=== PATIENT | female | born 1960 | race Caucasian/White ===

== ENCOUNTER 2019-09-12 13:41 | Outpatient (CLI) | payer MEDICARE, MEDICAID, SELFPAY ==
--- NOTE | ~2019-09-12 | CT_ITS ---
EXAMINATION: CT soft tissue neck wo con DATE: 09/12/2019 14:22 INDICATION: Right neck mass. TECHNIQUE: Computed tomography (CT) of the neck was performed without intravenous contrast. Automated exposure control and iterative reconstruction technique were employed. The dose-length product was 4 82.37 mGy-cm. COMPARISON: None FINDINGS: The lungs demonstrate mosaic attenuation, likely small airways disease. There is a 2.5 x 2. 1 cm mass in the superficial right parotid gland. There is a 1.4 x 1.1 cm mass in the superficial lef t parotid gland. There are no pathologically enlarged lymph nodes. There is a multinodular goiter heather t extends into the superior mediastinum. There is severe cervical spondylosis. IMPRESSION: 1. Bilateral parotid masses, right larger than left. The differential diagnosis includes benign mixed tumor, Warthin tumor, and less likely beatrice metastatic disease or primary malignancy. Ultrasound-jose angel ded fine-needle aspiration is recommended. Reviewed, dictated and finalized at location A. IMPRESSION: 1. Bilateral parotid masses, right larger than left. The differential diagnosis includes benign mixed tumor, Warthin tumor, and less likely beatrice metastatic d isease or primary malignancy. Ultrasound-guided fine-needle aspiration is recom mended.
== END 2019-09-12 13:42 | disposition home or self-care (01) ==
LOC: ANHIMG 13:43
PROVIDERS: PCP Family Medicine; Visit Provider Otolaryngology
DX: K11.8 Other diseases of salivary glands (principal)
CPT/HCPCS: 70490

== ENCOUNTER 2019-09-27 04:24 | Outpatient (CLI) | payer MEDICARE, MEDICAID, SELFPAY ==
[2019-09-27 18:08] LABS: SARS-CoV-2 RNA PCR Negative
== END 2019-09-27 04:25 | disposition home or self-care (01) ==
LOC: ANHCOVIDDT 04:24
PROVIDERS: PCP Family Medicine; Visit Provider Otolaryngology
DX: Z01.812 Encounter for preprocedural laboratory examination (principal); Z11.59 Encounter for screening for other viral diseases
CPT/HCPCS: 87635; C9803; U0003

== ENCOUNTER 2019-09-27 08:53 | Outpatient (CLI) | payer MEDICARE, MEDICAID, SELFPAY ==
--- NOTE | 2019-09-27 09:21 | ECG_ITS ---
Measurements Intervals [place] Rate: 53 P: 35 NE: 198 QRS: 20 QRSD: 89 T: 46 QT: 432 QTc: 406 Interpretive Statements SINUS BRADYCARDIA LOW QRS VOLTAGE IN PRECORDIAL LEADS BORDERLINE ECG Electronically Signed On 09-27-2019 13:14:24 CDT by Ron Berman D.O.
[2019-09-27 09:26] LABS: Blood Urea Nitrogen 14 mg/dL (7-17); Calcium 9.1 mg/dL (8.4-10.2); Carbon Dioxide 27 mmol/L (22-30); Chloride 105 mmol/L (98-107); Estimated Glomerular Filt Rate > 60; Glucose 158 mg/dL (65-105); Potassium 4.1 mmol/L (3.4-5.0); Sodium 139 mmol/L (137-145)
== END 2019-09-27 08:54 | disposition home or self-care (01) ==
PROVIDERS: PCP Family Medicine; Visit Provider Anesthesiology
DX: E11.9 Type 2 diabetes mellitus without complications (principal); I10 Essential (primary) hypertension; R94.31 Abnormal electrocardiogram [ECG] [EKG]
CPT/HCPCS: 36415; 80048; 87635; 93005; C9803; U0003

== ENCOUNTER 2019-09-30 01:03 | Day surgery (SDC) | payer MEDICARE, MEDICAID, SELFPAY ==
[2019-09-22 13:38] VITALS: BMI 47.5
--- NOTE | 2019-09-23 06:31 | PM.HPGS ---
History of Present Illness History of Present Illness Consent: Risks, benefits, and alternatives have been discussed and questions answered. Patient agrees to proceed with procedure. Chief complaint: right parotid mass Narrative: Sena Yo is a 59 year old female with a right parotid mass she comes in for excision of the parotid mass with facial nerve dissection Review of Systems Review of Systems: All systems reviewed & are unremarkable except as noted in HPI and below PMFSH Social History Social History Smoking packs per day: 0.5 Smoking cigarettes per day: 10.0 Smoking status: Current every day smoker Tobacco type: cigarettes Alcohol intake: never Substance use: never Meds Home Medications and Allergies Home Medications Medication Instructions Recorded Confirmed Type glipizide 5 mg tablet 10 mg PO DAILY tablet 06/12/19 09/22/19 History lisinopril 10 1 tablet PO DAILY 06/12/19 09/22/19 History mg-hydrochlorothiazide 12.5 mg tablet metformin 500 mg tablet 500 mg PO DAILY 06/12/19 09/22/19 History metoprolol tartrate 25 mg tablet 25 mg PO BID tablet 06/12/19 09/22/19 History rosuvastatin 5 mg tablet 5 mg PO DAILY 06/12/19 09/22/19 History venlafaxine 37.5 mg tablet 37.5 mg PO DAILY 06/12/19 09/22/19 History Allergies Allergy/AdvReac Type Severity Reaction Status Date / Time bacitracin AdvReac Unknown Hives / Verified 09/22/19 13:39 Red Face neomycin AdvReac Unknown Hives / Verified 09/22/19 13:39 Red Face polymyxin B AdvReac Unknown Hives / Verified 09/22/19 13:39 Red Face Assessment and Plan Additional Plan Plan is a right parotidectomy removal of the mass and facial nerve dissection she has when all the risks and pros and cons of the procedure
--- NOTE | 2019-09-29 12:58 | WPDANESEPPF ---
Anes - Initial Pre Proc Eval Procedure: Operation Date: 09/30/19 10:15 Proposed Procedures p Right Parotidectomy with Facial Nerve Dissection - Jacobo Leyva MD Date/Time: 09/29/19 12:58 Surgeon: Jacobo Leyva MD Pre Op Diagnosis: right parotid mass Patient Data Age: 59 Gender: F Height: 1.75 m Weight: 146.06 kg Allergies Allergy/AdvReac Type Severity Reaction Status Date / Time bacitracin Allergy Unknown Hives / Verified 09/30/19 07:58 Red Face neomycin Allergy Unknown Hives / Verified 09/30/19 07:58 Red Face polymyxin B Allergy Unknown Hives / Verified 09/30/19 07:58 Red Face Home Medications Medication Instructions Recorded Confirmed Type glipizide 5 mg tablet 10 mg PO DAILY tablet 06/12/19 09/22/19 History lisinopril 10 1 tablet PO DAILY 06/12/19 09/22/19 History mg-hydrochlorothiazide 12.5 mg tablet metformin 500 mg tablet 500 mg PO DAILY 06/12/19 09/22/19 History metoprolol tartrate 25 mg tablet 25 mg PO BID tablet 06/12/19 09/22/19 History rosuvastatin 5 mg tablet 5 mg PO DAILY 06/12/19 09/22/19 History venlafaxine 37.5 mg tablet 37.5 mg PO DAILY 06/12/19 09/22/19 History Patient hx anesthesia problems: none Family hx anesthesia problems: none PMFSH Past Medical History Medical History (Updated 09/29/19 @ 12:59 by Cal Kulkarni MD) Asthma Cancer UTERINE CA, s/p Hysterectomy Hyperlipidemia Hypertension Mass of right parotid gland Migraine Morbid obesity with BMI of 45.0-49.9, adult Type 2 diabetes mellitus Surgical History Surgical History H/O knee surgery H/O shoulder surgery H/O total hysterectomy History of cancer surgery Uterine Social History Social History Smoking packs per day: 0.5 Smoking cigarettes per day: 10.0 Smoking status: Current every day smoker Tobacco type: cigarettes Alcohol intake: never Substance use: never Anes - Eval Final PreProcedure Day of Procedure 09/29/19 12:58 Patient weight: morbidly obese Heart: regular rate and rhythm Lungs: clear to auscultation and normal air movement Airway: Mallampati scale class II Neurological: alert and oriented Last oral intake: >/= 8 hours ASA classification: III Emergent: no Anesthetic plan: proceed Anesthesia type and monitoring: general ETT Informed Consent: The patient's anesthetic plan and its attendant risks and benefits were discussed with the patient/family/POA. Questions were solicited and answers provided to the satisfaction of the patient/family/POA.
[2019-09-30] VITALS (15 sets, daily range): BP systolic 90–149; BP diastolic 51–82; PULSE 59–79; RESP 12–20; TEMP 36.2–36.4; O2SAT 91–96
--- NOTE | 2019-09-30 06:09 | WPDHPUPDATE1 ---
History and Physical Update Update Date/Time: 09/30/19 06:09 History and Physical has been reviewed, including an updated exam of the patient. There are NO changes in the patient's condition. Risks, benefits, and alternatives have been discussed and questions answered. Patient agrees to proceed with procedure.
[2019-09-30] MEDS: LACTATED RINGERS 1,000 ML 30 ML IV CONT (08:35)
[2019-09-30 09:41] LABS: Glucose Point of Care 124 (65-105)
[2019-09-30] MEDS: ceFAZolin 3 GM/D5W 100 ML 100 ML IVPB (10:31)
[2019-09-30] MEDS: LIDO 1%/EPINEPHRINE 1:100,000 20 ML VIAL INFILTRATE (11:01)
--- NOTE | 2019-09-30 11:21 | PM.PROC ---
Procedure Note - Detailed Date of procedure: 09/30/19 Pre-op diagnosis: right parotid mass Surgeon: Jacobo Leyva MD patient was prepped and drilling general anesthesia an incision was made underneath the angle of the mandible after injecting with xylocaine with adrenaline dissection carried down through the fascia large mass was in the tail of the parotid removed by sharp dissection with the LigaSure hemostasis was obtained with bipolar electrocautery and closed in layers with chromic a Jenny drain placed inhibitor and placed in and Monocryl suture
--- NOTE | 2019-09-30 11:59 | SUR.PHASEI ---
PT ABLE TO SMILE SYMMETRICAL. TONGUE MIDLINE, SPEECH CLEAR. DENIES PAIN AT THIS TIME.
[2019-09-30 12:06] LABS: Glucose Point of Care 133 (65-105)
--- NOTE | 2019-09-30 12:26 | SUR.PHASEI ---
SAO2 DROPS TO 87%. HOB ELEVATED TO UPRIGHT POSITION. PT ABLE TO TAKE SLOW DEEP BREATHS. O2 2L NC APPLIED
[2019-09-30] MEDS: IBUPROFEN 400 MG TABLET 800 MG PO (15:06)
--- NOTE | 2019-09-30 15:13 | SUR.PHASEII ---
Dr. Leyva notified about no ointment going home with patient d/t allergies. He was ok with her going home sating at 90-92% RA.
== END 2019-09-30 16:01 | disposition home or self-care (01) ==
PROVIDERS: PCP Family Medicine; Visit Provider Otolaryngology
PROC: (CPT 42410; principal; 2019-09-30 10:15)
DX: D11.0 Benign neoplasm of parotid gland (principal); I10 Essential (primary) hypertension; E78.5 Hyperlipidemia, unspecified; E11.9 Type 2 diabetes mellitus without complications; J45.909 Unspecified asthma, uncomplicated; Z85.42 Personal history of malignant neoplasm of other parts of uterus; Z79.84 Long term (current) use of oral hypoglycemic drugs; F17.210 Nicotine dependence, cigarettes, uncomplicated; E66.01 Morbid (severe) obesity due to excess calories; Z68.42 Body mass index [BMI] 45.0-49.9, adult
CPT/HCPCS: 42410; 88305; 88307; A9270; J0131; J0330; J0690; J2250; J2405; J2704; J3010; J7120

== ENCOUNTER 2020-06-16 16:47 | Emergency (ER) | payer MEDICARE, MEDICAID, SELFPAY ==
[2020-06-16 17:14] LABS: Basophils Absolute Auto 0.05 K/mm3 (0.00-0.10); Basophils Percent Auto 0.5 % (0.0-1.0); Eosinophils Absolute Auto 0.22 K/mm3 (0.02-0.50); Eosinophils Percent Auto 2.3 % (1.0-6.0); Immature Granulocyte Absolute 0.03 K/mm3 (0.00-0.00); Immature Granulocyte Percent A 0.3 % (0.0-0.0); Lymphocytes Absolute Auto 3.54 K/mm3 (1.10-4.50); Lymphocytes Percent Auto 37.3 % (18.0-42.0); Mean Corpuscular HGB Conc 33.3 g/dL (32.0-36.0); Mean Corpuscular Volume 86.9 fL (78.0-102.0); Mean Platelet Volume 9.6 fl (9.2-11.8); Monocytes Absolute Auto 0.52 K/mm3 (0.10-0.90); Monocytes Percent Auto 5.5 % (2.0-11.0); Neutrophils Absolute Auto 5.1 K/mm3 (1.7-7.2); Neutrophils Percent Auto 54.1 % (50.0-70.0); Platelet Count Result 210 K/mm3 (150-420); Red Blood Count 5.18 M/mm3 (4.20-5.40); Red Cell Distribution Width 13.4 % (11.6-14.4); White Blood Count 9.5 K/mm3 (4.8-10.8)
[2020-06-16 17:15] LABS: Add Urine Microscopic? YES; Appearance Urine Clear (Clear); Bilirubin Urine Negative (Negative); Blood Urine Negative (Negative); Color Urine Yellow (Yellow); Glucose Urine UA Trace (Negative); Ketones Urine Negative (Negative); Leukocyte Esterase Ur Negative (Negative); Nitrate Urine Negative (Negative); Protein Urine Negative (Negative); Specific Grav Ur >= 1.030 (1.010-1.020); pH Urine 5.5 (5.0-8.0)
[2020-06-16 17:19] LABS: Bacteria Urine Trace /hpf; RBC Urine None seen /hpf (0-2); Squamous Epithelial Cell Urine Moderate /hpf (Few); WBC Urine None seen /hpf (0-3)
[2020-06-16] MEDS: ONDANSETRON HCL ODT 4 MG TABLET PO (17:20)
[2020-06-16] MEDS: KETOROLAC (*BKC) 60 MG/2 ML VIAL IM (17:21)
[2020-06-16 17:25] VITALS: BP 142/59; PULSE 64; RESP 20; TEMP 36.3; O2SAT 96
[2020-06-16 17:34] LABS: Lactic Acid Reflex 2.1 mmol/L (0.4-2.0)
[2020-06-16 17:41] LABS: Alanine Aminotransferase 15 U/L (14-59); Albumin Level 3.3 g/dL (3.4-5.0); Alkaline Phosphatase 82 U/L (46-116); Anion Gap 8 mmol/L (8-16); Aspartate Amino Transferase 10 U/L (15-37); Bilirubin,Total 0.3 mg/dL (0.00-1.00); Blood Urea Nitrogen 14 mg/dL (7-18); Calcium 8.3 mg/dL (8.5-10.1); Carbon Dioxide 29 mmol/L (21-32); Chloride 103 mmol/L (98-108); Estimated Glomerular Filt Rate 54; Glucose 197 mg/dL (70-99); Lipase 139 U/L (73-393); Osmolality Calculated 295 mOsm/kg (285-295); Potassium 3.6 mmol/L (3.5-5.1); Sodium 140 mmol/L (136-145); Total Protein 6.7 g/dL (6.4-8.2)
--- NOTE | 2020-06-16 18:18 | ED.BACK ---
HPI - Back Pain/Injury General Chief Complaint: Back Pain/Injury Stated Complaint: left side pain Time Seen by Provider: 06/16/20 17:35 Source: patient Mode of arrival: ambulatory Limitations: no limitations History of Present Illness HPI Narrative: Patient comes in after having low back pain and left sacroiliac pain for the last 3-4 days. She has continued to have soreness, most severe in the sacroiliac joint. She comes in because this has not improved. Pain is moderately severe to severe, sharp, and it has been ongoing, not relieved by measures taken at home, ongoing for the last 4 days. Pain was more severe when she lifted her granddaughter. MD elicited complaint: back pain and back injury Onset (ago): day(s) Timing: constant Severity: moderate Quality: sharp Location: lumbar spine (sacroiliac ) Radiation: none Exacerbating factors: movement and lifting Relieving factors: other (rest) Context: while lifting Related Data Home Medications Medication Instructions Recorded Confirmed glipizide 5 mg tablet 10 mg PO DAILY tablet 06/12/19 06/16/20 lisinopril 10 1 tablet PO DAILY 06/12/19 06/16/20 mg-hydrochlorothiazide 12.5 mg tablet metformin 500 mg tablet 500 mg PO DAILY 06/12/19 06/16/20 metoprolol tartrate 25 mg tablet 25 mg PO BID tablet 06/12/19 06/16/20 rosuvastatin 5 mg tablet 5 mg PO DAILY 06/12/19 06/16/20 venlafaxine 37.5 mg tablet 37.5 mg PO DAILY 06/12/19 06/16/20 Allergies Allergy/AdvReac Type Severity Reaction Status Date / Time bacitracin Allergy Unknown Hives / Verified 09/30/19 09:21 Red Face neomycin Allergy Unknown Hives / Verified 09/30/19 09:21 Red Face polymyxin B Allergy Unknown Hives / Verified 09/30/19 09:21 Red Face Review of Systems Constitutional: Constitutional: Reports no additional constitutional complaints Eyes: Eyes: Reports no additional eye complaints ENT: Reports system reviewed and no additional complaints, except as documented Cardiovascular: Cardiovascular: Reports no additional cardiovascular complaints Respiratory: Respiratory: Reports no additional respiratory complaints Gastrointestinal: Gastrointestinal: Reports no additional gastrointestinal complaints Genitourinary: Genitourinary: Reports no additional female genitourinary complaints Musculoskeletal: Musculoskeletal: Reports no additional musculoskeletal complaints Integumentary/Breasts: Skin/Breast: Reports system reviewed and no additional complaints, except as docu Neurologic: Reports system reviewed and no additional complaints, except as documented Endocrine: Endocrine: Reports no additional endocrine complaints Hematologic/Lymphatic: Hematologic/Lymphatic: Reports no additional hematologic/lymphatic complaints Allergic/Immunologic: Allergic/Immunologic: Reports no additional allergic/immunologic complaints PMFSH Past Medical History Medical History Asthma Cancer UTERINE CA, s/p Hysterectomy Hyperlipidemia Hypertension Mass of right parotid gland Migraine Morbid obesity with BMI of 45.0-49.9, adult Type 2 diabetes mellitus Surgical History Surgical History H/O knee surgery H/O shoulder surgery H/O total hysterectomy History of cancer surgery Uterine Family History Family History Grandparent Acute myocardial infarction Cancer Social History Social History Smoking packs per day: 0.5 Smoking cigarettes per day: 10.0 Smoking status: Current every day smoker Tobacco type: cigarettes Alcohol intake: never Substance use: never Gender identity (if verbalized by the patient): Female Exam Const: General: no acute distress Orientation/consciousness: patient oriented x3 HENMT: Head: normal to inspection Face and sinus: normal facial exam Mouth: Y
[2020-06-16 18:30] VITALS: BP 132/59; PULSE 64; RESP 20; TEMP 36.7; O2SAT 96
[2020-06-16 20:11] LABS: Reflex Lactic Acid Yes or No Add Lactic
== END 2020-06-16 18:40 | disposition home or self-care (01) ==
PROVIDERS: Emergency Provider Emergency Medicine; PCP Family Medicine
DX: M54.40 Lumbago with sciatica, unspecified side (principal)
CPT/HCPCS: 36415; 80053; 81001; 83605; 83690; 85025; 96372; 99283; A9270; J1885

== ENCOUNTER 2023-02-19 19:19 | Emergency (ER) | payer OTHER, SELFPAY ==
--- NOTE | ~2023-02-19 | XR_ITS ---
EXAMINATION: XR chest 2V DATE: 02/19/2023 21:17 INDICATION: Shortness of breath TECHNIQUE: PA and lateral views of the chest are obtained. COMPARISON: 11/24/2017 FINDINGS: The lungs are free of acute opacities. No pleural effusion or pneumothorax. The cardiomedia stinal silhouette is normal. There is moderate thoracic spondylosis. There are orthopedic screws in t he left scapula. IMPRESSION: 1. No acute cardiopulmonary abnormality. Reviewed, dictated and finalized at location F. ON REDEMPTION CLERK
--- NOTE | ~2023-02-19 | CT_ITS ---
EXAMINATION: CT soft tissue neck w con DATE: 02/19/2023 21:18 INDICATION: Left-sided neck pain and swelling TECHNIQUE: Computed tomography (CT) of the neck was performed with 75 cc of Omnipaque 350 intravenous contrast. The dose-length product (DLP) was 515.22 mGy-cm. Automated exposure control and iterative reconstruction technique were employed. COMPARISON: 09/12/2019 FINDINGS: There is multinodular goiter of the thyroid extending into the superior mediastinum. There is a 1.6 x 1.0 cm left parotid mass without significant change since the comparison examination. The previously described right parotid mass has been resected. The submandibular glands are symmetric. Th ere is no lymphadenopathy. The vasculature is patent. The airway is unremarkable. There are no osseou s abnormalities. The orbits are unremarkable. Visualized sinuses and mastoid air cells are well aerat ed. There is severe cervical spondylosis. IMPRESSION: 1. Chronic left parotid mass without significant change with differential as previously described inc luding benign mixed tumor, worsening tumor, or less likely metastatic disease or primary malignancy. No new left neck mass identified. 2. Chronic multinodular goiter of the thyroid extending into the superior mediastinum. Reviewed, dictated and finalized at location F. E STRETCHER AND TESTER IMPRESSION: 1. Chronic left parotid mass without significant change with differential as pr eviously described including benign mixed tumor, worsening tumor, or less likel y metastatic disease or primary malignancy. No new left neck mass identified. 2. Chronic multinodular goiter of the thyroid extending into the superior media stinum.
--- NOTE | ~2023-02-19 | CT_ITS ---
EXAMINATION: CT abdomen pelvis w con INDICATION: Generalized abdominal pain TECHNIQUE: Computed tomographic images of the abdomen and pelvis were obtained after the administrati on of 100 cc of Omnipaque 350 intravenous contrast. The dose-length product (DLP) was 1535.40 mGy-cm. Automated exposure control and iterative reconstruction technique were employed. COMPARISON: 11/16/2017 FINDINGS: The lung bases are clear. The heart size is normal. The liver, spleen, pancreas, gallbladde r, and adrenal glands are normal. The kidneys are unremarkable. No pathologically enlarged abdominal or pelvic lymph nodes are identified. No free intraperitoneal gas or evidence of bowel obstruction. C olonic diverticulosis is present without evidence of diverticulitis. The appendix is normal. IMPRESSION: 1. No CT correlate for the patient's symptoms. Reviewed, dictated and finalized at location F. MACHINE OPERATOR
[2023-02-19 19:25] VITALS: BP 147/85; PULSE 76; RESP 14; TEMP 36.7; O2SAT 98
--- NOTE | 2023-02-19 19:26 | ED.ABDPAIN ---
HPI - Abdominal Pain General Chief Complaint: Abdominal Pain Stated Complaint: Unspecified Time Seen by Provider: 02/19/23 19:22 Source: patient Mode of arrival: EMS History of Present Illness HPI narrative: 62 years old white female came from home by ambulance with abdominal pain and pain and swelling left side of neck started 1 week ago. Patient denies any fever, chills, nausea, vomiting. Patient reports unable to eat lately without specific reason. Patient denies any poor appetite, reports possible left neck pain while eating. History of diabetes, hypertension, hyperlipidemia, hypothyroidism, stroke, seizure, hysterectomy, tobacco dependence, marijuana for pain management Related Data Home Medications Medication Instructions Recorded Confirmed glipizide 5 mg tablet 10 mg PO DAILY 06/12/19 02/19/23 metformin 500 mg tablet 1,000 mg PO DAILY 06/12/19 02/19/23 metoprolol tartrate 25 mg tablet 25 mg PO BID 06/12/19 02/19/23 rosuvastatin 5 mg tablet (Crestor) 20 mg PO DAILY 06/12/19 02/19/23 venlafaxine 37.5 mg tablet 75 mg PO DAILY 06/12/19 02/19/23 Lubricant Eye Drops 1 drp EACH EYE PRN PRN as needed 02/19/23 02/19/23 albuterol sulfate 90 mcg/actuation 1 puff inhalation QID PRN SOB 02/19/23 02/19/23 aerosol inhaler lisinopril 20 1 tablet PO DAILY 02/19/23 02/19/23 mg-hydrochlorothiazide 12.5 mg tablet zonisamide 100 mg capsule 200 mg PO HS 02/19/23 02/19/23 Allergies Allergy/AdvReac Type Severity Reaction Status Date / Time bacitracin Allergy Unknown Hives / Verified 02/19/23 20:29 Red Face neomycin Allergy Unknown Hives / Verified 02/19/23 20:29 Red Face polymyxin B Allergy Unknown Hives / Verified 02/19/23 20:29 Red Face morphine AdvReac Itching Verified 02/19/23 20:29 Review of Systems Review of Systems: All systems reviewed & are unremarkable except as noted in HPI and below PMFSH Past Medical History Medical History (Updated 02/19/23 @ 22:38 by Ese Maza MD) Asthma Cancer UTERINE CA, s/p Hysterectomy Hyperlipidemia Hypertension Mass of right parotid gland Migraine Morbid obesity with BMI of 45.0-49.9, adult Type 2 diabetes mellitus Surgical History Surgical History H/O knee surgery H/O shoulder surgery H/O total hysterectomy History of cancer surgery Uterine Family History Family History Grandparent Acute myocardial infarction Cancer Social History Social History Smoking packs per day: 0.5 Smoking cigarettes per day: 10.0 Smoking status: Current every day smoker Tobacco type: cigarettes Alcohol intake: never Substance use: never Gender identity (if verbalized by the patient): Female Exam Narrative: General appearance: Well-developed, well-nourished Skin: Normal color Head: Normocephalic, nontraumatic Eyes: Clear conjunctiva ENT: Oropharynx normal, ears normal, nose normal Neck: Supple, mild tenderness left neck, no swelling, no rash, no bruises Chest and respiratory: Airway patent, no respiratory distress, no accessory muscle use Heart: Regular rate/rhythm Abdomen: Soft, diffuse abdominal tenderness many right side, no organomegaly, quiet bowel sounds Vascular: Normal peripheral pulses, normal capillary refill. Musculoskeletal: Normal range of motion, nontender back Neurologic: Alert and oriented ?3, [employer] is normal as tested, no gross motor deficit Course Vital Signs Vital signs: Vital Signs Temperature 36.7 C 02/19/23 19:25 Pulse Rate 76 02/19/23 19:25 Respiratory Rate 14 02/01
[2023-02-19 19:56] LABS: Basophils Absolute Auto 0.03 K/mm3 (0.00-0.10); Basophils Percent Auto 0.4 % (0.0-1.0); Eosinophils Absolute Auto 0.34 K/mm3 (0.02-0.50); Hematocrit 42.5 % (35.0-49.0); Hemoglobin 13.9 g/dL (12.0-15.0); Immature Granulocyte Absolute 0.02 K/mm3 (0.00-0.00); Immature Granulocyte Percent A 0.2 % (0.0-0.0); Lymphocytes Absolute Auto 3.35 K/mm3 (1.10-4.50); Lymphocytes Percent Auto 39.8 % (18.0-42.0); Mean Corpuscular HGB Conc 32.7 g/dL (32.0-36.0); Mean Corpuscular Volume 88.5 fL (78.0-102.0); Mean Platelet Volume 9.6 fl (9.2-11.8); Monocytes Absolute Auto 0.51 K/mm3 (0.10-0.90); Monocytes Percent Auto 6.1 % (2.0-11.0); Neutrophils Absolute Auto 4.2 K/mm3 (1.7-7.2); Neutrophils Percent Auto 49.5 % (50.0-70.0); Platelet Count Result 227 K/mm3 (150-420); Red Cell Distribution Width 13.6 % (11.6-14.4); White Blood Count 8.4 K/mm3 (4.8-10.8)
[2023-02-19] MEDS: SODIUM CHLORIDE 0.9% IV 1,000 ML 999 ML IV CONT (20:10)
[2023-02-19] MEDS: ONDANSETRON INJ 4 MG/2 ML VIAL IV PUSH (20:10)
[2023-02-19 20:11] LABS: Alanine Aminotransferase 20 U/L (14-59); Albumin Level 3.2 g/dL (3.4-5.0); Alkaline Phosphatase 80 U/L (46-116); Anion Gap 10 mmol/L (8-16); Aspartate Amino Transferase 13 U/L (15-37); Bilirubin,Total 0.3 mg/dL (0.00-1.00); Blood Urea Nitrogen 19 mg/dL (7-18); Calcium 8.4 mg/dL (8.5-10.1); Carbon Dioxide 29 mmol/L (21-32); Chloride 102 mmol/L (98-108); Estimated CRCL calculation 57 ml/min; Estimated Glomerular Filt Rate 39; Glucose 161 mg/dL (70-99); Lipase 45 U/L (16-77); Osmolality Calculated 297 mOsm/kg (285-295); Sodium 141 mmol/L (136-145); Total Protein 6.8 g/dL (6.4-8.2)
[2023-02-19] MEDS: HYDROmorphone HCL INJ (*CRX) 2 MG/ML VIAL 0.5 MG IV PUSH (20:12)
[2023-02-19 20:36] VITALS: BP 120/102; PULSE 70; RESP 16; O2SAT 96
--- NOTE | 2023-02-19 21:20 | PC.NURSE ---
technical assistant at bedside with BSC for patient specimen.
[2023-02-19 22:10] VITALS: PULSE 62; RESP 18; TEMP 36.7; O2SAT 96
[2023-02-19 22:19] VITALS: BP 139/66
[2023-02-19 22:38] LABS: Appearance Urine Clear (Clear); Bilirubin Urine Negative (Negative); Blood Urine Negative (Negative); Color Urine Yellow (Yellow); Glucose Urine UA Negative (Negative); Ketones Urine Negative (Negative); Leukocyte Esterase Ur Negative LEU/UL (Negative); Nitrate Urine Negative (Negative); Protein Urine Trace (Negative); Urobilinogen Urine 0.2 mg/dL (0.2-1.0); pH Urine 5.5 (5.0-8.0)
[2023-02-19 22:43] LABS: Add Urine Microscopic? YES; Bacteria Urine 2+ /hpf; Squamous Epithelial Cell Urine Moderate /hpf (Few)
--- NOTE | 2023-02-19 22:51 | PCCCNOTE ---
URINE IN SPECIMEN CUP STILL WARM @ 2234 WHEN CALL WAS MADE BY RN TO LAB SAYING THAT'S ALL DOC IS WAITING ON
[2023-02-19] MEDS: POTASSIUM CHLORIDE 20 MEQ ER TABLET 40 MEQ PO (23:18)
== END 2023-02-19 23:26 | disposition home or self-care (01) ==
PROVIDERS: Emergency Provider Emergency Medicine; PCP Nurse Practitioner Family
DX: R22.1 Localized swelling, mass and lump, neck (principal); E04.2 Nontoxic multinodular goiter; E87.6 Hypokalemia; R10.84 Generalized abdominal pain; E11.9 Type 2 diabetes mellitus without complications; I10 Essential (primary) hypertension; E78.5 Hyperlipidemia, unspecified; E03.9 Hypothyroidism, unspecified; F17.210 Nicotine dependence, cigarettes, uncomplicated; Z86.73 Personal history of transient ischemic attack (TIA), and cerebral infarction without residual deficits; Z79.899 Other long term (current) drug therapy; Z79.84 Long term (current) use of oral hypoglycemic drugs; Z85.42 Personal history of malignant neoplasm of other parts of uterus
CPT/HCPCS: 36415; 70491; 71046; 74177; 80053; 81001; 83605; 83690; 85025; 96361; 96374; 96375; 99284; A9270; J1170; J2405; J7030; Q9967

== ENCOUNTER 2023-02-26 10:47 | Emergency (ER) | payer OTHER, SELFPAY ==
--- NOTE | ~2023-02-26 | XR_ITS ---
XR knee RT 3V, XR knee LT 3V 02/26/2023 11:19 Indication: Bilateral knee pain Procedure: 3 views each knee Comparison: No prior studies for comparison. Findings: There is severe bilateral osteoarthritis of the knees. There is a fracture of the superior osteophyte of the left patella. There is chondrocalcinosis. There are loose bodies bilaterally adjace nt to the joint space. No significant joint effusion. Impression: 1: Minimally displaced fracture superior osteophyte of the left patella. 2: Severe tricompartment osteoarthritis of both knees. Reviewed, dictated and finalized at location B. NG CAR HOP Impression: 1: Minimally displaced fracture superior osteophyte of the left patella. 2: Severe tricompartment osteoarthritis of both knees. Impression: 1: Minimally displaced fracture superior osteophyte of the left patella. 2: Severe tricompartment osteoarthritis of both knees.
--- NOTE | ~2023-02-26 | CT_ITS ---
EXAMINATION: CT cervical spine wo con DATE: 02/26/2023 11:19 INDICATION: Neck pain. TECHNIQUE: Computed tomography (CT) of the cervical spine was performed without intravenous contrast. Automated exposure control and iterative reconstruction technique were employed. The dose-length pro duct was 457.95 mGy-cm. COMPARISON: Neck CT 02/19/2023, 09/12/2019 FINDINGS: There is a 1.7 x 1.2 cm mass in left parotid gland that measured 1.3 x 1.1 cm on 09/12/2019. There is a multinodular goiter that extends into the superior mediastinum. There is 11 degrees dextr oscoliosis of cervicothoracic spine. There is mild kyphosis of upper cervical spine. Vertebral body h eights are normal. There is mildly decreased disc height at C3-C4, moderately decreased disc height a t C4-C5, severely decreased disc height at C5-C6, and mildly decreased disc height at C6-C7. The foll owing disc levels are specifically discussed: C2-C3: There is no uncovertebral joint osteoarthritis. There is mild bilateral facet joint osteoarthr itis. There is no neural foraminal stenosis. There is no central canal stenosis. C3-C4: There is mild bilateral uncovertebral joint osteoarthritis. There is moderate and severe left facet joint osteoarthritis. There is mild left neural foraminal stenosis. There is mild central canal stenosis. C4-C5: There is mild bilateral uncovertebral joint osteoarthritis. There is severe bilateral facet melanie int osteoarthritis. There is mild bilateral neural foraminal stenosis. There is mild central canal st enosis. C5-C6: There is severe bilateral uncovertebral joint osteoarthritis. There is severe bilateral facet joint osteoarthritis. There is mild bilateral neural foraminal stenosis. There is mild central canal stenosis. C6-C7: There is mild bilateral uncovertebral joint osteoarthritis. There is mild right and severe lef t facet joint osteoarthritis. There is mild left neural foraminal stenosis. There is mild central can al stenosis. C7-T1: There is no uncovertebral joint osteoarthritis. There is severe bilateral facet joint osteoart hritis. There is mild bilateral neural foraminal stenosis. There is no central canal stenosis. IMPRESSION: 1. Severe cervical spondylosis. 2. Cervicothoracic dextroscoliosis. 3. 1.7 x 1.2 cm left parotid mass that measured 1.3 x 1.1 cm on 09/12/2019. The differential diagnosis includes benign mixed tumor and Warthin tumor. 4. Multinodular goiter. Reviewed, dictated and finalized at location A. URSEMENT CLERK
[2023-02-26 10:48] VITALS: BP 144/102; PULSE 66; RESP 18; TEMP 35.9; O2SAT 99
--- NOTE | 2023-02-26 10:59 | ED.FALL ---
HPI - Fall General Chief Complaint: Fall Stated Complaint: weakness Time Seen by Provider: 02/26/23 10:52 History of Present Illness HPI Narrative: This is a 62-year-old female, with history of hypertension, diabetes, brought in by EMS from her primary care doctor's office after a ground level fall. The patient states a postop boot on the right foot slipped on the floor. She fell to both knees. She denies head injury or loss of consciousness. she complains of 9/10 bilateral dull knee pain. She also complains of mild neck pain. EMS reports the patient's vital signs are within normal limits. A blood glucose drawn at the patient's doctor's office was 213. Related Data Home Medications Medication Instructions Recorded Confirmed glipizide 5 mg tablet 10 mg PO DAILY 06/12/19 02/19/23 metformin 500 mg tablet 1,000 mg PO DAILY 06/12/19 02/19/23 metoprolol tartrate 25 mg tablet 25 mg PO BID 06/12/19 02/19/23 rosuvastatin 5 mg tablet (Crestor) 20 mg PO DAILY 06/12/19 02/19/23 venlafaxine 37.5 mg tablet 75 mg PO DAILY 06/12/19 02/19/23 Lubricant Eye Drops 1 drp EACH EYE PRN PRN as needed 02/19/23 02/19/23 albuterol sulfate 90 mcg/actuation 1 puff inhalation QID PRN SOB 02/19/23 02/19/23 aerosol inhaler lisinopril 20 1 tablet PO DAILY 02/19/23 02/19/23 mg-hydrochlorothiazide 12.5 mg tablet zonisamide 100 mg capsule 200 mg PO HS 02/19/23 02/19/23 Allergies Allergy/AdvReac Type Severity Reaction Status Date / Time bacitracin Allergy Unknown Hives / Verified 02/19/23 20:29 Red Face neomycin Allergy Unknown Hives / Verified 02/19/23 20:29 Red Face polymyxin B Allergy Unknown Hives / Verified 02/19/23 20:29 Red Face morphine AdvReac Itching Verified 02/19/23 20:29 Review of Systems Review of Systems: CONSTITUTIONAL: Denies fever, chills, or sweats. CARDIOVASCULAR: Denies chest pain, palpitations, or edema. RESPIRATORY: Denies cough or dyspnea. GASTROINTESTINAL: Denies abdominal pain, nausea, vomiting, or diarrhea. GENITOURINARY: Denies dysuria or hematuria. SKIN: Denies rash or itching. MUSCULOSKELETAL: Bilateral knee pain, neck pain Denies back pain, or myalgia. NEUROLOGIC: Denies headache, numbness, dizziness, or weakness. PSYCHIATRIC: Denies anxiety or depression. [facility] Past Medical History Medical History (Updated 02/26/23 @ 11:51 by Saul Cárdenas MD) Asthma Cancer UTERINE CA, s/p Hysterectomy Hyperlipidemia Hypertension Mass of right parotid gland Migraine Morbid obesity with BMI of 45.0-49.9, adult Type 2 diabetes mellitus Surgical History Surgical History H/O knee surgery H/O shoulder surgery H/O total hysterectomy History of cancer surgery Uterine Family History Family History Grandparent Acute myocardial infarction Cancer Social History Social History Smoking packs per day: 0.5 Smoking cigarettes per day: 10.0 Smoking status: Current every day smoker Tobacco type: cigarettes Alcohol intake: never Substance use: never Gender identity (if verbalized by the patient): Female Exam Narrative: GENERAL: Well-appearing, well-nourished, and in no acute distress. HEAD: Normocephalic, atraumatic. EYES: PERRLA and EOMI. NECK: Mild midline cervical spine tenderness at C5-C6, without step-off or crepitus. CHEST: Clear to auscultation. No respiratory distress. No wheezes rales or rhonchi HEART: Regular rate and rhythm. No murmur heard. Normal peripheral pulses. ABDOMEN: Soft, nontender, nondistended, normal active bowel sounds. BACK: No midline spine tenderness to palpation, no step-off or crepitus EXTREMITIES: Superficial abrasion noted over the anterior aspect of the left knee. Tender to palpation over the anterior aspects of bilateral knees. Normal range of motion of all extremities.
[2023-02-26] MEDS: ACETAMINOPHEN 500 MG TABLET 1000 MG PO (11:07)
[2023-02-26 11:57] VITALS: BP 145/67; PULSE 61; RESP 18; TEMP 36.3; O2SAT 97
--- NOTE | 2023-02-27 11:02 | PC.NURSE ---
RX FOR A WALKER WAS PROVIDED REQUESTED PER PT.
== END 2023-02-26 12:09 | disposition home or self-care (01) ==
PROVIDERS: Emergency Provider Preventive Medicine Aerospace Medicine
DX: S80.212A Abrasion, left knee, initial encounter (principal); S82.002A Unspecified fracture of left patella, initial encounter for closed fracture; I10 Essential (primary) hypertension; E11.9 Type 2 diabetes mellitus without complications; J45.909 Unspecified asthma, uncomplicated; E78.5 Hyperlipidemia, unspecified; F17.210 Nicotine dependence, cigarettes, uncomplicated; Z79.899 Other long term (current) drug therapy; Z85.42 Personal history of malignant neoplasm of other parts of uterus; W01.0XXA Fall on same level from slipping, tripping and stumbling without subsequent striking against object, initial encounter
CPT/HCPCS: 72125; 73562; 99284; L1830

== ENCOUNTER 2023-02-28 11:23 | Observation (INO) | payer OTHER, SELFPAY ==
[2023-02-28 11:29] VITALS: BP 154/71; PULSE 88; RESP 18; TEMP 36.6; O2SAT 97
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
--- NOTE | 2023-02-28 12:29 | ECG_ITS ---
Measurements Intervals [place] Rate: 71 P: 44 NM: 165 QRS: 22 QRSD: 90 T: 7 QT: 370 QTc: 402 Interpretive Statements SINUS RHYTHM EARLY PRECORDIAL R/S TRANSITION LOW QRS VOLTAGE IN PRECORDIAL LEADS VOLTAGE CRITERIA FOR LVH CONSIDER INFERIOR INFARCT, AGE INDETERMINATE BASELINE WANDER- II, III ABNORMAL ECG COMPARED TO ECG 09/27/2019 09:25:27 SINUS RHYTHM NOW PRESENT Electronically Signed On 02-28-2023 15:17:05 UPHOLSTERY PARTS SORTER by Ron Berman D.O.
[2023-02-28 12:47] LABS: Basophils Absolute Auto 0.03 K/mm3 (0.00-0.10); Basophils Percent Auto 0.3 % (0.0-1.0); Eosinophils Absolute Auto 0.12 K/mm3 (0.02-0.50); Eosinophils Percent Auto 1.3 % (1.0-6.0); Hemoglobin 13.5 g/dL (12.0-15.0); Immature Granulocyte Absolute 0.03 K/mm3 (0.00-0.00); Immature Granulocyte Percent A 0.3 % (0.0-0.0); Lymphocytes Absolute Auto 2.99 K/mm3 (1.10-4.50); Lymphocytes Percent Auto 31.8 % (18.0-42.0); Mean Corpuscular HGB Conc 32.1 g/dL (32.0-36.0); Mean Corpuscular Hemoglobin 28.7 pg (27.0-31.0); Mean Corpuscular Volume 89.4 fL (78.0-102.0); Mean Platelet Volume 9.9 fl (9.2-11.8); Monocytes Absolute Auto 0.76 K/mm3 (0.10-0.90); Monocytes Percent Auto 8.1 % (2.0-11.0); Neutrophils Absolute Auto 5.5 K/mm3 (1.7-7.2); Neutrophils Percent Auto 58.2 % (50.0-70.0); Platelet Count Result 223 K/mm3 (150-420); Red Cell Distribution Width 13.5 % (11.6-14.4); White Blood Count 9.4 K/mm3 (4.8-10.8)
[2023-02-28 13:02] LABS: INR 0.9; Prothrombin Time 10.3 Seconds (9.50-12.10)
[2023-02-28 13:14] LABS: Appearance Urine Clear (Clear); Bilirubin Urine Negative (Negative); Blood Urine Negative (Negative); Color Urine Light Yellow (Yellow); Glucose Urine UA 3+ (Negative); Ketones Urine Negative (Negative); Leukocyte Esterase Ur Negative LEU/UL (Negative); Nitrate Urine Negative (Negative); Protein Urine Negative (Negative); pH Urine 6.5 (5.0-8.0)
[2023-02-28 13:15] LABS: Alanine Aminotransferase 17 U/L (14-59); Albumin Level 3.6 g/dL (3.4-5.0); Alkaline Phosphatase 88 U/L (46-116); Anion Gap 6 mmol/L (8-16); Aspartate Amino Transferase < 10 U/L (15-37); Bilirubin,Total 0.4 mg/dL (0.00-1.00); Blood Urea Nitrogen 16 mg/dL (7-18); Calcium 8.8 mg/dL (8.5-10.1); Carbon Dioxide 31 mmol/L (21-32); Chloride 101 mmol/L (98-108); Estimated CRCL calculation 66 ml/min; Estimated Glomerular Filt Rate 48; Glucose 323 mg/dL (70-99); NT Pro B Type Natriuretic Pept 159 pg/mL (0-125); Osmolality Calculated 299 mOsm/kg (285-295); Potassium 4.3 mmol/L (3.5-5.1); Sodium 138 mmol/L (136-145); Total Protein 7.1 g/dL (6.4-8.2); Troponin I 6.2 ng/L (0.00-60.4)
[2023-02-28 13:18] LABS: Add Urine Microscopic? YES; Bacteria Urine Trace /hpf; RBC Urine None seen /hpf (0-2); Squamous Epithelial Cell Urine Few /hpf (Few); WBC Urine None seen /hpf (0-3)
[2023-02-28 14:00] VITALS: BP 151/74; PULSE 84; RESP 20; O2SAT 98
--- NOTE | 2023-02-28 14:35 | ADMGEN ---
This patient, Sena Yo, was admitted to 2nd Floor Room 204-2. Patient/family oriented to hospital policies and general routines including ID bracelet, bed and alarms, visiting hours, pain management, procedures, bathroom and other care routines, personal items, smoking policy, room service/diet, and visiting hours. Information on how to activate the Rapid Response Team has been discussed. Patient/Family are encouraged to report perceived risks to care and to ask questions if they do not understand what they are told or what they should do.
[2023-02-28] MEDS: ALBUTEROL SULFATE (*SP) INHALER 1 PUFF INHALATION (14:41)
[2023-02-28] MEDS: HYDROcodone/acetaminophen (*CRX) 5-325 MG TABLET 1 TAB PO ×2 (15:23→21:18)
[2023-02-28 16:00] VITALS: BP 179/79; PULSE 94; RESP 20; TEMP 36.3; O2SAT 98; BMI 45.6
[2023-02-28] MEDS: POTASSIUM CHLORIDE 20 MEQ ER TABLET PO (17:59)
[2023-02-28 21:17] LABS: Glucose Point of Care 196 mg/dl (65-105)
[2023-02-28] MEDS: ZONISAMIDE 100 MG CAPSULE 200 MG PO (21:17)
[2023-02-28 21:18] VITALS: PULSE 78
[2023-02-28] MEDS: METOPROLOL TARTRATE 25 MG TABLET PO (21:18)
[2023-02-28] MEDS: traZODone HCL 25 MG TABLET PO (21:20)
[2023-03-01] VITALS: BP 148/72; PULSE 90; RESP 20; TEMP 36.8; O2SAT 98
[2023-03-01 05:29] LABS: Hemoglobin A1C 6.8 % (<5.7)
--- NOTE | 2023-03-01 06:55 | PM.DS ---
DS: Admitting Diagnosis Discharge Date 03/01/2023 Admitting Diagnosis fall, Pain medication , Knee pain patella fracture DS: Discharge Diagnosis Discharge Diagnosis (1) Acute knee pain: Qualifiers: Laterality: left Qualified Code(s): M25.562 - Pain in left knee Code(s): M25.569 - Pain in unspecified knee Status: Acute Assessment and Plan: Pain medication given and ordered Knee brace Physical therapy and occupational therapy (2) Hyperglycemia: Code(s): R73.9 - Hyperglycemia, unspecified Status: Acute Assessment and Plan: continue home medication monitor your blood sugars (3) Renal insufficiency: Code(s): N28.9 - Disorder of kidney and ureter, unspecified Status: Acute Assessment and Plan: Continue to to increase your fluids avoid nephrotoxic medication (4) Morbid obesity with BMI of 45.0-49.9, adult: Code(s): E66.01 - Morbid (severe) obesity due to excess calories; Z68.42 - Body mass index [BMI] 45.0-49.9, adult Status: Acute Assessment and Plan: Weight loss you would benefit from (5) Acute bilateral knee pain: Code(s): M25.561 - Pain in right knee; M25.562 - Pain in left knee Status: Acute Assessment and Plan: prn pain medication DS: Summary Hospital Course Reason for hospitalization: fall, Patella fracture Hospital Course: halfway smoker out of town until Sunday she will need PT/OT Obese half a pack of day smoker , Home health , Wheeled walker and bedside commode This is a 62 year old Russian, who is obese presented to the emergency room after a falling on her way to her primary care providers office. This patient has been experiencing chronic bilateral knee pain, but a small patella fracture was discovered. Initially patient wanted to go to detention as her is out of town until Sunday. However she was given a knee brace and has advised me that she would go home to stay and her sister was willing to assist with her care. Due to patient kenton and obesity, she will require physical therapy and occupational therapy. Mrs. Lieberman is a half a pack a day smoker and she utilized a wheeled walker and bedside commode at home. Additionally she has hypertension, Hyperlipidemia, acute kidney injury and she experience some anxiety. Patient will be discharged and will receive home care. Physical therapy will be scheduled in the next 24 hours, and patient will also follow up with her primary care doctor and nurse orthopedic. The patient has been prescribed PRN pain medication, in addition to her chronic pain medication that she currently take at home. It is important to note that the patient has low pain tolerance and she is already on narcotics for pain management. Time Spent with Patient Time attestation: Total time spent providing and/or coordinating discharge services: Exam Const: General: cooperative, well developed, alert, awake, Physically active, anxious and obese Orientation/consciousness: oriented to person, oriented to place, oriented to time and patient oriented x3 HENMT: Head: normal to inspection Mouth: Yes Normal oral and palatal mucosa present, Yes lip normal, Yes oropharynx normal and Yes moist mucous membranes Eyes: General: appearance normal, both eyes and all related structures Visual Manning: normal visual manning by confrontation Alignment and Position: alignment normal Neck: Neck: normal visual inspection, full ROM and no lymphadenopathy Chest: Chest palpation & inspection: normal inspection of the chest and normal palpation of entire chest wall Resp: Effort & Inspection: normal respiratory effort, able to speak in complete sentences and abnormal respiratory pattern GI: Inspection: normal to inspection Back/Spine/Pelvis: Back: no CVA tenderness and CVA tenderness Skin: General skin exam: normal color, no rashes or lesions noted and elasticity normal Ne
[2023-03-01] MEDS: HYDROcodone/acetaminophen (*CRX) 5-325 MG TABLET 1 TAB PO (07:29)
[2023-03-01 07:35] LABS: Glucose Point of Care 214 mg/dl (65-105)
[2023-03-01 07:56] VITALS: BP 128/63; PULSE 71; RESP 16; TEMP 36.4; O2SAT 97
[2023-03-01] MEDS: INSULIN HUMAN LISPRO (*BKC) 1,000 UNITS/10 ML VIAL SUB-Q ×2 (08:24→11:36)
[2023-03-01] MEDS: NICOTINE (*PBKC) 21 MG PATCH 1 PATCH TRANSDERM (08:27)
[2023-03-01] MEDS: ENOXAPARIN 40 MG/0.4 ML SYRINGE SUB-Q (08:27)
[2023-03-01] MEDS: LIDOCAINE 5% PATCH 1 PATCH TOPICAL (08:29)
[2023-03-01] MEDS: hydroCHLOROthiazide 12.5 MG CAPSULE PO (08:30)
[2023-03-01] MEDS: glipiZIDE 5 MG TABLET 10 MG PO (08:30)
[2023-03-01] MEDS: lisinopriL 20 MG TABLET PO (08:31)
[2023-03-01] MEDS: metFORMIN HCL 500 MG TABLET 1000 MG PO (08:31)
[2023-03-01 08:32] VITALS: PULSE 71
[2023-03-01] MEDS: METOPROLOL TARTRATE 25 MG TABLET PO (08:32)
[2023-03-01] MEDS: ROSUVASTATIN 10 MG TABLET 20 MG PO (08:32)
[2023-03-01] MEDS: VENLAFAXINE HCL 75 MG TABLET PO (08:32)
[2023-03-01] MEDS: POTASSIUM CHLORIDE 20 MEQ ER TABLET PO ×2 (08:33→16:59)
[2023-03-01 11:39] LABS: Glucose Point of Care 237 mg/dl (65-105)
--- NOTE | 2023-03-01 13:30 | PC.NURSE ---
Discharge instructions given to patient and patient voiced understanding. IV site discontinued in anticipation of discharge.
[2023-03-01 16:00] VITALS: BP 109/54; PULSE 71; RESP 16; TEMP 36.3; O2SAT 97
[2023-03-01 16:35] LABS: Glucose Point of Care 125 mg/dl (65-105)
--- NOTE | 2023-03-01 17:30 | PC.NURSE ---
Patient left unit in w/c with all personal belongings and home medications. Patient again voiced understanding of discharge instructions. Patient left hospital grounds in privately owned vehicle, accompanied by patient's sister.
--- NOTE | 2023-03-05 09:03 | PC.NURSE ---
Discharge call back completed, states that her amputated foot has a wound, home nurse was in to see her and sent her to [facility], they had wound come see it, is on antibiotics now, has nurse to come 3 times a week this week to check wound, no questions about dc from here for knee pain
== END 2023-03-01 17:30 | disposition home health service (06) ==
LOC: CHSED 13:50 → CHS2ND 14:21
PROVIDERS: Nurse Practitioner Acute Care; Admitting Provider Internal Medicine; Emergency Provider Internal Medicine Critical Care Medicine; PCP Nurse Practitioner; Visit Provider Internal Medicine
DX: S82.002A Unspecified fracture of left patella, initial encounter for closed fracture (principal); S80.212A Abrasion, left knee, initial encounter; W18.30XA Fall on same level, unspecified, initial encounter; Y92.531 Health care provider office as the place of occurrence of the external cause; E11.21 Type 2 diabetes mellitus with diabetic nephropathy; E11.65 Type 2 diabetes mellitus with hyperglycemia; J45.909 Unspecified asthma, uncomplicated; R94.31 Abnormal electrocardiogram [ECG] [EKG]; I10 Essential (primary) hypertension; E78.5 Hyperlipidemia, unspecified; E66.01 Morbid (severe) obesity due to excess calories; Z68.41 Body mass index [BMI] 40.0-44.9, adult; F17.210 Nicotine dependence, cigarettes, uncomplicated; Z79.84 Long term (current) use of oral hypoglycemic drugs; Z79.51 Long term (current) use of inhaled steroids; Z79.899 Other long term (current) drug therapy
CPT/HCPCS: 36415; 80053; 81001; 82948; 83036; 83880; 84443; 84484; 85025; 85610; 85730; 93005; 96372; 97161; 97530; 99285; A9270; G0378; J1650; J1815

== ENCOUNTER 2023-04-09 09:21 | Outpatient (NON) | payer MEDICARE, SELFPAY ==
[2023-04-09 09:32] LABS: Basophils Absolute Auto 0.06 K/mm3 (0.00-0.10); Basophils Percent Auto 0.6 % (0.0-1.0); Eosinophils Percent Auto 2.1 % (1.0-6.0); Hematocrit 38.3 % (35.0-49.0); Immature Granulocyte Absolute 0.04 K/mm3 (0.00-0.00); Immature Granulocyte Percent A 0.4 % (0.0-0.0); Lymphocytes Absolute Auto 2.94 K/mm3 (1.10-4.50); Mean Corpuscular HGB Conc 31.3 g/dL (32.0-36.0); Mean Corpuscular Volume 89.3 fL (78.0-102.0); Mean Platelet Volume 9.6 fl (9.2-11.8); Monocytes Absolute Auto 0.62 K/mm3 (0.10-0.90); Monocytes Percent Auto 6.5 % (2.0-11.0); Neutrophils Absolute Auto 5.6 K/mm3 (1.7-7.2); Neutrophils Percent Auto 59.4 % (50.0-70.0); Platelet Count Result 334 K/mm3 (150-420); Red Blood Count 4.29 M/mm3 (4.20-5.40); Red Cell Distribution Width 14.8 % (11.6-14.4); White Blood Count 9.5 K/mm3 (4.8-10.8)
[2023-04-09 10:01] LABS: Alanine Aminotransferase 15 U/L (14-59); Albumin Level 2.9 g/dL (3.4-5.0); Alkaline Phosphatase 68 U/L (46-116); Anion Gap 9 mmol/L (8-16); Aspartate Amino Transferase 11 U/L (15-37); Bilirubin,Total 0.4 mg/dL (0.00-1.00); Blood Urea Nitrogen 14 mg/dL (7-18); Calcium 9.2 mg/dL (8.5-10.1); Carbon Dioxide 28 mmol/L (21-32); Chloride 101 mmol/L (98-108); Estimated Glomerular Filt Rate 58; Glucose 153 mg/dL (70-99); Osmolality Calculated 289 mOsm/kg (285-295); Potassium 3.6 mmol/L (3.5-5.1); Sodium 138 mmol/L (136-145); Total Protein 7.8 g/dL (6.4-8.2)
== END 2023-04-09 09:22 | disposition home or self-care (01) ==
PROVIDERS: Visit Provider Internal Medicine
DX: L03.115 Cellulitis of right lower limb (principal); E11.9 Type 2 diabetes mellitus without complications
CPT/HCPCS: 36415; 80053; 85025

== ENCOUNTER 2024-05-08 12:12 | Inpatient (IN) | payer MEDICARE, MEDICAID, SELFPAY ==
[2024-05-08] VITALS (18 sets, daily range): BP systolic 120–182; BP diastolic 43–98; PULSE 77–94; RESP 13–21; TEMP 36.5–36.6; O2SAT 90–98; BMI 46.3
--- NOTE | ~2024-05-08 | CT_ITS ---
EXAMINATION: CT abdomen pelvis w con DATE: 05/08/2024 16:05 INDICATION: Left-sided abdominal pain, nausea and vomiting TECHNIQUE: Computed tomography (CT) of the abdomen and pelvis was performed with 100 mL Omnipaque-350 intravenous contrast. Automated exposure control and iterative reconstruction technique were employe d. The dose-length product was 1644.35 mGy-cm. COMPARISON: 02/19/2023 FINDINGS: Lung bases are clear. Heart size is normal. No pericardial or pleural effusion. Liver, gallbladder, s pleen, pancreas, bilateral adrenal glands and left kidney are normal. 1 cm cyst at the anterior pole of the horizontal oriented right kidney. Mild sigmoid diverticulosis without adjacent from trace stra nding to suggest diverticular colitis. Small bowel and appendix are normal. Small fat-containing umbi lical and left inguinal hernias. Bladder is normal. The uterus is not identified and has likely been surgically resected. Mild lumbar levocurvature with moderate lower thoracic and mild lumbar spondylos is. IMPRESSION: 1. No acute intra-abdominal/pelvic process. 2. Small fat-containing umbilical and left inguinal hernias. Reviewed, dictated and finalized at location A. [facility]
--- NOTE | ~2024-05-08 | XR_ITS ---
EXAMINATION: XR foot LT min 3V DATE: 05/08/2024 14:36 INDICATION: Diabetic wound at the left foot TECHNIQUE: Dorsoplantar, oblique and lateral views of the left foot were obtained. COMPARISON: None. FINDINGS: Bone alignment is normal. No fracture. Mild polyarticular osteoarthritis involving the majority of th e joints in the foot as well as at the left ankle. Moderate-sized plantar calcaneal spur. No cortical erosions to suggest inflammatory arthritis. There is soft tissue swelling at the forefoot greatest a bout the heads of the first and fifth metatarsals. There appears be some bandaging material overlying an ulceration medial to the first metatarsophalangeal joint. IMPRESSION: 1. Mild polyarticular osteoarthritis at the left foot and ankle with no evident erosions to suggest o steomyelitis or other acute osseous abnormality. Reviewed, dictated and finalized at location [facility] IMPRESSION: 1. 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
--- OUTSIDE RECORDS SUMMARY | 2024-05-08 12:15 | XMS_ITS | CONTINUITY OF CARE DOCUMENT ---
Author Name nick romero Address Unknown Organization [facility] Address [address] [place] [address] Phone [phone] Care Team Providers Care Supervisor Reactor Fueling Name Role Phone Gaetano Hung MD Unavailable INSURANCE PROVIDERS Payer name Policy type / Coverage type [place] red constitution party ID [place] MED[place] Medicare [id number]
--- OUTSIDE RECORDS SUMMARY | 2024-05-08 12:15 | XMS_ITS | Referral Summary ---
Author Organization [facility] [employer] Address [address] [place] [address] Care Team Providers Care Space And Missile Defense Operations Name Role Phone Denis Flores MD Primary Care Provider [phone] Source Comments [facility] [employer],non-owned Affiliates and Associated Physician Practices is amultiple site organization consisting of ambulatory clinics and hospital sitesin [place], [place], [place] and [place]. This disclosure is being madepursuant to the Care Everywhere program and may not contain all information available regarding this patient. Last updated 17.[facility] [employer] Allergies Active Allergy Reactions Criticality Noted Date Comments Morphine Urticaria High 07/11/2008 Vqtksvoy-Hbefvpwclj-Rcpftndeq Rash 2008 hives Medications * Be aware that medications may not be up to date on this document. Alwaysverify current medications with the patient. Medication Sig Dispensed Refills Start Date End Date Status metformin CR (MOD) 24hr (GLUMETZA) 1000 MG (MOD) tablet Take 1000 mg by mouth daily with dinner. Active lisinopril (PRINIVIL; ZESTRIL) 10 MG tablet Take 10 mg by mouth daily. Active PRILOSEC 10 MG CPDR Take 10 mg by mouth daily before breakfast. Active Fish Oil OIL Take by mouth daily. Unknown dosage Active Active Problems Problem Noted Date Diagnosed Date Chest pain 07/11/2008 Overview (12/31/2014): Social History Tobacco Use Types Packs/Day Years Used Date Smoking Tobacco: Every Day Cigarettes 1 15 Alcohol Use Standard Drinks/Week Comments No 0 (1 standard drink = 0.6 oz pur e alcohol) Sex and Gender Information Value Date Recorded Sex Assigned at Not on file Gender Identity Not on file Sexual Orientation Not on file Last Filed Vital Signs Vital Sign Reading Time Taken Comments Blood Pressure 59/36 07/11/2008 9:30 PM CDT Pulse 90 07/11/2008 9:30 PM CDT Temperature 36.5 C (97.7 F) 07/11/2008 7:13 PM CDT Respiratory Rate 21 07/11/2008 9:30 PM CDT Oxygen Saturation 95% 07/11/2008 9:30 PM CDT Inhaled Oxygen Concentration - - Weight 179.2 kg (395 lb) 07/11/2008 7:13 PM CDT Height 175.3 cm (5' 9 ) 07/11/2008 7:13 PM CDT Body Mass Index 58.33 07/11/2008 7:13 PM CDT Plan of Treatment Not on file Care Teams Space And Missile Defense Operations Relationship Specialty Start Date End Date Denis Flores MD [address] [place] [address] PCP - General 07/11/08
--- OUTSIDE RECORDS SUMMARY | 2024-05-08 12:15 | XMS_ITS | Encounter Summary ---
Author Organization [facility] Address [address] [place] [address] Care Team Providers Care Concrete Smoother Name Role Phone Kathryn Kim BASEBALL GLOVE SHAPER Unavailable [phone] Kathryn Kim BASEBALL GLOVE SHAPER Unavailable [phone] Kathryn Kim NP Primary Care Provider [phone] Alexa Quiles BASEBALL GLOVE SHAPER Unavailable [phone] Ashley Coello Primary Care Provider [phone] Edi Olvera DPM Unavailable [phone] Nelson Ogden MD Unavailable Hazel Bryant Primary Care Provider [phone] Reason for Visit * Reason Onset Date Comments Follow Up Call 10/04/2021 Encounter Details Date Type Department Care Team (Late st Contact Info) Description 10/04/2021 Hospital Follow-up Call [facility] Surgical [address] [place] [address] Gwen Portillo, RN Follow Up Call Social History Tobacco Use Types Packs/Day Years Used Date Smoking Tobacco: Every Day Cigarettes 0.5 28 Smokeless Tobacco: Never Alcohol Use Standard Drinks/Week Comments No 0 (1 standard drink = 0.6 oz pur e alcohol) AUDIT-C Answer Date Recorded Frequency of Alcohol Consumption Never 11/30/2018 Average Number of Drinks Not on file 019 Frequency of Binge Drinking Not on file 11/02 Comments No Sex and Gender Information Value Date Recorded Sex Assigned at Female 01/17/2024 1:34 PM CDT Legal Sex Female 5:51 PM SERVICING MANAGER Gender Identity Female 01/17/2024 1:34 PM CDT Sexual Orientation Straight 01/17/2024 1: 34 PM CDT COVID-19 Exposure Response Date Recorded In the last 10 days, have hao vang been in contact with someone who was confirmed or suspected to have Coronavirus/COVID-19? No / Unsure 10/04/2021 11:27 AM CDT documented as of this encounter Functional Status * RETIRED Are you deaf or do you have serious difficulty hearing Answer Date of Assessment Author Status No 09/29/2021 11:00 PM CDT Acti ve * RETIRED Are you blind or do you have serious difficulty seeing, even when wearing glasses? Answer Date of Assessment Author Status No 09/29/2021 11:00 PM CDT Acti ve * Do you have serious difficulty walking or climbing stairs? Answer Date of Assessment Author Status Yes 09/29/2021 11:00 PM CDT Uday Michel RN Active * Do you have difficulty dressing or bathing? Answer Date of Assessment Author Status No 09/29/2021 11:00 PM CDT Uday Michel RN Active * Because of a physical, mental, or emotional condition, do you have difficulty doing errands alone such as visiting a doctor's office or shopping? Answer Date of Assessment Author Status No 09/29/2021 11:00 PM CDT Uday Michel RN Active documented as of this encounter Mental Status * Because of a physical, mental, or emotional condition, do you have serious difficulty concentrating, remembering, or making decisions? Answer Entry Date Author Status No 09/29/2021 11:00 PM CDT Uday Michel RN Active documented in this encounter Plan of Treatment Not on file documented as of this encounter Goals Goal Patient Goal Type Associated Problems Recent Progress Patient-Stated? Author Family - family caregiver with be involved in care transitions and discharge planning General No Dana Huggins RN documented as of this encounter Visit Diagnoses Not on filedocumented in this encounter Additional Health Concerns Infection Onset Date Last Indicated Resolved Time COVID-19 Rule Out 03/23/2023 03/23/2023 03/23/2023 11:21 AM SERVICING MANAGER COVID-19 Rule Out 06/22/2023 06/22/2023 06/22/2023 12:31 PM CDT documented as of this encounter Care Teams Concrete Smoother Relationship Specialty Start Date End Date Kathryn Kim NP [address] [address] PCP - General NURSE PRACTITIONER 09/29/21 08/21/23 Ashley Coello PA [address] [address] PCP - General PHYSICIAN HAM MARKER 08/22/23 01/21/24 Hazel Bryant APNP [address] [facility] [id number] [address] PCP - General FAMILY PRACTICE 01/22/24 Kathryn Kim NP [address] [address] NURSE PRACTITIONER 08/03/21 Kathryn Kim NP [address] [address] NURSE PRACTITIONER 08/03/21 12/16/23 Alexa Quiles NP [address] [place] [address] WOUND CARE 07/11/23 07/10/24 Edi Olvera DPM [address] [address] Consulting Physician PODIATRY/SURGERY 11/20/23 Nelson Ogden MD [address] [place] [address] Consulting Physician INTERNAL MEDICINE 12/17/23 documented as of this encounter
--- OUTSIDE RECORDS SUMMARY | 2024-05-08 12:15 | XMS_ITS | Clinical Summary ---
Author Organization [facility] [employer] Address [address] [place] [address] Care Team Providers Care Water Fabricator Operator Name Role Phone Denis Flores MD Primary Care Provider [phone] Source Comments [facility] [employer],non-owned Affiliates and Associated Physician Practices is amultiple site organization consisting of ambulatory clinics and hospital sitesin [place], [place], [place] and [place]. This disclosure is being madepursuant to the Care Everywhere program and may not contain all information available regarding this patient. Last updated 17.[facility] [employer] Allergies Active Allergy Reactions Criticality Noted Date Comments Morphine Urticaria High 07/11/2008 Uaqfqxhs-Oaubujnqbv-Igcxhdpcs Rash 2008 hives Medications * Be aware [...] 07/11/2008 7:13 PM CDT Plan of Treatment Health Maintenance Due Date Last Done Comments COLOGUARD (AGES 45-75) - COL ON CA SCREENING 1960 COLON MONITORING 1960 COLONOSCOPY - COLON CA SCREENING 1960 CT COLONOGRAPHY - COLON CA SCREENING 1960 Colorectal Cancer Screening 1960 FIT - COLON CA SCREENING 1960 FLEX SIG - COLON CA SCREENING 1960 LIPID TESTING 1960 MAMMOGRAM 1960 MEDICARE AWV 12 MONTHS 1960 PAP SMEAR 1960 HIV SCREENING 1975 HEPATITIS C SCREENING 04/11/1978 DTAP/TDAP/TD VACCINES (1 - Tdap) 1979 PNEUMOCOCCAL VACCINE 50+ (1 of 2 - PCV) 1979 PNEUMOCOCCAL VACCINE (1 of 2 - PCV) 1979 ZOSTER VACCINE (1 of 2) 2010 Respiratory Syncytial Virus (RSV) Vaccine Pt: or over 60 yrs (1 - Risk 60-74 years 1-dose series) 2020 COVID-19 VACCINE ( - 2023-2 5 season) 2023 INFLUENZA VACCINE (#1) 2023 DEPRESSION SCREENING 04/02/2024 HEPATITIS B VACCINE Aged Out No longe r eligible based on patient's age to complete this topic HIB VACCINE Aged Out No longer eligi ble based on patient's age to complete this topic HPV VACCINE Aged Out No longer eligi ble based on patient's age to complete this topic MENINGOCOCCAL (Group B) VACCINE Aged Out No longer eligible based on patient's age to complete this topic MENINGOCOCCAL VACCINE Aged Out No hitesh niki eligible based on patient's age to complete this topic Care Teams Water Fabricator Operator Relationship Specialty Start Date End Date Denis Flores MD [address] [address] PCP - General 07/11/08
--- OUTSIDE RECORDS SUMMARY | 2024-05-08 12:15 | XMS_ITS | Continuity of Care Document ---
Author Organization [facility] Address [address] [place] [address] Phone Care Team Providers Care Olive Brine Tester Name Role Phone Mt Bowens MD Unavailable Unavailable Allergies, Adverse Reactions, Alerts Substance Reaction Status Criticality polymyxin B Active No Information NEOMYCIN SULFATE Active No Informat ion BACITRACIN ZINC Active No Informati on bacitracin Active No Information Medications Medication Instructions Dosage Effective Dates (start - stop) Status Comments Mobic 15 mg tablet take 1 tablet (15MG) by oral route every day - Active SIMVASTATIN (unknown strength) Not Available - Active LISINOPRIL (unknown strength) Not Available - Active Procedures Procedure Date MU Reporting OFFICE/OUTPATIENT VISIT EST MU Reporting OFFICE/OUTPATIENT VISIT NEW Advance Directives Directive Yes / No Effective Date File Name Resuscitation Not Answered N/A N/A Life Support Not Answered N/A N/A Intubation Not Answered N/A N/A Antibiotics Not Answered N/A N/A IV Fluid Support Not Answered N/A N/A Tube Feed Not Answered N/A N/A Other Directive N/A N/A WARNING:The information contained in this section is historical and is provided for information only and does not constitute a legal document or any assurance that the information is still accurate. Please verify the information with the north of the legal document before using it for clinical purposes. Encounters Encounter Description Practice Location Reason(s) For Visit Diagnoses Date Provider Providers Copied on Encounter OFFICE/OUTPAT IENT VISIT EST [facility] , [address], [place], [address], [place] tel:[phone] [facility] [place] left knee pain (chief complaint) Osteoarthrosi s, localized, primary, involving lower leg [address] [place] , [place], [place], [id number] . tel:[phone] Referring Provider: Denis Antony, [address] [address], [place], [address]. tel:[phone] OFFICE/OUTPAT IENT VISIT NEW [facility] , [address] [facility] [address], [place], [address], tel:[phone] [facility] [place] left knee pain (chief complaint) Osteoarthrosi s, localized, primary, involving lower legObesity, MorbidHyperte nsion, Unspecified [address] [place] [address] [facility] [address] , [place], [place], [id number] . tel:[phone] Referring Provider: Denis Antony, [address] [facility] [address], [place], [address]. tel:[phone] Family History Family Member Type Diagnosis Age At Onset Problem (finding) Family history of Cance r Problem (finding) Family history of Heart disease Problem (finding) Family history of Diabe gordy mellitus Problem (finding) Family history of hyper tension Payers Payer name Insurance type Covered libertarian ID Authoriza tion(s) No Information Social History Type Description Quantity Date Captured Comments Alcohol Use Details Unknown Caffeine Use Details Unknown Tobacco Use Status No Information Smoking Status No Information Sex Female Chief Complaint And Reason For Visit From encounter dated '08/06/2012 14:10'. left knee pain (chief complaint) Reason For Referral Reason For Referral No Information Plan Of Treatment Date Type Action Status Goal Tobacco cessation counseling completed History Of Present Illness Encounter Date Complaint History Of Prese nt Illness No Information Functional Status Date Functional Assessmen t No Information Instructions Date Instruction Additional Infor mation Physical activity counseling Rel ated to Morbid obesity, BMI 40 or more Assessments Type Assessment Date No Information Patient Care Teams Name Effective Dates (start - stop) Status Members No Information
--- OUTSIDE RECORDS SUMMARY | 2024-05-08 12:15 | XMS_ITS | Patient Health Summary ---
Author Organization [facility] Address [address] [facility] [place] [address] Care Team Providers Care Roundhouse Worker Name Role Phone Denis Flores MD Primary Care Provider [phone] Note from [facility],non-owned Affiliates and Associated Physician Practices is amultiple site organization consisting of ambulatory clinics and hospital sitesin [place], [place], [place] and [place]. This disclosure is being madepursuant to the Care Everywhere program and may not contain all information available regarding this patient. Last updated 17.[facility] Allergies * Morphine(Urticaria) -High Criticality * Uwaklelk-Azjglyygac-Hkklpgsxc(Rash) Medications * Be aware that medications may not be up to date on this document. Alwaysverify current medications with the patient. * metformin CR (MOD) 24hr (GLUMETZA) 1000 MG (MOD) tablet Take 1000 mg by mouth daily with dinner. * lisinopril (PRINIVIL; ZESTRIL) 10 MG tablet Take 10 mg by mouth daily. * PRILOSEC 10 MG CPDR Take 10 mg by mouth daily before breakfast. * Fish Oil OIL Take by mouth daily. Unknown dosage Active Problems Problem Noted Date Diagnosed Date Chest pain 07/11/2008 Social History Tobacco Use Types Packs/Day Years [...] Mass Index 58.33 07/11/2008 7:13 PM CDT Procedures * EKG 12-LEAD(Performed 07/14/2008) Performed for Unspecified Chest Pain * CARDIAC RHYTHM STRIP ORDER(Performed 07/13/2008) * XR CHEST 1VW PORTABLE(Performed 07/11/2008) Performed for Unspecified Chest Pain * CHEST PAIN PANEL(Performed 07/11/2008) Performed for Unspecified Chest Pain * AMYLASE BLOOD(Performed 07/11/2008) Performed for Unspecified Chest Pain * B-TYPE NATRIURETIC PEPTIDE(Performed 07/11/2008) Performed for Unspecified Chest Pain * PTT(Performed 07/11/2008) Performed for Unspecified Chest Pain * PT-INR(Performed 07/11/2008) Performed for Unspecified Chest Pain * COMPREHENSIVE METABOLIC PANEL(Performed 07/11/2008) Performed for Unspecified Chest Pain * CBC W AUTO DIFFERENTIAL(Performed 07/11/2008) Performed for Unspecified Chest Pain * LIPASE BLOOD(Performed 07/11/2008) Performed for Unspecified Chest Pain Results * EKG 12-LEAD (07/14/2008 8:00 AM CDT) Narrative Procedure Note Document, Scanned - 07/11/2008 12:00 AM CDT Transcriptions Document, Scanned - 07/11/2008 12:00 AM CDT Document, Scanned - 07/11/2008 12:00 AM CDT Heike Mcintosh MD ECG ORDERABLES * CARDIAC, RHYTHM STRIP ORDER (07/13/2008 3:44 PM CDT) Narrative 07/13/2008 3:44 PM CDT Ordered by an unspecified provider. Transcriptions Document, Scanned - 07/11/2008 12:00 AM CDT Scanned Document CARDIAC SERVICES ORD ERABLES * XR CHEST 1VW PORTABLE (07/11/2008 8:23 PM CDT) Anatomical Region Laterality Modality Chest Radiographic Navya ging 07/11/2008 8:35 PM CDT Impressions 07/11/2008 8:37 PM CDT Mild prominence of the interstitial markings, without overt pulmonary edema. Narrative 07/11/2008 8:37 PM CDT Chest single view Indication: 48-year-old with difficulty breathing. Findings: A portable AP upright examination of the chest, 2022, shows the heart size to be at the uppermost limits of normal. There is mild prominence of the interstitial markings, but no overt pulmonary edema. I do not see any alveolar consolidation. Post traumatic/post operative changes are seen in the left humeral head and scapula. Procedure Note Albaro Hargrove MD - 07/11/2008 Chest single view Indication: 48-year-old with difficulty breathing. Findings: A portable AP upright examination of the chest, 2022, shows the heart size to be at the uppermost limits of normal. There is mild prominence of the interstitial markings, but no overt pulmonary edema. I do not see any alveolar consolidation. Post traumatic/post operative changes are seen in the left humeral head and scapula. IMPRESSION Mild prominence of the interstitial markings, without overt pulmonary edema. Heike Mcintosh MD DIAGNOSTIC IMAGING ORDERABLES * CHEST PAIN PANEL (07/11/2008 8:20 PM CDT) CK 109 30 - 135 U/L [facility] CK-MB 2.00 SEE BELOW ng/dl [facility] Comment: <5.10 Negative 5.10-10.0 Intermediate >10.0 Positive Troponin I <0.200 0.00 - 1.00 ng/ml [facility] Interpretation Troponin [facility] Comment: Diagnostic cutoff for the AMI is 2.0 ng/ml. Any condition resulting in myocardial cell damage can potentially increase Troponin I levels above the expected range. Clinical studies have documented these conditions to include unstable angina, congestive heart failure, myocarditis, and cardiac surgery or invasive testing. SERUM OR PLASMA SPECIMEN / Unknown 07/11/2008 8:20 PM CDT 07/11/2008 8:20 PM CDT Heike Mcintosh MD LAB - CHEMISTRY ORD ERABLES Performing Organization Address [facility] de Phone Number [facility] [address] [place] [address] * (ABNORMAL) PTT (07/11/2008 8:19 PM CDT) PTT 24.2(L) 26.0 - 32.8 seconds [facility] BLOOD SPECIMEN / Unknown 07/11/2008 8:19 PM CDT 07/11/2008 8:19 PM CDT Heike Mcintosh MD LAB - COAGULATION O RDERABLES Performing Organization Address [facility] de Phone Number [facility] [address] [place] [address] * PT-INR (07/11/2008 8:19 PM CDT) Pathologist [facility] PT 9.9 9.4 - 11.4 seconds [facility] INR 0.93 SEE BELOW [facility] Comment: 0.92-1.12 Normal 2.0-3.0 Therapeutic Low Risk 2.5-3.5 Therapeutic High Risk BLOOD SPECIMEN / Unknown 07/11/2008 8:19 PM CDT 07/11/2008 8:19 PM CDT Heike Mcintosh MD LAB - COAGULATION O RDERABLES Performing Organization Address [facility] de Phone Number [facility] [address] [place] [address] * (ABNORMAL) CBC W AUTO DIFFERENTIAL (07/11/2008 8:19 PM CDT) WBC 5.90 4.0 - 11.0 X(10)3/L [facility] RBC 5.04 3.8 - 5.3 X(10)6 [facility] Hemoglobin 14.9 12.0 - 16.0 gm/dl [facility] Hematocrit 43.1 36 - 47 % [facility] MCV 85.5 80.0 - 99.0 fl [facility] MCH 29.6 26 - 34 pg [facility] MCHC 34.6 32.0 - 37.0 gm/dl [facility] RDW 13.3 11.5 - 14.5 % [facility] Platelet Count 202 150 - 400 K/CUMM [facility] MPV 10.9 9.2 - 12.2 fl [facility] Granulocytes % 46.1 43 - 70 % [facility] Granulocytes Absolute 2.72 1.7 - 6.7 X(10)3 [facility] Lymphocytes % 46.1(H) 22 - 41 % [facility] Lymphocytes Absolute 2.72 0.9 - 3.2 X(10)3 [facility] Monocytes % 5.4 2.0 - 11.0 % [facility] Monocytes Absolute 0.32 0.2 - 0.9 X(10)3 [facility] Eosinophils % 2.2 0.0 - 5.0 % [facility] Eosinophils Absolute 0.13 0.0 - 0.4 X(10)3 [facility] Basophils % 0.2 0 - 2 % [facility] Basophils Absolute 0.01 0.0 - 0.2 X(10)3 [facility] Comment Manual Diff Manual Diff Not Indicated [facility] BLOOD SPECIMEN / Unknown 07/11/2008 8:19 PM CDT 07/11/2008 8:19 PM CDT Heike Mcintosh MD LAB - HEMATOLOGY OR DERABLES Performing Organization Address City/State/[facility] Co de Phone Number [facility] [address] [facility] [place] [address] * B-TYPE NATRIURETIC PEPTIDE (07/11/2008 8:19 PM CDT) BNP 5.9 0.0 - 99.9 pg/ml [facility] Interpretation BNP [facility] Comment: A cutoff of 100 pg/ml has been demostrated to provide the maximal combination of sensitivity, specificity, and negative predictive value for contributing to the diagnosis of congestive heart failure(CHF) only. A BNP value greater than or equal to 100 pg/ml is consistent with a diagnosis of CHF in the appropriate clinical setting. False positive results are more common in females greater than 75 years of age. Blood concentrations of natriuretic peptides may also be elevated in patients with myocardial infarction and in patients who are candidates for or are undergoing renal dialysis. BLOOD SPECIMEN WITH EDTA / Unknown 07/11/2008 8:19 PM CDT 07/11/2008 8:20 PM CDT Narrative [facility] - 07/11/2008 9:12 PM CDT Difficult patient Heike Mcintosh MD LAB - CHEMISTRY ORD ERABLES Performing Organization Address City/[facility] Co de Phone Number [facility] [address] [place] [address] * (ABNORMAL) COMPREHENSIVE METABOLIC PANEL (07/11/2008 8:19 PM CDT) Glucose 133(H) 65 - 105 mg/dl [facility] BUN 7 7 - 17 mg/dl [facility] Creatinine 0.8 0.7 - 1.2 mg/dl [facility] Sodium 144 137 - 145 mmol/L [facility] Potassium 3.5(L) 3.6 - 5.0 mmol/L [facility] Chloride 101 98 - 107 mmol/L [facility] CO2 26 22 - 30 mmol/L [facility] Calcium 8.9 8.4 - 10.2 mg/dl [facility] Bilirubin Total 0.3 0.2 - 1.3 mg/dl [facility] Alkaline Phosphatase 95 38 - 126 U/L [facility] AST 32 14 - 36 U/L [facility] ALT 25 9 - 52 U/L [facility] Protein Total 7.5 6.3 - 8.2 gm/dl [facility] Albumin 4.3 3.5 - 5.0 gm/dl [facility] BLOOD SPECIMEN / Unknown 07/11/2008 8:19 PM CDT 07/11/2008 8:19 PM CDT Heike Mcintosh MD LAB - CHEMISTRY ORD ERABLES Performing Organization Address City/[facility] Co de Phone Number [facility] [address] [place] [address] * AMYLASE BLOOD (07/11/2008 8:19 PM CDT) Amylase 33 30.0 - 110.0 U/L [facility] BLOOD SPECIMEN / Unknown 07/11/2008 8:19 PM CDT 07/11/2008 8:19 PM CDT Heike Mcintosh MD LAB - CHEMISTRY ORD ERABLES Performing Organization Address City/[facility] Co de Phone Number [facility] [address] [place] [address] * LIPASE BLOOD (07/11/2008 8:18 PM CDT) Lipase 115 23 - 208 U/L [facility] BLOOD SPECIMEN / Unknown 07/11/2008 8:18 PM CDT 07/11/2008 8:18 PM CDT Heike Mcintosh MD LAB - CHEMISTRY ORD ERABLES Performing Organization Address [facility] Co de Phone Number [facility] [place] [address] Care Teams Roundhouse Worker Relationship Specialty Start Date End Date Denis Flores MD [address] [place] [address] PCP - General 07/11/08
--- OUTSIDE RECORDS SUMMARY | 2024-05-08 12:15 | XMS_ITS | Continuity of Care Document ---
Author Organization [facility] Address [address] [place] [address] Phone Care Team Providers Care Emts Name Role Phone Chidi RAJAN, Satish Unavailable Unavailabl e Allergies, Adverse Reactions, Alerts Substance Reaction Status Criticality polymyxin B Active No Information NEOMYCIN SULFATE Active No Informat ion BACITRACIN ZINC Active No Informati on bacitracin Active No Information Medications Medication Instructions Dosage Effective Dates (start - stop) Status Comments LISINOPRIL/HCTZ 20-12.5MG TAB TAKE ONE TABLET BY MOUTH ONCE DAILY 1.00 tablet - Active SIMVASTATIN 20MG TAB TAKE ONE TABLET BY MOUTH ONCE DAILY IN THE EVENING 20 MG - Active VENLAFAXINE 25MG TAB TAKE ONE TABLET BY MOUTH ONCE DAILY WITH FOOD 25 MG - Active Victoza 2-Surinder 0.6 mg/0.1 mL (18 mg/3 mL) subcutaneous pen injector inject 0.8 milliliter by subcutaneous route every day 4.8 MG - Active ProAir HFA 90 mcg/actuation aerosol inhaler inhale 2 puff by inhalation route every 4 - 6 hours as needed - Active glipizide 5 mg tablet take 0.5 tablet by oral route 2 times every day before a meal 2.5 MG - Active Xanax 0.5 mg tablet take 1 tablet by oral route 2 times every day 0.5 MG - Active lisinopril 20 mg-hydrochlorothiaz mike 12.5 mg tablet take 1 tablet by oral route every day 1.00 tablet - No Longer Active venlafaxine 25 mg tablet take 1 tablet by oral route every day with food 25 MG - No Longer Active simvastatin 20 mg tablet take 1 tablet by oral route every day in the evening 20 MG - No Longer Active Problems Condition Type Effective Dates (start - stop) Clini dirk Status Comments No Known Problems Procedures Procedure Date OFFICE/OUTPATIENT VISIT, [facility] OFFICE/OUTPATIENT VISIT, [facility] Advance Directives Directive Yes / No Effective Date File Name No Information Encounters Encounter Description Practice Location Reason(s) For Visit Diagnoses Date Provider Providers Copied on Encounter [facility], [address] [place] [address], [facility], tel:[phone] *[facility] No Information 6 Chidi Covarrubias. [address], [address], . tel:[phone] OFFICE/OUTPA TIENT VISIT, [facility], [address] [place] [address], [facility], tel:[phone] *[facility] Hypertension (chief complaint)Neetu betes (chief complaint) Dietary counseling and surveillanceEsse ntial hypertension with goal blood pressure less than 140/90Type 2 diabetes mellitus with hyperglycemiaAty pical chest pain 6 Chidi Covarrubias. [address], [address], [place]. [phone] OFFICE/OUTPA TIENT VISIT, [facility], [address] [place] [address], [facility], tel:[phone] *[facility] swelling (chief complaint) Swelling 4 Chidi Covarrubias. [address], [address], . tel:[phone] Family History Family Member Type Diagnosis Age At Onset No Information Payers Payer name Insurance type Covered constitution party ID Authoriza tion(s) No Information Social History Type Description Quantity Date Captured Comments Sex Female Smoking Status No Information Chief Complaint And Reason For Visit No Information Reason For Referral Reason For Referral No Information Plan Of Treatment Date Type Action Status Goal Dietary management education , guidance, and counseling completed History Of Present Illness Encounter Date Complaint History Of Prese nt Illness Hypertension It is currently stable. Risk factors include obesity. Associated symptoms include chest pain and dyspnea. Pertinent negatives include headache, irregular heartbeat/palpitations, nausea and vomiting. Additional information: PT was just seen in [facility] for her bp being elevated and for having chest pain she does have an appt with Yoan next week. Diabetes Risk factors inc lude age > 50 years. DM managed with diet, insulin and fingerstick blood sugars. Associated symptoms include chest pain and shortness of breath. Pertinent negatives include headache, nausea, palpitations and vomiting. swelling Onset: 1 day ago . Severity level is mild. It occurs occasionally and has not changed. Location: left face. Context: there is no injury. There are no aggravating factors. There are no relieving factors. Pertinent negatives include bruising, crepitus, decreased mobility, difficulty initiating sleep, fever, joint locking, joint pain, joint stiffness, joint tenderness, limping, muscle stiffness, nocturnal awakening, numbness, popping, rash, spasms, tingling and weakness. Additional information: worried as she just got out of the hospital (5 day stay) for panniculitis. on clinda. reports she will be readmitted if clinda fails. no other rash, no urticaria, no wheezing, no throat or neck swelling or difficulty talking or swallowing. slight swelling only over her right maxilla. Functional Status Date Functional Assessmen t No Information Instructions Date Instruction Additional Infor josh Dietary management e ducation, guidance, and counseling Related to Dietary counseling and surveillance Assessments Type Assessment Date No Information Patient Care Teams Name Effective Dates (start - stop) Status Members No Information
--- OUTSIDE RECORDS SUMMARY | 2024-05-08 12:16 | XMS_ITS | Encounter Summary ---
Author Organization [facility] Address [address] [place] [address] Care Team Providers Care Drywall Boardhanger Name Role Phone Kathryn Kim DIRECTOR PROPERTY Unavailable [phone] Kathryn Kim DIRECTOR PROPERTY Unavailable [phone] Kathryn Kim NP Primary Care Provider [phone] Alexa Quiles DIRECTOR PROPERTY Unavailable [phone] Ashley Coello Primary Care Provider [phone] Edi Olvera DPM Unavailable [phone] Nelson Ogden MD Unavailable Hazel Bryant Primary Care Provider [phone] Encounter Details Date Type Department Care Team (Late st Contact Info) Description 08/04/2021 [facility] [address] [place] [address] [phone] Matt Slade MD Social History Tobacco Use Types Packs/Day Years [...] PM CDT Legal Sex 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 No / Unsure 07/06/2021 2:39 PM CDT documented as of this encounter Plan of Treatment Not on file documented as of this encounter Visit Diagnoses Not on filedocumented in this encounter Additional Health Concerns Infection Onset Date Last Indicated Resolved Time COVID-19 Rule Out 03/23/2023 03/23/2023 03/23/2023 11:21 AM CANNERY TENDER ENGINEER COVID-19 Rule Out 06/22/2023 06/22/2023 06/22/2023 12:31 PM CDT documented as of this encounter Care Teams Drywall Boardhanger Relationship Specialty Start Date End Date Kathryn Kim NP [address] [place] [address] PCP - General NURSE PRACTITIONER 09/29/21 08/21/23 Ashley Coello PA [address] [place] [phone] PCP - General PHYSICIAN STEAMFITTER APPRENTICE 08/22/23 01/21/24 Hazel Bryant APNP [address] [facility] [id number] [place] [address] PCP - General FAMILY PRACTICE 01/22/24 Kathryn Kim NP [address] [facility] [address] [place] [id number] NURSE PRACTITIONER 08/03/21 Kathryn Kim NP [address] [address] [place] [address] NURSE PRACTITIONER 08/03/21 12/16/23 Alexa Quiles NP [address] [place] [address] WOUND CARE 07/11/23 07/10/24 Edi Olvera DPM [address] [place], [place] [address] [address] Consulting Physician PODIATRY/SURGERY 11/20/23 Nelson Ogden MD [address] [place] [address] Consulting Physician INTERNAL MEDICINE 12/17/23 documented as of this encounter
--- OUTSIDE RECORDS SUMMARY | 2024-05-08 12:16 | XMS_ITS | Clinical Summary ---
Author Organization [facility] Address [facility] [place] [address] Care Team Providers Care Scrap Crusher Name Role Phone ChunKathryn connors LADLE HANDLER Unavailable [phone] Alexa Quiles LADLE HANDLER Unavailable [phone] Edi Olvera DPM Unavailable [phone] Nelson Ogden MD Unavailable Hazel Bryant Primary Care Provider Allergies Active Allergy Reactions Criticality Noted Date Comments Neomycin-Bacitracin Zn-Polymyx Hives Medium 11/30 Medications glipiZIDE XL 5 MG 24 hr tabletIndicatio ns:diabetes Take 2 tablets (10 mg total) by mouth daily with breakfast. Indications: diabetes 3 11/24/2018 Active albuterol sulfate HFA 108 (90 Base) MCG/ACT inhalerIndicati ons:asthma Inhale 2 puffs into the lungs every 6 (six) hours. 18 g 09/27/2022 Active venlafaxine XR (EFFEXOR-XR) 150 MG 24 hr capsuleIndicati ons:mood Take 1 capsule (150 mg total) by mouth daily. Indications: mood 11/28/2023 Active insulin lispro (HUMALOG/ADMELO G) 100 UNIT/ML injection (VIAL)Indicatio ns:dm Inject 20 Units into the skin 3 (three) times daily with meals. 10 mL 02/18/2024 Active Active Problems Problem Noted Date Diagnosed Date Osteomyelitis ([facility]) 01/17/2024 Noncompliance 01/17/2024 Orthopedic aftercare 08/06/2023 Diabetic ulcer of left great toe ([facility]) 06/26/2023 Cellulitis 03/29/2023 Bacteremia 03/25/2023 Diabetic ulcer of right great toe ([facility]) 09/19/2022 Overview (09/20/2022): Added automatically from request for surgery [id number] Cellulitis of right leg 09/19/2022 Overview (09/20/2022): Added automatically from request for surgery [id number] Weakness 09/29/2021 Type 2 diabetes mellitus ([facility]) Hypertension goal BP (blood pressure) < 140/90 Coronary artery calcification seen on CT scan Tobacco use disorder Overview (01/17/2024): 0.5 pack of cigarettes daily Peripheral vascular disease Resolved Problems Problem Noted Date Diagnosed Date Resolved Date 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 ([facility]) 06/26/2023 024 Cellulitis and abscess of foot 09/19/2022 08/22/2023 Preop cardiovascular exam 10/24/2021 CVA (cerebral vascular accid ent) ([facility]) 09/26/2021 09/27/2021 Subacute neurologic deficit 09/25/2021 09/27/2021 Encounters Date Type Department Care Team Description 02/26/2024 3:30 PM PULVERIZER MILL OPERATOR Home Care Visit [facility] [address] [place] [address] Nieves Olson, RN TELEPHONE CALL 02/21/2024 Home Care Visit [facility] [address] [place] [address] Jacky Yeager RN SN POST TRANSFER AGENCY DISCHARGE 02/20/2024 Home Care Visit [facility] [address] [place] [address] Nieves Olson, RN NON ADMIT KYLER 02/18/2024 Chart Prep [facility] [address] [place] [address] Giovanna Cardona MD 02/13/2024 Home Care Visit [facility] Home Care [facility] [address] [place] [address] Veronica Hernandez RN SN OASIS TRANSFER W/OUT DC 02/13/2024 Travel 02/11/2024 10:49 PM PULVERIZER MILL OPERATOR - 02/19/2024 11:49 AM PULVERIZER MILL OPERATOR Hospital Encounter [facility] [address] [place] [address] Alcides Grimm MD Naveed, MD Coco Rivera Srikanth, MD Boddu, MD Madina Discharge Disposition: Home or Self Care (Routine Discharge) 02/11/2024 2:28 PM PULVERIZER MILL OPERATOR - 02/11/2024 9:30 PM PULVERIZER MILL OPERATOR Emergency [facility] [place] [address] Babita Vasquez MD Fall Discharge Disposition: Transfer to Acute [facility] 02/11/2024 12:00 PM PULVERIZER MILL OPERATOR Home Care Visit [facility] Home Care [facility] [address] [place] [address] Marilu Donovan LPN SN HOME VISIT 02/11/2024 Travel from Last 3 Months Family History Medical History Relation Comments No Known Problems Brother 1 COPD Father Cancer Father Diabetes Father Hypertension Father Aneurysm Mother Heart Disease Mother Pulmonary embolism Mother Cancer Sister 1 Relation Status Comments Brother 1 Alive Brother 2 Alive Father Maternal Grandfather Maternal Grandmother Mother Paternal Grandfather Paternal Grandmother Sister 1 Alive Sister 2 Alive Sister 3 Alive Sister 4 Alive Sister 5 Alive Sister 6 Alive Social History Tobacco Use Types Packs/Day Years Used Date Smoking Tobacco: Every Day Cigarettes 0.4 75.1 Started: 1977 Smokeless Tobacco: Never Tobacco Cessation:Ready to Q uit: Not Asked; Counseling Given: Not Answered Alcohol Use Standard Drinks/Week Comments No 0 (1 standard drink = 0.6 oz pur e alcohol) OASIS D0700: Social Isolation Answer Da te Recorded Frequency of experiencing loneliness or isolatio n Rarely 01/23/2024 OASIS A1250: Transportation Answer Date Recorded Lack of Transportation (Medical) No 01/23/2024 Lack of Transportation (Non-Medical) No 01/23/2024 Patient Unable or Declines to Respond No 01/23/2024 OASIS B1300: Health Literacy Answer David e Recorded Frequency of needing help to read materials from doctor or pharmacy Rarely 01/23/2024 B1300 Health Literacy Answer Date Recor ded How often do you need to hav e someone help you when you read instructions, pamphlets, or other written material from your doctor or pharmacy? Rarely 01/17/[address] [facility] Utilities Answer Date Recorded In the past 12 months has e [employer], [employer], oil, or water [employer] threatened to shut off services in your home? No 02/12/2024 Humiliation, Afraid, Rape, and Kick questionnair e Answer Date Recorded Within the last year, have y ou been afraid of your partner or ex-partner? No 02/12/2024 Within the last year, have y ou been humiliated or emotionally abused in other ways by your partner or ex-partner? No Within the last year, have y ou been kicked, hit, slapped, or otherwise physically hurt by your partner or ex-partner? No 02/12/2024 Within the last year, have y ou been raped or forced to have any kind of sexual activity by your partner or ex-partner? No 02/12/2024 Social Connection and Isolat ion Panel [NHANES] Answer Date Recorded In a typical week, how many times do you talk on the phone with family, friends, or neighbors? More than three times a week 01/17/2024 How often do you get togethe r with friends or relatives? Once a week 01/17/2024 How often do you attend chur ch or sikhism services? Never 01/17/2024 Do you belong to any clubs o r organizations such as anabaptist groups, unions, fraternal or athletic groups, or school groups? No 01/17/2024 How often do you attend meet ings of the clubs or organizations you belong to? Never 01/17/2024 Are you , , di vorced, , never , or living with a partner? Living with partner 01/17/2024 AUDIT-C Answer Date Recorded Q1: How often do you have a drink containing alcohol? Never 01/17/2024 Q2: How many drinks containi ng alcohol do you have on a typical day when you are drinking? Patient does not drink Q3: How often do you have si x or more drinks on one occasion? Never 01/17/2024 Overall Financial Resource Strain (CARDIA) Answe r Date Recorded How hard is it for you to pa y for the very basics like food, housing, medical care, and heating? Somewhat hard 02/12/2024 PHQ-2 Answer Date Recorded Patient Health Questionnaire-2 Score 0 03/09/2022 [facility] - Occupational Stress Questionnaire Answer Date Recorded Do you feel stress - tense, restless, nervous, or anxious, or unable to sleep at night because your mind is troubled all the time - these days? To some extent 01/17/2024 Exercise Vital Sign Answer Date Recorde d On average, how many days pe r week do you engage in moderate to strenuous exercise (like a brisk walk)? 0 days 01/17/2024 On average, how many minutes do you engage in exercise at this level? 0 min 01/17/2024 Hunger Vital Sign Answer Date Recorded Within the past 12 months, y ou worried that your food would run out before you got the money to buy more. Sometimes true Within the past 12 months, t he food you bought just didn't last and you didn't have money to get more. Sometimes true 03/2024 PRAPARE - Transportation Answer Date Re corded In the past 12 months, has l ack of transportation kept you from medical appointments or from getting medications? Yes 01/31 In the past 12 months, has l ack of transportation kept you from meetings, work, or from getting things needed for daily living? Yes 02/12/2024 Housing Stability Vital Sign Answer David e Recorded In the last 12 months, was t here a time when you were not able to pay the mortgage or rent on time? No 06/26/2023 In the last 12 months, how many places have you lived? 1 06/26/2023 In the last 12 months, was t here a time when you did not have a steady place to sleep or slept in a residential (including now)? No 06/26/2023 Housing Stability Vital Sign Answer David e Recorded In the last 12 months, was t here a time when you were not able to pay the mortgage or rent on time? No 02/12/2024 In the past 12 months, how m any times have you moved where you were living? 0 02/12/2024 At any time in the past 12 m [facility], were you homeless or living in a residential (including now)? No 02/12/2024 Comments No Sex and Gender Information Value Date Recorded Sex Assigned at Female 01/17/2024 1:34 PM CDT Legal Sex Female 5:51 PM PULVERIZER MILL OPERATOR Gender Identity Female 01/17/2024 1:34 PM CDT Sexual Orientation Straight 01/17/2024 1: 34 PM CDT Last Filed Vital Signs Vital Sign Reading Time Taken Comments Blood Pressure 101/38 02/19/2024 7:00 AM PULVERIZER MILL OPERATOR Pulse 64 02/19/2024 7:00 AM PULVERIZER MILL OPERATOR Temperature 36.3 C (97.4 F) 02/19/2024 7:00 AM PULVERIZER MILL OPERATOR Respiratory Rate 20 02/18/2024 8:07 AM PULVERIZER MILL OPERATOR Oxygen Saturation 96% 02/18/2024 7:48 PM PULVERIZER MILL OPERATOR Inhaled Oxygen Concentration - - Weight 144.2 kg (318 lb) 02/12/2024 4:16 AM PULVERIZER MILL OPERATOR Height 175.3 cm (5' 9.02 ) 02/12/2024 4:16 AM CS T Body Mass Index 46.94 02/12/2024 4:16 AM PULVERIZER MILL OPERATOR Plan of Treatment Health Maintenance Due Date Last Done Comments Colorectal Cancer Screening Colonoscopy (10 Years) 1960 Kidney Health Evaluation 1960 Annual Physical 1963 PHQ-2 (Physician Leeton) 1972 Diabetes: Retinopathy Eye Exam 1978 Hepatitis C 1978 DTaP, Tdap and Td Vaccines (1 - Tdap) 1979 Mammogram Screening 2000 Lung Cancer Screening 2010 RSV Immunization or 60+ Years (1 - Risk 60-74 years 1-dose series) 2020 Zoster Vaccines (2 of 2) 10/03/2022 08/08/2022 COVID-19 Vaccine (1 - season) 2023 Influenza Adult (#1) 2024 PHQ-2 (Physician Leeton) 04/02/2024 Hemoglobin A1C 05/14/2024 02/12/2024, 01/01, 06/27/2023, Additional history exists Lipid Panel 06/26/2024 06/27/2023, 09/30/2021 Pneumococcal Vaccine: Pediatrics (0 to 5 Years) and At-Risk Patients (6 to 64 Years) Completed 08/08/2022 Meningococcal B Vaccine Aged Out No l onger eligible based on patient's age to complete this topic Meningococcal Vaccine Aged Out No hitesh niki eligible based on patient's age to complete this topic RSV Immunizations Under 20 Months Aged Out No longer eligible based on patient's age to complete this topic Goals Goal Patient Goal Type Associated Problems Recent Progress Patient-Stated? Author Family - family caregiver with be involved in care transitions and discharge planning General No Dana Huggins RN Procedures Procedure Name Priority Date/Time Associated Diagnosis Comments COMPREHENSIVE METABOLIC PANEL Routine 02/19/2024 8:59 AM PULVERIZER MILL OPERATOR CBC W/DIFF AUTOMATED Routine 02/19/2024 8:59 AM PULVERIZER MILL OPERATOR POCT GLUCOSE - HAWTHORNE DOCKED DEVICE Routine 02/19/2024 6:27 AM PULVERIZER MILL OPERATOR POCT GLUCOSE - HAWTHORNE DOCKED DEVICE Routine 02/18/2024 8:57 PM PULVERIZER MILL OPERATOR POCT GLUCOSE - HAWTHORNE DOCKED DEVICE Routine 02/18/2024 4:12 PM PULVERIZER MILL OPERATOR POCT GLUCOSE - HAWTHORNE DOCKED DEVICE Routine 02/18/2024 12:44 PM PULVERIZER MILL OPERATOR POCT GLUCOSE - HAWTHORNE DOCKED DEVICE Routine 02/18/2024 11:15 AM PULVERIZER MILL OPERATOR POCT GLUCOSE - HAWTHORNE DOCKED DEVICE Routine 02/18/2024 6:13 AM PULVERIZER MILL OPERATOR POCT GLUCOSE - HAWTHORNE DOCKED DEVICE Routine 02/17/2024 9:15 PM PULVERIZER MILL OPERATOR POCT GLUCOSE - HAWTHORNE DOCKED DEVICE Routine 02/17/2024 4:22 PM PULVERIZER MILL OPERATOR POCT GLUCOSE - HAWTHORNE DOCKED DEVICE Routine 02/17/2024 1:46 PM PULVERIZER MILL OPERATOR POCT GLUCOSE - HAWTHORNE DOCKED DEVICE Routine 02/17/2024 11:10 AM PULVERIZER MILL OPERATOR POCT GLUCOSE - HAWTHORNE DOCKED DEVICE Routine 02/17/2024 6:10 AM PULVERIZER MILL OPERATOR COMPREHENSIVE METABOLIC PANEL Routine 02/17/2024 4:21 AM PULVERIZER MILL OPERATOR CBC W/DIFF AUTOMATED Routine 02/17/2024 4:21 AM PULVERIZER MILL OPERATOR POCT GLUCOSE - HAWTHORNE DOCKED DEVICE Routine 02/16/2024 8:17 PM PULVERIZER MILL OPERATOR POCT GLUCOSE - HAWTHORNE DOCKED DEVICE Routine 02/16/2024 4:30 PM PULVERIZER MILL OPERATOR USV VAST TEAM PICC INSERT >5YR Routine 02/16/2024 12:35 PM PULVERIZER MILL OPERATOR POCT GLUCOSE - HAWTHORNE DOCKED DEVICE Routine 02/16/2024 11:53 AM PULVERIZER MILL OPERATOR POCT GLUCOSE - HAWTHORNE DOCKED DEVICE Routine 02/16/2024 6:12 AM PULVERIZER MILL OPERATOR CK (CPK) Routine 02/16/2024 2:42 AM PULVERIZER MILL OPERATOR COMPREHENSIVE METABOLIC PANEL Routine 02/16/2024 2:42 AM PULVERIZER MILL OPERATOR CBC W/DIFF AUTOMATED Routine 02/16/2024 2:42 AM PULVERIZER MILL OPERATOR POCT GLUCOSE - HAWTHORNE DOCKED DEVICE Routine 02/15/2024 7:47 PM PULVERIZER MILL OPERATOR POCT GLUCOSE - HAWTHORNE DOCKED DEVICE Routine 02/15/2024 4:20 PM PULVERIZER MILL OPERATOR USE ECHOCARDIOGRAM W CON Today 02/15/2024 1:39 PM PULVERIZER MILL OPERATOR XR CHEST PORTABLE ANU 02/15/2024 11: 38 AM PULVERIZER MILL OPERATOR POCT GLUCOSE - HAWTHORNE DOCKED DEVICE Routine 02/15/2024 11:32 AM PULVERIZER MILL OPERATOR POCT GLUCOSE - HAWTHORNE DOCKED DEVICE Routine 02/15/2024 6:49 AM PULVERIZER MILL OPERATOR COMPREHENSIVE METABOLIC PANEL Routine 02/15/2024 5:14 AM PULVERIZER MILL OPERATOR CBC W/DIFF AUTOMATED Routine 02/15/2024 5:14 AM PULVERIZER MILL OPERATOR VANCOMYCIN TIMED 02/15/2024 5:14 AM PULVERIZER MILL OPERATOR POCT GLUCOSE - HAWTHORNE DOCKED DEVICE Routine 02/14/2024 8:11 PM PULVERIZER MILL OPERATOR POCT GLUCOSE - HAWTHORNE DOCKED DEVICE Routine 02/14/2024 3:48 PM PULVERIZER MILL OPERATOR POCT GLUCOSE - HAWTHORNE DOCKED DEVICE Routine 02/14/2024 11:20 AM PULVERIZER MILL OPERATOR POCT GLUCOSE - HAWTHORNE DOCKED DEVICE Routine 02/14/2024 6:27 AM PULVERIZER MILL OPERATOR BASIC METABOLIC PANEL Routine 02/14/2024 4:18 AM PULVERIZER MILL OPERATOR CBC W/DIFF AUTOMATED Routine 02/14/2024 4:18 AM PULVERIZER MILL OPERATOR MRI FOOT LT WO CON Today 02/13/2024 10 :54 PM PULVERIZER MILL OPERATOR POCT GLUCOSE - HAWTHORNE DOCKED DEVICE Routine 02/13/2024 8:33 PM PULVERIZER MILL OPERATOR USV VAST TEAM PICC INSERT >5YR Today 02/13/2024 6:50 PM PULVERIZER MILL OPERATOR POCT GLUCOSE - HAWTHORNE DOCKED DEVICE Routine 02/13/2024 5:37 PM PULVERIZER MILL OPERATOR POCT GLUCOSE - HAWTHORNE DOCKED DEVICE Routine 02/13/2024 4:53 PM PULVERIZER MILL OPERATOR USV KATHERYN DUPLEX LOW EXT BRITT Today 02/13/2024 2:06 PM PULVERIZER MILL OPERATOR POCT GLUCOSE - HAWTHORNE DOCKED DEVICE Routine 02/13/2024 11:00 AM PULVERIZER MILL OPERATOR POCT GLUCOSE - HAWTHORNE DOCKED DEVICE Routine 02/13/2024 6:28 AM PULVERIZER MILL OPERATOR VANCOMYCIN TIMED 02/13/2024 6:04 AM PULVERIZER MILL OPERATOR MRI FOOT RT WO CON Today 02/12/2024 11 :01 PM PULVERIZER MILL OPERATOR POCT GLUCOSE - HAWTHORNE DOCKED DEVICE Routine 02/12/2024 8:46 PM PULVERIZER MILL OPERATOR CULTURE, BACTERIA, BLOOD TIMED 02/12/2024 5:54 PM PULVERIZER MILL OPERATOR CULTURE, BACTERIA, BLOOD TIMED 02/12/2024 5:14 PM PULVERIZER MILL OPERATOR POCT GLUCOSE - HAWTHORNE DOCKED DEVICE Routine 02/12/2024 3:58 PM PULVERIZER MILL OPERATOR HC BODY FLUID CULTURE Nurse Collected Priority 02/12/2024 3:50 PM PULVERIZER MILL OPERATOR POCT GLUCOSE - HAWTHORNE DOCKED DEVICE Routine 02/12/2024 1:16 PM PULVERIZER MILL OPERATOR POCT GLUCOSE - HAWTHORNE DOCKED DEVICE Routine 02/12/2024 11:29 AM PULVERIZER MILL OPERATOR HEMOGLOBIN, GLYCOSYLATED Routine 02/12/2024 9:05 AM PULVERIZER MILL OPERATOR POCT GLUCOSE - HAWTHORNE DOCKED DEVICE Routine 02/12/2024 6:51 AM PULVERIZER MILL OPERATOR MAGNESIUM Routine 02/12/2024 3:02 AM PULVERIZER MILL OPERATOR COMPREHENSIVE METABOLIC PANEL Routine 02/12/2024 3:02 AM PULVERIZER MILL OPERATOR CBC W/DIFF AUTOMATED Routine 02/12/2024 3:02 AM PULVERIZER MILL OPERATOR POCT GLUCOSE - HAWTHORNE DOCKED DEVICE Routine 02/11/2024 11:49 PM PULVERIZER MILL OPERATOR LACTIC ACID W REFLEX (SEPSIS) TIMED 02/11/2024 9:09 PM PULVERIZER MILL OPERATOR LACTIC ACID W REFLEX (SEPSIS) TIMED 02/11/2024 6:59 PM PULVERIZER MILL OPERATOR HC URINALYSIS AUTO W/MICRO STAT 02/11/2024 5:38 [address]ULVERIZER MILL OPERATOR CT HEAD WO CON STAT 02/11/2024 5:27 PM PULVERIZER MILL OPERATOR XR TIBIA+FIBULA RT 2V STAT 02/11/2024 5:26 PM PULVERIZER MILL OPERATOR XR SHOULDER RT MIN 2V STAT 02/11/2024 5:26 PM PULVERIZER MILL OPERATOR XR FOOT RT 3V STAT 02/11/2024 5:26 PM PULVERIZER MILL OPERATOR XR FEMUR RT 2V STAT 02/11/2024 5:26 PM PULVERIZER MILL OPERATOR XR HIP RT 2V STAT 02/11/2024 5:26 PM PULVERIZER MILL OPERATOR XR CHEST PORTABLE STAT 02/11/2024 5:2 6 PM PULVERIZER MILL OPERATOR CULTURE, BACTERIA, BLOOD Routine 02/11/2024 4:21 PM PULVERIZER MILL OPERATOR MAGNESIUM STAT 02/11/2024 4:21 PM PULVERIZER MILL OPERATOR BLOOD GAS, VENOUS STAT 02/11/2024 4:2 1 PM PULVERIZER MILL OPERATOR C-REACTIVE PROTEIN STAT 02/11/2024 4: 21 PM PULVERIZER MILL OPERATOR LACTIC ACID W REFLEX (SEPSIS) STAT 02/11/2024 4:21 PM PULVERIZER MILL OPERATOR CK (CPK) STAT 02/11/2024 4:21 PM PULVERIZER MILL OPERATOR COMPREHENSIVE METABOLIC PANEL STAT 02/11/2024 4:21 PM PULVERIZER MILL OPERATOR SED RATE, ERYTHROCYTE (ESR) STAT 02/11/2024 4:21 PM PULVERIZER MILL OPERATOR PARTIAL THROMBOPLASTIN TIME,PTT STAT 02/11/2024 4:21 PM PULVERIZER MILL OPERATOR PROTHROMBIN TIME, VENOUS STAT 02/11/2024 4:21 PM PULVERIZER MILL OPERATOR CBC W/DIFF AUTOMATED STAT 02/11/2024 4:21 PM PULVERIZER MILL OPERATOR ECG 12-LEAD Routine 02/11/2024 4:16 PM PULVERIZER MILL OPERATOR POCT GLUCOSE - HAWTHORNE Possibility Space DEVICE Routine 02/11/2024 4:14 PM PULVERIZER MILL OPERATOR LIPID PANEL Routine 06/27/2023 5:16 AM CDT from Last 3 Months or Most Recently Relevant to Health Maintenance Results * (ABNORMAL) COMPREHENSIVE METABOLIC PANEL (02/19/2024 8:59 AM PULVERIZER MILL OPERATOR) Only the most recent of6 resultswithin the time period is included. SODIUM S/P/B 140 136 - 145 MMOL/L 02/19/2024 9:50 AM PULVERIZER MILL OPERATOR [facility] POTASSIUM S/P/B 3.7 3.5 - 5.1 MMOL/L 02/19/2024 9:50 AM PULVERIZER MILL OPERATOR [facility] CHLORIDE S/P/B 107 97 - 115 MMOL/L 02/19/2024 9:50 AM PULVERIZER MILL OPERATOR [facility] CO2 28.2 21.0 - 32.0 MMOL/L 02/19/2024 9:50 AM PULVERIZER MILL OPERATOR [facility] GLUCOSE 240(H) 74 - 106 MG/DL 02/19/2024 9:50 AM PULVERIZER MILL OPERATOR [facility] BUN 13 7 - 18 MG/DL 02/19/2024 9:[address] [facility] CREATININE S/P/B 0.86 0.55 - 1.02 MG/DL 02/19/2024 9:[address] [facility] CALCIUM S/P/B 8.5 8.5 - 10.1 MG/DL 02/19/2024 9:[address] [facility] BILIRUBIN TOTAL S/P/B 0.7 0.2 - 1.0 MG/DL 02/19/2024 9:[address] [facility] ALKALINE PHOSPHATASE S/P/B 83 50 - 130 U/L 02/19/2024 9:[address] [facility] AST 36 15 - 37 U/L 02/19/2024 9:[address] [facility] ALT 31 13 - 56 U/L 02/19/2024 9:[address] [facility] TOTAL PROTEIN S/P/B 6.0(L) 6.4 - 8.2 G/DL 02/19/2024 9:[address] [facility] ALBUMIN S/P/B 2.8(L) 3.4 - 5.0 G/DL 02/19/2024 9:[address] [facility] ANION GAP 4.8 2.0 - 10.0 MMOL/L 02/19/2024 9:[address] [facility] OSMOLALITY (CALC) 298 MOSM/KG 024 9:[address] [facility] Comment:REFERENCE RANGE NOT ESTABLISHED GFR ESTIMATE 76(L) >90 ML/MIN/1. 73 M2 02/19/2024 9:[address] [facility] GFR NOTES GFR REFERENCE S: 02/19/2024 9:[address] [facility] Comment: THE ESTIMATED GFR IS CALCULATED USING THE 2020 CKD-EPI EQUATION. THE FOLLOWING CATEGORIES FOR GRADING RENAL FUNCTION ARE RECOMMENDED BY THE INTERNATIONAL SOCIETY OF NEPHROLOGY (KDIGO 2012 CLINICAL PRACTICE GUIDELINE). G1,NORMAL OR HIGH: >89 ml/min/1.73 m2 G2,MILDLY DECREASED: 60-89 ml/min/1.73 m2 G3A,MILDLY TO MODERATELY DECREASED: 45-59 ml/min/1.73 m2 G3B,MODERATELY TO SEVERELY DECREASED: 30-44 ml/min/1.73 m2 G4,SEVERELY DECREASED: 15-29 ml/min/1.73 m2 G5,KIDNEY FAILURE: <15 ml/min/1.73 m2 02/19/2024 8:59 AM PULVERIZER MILL OPERATOR Madina Dawn MD LABORATORY Final Result [facility] [address] [place] [address], [id number] * (ABNORMAL) CBC W/DIFF AUTOMATED (02/19/2024 8:59 AM PULVERIZER MILL OPERATOR) Only the most recent of7 resultswithin the time period is included. WBC 5.81 4.00 - 10.80 x10'3/uL 02/19/2024 9:15 AM PULVERIZER MILL OPERATOR [facility] RBC 4.12 4.10 - 5.40 x10'6/uL 02/19/2024 9:[address] [facility] HGB 11.4(L) 12.0 - 16.0 G/DL 02/19/2024 9:[address] [facility] HCT 35.8(L) 36.0 - 47.0 % 02/19/2024 9:15 AM PULVERIZER MILL OPERATOR [facility] MCV 86.9 78.0 - 100.0 FL 02/19/2024 9:15 AM PULVERIZER MILL OPERATOR [facility] MCH 27.7 27.0 - 31.0 PG 02/19/2024 9:15 AM PULVERIZER MILL OPERATOR [facility] MCHC 31.8(L) 33.0 - 36.0 G/DL 02/19/2024 9:[address] [facility] RDW 14.9(H) 11.5 - 14.5 % 02/19/2024 9:[address] [facility] PLT 191 150 - 350 x10'3/uL 02/19/2024 9:[address] [facility] MPV 9.6 7.4 - 10.4 FL 02/19/2024 9:[address] [facility] DIFFERENTIAL TYPE AUTOMATED DIFFERENTIAL 02/19/2024 9:[address] [facility] SEG NEUTROPHILS 42.9 % 9:[address] [facility] LYMPHOCYTES 44.1 % 02/19/2024 9:[address] [facility] MONOCYTES 8.4 % 02/19/2024 9:[address] [facility] EOSINOPHILS 3.8 % 02/19/2024 9:[address] [facility] BASOPHILS 0.5 % 02/19/2024 9:[address] [facility] IMMATURE GRANS % 0.3 % 02/19/20 9:[address] [facility] ABS. NEUTROPHILS 2.49 1.60 - 8.30 x10'3/uL 02/19/2024 9:[address] [facility] ABS. LYMPHOCYTES 2.56 0.80 - 4.70 x10'3/uL 02/19/2024 9:[address] [facility] ABS. MONOCYTES 0.49 0.00 - 1.50 x10'3/uL 02/19/2024 9:[address] [facility] ABS. EOSINOPHILS 0.22 0.00 - 0.40 x10'3/uL 02/19/2024 9:[address] [facility] ABS. BASOPHILS 0.03 0.00 - 0.20 x10'3/uL 02/19/2024 9:[address] [facility] ABS. IMMATURE GRANULOCYTES 0.02 0.00 - 0.03 x10'3/uL 02/19/2024 9:[address] [facility] ABS. NUCLEATED RBC'S 0.00 0.00 - 0.01 x10'3/uL 02/19/2024 9:15 AM [employer] [facility] NRBC % 0.0 % 02/19/2024 9:15 AM [employer] [facility] 02/19/2024 8:59 AM [employer] us Madina Dawn MD LABORATORY Final Result Performing Organization Address [facility] Co de Phone Number [facility] [address] [place] [address], [phone] * (ABNORMAL) POCT glucose (02/19/2024 6:27 AM [employer]) Only the most recent of35 resultswithin the time period is included. GLUCOSE POC 168(H) 70 - 109 02/19/2024 6:51 AM PULVERIZER MILL OPERATOR [facility] 02/19/2024 6:27 AM PULVERIZER MILL OPERATOR us Madina Dawn MD POCT ORDERABLES - DEVICE Final Result Performing Organization Address [facility] de Phone Number [facility] [address] [place] [address], [phone] * USV VAST TEAM PICC INSERT >5YR (02/16/2024 12:35 PM PULVERIZER MILL OPERATOR) Only the most recent of2 resultswithin the time period is included. Anatomical Region Laterality Modality NA Vascular Ultraso und 02/16/2024 11:4 7 AM PULVERIZER MILL OPERATOR Narrative 02/16/2024 11:47 AM PULVERIZER MILL OPERATOR This report does not contain a radiologist's interpretation. Please review associated procedure and/or operative report. Procedure Note Eugenio Haynes MD - 02/16/2024 This report does not contain a radiologist's interpretation. Please review associated procedure and/or operative report. us Madina Dawn MD US VASC Final Result * CK (CPK) - Weekly starting tomorrow (02/16/2024 2:42 AM PULVERIZER MILL OPERATOR) Only the most recent of2 resultswithin the time period is included. CPK 54 26 - 192 U/L 02/16/2024 1:45 PM PULVERIZER MILL OPERATOR [facility] 02/16/2024 2:42 AM PULVERIZER MILL OPERATOR Jose Zuleta MD LABORATORY Final Re sult [facility] [address] [place] [address], [phone] * USE ECHOCARDIOGRAM W CON (02/15/2024 1:39 PM PULVERIZER MILL OPERATOR) Anatomical Region Laterality Modality NA Echocardiogram 02/15/2024 12:5 2 PM PULVERIZER MILL OPERATOR Narrative 02/16/2024 9:05 PM PULVERIZER MILL OPERATOR Echocardiography Report Pat.Name: SENA YO Pat.ID: [id number] .Date: 02/15/2024 Refer.: [id number] KYM Baltazar EWDPROV EWDPROV Exam Time: 12:52:00 PM Study Type:ECHO W/CONTRAST COMPLETE Height: 69 in Weight: 318 lb BSA: 2.52 m2 Age: 1 1960,63Y Sex: F BP: 162/87 HR: 55 bpm Sonogrphr: [place] TANGELA Pat. Stat.:Inpatient Room: 1114 CPT - 4: C8929 Reason for Study:Staph in blood Procedures: 2D, M-mode, Doppler, Color Flow, Definity was used to enhance endocardial definition. Portable, The study quality is technically difficult. Race: W ++++++++++++++++++++++++++++++++++++ SUMMARY: ++++++++++++++++++++++++++++++++++++ The rhythm is sinus bradycardia (mid 50's bpm). The left ventricular size is normal. The left ventricular systolic function is normal. Estimated left ventricular ejection fraction is 55%. Mild concentric left ventricular hypertrophy. The right ventricle is normal. Unable to reliably quantitate pulmonary systolic pressure. Trace mitral regurgitation. A trace of tricuspid regurgitation. An echodensity suggestive of a vegetation is not noted. ++++++++++++++++++++++++++++++++++++ FINDINGS: ++++++++++++++++++++++++++++++++++++ LV: The left ventricular size is normal. The left ventricular systolic function is normal. Estimated left ventricular ejection fraction is 55%. Mild concentric left ventricular hypertrophy. Left ventricular diastolic function is not reliably assessed. WM: Wall motion appears normal in all segments. LVOT: The left ventricular outflow tract size is normal. RV: The right ventricular size is normal. Right ventricular systolic function is normal. The right ventricle not adequately visualized in all views. LA: The left atrial size is normal. The left atrial volume is normal ( less than 34 ml/M2). RA: The right atrium was not well visualized in all views. IAS: Atrial septum not well visualized in all views. KARIE: No evidence of pericardial effusion. AO: The aortic root measures 3.4 cm. The proximal ascending aorta measures 3.3cm. PA: Unable to reliably quantitate pulmonary systolic pressure. PVn: The pulmonary vein doppler wave form is normal suggestive of normal left atrial pressures. SVn: Systemic veins not well visualized. Other: Technically difficult exam due to body habitus. AV: Structurally normal aortic valve. The aortic valve is trileaflet. No evidence of aortic valve regurgitation. Mild calcification of aortic valve leaflets. MV: Structurally normal mitral valve. Trace mitral regurgitation. No evidence of mitral stenosis. Mildly calcified posterior mitral annulus. Mild thickening of mitral valve leaflets (age related). PV: Structurally normal pulmonic valve. Trace pulmonic regurgitation. No evidence of pulmonic valve stenosis. TV: Structurally normal tricuspid valve. A trace of tricuspid regurgitation. No evidence of tricuspid valve stenosis. ++++++++++++++++++++++++++++++++++++ MEASUREMENTS: ++++++++++++++++++++++++++++++++++++ 2D Left Ventricle LVIDd 4.52 cm (3.6-5.2) LVIDs 2.11 cm (2.3-3.9)+* LVPW LVPWd 1.28 cm LVPWth 152 % LVPWs 3.23 cm Ventricular Septum IVSd 1.2 cm IVSs 2 cm Aorta Ao Rtd 3.4 cm Ao Asc 3.3 cm (2.1-3.4) LVOT LVOT 2.18 cm Ratios IVS LA Biplane LAVol I BP 34 ml/m2 DOPPLER LVOT LVOTpkPG 3.8 mmHg LVOTmnPG 2.1 mmHg LVOTpkVel 97.7 cm/s (70-110) LVOT SV 95 ml LVOT TVI 25.6 cm AV Forward Flow AV TVI 42 cm AV pkPG 11 mmHg AV pkVel 169 cm/s (100-170)+ Area (TVI) 2.27 cm2 (3-5)* AV mnVel 119 cm/s Area (Santana) 2.16 cm2 (3-5)* AV mnPG 6.6 mmHg MV Forward Flow MV mnPG 2 mmHg MV pkPG 8 mmHg Lat E' Lat e 7.29 cm/s Med E' Med e 6.53 cm/s Aortic Valve Aortic Valve Ar 0.9 Aortic Valve Ve 0.58 AV DI Value 0.6 NADER (VTI) Index Value 0.9 LV Mass 2D Value 209 g LV Mass [id number] Value 82.9 g/m2 <Electronic Signature> 02/16/2024 09:05 PM Juliann Erickson M.D. Procedure Note Juliann Erickson MD - 02/16/2024 Echocardiography Report Pat.Name: SENA YO Pat.ID: [id number] .Date: 02/15/2024 : [id number] KYM Baltazar EWDPROV EWDPROV Exam Time: 12:52:00 PM Study Type:ECHO W/CONTRAST COMPLETE Height: 69 in Weight: 318 lb BSA: 2.52 m2 Age: 1 1960,63Y Sex: F BP: 162/87 HR: 55 bpm Sonogrphr: Tin Harris [facility] Pat. Stat.:Inpatient Room: 1114 CPT - 4: C8929 Reason for Study:Staph in blood Procedures: 2D, M-mode, Doppler, Color Flow, Definity was used to enhance endocardial definition. Portable, The study quality is technically difficult. Race: W ++++++++++++++++++++++++++++++++++++ SUMMARY: ++++++++++++++++++++++++++++++++++++ The rhythm is sinus bradycardia (mid 50's bpm). The left ventricular size is normal. The left ventricular systolic function is normal. Estimated left ventricular ejection fraction is 55%. Mild concentric left ventricular hypertrophy. The right ventricle is normal. Unable to reliably quantitate pulmonary systolic pressure. Trace mitral regurgitation. A trace of tricuspid regurgitation. An echodensity suggestive of a vegetation is not noted. ++++++++++++++++++++++++++++++++++++ FINDINGS: ++++++++++++++++++++++++++++++++++++ LV: The left ventricular size is normal. The left ventricular systolic function is normal. Estimated left ventricular ejection fraction is 55%. Mild concentric left ventricular hypertrophy. Left ventricular diastolic function is not reliably assessed. WM: Wall motion appears normal in all segments. LVOT: The left ventricular outflow tract size is normal. RV: The right ventricular size is normal. Right ventricular systolic function is normal. The right ventricle not adequately visualized in all views. LA: The left atrial size is normal. The left atrial volume is normal ( less than 34 ml/M2). RA: The right atrium was not well visualized in all views. IAS: Atrial septum not well visualized in all views. KARIE: No evidence of pericardial effusion. AO: The aortic root measures 3.4 cm. The proximal ascending aorta measures 3.3cm. PA: Unable to reliably quantitate pulmonary systolic pressure. PVn: The pulmonary vein doppler wave form is normal suggestive of normal left atrial pressures. SVn: Systemic veins not well visualized. Other: Technically difficult exam due to body habitus. AV: Structurally normal aortic valve. The aortic valve is trileaflet. No evidence of aortic valve regurgitation. Mild calcification of aortic valve leaflets. MV: Structurally normal mitral valve. Trace mitral regurgitation. No evidence of mitral stenosis. Mildly calcified posterior mitral annulus. Mild thickening of mitral valve leaflets (age related). PV: Structurally normal pulmonic valve. Trace pulmonic regurgitation. No evidence of pulmonic valve stenosis. TV: Structurally normal tricuspid valve. A trace of tricuspid regurgitation. No evidence of tricuspid valve stenosis. ++++++++++++++++++++++++++++++++++++ MEASUREMENTS: ++++++++++++++++++++++++++++++++++++ 2D Left Ventricle LVIDd 4.52 cm (3.6-5.2) LVIDs 2.11 cm (2.3-3.9)+* LVPW LVPWd 1.28 cm LVPWth 152 % LVPWs 3.23 cm Ventricular Septum IVSd 1.2 cm IVSs 2 cm Aorta Ao Rtd 3.4 cm Ao Asc 3.3 cm (2.1-3.4) LVOT LVOT 2.18 cm Ratios IVS LA Biplane LAVol I BP 34 ml/m2 DOPPLER LVOT LVOTpkPG 3.8 mmHg LVOTmnPG 2.1 mmHg LVOTpkVel 97.7 cm/s (70-110) LVOT SV 95 ml LVOT TVI 25.6 cm AV Forward Flow AV TVI 42 cm AV pkPG 11 mmHg AV pkVel 169 cm/s (100-170)+ Area (TVI) 2.27 cm2 (3-5)* AV mnVel 119 cm/s Area (Santana) 2.16 cm2 (3-5)* AV mnPG 6.6 mmHg MV Forward Flow MV mnPG 2 mmHg MV pkPG 8 mmHg Lat E' Lat e 7.29 cm/s Med E' Med e 6.53 cm/s Aortic Valve Aortic Valve Ar 0.9 Aortic Valve Ve 0.58 AV DI Value 0.6 NADER (VTI) Index Value 0.9 LV Mass 2D Value 209 g LV Mass [id number] Value 82.9 g/m2 <Electronic Signature> 02/16/2024 09:05 PM Juliann Erickson M.D. Madina Dawn MD ECHO Final Result * XR CHEST PORTABLE (02/15/2024 11:38 AM PULVERIZER MILL OPERATOR) Only the most recent of2 resultswithin the time period is included. Anatomical Region Laterality Modality Chest Radiographic Navya ging 02/16/2024 12:2 8 AM PULVERIZER MILL OPERATOR Impressions 02/16/2024 12:30 AM PULVERIZER MILL OPERATOR IMPRESSION: 1. Left PICC line tip projecting over the left subclavian/brachiocephalic vein. No definite pneumothorax. Referred By: BABITA VASQUEZ Interpreted By: Jose Keating MD, 02/16/2024 12:28 AM Narrative 02/16/2024 12:30 AM PULVERIZER MILL OPERATOR [address] [address] Examination: Chest radiograph Exam time: 02/15/2024 11:36 AM Clinical history: PICC placement Comparison: 02/11/2024 Technique: One view of the chest obtained. Findings: Interval placement of left PICC line, tip projecting over the left subclavian/brachiocephalic vein. Normal heart size. Aortic tortuosity. No consolidation, pleural effusions, or definite pneumothorax. Stable postsurgical changes in the left scapula and severe left glenohumeral arthritis. Procedure Note Jose Keating MD - 02/16/[address] [address] Examination: Chest radiograph Exam time: 02/15/2024 11:36 AM Clinical history: PICC placement Comparison: 02/11/2024 Technique: One view of the chest obtained. Findings: Interval placement of left PICC line, tip projecting over theleft subclavian/brachiocephalic vein. Normal heart size. Aortictortuosity. No consolidation, pleural effusions, or definite pneumothorax.Stable postsurgical changes in the left scapula and severe leftglenohumeral arthritis. IMPRESSION: 1. Left PICC line tip projecting over the left subclavian/brachiocephalicvein. No definite pneumothorax. Referred By: BABITA VASQUEZ Interpreted By: Jose Keating MD, 02/16/2024 12:28 AM Madina Dawn MD GENERAL IMAGING Final Result * Vancomycin Random Level (02/15/2024 5:14 AM PULVERIZER MILL OPERATOR) Only the most recent of2 resultswithin the time period is included. VANCOMYCIN RANDOM 17.2 MCG/ML 02/15/2024 6:05 AM PULVERIZER MILL OPERATOR [facility] Comment:REFERENCE RANGE NOT ESTABLISHED 02/15/2024 5:14 AM PULVERIZER MILL OPERATOR Zita Da Silva MD LABORATORY Final Res ult [facility] [address] [place] [address], [id number] * (ABNORMAL) BASIC METABOLIC PANEL (02/14/2024 4:18 AM PULVERIZER MILL OPERATOR) SODIUM S/P/B 140 136 - 145 MMOL/L 02/14/2024 4:56 AM PULVERIZER MILL OPERATOR [facility] POTASSIUM S/P/B 3.7 3.5 - 5.1 MMOL/L 02/14/2024 4:56 AM PULVERIZER MILL OPERATOR [facility] CHLORIDE S/P/B 108 97 - 115 MMOL/L 02/14/2024 4:56 AM PULVERIZER MILL OPERATOR [facility] CO2 29.9 21.0 - 32.0 MMOL/L 02/14/2024 4:56 AM PULVERIZER MILL OPERATOR [facility] GLUCOSE 154(H) 74 - 106 MG/DL 02/14/2024 4:[address] [facility] BUN 12 7 - 18 MG/DL 02/14/2024 4:[address] [facility] CREATININE S/P/B 0.79 0.55 - 1.02 MG/DL 02/14/2024 4:[address] [facility] CALCIUM S/P/B 8.4(L) 8.5 - 10.1 MG/DL 02/14/2024 4:[address] [facility] ANION GAP 2.1 2.0 - 10.0 MMOL/L 02/14/2024 4:[address] [facility] OSMOLALITY (CALC) 293 MOSM/KG 024 4:[address] [facility] Comment:REFERENCE RANGE NOT ESTABLISHED GFR ESTIMATE 84(L) >90 ML/MIN/1. 73 M2 02/14/2024 4:[address] [facility] GFR NOTES GFR REFERENCE S: 02/14/2024 4:[address] [facility] Comment: THE ESTIMATED GFR IS CALCULATED USING THE 2020 CKD-EPI EQUATION. THE FOLLOWING CATEGORIES FOR GRADING RENAL FUNCTION ARE RECOMMENDED BY THE INTERNATIONAL SOCIETY OF NEPHROLOGY (KDIGO 2012 CLINICAL PRACTICE GUIDELINE). G1,NORMAL OR HIGH: >89 ml/min/1.73 m2 G2,MILDLY DECREASED: 60-89 ml/min/1.73 m2 G3A,MILDLY TO MODERATELY DECREASED: 45-59 ml/min/1.73 m2 G3B,MODERATELY TO SEVERELY DECREASED: 30-44 ml/min/1.73 m2 G4,SEVERELY DECREASED: 15-29 ml/min/1.73 m2 G5,KIDNEY FAILURE: <15 ml/min/1.73 m2 02/14/2024 4:18 AM PULVERIZER MILL OPERATOR us Zita Da Silva MD LABORATORY Final Res ult [facility] [address] [place] [address], [id number] * MRI FOOT LT WO CON (02/13/2024 10:54 PM PULVERIZER MILL OPERATOR) Anatomical Region Laterality Modality Foot Magnetic Resonan ce 02/14/2024 12:0 2 AM PULVERIZER MILL OPERATOR Impressions 02/14/2024 12:06 AM PULVERIZER MILL OPERATOR IMPRESSION: 1. No MR signal changes of osteomyelitis. 2. Diffuse edema like signal throughout the soft tissues of the left foot, which may represent cellulitis in the appropriate clinical setting. No distinct drainable fluid collection or abscess. Referred By: BABITA VASQUEZ Interpreted By: Silvio Alvarez MD, 02/14/2024 12:02 AM Narrative 02/14/2024 12:06 AM PULVERIZER MILL OPERATOR [address] [address] EXAMINATION: MRI FOOT LT WO CON HISTORY: Evaluate for osteomyelitis. COMPARISON: MRI 01/19/2024. TECHNIQUE: Multiplanar, multisequence MR images of the left foot were obtained without contrast. FINDINGS: Patient motion artifact degrades image quality and limit sensitivity. There is diffuse edema like signal throughout the soft tissues of the left foot, which may represent cellulitis in the appropriate clinical setting. No distinct drainable fluid collection or abscess is identified. No marrow signal changes of osteomyelitis identified. Extensor and flexor tendons appear intact. There is mild fatty atrophy of the intrinsic foot musculature. Procedure Note Silvio Alvarez MD - 02/14/[address] [address] EXAMINATION: MRI FOOT LT WO CON HISTORY: Evaluate for osteomyelitis. COMPARISON: MRI 01/19/2024. TECHNIQUE: Multiplanar, multisequence MR images of the left foot wereobtained without contrast. FINDINGS: Patient motion artifact degrades image quality and limit sensitivity.There is diffuse edema like signal throughout the soft tissues of the leftfoot, which may represent cellulitis in the appropriate clinical setting.No distinct drainable fluid collection or abscess is identified. No marrowsignal changes of osteomyelitis identified. Extensor and flexor tendonsappear intact. There is mild fatty atrophy of the intrinsic footmusculature. IMPRESSION: 1. No MR signal changes of osteomyelitis. 2. Diffuse edema like signal throughout the soft tissues of the leftfoot, which may represent cellulitis in the appropriate clinical setting.No distinct drainable fluid collection or abscess. Referred By: BABITA VASQUEZ Interpreted By: Silvio Alvarez MD, 02/14/2024 12:02 AM us Zita Da Silva MD MRI Final Res ult * USV KATHERYN DUPLEX LOW EXT BRITT (02/13/2024 2:06 PM PULVERIZER MILL OPERATOR) Anatomical Region Laterality Modality Extremity Ultrasound 02/13/2024 1:25 PM PULVERIZER MILL OPERATOR Narrative 02/13/2024 3:13 PM PULVERIZER MILL OPERATOR Vascular Report Pat.Name: SENA YOID: [id number] St.Date: 02/13/2024 Refer.MD: ZITA DA SILVA Exam Time: 1:25:00 PM Study Type:PVI VENOUS DUPLEX SCAN-LEGS BILAT Height: 69 in Age: 1 1960,63Y Sex: F Sonogrphr: Ilia Dooley RVT Pat. Stat.:Inpatient Room: 1114 ICD - 9: R60.9 Limb Edema CPT - 4: 83191 Venous Duplex LE/UE Reason for Study:Edema Race: W ++++++++++++++++++++++++++++++++++++ FINDINGS: ++++++++++++++++++++++++++++++++++++ Bilat: No evidence of acute or chronic thrombosis noted in the deep or superficial veins in either lower extremity. Comments: Technically difficult study due to body habitus. <Electronic Signature> 02/13/2024 03:13 PM Bridger Mccray M.D. Procedure Note Bridger Mccray MD - 02/13/2024 Vascular Report Pat.Name: SENA YOID: [id number] St.Date: 02/13/2024 Refer.MD: ZITA DA SILVA Exam Time: 1:25:00 PM Study Type:PVI VENOUS DUPLEX SCAN-LEGS BILAT Height: 69 in Age: 1 1960,63Y Sex: F Sonogrphr: MARIO Valdes. Stat.:Inpatient Room: [facility]4 ICD - 9: R60.9 Limb Edema CPT - 4: 30918 Venous Duplex LE/UE Reason for Study:Edema Race: W ++++++++++++++++++++++++++++++++++++ FINDINGS: ++++++++++++++++++++++++++++++++++++ Bilat: No evidence of acute or chronic thrombosis noted in the deep or superficial veins in either lower extremity. Comments: Technically difficult study due to body habitus. <Electronic Signature> 02/13/2024 03:13 PM Bridger Mccray M.D. us Zita Da Silva MD [facility] Final Res ult * MRI FOOT RT WO CON (02/12/2024 11:01 PM PULVERIZER MILL OPERATOR) Anatomical Region Laterality Modality Foot Magnetic Resonan ce 02/13/2024 12:0 3 AM PULVERIZER MILL OPERATOR Impressions 02/13/2024 12:10 AM PULVERIZER MILL OPERATOR IMPRESSION: 1. Motion degraded exam limiting sensitivity. 2. Interval surgical resection of the first toe since prior MRI from last month. Notable abnormal signal at the first metatarsal head consistent with osteomyelitis. 3. There is likely regional soft tissue cellulitis. Assessment for fluid collection or abscess is limited secondary to motion and noncontrast technique. There is likely cellulitis involving the dorsal soft tissues of the midfoot and forefoot. Referred By: BABITA VASQUEZ Interpreted By: Silvio Alvarez MD, 02/13/2024 12:03 AM Narrative 02/13/2024 12:10 AM PULVERIZER MILL OPERATOR [facility] [address] [place], [place] [address] EXAMINATION: MRI FOOT RT WO CON HISTORY: OSTEO SUSPECTED - DM FOOT INFECTION COMPARISON: Radiographs February 2024. MRI January 19, 2024. TECHNIQUE: Multiplanar, multisequence MR images of the right foot were obtained without contrast. FINDINGS: Motion degraded exam limiting sensitivity. Interval surgical resection of the first toe since prior MRI from last month. Notable abnormal signal at the first metatarsal head consistent with osteomyelitis. There is likely regional soft tissue cellulitis. Assessment for fluid collection or abscess is limited secondary to motion and noncontrast technique. There is likely cellulitis involving the dorsal soft tissues of the midfoot and forefoot. No distinct extensor or flexor tendon abnormality is identified. There is fatty atrophy of the intrinsic foot musculature. Procedure Note Silvio Alvarez MD - 02/13/2024 [facility] [address] [place], [place] [address] EXAMINATION: MRI FOOT RT WO CON HISTORY: OSTEO SUSPECTED - DM FOOT INFECTION COMPARISON: Radiographs February 2024. MRI January 19, 2024. TECHNIQUE: Multiplanar, multisequence MR images of the right foot wereobtained without contrast. FINDINGS: Motion degraded exam limiting sensitivity. Interval surgical resection ofthe first toe since prior MRI from last month. Notable abnormal signal atthe first metatarsal head consistent with osteomyelitis. There is likelyregional soft tissue cellulitis. Assessment for fluid collection orabscess is limited secondary to motion and noncontrast technique. There islikely cellulitis involving the dorsal soft tissues of the midfoot andforefoot. No distinct extensor or flexor tendon abnormality is identified.There is fatty atrophy of the intrinsic foot musculature. IMPRESSION: 1. Motion degraded exam limiting sensitivity. 2. Interval surgical resection of the first toe since prior MRI from lastmonth. Notable abnormal signal at the first metatarsal head consistentwith osteomyelitis. 3. There is likely regional soft tissue cellulitis. Assessment for fluidcollection or abscess is limited secondary to motion and noncontrasttechnique. There is likely cellulitis involving the dorsal soft tissues ofthe midfoot and forefoot. Referred By: BABITA VASQUEZ Interpreted By: Silvio Alvarez MD, 02/13/2024 12:03 AM us Celia Jaramillo MD MRI Final Res ult * CULTURE, BACTERIA BLOOD X2 (02/12/2024 5:54 PM PULVERIZER MILL OPERATOR) Only the most recent of3 resultswithin the time period is included. SPEC DESCRIPTION BLOOD 02/12/2024 4:44 PM PULVERIZER MILL OPERATOR [facility] SPECIAL REQUESTS NO SPECIAL REQUEST 02/12/2024 4:44 PM PULVERIZER MILL OPERATOR [facility] CULTURE RESULT NO GROWTH 5 DAYS 02/18/2024 12:05 AM PULVERIZER MILL OPERATOR [facility] BLOOD SPECIMEN OBTAINED FOR BLOOD CULTURE / Unknown 02/12/2024 5:54 PM PULVERIZER MILL OPERATOR 02/12/2024 5:55 PM PULVERIZER MILL OPERATOR us Nancie Hernandez NP MICROBIOLOGY - GENERAL ORDER LENIN Final Result Performing Organization Address City/State/RUST Co de Phone Number [facility] [address] [place] [address], [place] [phone] * CULTURE, WOUND, W/GRAM STAIN (02/12/2024 3:50 PM PULVERIZER MILL OPERATOR) SPEC DESCRIPTION FOOT,LEFT 02/12/2024 3:50 PM PULVERIZER MILL OPERATOR [facility] SPECIAL REQUESTS NO SPECIAL REQUEST 02/12/2024 3:50 PM PULVERIZER MILL OPERATOR [facility] GRAM STAIN RESULT NO NEUTROPHILS SEEN 02/12/2024 4:57 PM PULVERIZER MILL OPERATOR [facility] GRAM STAIN RESULT RARE GRAM POSITIVE COCCI IN PAIRS 02/12/2024 4:57 PM PULVERIZER MILL OPERATOR [facility] CULTURE RESULT FEW PROTEUS MIRABILIS 02/16/2024 4:40 PM PULVERIZER MILL OPERATOR [facility] CULTURE RESULT MODERATE DIPHTHEROID BACILLI 02/16/2024 4:40 PM PULVERIZER MILL OPERATOR [facility] CULTURE RESULT MODERATE MICROCOCCUS SPECIES 02/16/2024 4:40 PM PULVERIZER MILL OPERATOR [facility] CULTURE RESULT MODERATE STAPHYLOCOCCUS, COAGULASE NEGATIVE 02/16/2024 4:40 PM PULVERIZER MILL OPERATOR [facility] CULTURE RESULT MODERATE ENTEROCOCCUS FAECALIS 02/16/2024 4:40 PM PULVERIZER MILL OPERATOR [facility] STRUCTURE OF LEFT FOOT / Unknown 02/12/2024 3:50 PM PULVERIZER MILL OPERATOR 02/12/2024 4:19 PM PULVERIZER MILL OPERATOR Narrative Organism Antibiotic Method Susceptibility Proteus mirabilis CEFAZOLIN TYRONE (KB) INTERMEDIATE: Intermediate Proteus mirabilis AMPICILLIN TYRONE (VITEK) Resistant Proteus mirabilis AMOXICILLIN/CLAVULANIC A TYRONE (VITEK) Sensitive Proteus mirabilis AZTREONAM TYRONE (VITEK) Sensitive Proteus mirabilis CEFEPIME TYRONE (VITEK) Sensitive Proteus mirabilis CEFTRIAXONE TYRONE (VITEK) Sensitive Proteus mirabilis CIPROFLOXACIN TYRONE (VITEK) Resistant Proteus mirabilis ERTAPENEM TYRONE (VITEK) Sensitive Proteus mirabilis GENTAMICIN TYRONE (VITEK) Sensitive Proteus mirabilis IMIPENEM TYRONE (VITEK) Resistant Proteus mirabilis MEROPENEM TYRONE (VITEK) Sensitive Proteus mirabilis PIPRACIL/TAZO TYRONE (VITEK) Sensitive Proteus mirabilis TRIMETH-SULFAMETH. TYRONE (VITEK) Resistant Proteus mirabilis TETRACYCLINE TYRONE (VITEK) Resistant Enterococcus faecalis AMPICILLIN TYRONE (VITEK) Sensitive Enterococcus faecalis ERYTHROMYCIN TYRONE (VITEK) INTERMEDIATE: Intermediate Enterococcus faecalis GENT. SYNERGY SCREEN TYRONE (VITEK) Sensitive Enterococcus faecalis LINEZOLID TYRONE (VITEK) Sensitive Enterococcus faecalis PENICILLIN G TYRONE (VITEK) Sensitive Enterococcus faecalis STR. SYNERGY SCR TYRONE (VITEK) Sensitive Enterococcus faecalis TIGECYCLINE TYRONE (VITEK) Sensitive Enterococcus faecalis VANCOMYCIN TYRONE (VITEK) Sensitive us Jacobo Johnson DPM MICROBIOLOGY - GENERAL O RDERABLES Final Result [facility] [address] [place] [address], [phone] * (ABNORMAL) HEMOGLOBIN, GLYCOSYLATED (02/12/2024 9:05 AM PULVERIZER MILL OPERATOR) HGB A1C 10.2(H) <5.7 % 02/12/2024 9:54 AM PULVERIZER MILL OPERATOR [facility] ESTIMATED AVG GLUCOSE 246(H) 74 - 114 MG/DL 02/12/2024 9:54 AM PULVERIZER MILL OPERATOR [facility] 02/12/2024 9:05 AM PULVERIZER MILL OPERATOR Ziat Da Silva MD LABORATORY Final Res ult Performing Organization Address City/[facility]/ZIP Co de Phone Number [facility] [address] [place] [address], [place] [phone] * MAGNESIUM (02/12/2024 3:02 AM PULVERIZER MILL OPERATOR) Only the most recent of2 resultswithin the time period is included. MAGNESIUM 1.8 1.6 - 2.6 MG/DL 02/12/2024 3:34 AM PULVERIZER MILL OPERATOR [facility] 02/12/2024 3:02 AM PULVERIZER MILL OPERATOR Celia Jaramillo MD LABORATORY Final Res ult Performing Organization Address [facility]/RUST Co de Phone Number [facility] [address] [place] [address], [phone] * LACTIC ACID W REFLEX (SEPSIS) (02/11/2024 9:09 PM PULVERIZER MILL OPERATOR) Only the most recent of3 resultswithin the time period is included. LACTIC ACID VENOUS 1.8 0.4 - 2.0 MMOL/L 02/11/2024 9:36 PM PULVERIZER MILL OPERATOR [facility] 02/11/2024 9:09 PM PULVERIZER MILL OPERATOR Babita Vasquez MD LABORATORY Final Result Performing Organization Address City/[facility]/ZIP Co de Phone Number [facility] [address] [place] [address], [place] [phone] * (ABNORMAL) URINALYSIS (02/11/2024 5:38 PM PULVERIZER MILL OPERATOR) COLOR (U) YELLOW 02/11/2024 6:10 PM PULVERIZER MILL OPERATOR [facility] TRANSPARENCY CLEAR 02/11/2024 6:10 PM PULVERIZER MILL OPERATOR [facility] SPECIFIC GRAVITY (U) 1.010 1.000 - 1.025 02/11/2024 6:10 PM PULVERIZER MILL OPERATOR [facility] U PH 5.0 5.0 - 8.0 02/11/2024 6:10 PM PULVERIZER MILL OPERATOR [facility] LEUKOCYTES (U) NEGATIVE NEGATIVE 02/11/2024 6:10 PM PULVERIZER MILL OPERATOR [facility] NITRITES NEGATIVE NEGATIVE 02/11/2024 6:10 PM PULVERIZER MILL OPERATOR [facility] PROTEIN RANDOM (U) NEGATIVE NEGATIVE 02/11/2024 6:10 PM PULVERIZER MILL OPERATOR [facility] GLUCOSE (U) 2+(A) NEGATIVE 02/11/2024 6:10 PM PULVERIZER MILL OPERATOR [facility] KETONES MG/DL (U) NEGATIVE NEGATIVE 02/11/2024 6:10 PM PULVERIZER MILL OPERATOR [facility] UROBILINOGEN 0.2 <1.0 EU/DL 02/11/2024 6:10 PM PULVERIZER MILL OPERATOR [facility] BILIRUBIN (U) NEGATIVE NEGATIVE 02/11/2024 6:10 PM PULVERIZER MILL OPERATOR [facility] BLOOD (U) NEGATIVE NEGATIVE 02/11/2024 6:10 PM PULVERIZER MILL OPERATOR [facility] WBC/HPF 0-5 0 - 5 /HPF 02/11/2024 6:10 PM PULVERIZER MILL OPERATOR [facility] EPI/LPF FEW /LPF 02/11/2024 6:10 PM PULVERIZER MILL OPERATOR [facility] BACTERIA (U) TRACE /HPF 02/11/2024 6:10 PM PULVERIZER MILL OPERATOR [facility] OTHER CASTS (U) HYALINE /LPF 6:10 PM PULVERIZER MILL OPERATOR [facility] Comment:5-10 BUDDING YEAST PRESENT /HPF 02/11/2024 6:10 PM PULVERIZER MILL OPERATOR [facility] URINE SPECIMEN OBTAINED BY CLEAN CATCH PROCEDURE / Unknown 02/11/2024 5:38 PM PULVERIZER MILL OPERATOR us Babita Vasquez MD URINE ORDERABLES Final Result [facility] [address] [place] [phone], * CT HEAD WO CON (02/11/2024 5:27 PM PULVERIZER MILL OPERATOR) Anatomical Region Laterality Modality Head Computed Tomogra phy 02/11/2024 5:36 PM PULVERIZER MILL OPERATOR Impressions 02/11/2024 5:41 PM PULVERIZER MILL OPERATOR IMPRESSION: 1. No definite CT evidence for acute intracranial abnormality. 2. Other chronic or nonurgent findings as described above. Please note that CT has limited sensitivity for the detection of acute ischemia Referred By: Interpreted By: Vazquez Cervantes MD, 02/11/2024 5:36 PM Narrative 02/11/2024 5:41 PM PULVERIZER MILL OPERATOR [address] [place] [address] EXAMINATION: CT of the head CLINICAL HISTORY: Pain after fall COMPARISON: 10/21/2021 TECHNIQUE: CT examination of the head without contrast was performed with axial images obtained. A radiation dose lowering technique was used for this procedure, which may include, but is not limited to, dose reduction technique, automated exposure control, the use of iterative reconstruction, ALARA (As Low As Reasonably Achievable) techniques, and Image Gently techniques. FINDINGS: There is no evidence of acute intracranial hemorrhage, abnormal extra-axial collections, intracranial mass effect, or midline shift. Stable chronic encephalomalacia in the left frontal lobe. There is mild volume loss with enlargement of the ventricles and extra-axial/subarachnoid spaces. There are a few scattered bilateral foci of periventricular and deep white matter hypoattenuation, probably related to chronic small vessel ischemic disease. Atherosclerotic calcifications of the intracranial arterial vasculature are evident. There is no definite CT evidence to suggest acute territorial infarction. The calvarium is unremarkable, without evidence of acute fracture. The visualized mastoid air cells, paranasal sinuses, and orbits are grossly unremarkable. Procedure Note Vazquez Cervantes MD - 02/11/2024 [facility] [address] [place] [address] EXAMINATION: CT of the head CLINICAL HISTORY: Pain after fall COMPARISON: 10/21/2021 TECHNIQUE: CT examination of the head without contrast was performed withaxial images obtained. A radiation dose lowering technique was used forthis procedure, which may include, but is not limited to, dose reductiontechnique, automated exposure control, the use of iterativereconstruction, ALARA (As Low As Reasonably Achievable) techniques, andImage Gently techniques. FINDINGS: There is no evidence of acute intracranial hemorrhage, abnormalextra-axial collections, intracranial mass effect, or midline shift.Stable chronic encephalomalacia in the left frontal lobe. There is mildvolume loss with enlargement of the ventricles andextra-axial/subarachnoid spaces. There are a few scattered bilateral fociof periventricular and deep white matter hypoattenuation, probably relatedto chronic small vessel ischemic disease. Atherosclerotic calcificationsof the intracranial arterial vasculature are evident. There is no definiteCT evidence to suggest acute territorial infarction. The calvarium isunremarkable, without evidence of acute fracture. The visualized mastoidair cells, paranasal sinuses, and orbits are grossly unremarkable. IMPRESSION: 1. No definite CT evidence for acute intracranial abnormality. 2. Other chronic or nonurgent findings as described above. Please note that CT has limited sensitivity for the detection of acuteischemia Referred By: Interpreted By: Vazquez Cervantes MD, 02/11/2024 5:36 PM Babita Vasquez MD CT Final Result * XR TIBIA+FIBULA RT 2V (02/11/2024 5:26 PM PULVERIZER MILL OPERATOR) Anatomical Region Laterality Modality TibFib Radiographic Navya ging 02/11/2024 5:46 PM PULVERIZER MILL OPERATOR Impressions 02/11/2024 5:51 PM PULVERIZER MILL OPERATOR IMPRESSION: No acute findings. Referred By: Interpreted By: Vazquez Cervantes MD, 02/11/2024 5:46 PM Narrative 02/11/2024 5:51 PM PULVERIZER MILL OPERATOR [address] [place] [address] EXAMINATION: XR TIBIA+FIBULA RT 2V HISTORY: Pain DATE: 02/11/2024 5:26 PM COMPARISON: August 20, 2023 TECHNIQUE: AP and crosstable lateral views of the right lower leg. 4 images. FINDINGS: No acute fracture identified. No dislocation. Severe medial compartment osteoarthritis and moderate lateral compartment osteoarthritis. The patellofemoral compartment is not well visualized as is only partially included on the lateral view. No acute fracture or dislocation. Multiple soft tissue calcifications in the anterior lower leg. Procedure Note Vazquez Cervantes MD - 02/11/[address] [place] [address] EXAMINATION: XR TIBIA+FIBULA RT 2V HISTORY: Pain DATE: 02/11/2024 5:26 PM COMPARISON: August 20, 2023 TECHNIQUE: AP and crosstable lateral views of the right lower leg. 4images. FINDINGS: No acute fracture identified. No dislocation. Severe medialcompartment osteoarthritis and moderate lateral compartmentosteoarthritis. The patellofemoral compartment is not well visualized asis only partially included on the lateral view. No acute fracture ordislocation. Multiple soft tissue calcifications in the anterior lowerleg. IMPRESSION: No acute findings. Referred By: Interpreted By: Vazquez Cervantes MD, 02/11/2024 5:46 PM Babita Vasquez MD GENERAL IMAGING Final Result * XR SHOULDER RT MIN 2V (02/11/2024 5:26 PM PULVERIZER MILL OPERATOR) Anatomical Region Laterality Modality Shoulder Radiographic Navya ging 02/11/2024 5:43 PM PULVERIZER MILL OPERATOR Impressions 02/11/2024 5:46 PM PULVERIZER MILL OPERATOR IMPRESSION: No acute findings. Question possible calcific tendinitis. Referred By: Interpreted By: Vazquez Cervantes MD, 02/11/2024 5:43 PM Narrative 02/11/2024 5:46 PM PULVERIZER MILL OPERATOR [address] [place] [address] EXAMINATION: XR SHOULDER RT MIN 2V HISTORY: Pain after fall DATE: 02/11/2024 5:26 PM COMPARISON: None TECHNIQUE: AP internal rotation, AP external rotation and axillary views of the right shoulder. 3 images. FINDINGS: No acute fracture identified. No dislocation. Joint spaces appear unremarkable. Tiny, faint calcification adjacent to the right humeral head, possible calcific tendinitis of the rotator cuff. Procedure Note Vazquez Cervantes MD - 02/11/[address] [place] [address] EXAMINATION: XR SHOULDER RT MIN 2V HISTORY: Pain after fall DATE: 02/11/2024 5:26 PM COMPARISON: None TECHNIQUE: AP internal rotation, AP external rotation and axillary viewsof the right shoulder. 3 images. FINDINGS: No acute fracture identified. No dislocation. Joint spacesappear unremarkable. Tiny, faint calcification adjacent to the righthumeral head, possible calcific tendinitis of the rotator cuff. IMPRESSION: No acute findings. Question possible calcific tendinitis. Referred By: Interpreted By: Vazquez Cervantes MD, 02/11/2024 5:43 PM Babita Vasquez MD GENERAL IMAGING Final Result * XR HIP RT 2V (02/11/2024 5:26 PM PULVERIZER MILL OPERATOR) Anatomical Region Laterality Modality Hip Radiographic Navya ging 02/11/2024 5:53 PM PULVERIZER MILL OPERATOR Impressions 02/11/2024 5:53 PM PULVERIZER MILL OPERATOR IMPRESSION: No acute findings. Referred By: Interpreted By: Vazquez Cervantes MD, 02/11/2024 5:53 PM Narrative 02/11/2024 5:53 PM PULVERIZER MILL OPERATOR [address] [place] [address] EXAMINATION: XR HIP RT 2V HISTORY: Pain after fall DATE: 02/11/2024 5:26 PM COMPARISON: None TECHNIQUE: AP and lateral views of the right hip. 2 images. FINDINGS: No acute fracture or dislocation. Mild degenerative change of the hip joint. No destructive bone lesion. Procedure Note Vazquez Cervantes MD - 02/11/[address] [place] [address] EXAMINATION: XR HIP RT 2V HISTORY: Pain after fall DATE: 02/11/2024 5:26 PM COMPARISON: None TECHNIQUE: AP and lateral views of the right hip. 2 images. FINDINGS: No acute fracture or dislocation. Mild degenerative change ofthe hip joint. No destructive bone lesion. IMPRESSION: No acute findings. Referred By: Interpreted By: Vazquez Cervantes MD, 02/11/2024 5:53 PM Babita Vasquez MD GENERAL IMAGING Final Result * XR FOOT RT 3V (02/11/2024 5:26 PM PULVERIZER MILL OPERATOR) Anatomical Region Laterality Modality Foot Radiographic Navya ging 02/11/2024 5:51 PM PULVERIZER MILL OPERATOR Impressions 02/11/2024 5:53 PM PULVERIZER MILL OPERATOR IMPRESSION: 1. No acute fracture identified. 2. New erosions of the first metatarsal head concerning for acute osteomyelitis. Referred By: Interpreted By: Vazquez Cervantes MD, 02/11/2024 5:51 PM Narrative 02/11/2024 5:53 PM PULVERIZER MILL OPERATOR [place] [address] [place] [address] EXAMINATION: XR FOOT RT 3V HISTORY: Pain after fall DATE: 02/11/2024 5:26 PM COMPARISON: 03/24/2023 TECHNIQUE: AP, oblique and lateral views of the right foot. 3 images. FINDINGS: No acute fracture identified. No dislocation. Old healed fracture of the proximal second phalanx. Bladder calculus spur is noted. Old postradiation changes of the first digit. There is new erosive change of the first metatarsal head suspicious for acute osteomyelitis. Procedure Note Vazquez Cervantes MD - 02/11/[address] [place] [address] EXAMINATION: XR FOOT RT 3V HISTORY: Pain after fall DATE: 02/11/2024 5:26 PM COMPARISON: 03/24/2023 TECHNIQUE: AP, oblique and lateral views of the right foot. 3 images. FINDINGS: No acute fracture identified. No dislocation. Old healedfracture of the proximal second phalanx. Bladder calculus spur is noted.Old postradiation changes of the first digit. There is new erosive changeof the first metatarsal head suspicious for acute osteomyelitis. IMPRESSION: 1. No acute fracture identified. 2. New erosions of the first metatarsal head concerning for acuteosteomyelitis. Referred By: Interpreted By: Vazquez Cervantes MD, 02/11/2024 5:51 PM Babita Vasquez MD GENERAL IMAGING Final Result * XR FEMUR RT 2V (02/11/2024 5:26 PM PULVERIZER MILL OPERATOR) Anatomical Region Laterality Modality Femur Radiographic Navya ging 02/11/2024 5:54 PM PULVERIZER MILL OPERATOR Impressions 02/11/2024 5:56 PM PULVERIZER MILL OPERATOR IMPRESSION: No acute findings. Referred By: Interpreted By: Vazquez Cervantes MD, 02/11/2024 5:54 PM Narrative 02/11/2024 5:56 PM PULVERIZER MILL OPERATOR [address] [place] [address] EXAMINATION: XR FEMUR RT 2V HISTORY: Pain after fall DATE: 02/11/2024 5:26 PM COMPARISON: None TECHNIQUE: AP and lateral views of the right femur. 4 images. FINDINGS: No acute fracture or dislocation. Mild degenerative change of the hip joint. There is severe patellofemoral and medial compartment degenerative change of the knee and moderate lateral compartment degenerative change. No knee joint effusion. Small bone island in distal femoral shaft. Procedure Note Vazquez Cervantes MD - 02/11/[address] [place] [address] EXAMINATION: XR FEMUR RT 2V HISTORY: Pain after fall DATE: 02/11/2024 5:26 PM COMPARISON: None TECHNIQUE: AP and lateral views of the right femur. 4 images. FINDINGS: No acute fracture or dislocation. Mild degenerative change ofthe hip joint. There is severe patellofemoral and medial compartmentdegenerative change of the knee and moderate lateral compartmentdegenerative change. No knee joint effusion. Small bone island in distalfemoral shaft. IMPRESSION: No acute findings. Referred By: Interpreted By: Vazquez Cervantes MD, 02/11/2024 5:54 PM Babita Vasquez MD GENERAL IMAGING Final Result * (ABNORMAL) Blood gas, venous (02/11/2024 4:21 PM PULVERIZER MILL OPERATOR) PH VENOUS 7.43 7.32 - 7.43 02/11/2024 4:38 PM PULVERIZER MILL OPERATOR [facility] PCO2 VENOUS 46.0 MMHG 02/11/2024 4:38 PM PULVERIZER MILL OPERATOR [facility] Comment:NO REFERENCE RANGE H BEEN ESTABLISHED PO2 VENOUS 49.0 MM HG 02/11/2024 4:38 PM [facility] Comment:NO REFERENCE RANGE H BEEN ESTABLISHED TOTAL CO2 VENOUS 31.9(H) 22.0 - 26.0 MMOL/L 02/11/2024 4:38 PM PULVERIZER MILL OPERATOR [facility] BASE EXCESS VENOUS 5.3 MMOL/L 02/11/2024 4:38 PM [facility] Comment:NO REFERENCE RANGE H BEEN ESTABLISHED O2 SAT VENOUS 85 % 02/11/2024 4:38 PM [facility] Comment:NO REFERENCE RANGE H BEEN ESTABLISHED BICARB VENOUS 30.5(H) 22.0 - 29.0 MMOL/L 02/11/2024 4:38 PM PULVERIZER MILL OPERATOR [facility] O2 ADMIN VENOUS AIR 4:30 PM PULVERIZER MILL OPERATOR [facility] 02/11/2024 4:21 PM PULVERIZER MILL OPERATOR us Babita Vasquez MD LABORATORY Final Result Performing Organization Address City/[facility]/ZIP Co de Phone Number [facility] [address] [place] [address], [place] [phone] * PARTIAL THROMBOPLASTIN TIME,PTT (02/11/2024 4:21 PM PULVERIZER MILL OPERATOR) PTT 27.4 25.1 - 36.5 SEC 02/11/2024 4:43 PM PULVERIZER MILL OPERATOR [facility] Comment:THERAPEUTIC RANGE: 4 6.2-77.0 SEC 02/11/2024 4:21 PM PULVERIZER MILL OPERATOR us Babita Vasquez MD LABORATORY Final Result Performing Organization Address [facility]/ZIP Co de Phone Number [facility] [address] [place] [address], [place] [phone] * (ABNORMAL) SED RATE, ERYTHROCYTE (ESR) (02/11/2024 4:21 PM PULVERIZER MILL OPERATOR) ESR 60(H) 0 - 20 MM/HR 02/11/2024 5:03 PM PULVERIZER MILL OPERATOR [facility] 02/11/2024 4:21 PM PULVERIZER MILL OPERATOR us Babita Vasquez MD LABORATORY Final Result Performing Organization Address City/[facility]/ZIP Co de Phone Number [facility] [address] [place] [address], [place] [phone] * PROTIME/INR, VENOUS (02/11/2024 4:21 PM PULVERIZER MILL OPERATOR) PROTIME 10.9 9.4 - 12.5 SEC 02/11/2024 4:43 PM PULVERIZER MILL OPERATOR [facility] INR 1.0 0.8 - 1.0 02/11/2024 4:43 PM PULVERIZER MILL OPERATOR [facility] 02/11/2024 4:21 PM PULVERIZER MILL OPERATOR us Babita Vasquez MD LABORATORY Final Result Performing Organization Address [facility]/[place] [address], * (ABNORMAL) C-REACTIVE PROTEIN (02/11/2024 4:21 PM PULVERIZER MILL OPERATOR) C-REACTIVE PROTEIN 2.20(H) <0.30 mg/dL 02/11/2024 5:01 PM PULVERIZER MILL OPERATOR [facility] 02/11/2024 4:21 PM PULVERIZER MILL OPERATOR us Babita Vasquez MD LABORATORY Final Result Performing Organization Address [facility] de Phone Number [facility] [address] [place] [address], * ECG 12 lead (02/11/2024 4:16 PM PULVERIZER MILL OPERATOR) 02/11/2024 4:16 PM PULVERIZER MILL OPERATOR Narrative [facility] - 02/11/2024 6:37 PM PULVERIZER MILL OPERATOR [address] [place] [address] Test Date: 2024-02-11 Pat Name: SENA YO Department: 3 Room: [place] [address] Gender: Female Gold Tooler: : 1960 Requested By: BABITA VASQUEZ Order Number: [id number] Reading MD: Sona Cuevas Measurements Intervals [place] Rate: 78 P: 53 FL: 172 QRS: 34 QRSD: 100 T: 75 QT: 380 QTc: 434 Interpretive Statements SINUS RHYTHM LOW QRS VOLTAGE IN PRECORDIAL LEADS NONSPECIFIC T-WAVE ABNORMALITY ERIZER MILL OPERATOR Procedure Note Sona Cuevas MD - 02/11/2024 [facility] [address] [place] [address] Test Date: 2024-02-11 Pat Name: SENA YO Department: 3 Room: EXAM 606 Gender: Female Gold Tooler: : 1960 Requested By: BABITA VASQUEZ Order Number: Reading MD: Sona Cuevas Measurements Intervals [place] Rate: 78 P: 53 FL: 172 QRS: 34 QRSD: 100 T: 75 QT: 380 QTc: 434 Interpretive Statements SINUS RHYTHM LOW QRS VOLTAGE IN PRECORDIAL LEADS NONSPECIFIC T-WAVE ABNORMALITY ERIZER MILL OPERATOR us Babita Vasquez MD ECG ORDERABLES Final Result [facility] * (ABNORMAL) LIPID PANEL (06/27/2023 5:16 AM CDT) CHOLESTEROL 135 MG/DL 06/27/2023 11:59 AM CDT [facility] Comment:DESIRABLE: <200 TRIGLYCERIDES 192 MG/DL 06/27/2023 11:59 AM CDT [facility] Comment:150-199 [facility] HDL 38(L) >49 MG/DL 06/27/2023 11:59 AM CDT [facility] LDL-C 59 MG/DL 06/27/2023 11:59 AM CDT [facility] Comment:<100 OPTIMAL VLDL CALCULATION 38 MG/DL 06/27/19 11:59 AM CDT [facility] Comment:REFERENCE RANGE NOT ESTABLISHED CHOL/HDL RATIO 3.6 06/27/2023 11:59 AM CDT [facility] Comment:REFERENCE RANGE NOT ESTABLISHED LDL/HDL 1.5 06/27/2023 11:59 AM CDT [facility] Comment:REFERENCE RANGE NOT ESTABLISHED NON HDL CHOLESTEROL 97 MG/DL 06/27/2023 11:59 AM CDT [facility] Comment:REFERENCE RANGE NOT ESTABLISHED 06/27/2023 5:16 AM CDT Stephanie Coughlin MD LABORATORY Final Result [facility] [address] [place] [address], [phone] from Last 3 Months or Most Recently Relevant to Health Maintenance Insurance MEDICAID [employer] Advance Directives * Full Code (Latest Code Status on File) Date Activated Date Inactivated Comments 02/11/2024 10:58 PM 02/19/2024 2:00 PM * Full Code Date Activated Date Inactivated Comments 01/23/2024 9:37 PM 02/11/2024 2:25 PM * Full Code Date Activated Date Inactivated Comments 01/17/2024 9:39 PM 01/22/2024 4:21 PM * Full Code Date Activated Date Inactivated Comments 01/17/2024 2:05 PM 01/17/2024 8:42 PM * Full Code Date Activated Date Inactivated Comments 07/13/2023 1:31 PM 07/27/2023 10:59 AM Care Teams Scrap Crusher Relationship Specialty Start Date End Date Hazel Bryant APNP [address] [facility] [id number] [address] PCP - General FAMILY PRACTICE 01/22/24 Kathryn Kim NP [address] [facility] [address] [place] [address] NURSE PRACTITIONER 08/03/21 Alexa Quiles NP [address] [place] [address] WOUND CARE 07/11/23 07/10/24 Edi Olvera DPM [address] [place] [address] [place] [address] Consulting Physician PODIATRY/SURGERY 11/20/23 Nelson Ogden MD [address] [place] [address] Consulting Physician INTERNAL MEDICINE 12/17/23
[2024-05-08 12:40] LABS: Glucose Point of Care 490 mg/dl (65-105)
--- NOTE | 2024-05-08 14:05 | ED_ITS ---
HPI - Abdominal Pain General Chief Complaint: Abdominal Pain <PREM Almeida Last Filed: 05/08/24 14:28> Stated Complaint: abdominal pain, vomiting <Sera Chicas PA-C - Last Filed: 05/08/24 14:28> Time Seen by Provider: 05/08/24 14:05 <Sera Chicas PA-C - Last Filed: 05/08/24 14:28> Focused HPI: Patient is a 64 y/o female who presents to the ED via EMS with multiple complaints. Patient reports she has been sick for the past 3 weeks with N/V, [place], body aches, dry cough, congestion, rhinorrhea, intermittent fevers, left sided abdominal pain- worsening over past couple days. Denies diarrhea, constipation. Denies SOB. Also reports she has been out of her glipizide for the past 2 weeks. States her BG have been elevated. She has had increased thirst and urination. Also reports open wound to L foot since May. States she is supposed to change the bandage daily but has not been able to over the past 2 days d/t not feeling well. GENERAL: Chronically ill appearing, appears older than stated age, morbidly obese with BMI of 46.2, and in no acute distress. HEAD: Normocephalic, atraumatic. CHEST: Clear to auscultation. ?No respiratory distress. HEART: Regular rate and rhythm.? ABD: Mild TTP in L lower lateral abdomen. No rebound. NEURO: ?Alert and oriented x3. Patient screened in triage and initial orders placed.? ?Additional care and disposition to be based upon?diagnostic testing and treatment. <Sera Chicas PA-C - Last Filed: 05/08/24 14:28> Source: patient <PREM Almeida Last Filed: 05/08/24 14:28> Mode of arrival: EMS <PREM Almeida Last Filed: 05/08/24 14:28> Limitations: no limitations <PREM Almeida Last Filed: 05/08/24 14:28> History of Present Illness HPI narrative: Agree with the HPI above. Would like to add that patient was recently missing approximately 10 days of her glipizide medication, previously on metformin and glipizide and previous to this was on insulin for her diabetes but no longer taking insulin. She had a bunionectomy on her left lower extremity that has been poorly healing but having no signs of infection, she changes her dressings at home. <Andrzej Jackson MD - Last Filed: 05/09/24 00:22> Related Data Home Medications: Home Medications ?Medication ?Instructions ?Recorded ?Confirmed ?Last Taken ?Type glipizide 5 mg tablet 10 mg PO DAILY 06/12/19 02/28/23 06/16/20 History metformin 500 mg tablet 1,000 mg PO DAILY 06/12/19 02/28/23 06/16/20 History metoprolol tartrate 25 mg tablet 25 mg PO BID 06/12/19 02/28/23 06/16/20 History rosuvastatin 5 mg tablet (Crestor) 20 mg PO DAILY 06/12/19 02/28/23 06/16/20 History venlafaxine 37.5 mg tablet 75 mg PO DAILY 06/12/19 02/28/23 06/16/20 History Lubricant Eye Drops 1 drp EACH EYE PRN PRN as needed 02/19/23 02/28/23 Unknown History albuterol sulfate 90 mcg/actuation 1 puff inhalation QID PRN SOB 02/19/23 02/28/23 Unknown History aerosol inhaler lisinopril 20 1 tablet PO DAILY 02/19/23 02/28/23 Unknown History mg-hydrochlorothiazide 12.5 mg tablet zonisamide 100 mg capsule 200 mg PO HS 02/19/23 02/28/23 Unknown History <Sera Chicas PA-C - Last Filed: 05/08/24 14:28> Allergies/Adverse Reactions: Allergies Allergy/AdvReac Type Severity Reaction Status Date / Time bacitracin Allergy Unknown Hives / Verified 02/28/23 11:46 Red Face neomycin Allergy Unknown Hives / Verified 02/28/23 11:46 Red [place] polymyxin B Allergy Unknown Hives / Verified 02/28/23 11:46 Red Face morphine AdvReac Itching Verified 02/28/23 11:46 <Sera Chicas PA-C - Last Filed: 05/08/24 14:28> Review of Systems 2 Review of Systems: As reviewed above in HPI <Andrzej Jackson MD - Last Filed: 05/09/24 00:22> PMFSH Past Medical History Medical History: Medical History Morbid obesity with BMI of 45.0-49.9, adult Migraine Mass of right parotid gland Asthma Cancer UTERINE CA, s/p Hysterectomy Type 2 diabetes mellitus Hypertension Hyperlipidemia <PREM Almeida Last Filed: 05/08/24 14:28> Surgical History Surgical History: Surgical History H/O total hysterectomy History of cancer surgery Uterine H/O shoulder surgery H/O knee surgery <Sera Chicas PA-C - Last Filed: 05/08/24 14:28> Family History Family History: Family History Grandparent Acute myocardial infarction Cancer Father Diabetes mellitus Cancer <PREM Alemida Last Filed: 05/08/24 14:28> Social History Social History: Social History Smoking packs per day: 0.5 Smoking cigarettes per day: 10.0 Smoking status: Current every day smoker Tobacco type: cigarettes Alcohol intake: never Substance use: never Lack of Transportation: No Lack of Food: Never True Current Housing: I Have Housing Concerned About Future Housing: YES Difficulty Paying Gas/Electric Bills: No Difficulty Paying for Meds: No Currently Unemployed: No Education: Decline to Answer Difficulty w/ Childcare or Family Care: No Gender identity (if verbalized by the patient): Female Spiritual care concerns: No <PREM Almeida Last Filed: 05/08/24 14:28> Exam 2 Narrative: GENERAL: [Well-appearing, well-nourished, and in no acute distress.] HEAD: [Normocephalic, atraumatic.] EYES: [PERRLA and EOMI.] ENT: Nares clear, no rhinorrhea or epistaxis. Mucous membranes moist. NECK: Supple. CHEST: [Clear to auscultation. No respiratory distress.] HEART: [Regular rate and rhythm]. No murmur heard. [Normal peripheral pulses.] ABDOMEN: [Soft, nondistended], [ Minimally tender in the left lower quadrant without rebound or guarding. No signs of peritonitis.] EXTREMITIES: Normal range of motion. [No edema.] left lower extremity on the bunion has a area of previous excision, granulation tissue without any active signs of infection or gangrenous changes. No bleeding or purulence, no tenderness with palpation. Range of motion is full of the left lower extremity. SKIN: Warm, dry, no rash. NEURO: [No focal deficits]. Alert and oriented [x3.] PSYCH: [Normal mood and affect.] <Andrzej Jackson MD - Last Filed: 05/09/24 00:22> Course Vital Signs Vital signs: Vital Signs Temperature 36.6 C 05/08/24 12:26 Pulse Rate 89 05/08/24 12:26 Respiratory Rate 15 05/08/24 12:26 Blood Pressure 171/75 H 05/08/24 12:26 Pulse Oximetry 97 05/08/24 12:26 Oxygen Delivery Room Air 05/08/24 12:26 Temperature 36.5 C 05/08/24 23:40 Pulse Rate 88 05/08/24 23:40 Respiratory Rate 16 05/08/24 23:40 Blood Pressure 155/53 H 05/08/24 23:40 Pulse Oximetry 93 05/08/24 23:40 Oxygen Delivery Room Air 05/08/24 12:26 <Sera Chicas PA-C - Last Filed: 05/08/24 14:28> Vital Signs Temperature 36.6 C 05/08/24 12:26 Pulse Rate 89 05/08/24 12:26 Respiratory Rate 15 05/08/24 12:26 Blood Pressure 171/75 H 05/08/24 12:26 Pulse Oximetry 97 05/08/24 12:26 Oxygen Delivery Room Air 05/08/24 12:26 Temperature 36.5 C 05/08/24 23:40 Pulse Rate 88 05/08/24 23:40 Respiratory Rate 16 05/08/24 23:40 Blood Pressure 155/53 H 05/08/24 23:40 Pulse Oximetry 93 05/08/24 23:40 Oxygen Delivery Room Air 05/08/24 12:26 <Andrzej Jackson MD - Last Filed: 05/09/24 00:22> MDM - Abdominal Pain MDM Narrative Medical decision making narrative: MSE by MARCIA in triage. <Sera Chicas PA-C - Last Filed: 05/08/24 14:28> MSE by MARCIA in triage. 64-year-old female with history of difficult to control diabetes presenting to the emergency department with multiple complaints including nausea, vomiting, body aches, left lower quadrant abdominal pain and high blood sugar. She has had a lapse in her glipizide for last 2 weeks and was told by her primary care provider that she cannot get this refilled until she gets seen. She Mr. Point with her PCP on the for secondary to feeling unwell. She otherwise is not any acute distress, as stable hypertension but no signs of distress, no tachycardia, fever or hypoxia. patient has a soft nondistended but mildly tender abdominal examination left lower quadrant. workup was ordered in triage including CBC, CMP, beta hydroxybutyrate level, she is given fluid bolus x2 L, CT of the abdomen pelvis was obtained. Workup shows no leukocytosis or anemia, appears she has a hemoconcentrated CBC. electrolytes show some mild sodium and chloride depletion but no evidence of renal injury or dysfunction. Glucose elevated 490. A1c elevated at 12.2. LFTs largely within normal limits, beta hydroxybutyrate is negative indicating no signs of ketosis. Urinalysis is concentrated which shows dehydration and some glucose but no ketosis. X-ray of the foot shows no evidence of osteomyelitis, mild polyarticular osteoarthritis but no acute process. CT scan shows no acute intra-abdominal or pelvic process. Patient has been receiving 2 fluid boluses and I gave her 10 units of short- acting insulin and her repeat blood sugar barely Decreased. At this time I believe she would be admitted to the hospital for further evaluation and treatment of her uncontrolled diabetes and might need to start insulin regimen that would be beneficial for her rather than glipizide therapy. patient was comfortable with this plan of care. I spoke to the mid-level provider currently covering the hospitalist team and she was accepted to the hospital on to a medical-surgical. <Andrzej Jackson MD - Last Filed: 05/09/24 00:22> Medical Records Attestation: I reviewed the patient's medical records. <Andrzej Jackson MD - Last Filed: 05/09/24 00:22> Lab Data Attestation: I reviewed the patient's lab results. <Andrzej Jackson MD - Last Filed: 05/09/24 00:22> Result diagrams: 05/08/24 14:24 05/08/24 14:24 <Sera Chicas PA-C - Last Filed: 05/08/24 14:28> Labs: Lab Results 05/08/24 05/08/24 05/08/24 Range/Units 12:35 14:24 16:55 WBC 10.0 (4.5-10.0) K/mm3 RBC 6.05 H (4.2-5.4) M/mm3 Hgb 15.9 H (12.0-15.0) g/dL Hct 49.0 H (37.0-47.0) % MCV 81.0 (80-100) fl MCH 26.3 (26-34) pg MCHC 32.4 (32-36) g/dl RDW 15.4 H (11.5-14.5) % Plt Count 222 (150-375) k/mm3 MPV 10.1 (7.4-10.4) fl Immature Gran % (Auto) 0.2 (0-0.5) % Neut % (Auto) 45.7 (45.5-73.1) % Lymph % (Auto) 46.5 H (18.3-44.2) % Wilkinson % (Auto) 5.5 (2.6-8.5) % Eos % (Auto) 1.6 (0-4.4) % Baso % (Auto) 0.5 (0.2-1.2) % Lymph # (Auto) 4.65 H (0.9-3.2) K/mm3 Wilkinson # (Auto) 0.6 (0.1-0.6) K/mm3 Eos # (Auto) 0.2 (0-0.3) K/mm3 Baso # (Auto) 0.1 (0.0-0.1) K/mm3 Abs Immat Gran (auto) 0.02 (0.00-0.031) K/mm3 Absolute Neuts (auto) 4.6 (1.3-6.7) K/mm3 Absolute Nucleated RBC 0.000 (0.0-0.012) K/mm3 Nucleated RBC % 0.0 (0.0-0.2) % Sodium 132 L (137-145) mmol/L Potassium 3.9 (3.4-5.0) mmol/L Chloride 95 L (98-107) mmol/L Carbon Dioxide 26 (22-30) mmol/L Anion Gap 11 (4-12) mmol/L BUN 9 D (7-17) mg/dL Creatinine 0.63 L (0.7-1.0) mg/dL Estim Creat Clear Calc 117 ml/min Estimated GFR > 60 (59 - ) Glucose 457 H (65-110) mg/dL POC Capillary Glucose 490 H (65-105) mg/dl Hemoglobin A1c 12.2 H (<5.7) % Lactic Acid 2.7 H (0.7-2.0) mmol/L Calcium 9.3 (8.4-10.2) mg/dL Magnesium 1.6 (1.6-2.3) mg/dL Total Bilirubin 0.6 (0.2-1.3) mg/dL AST 17 (14-36) U/L ALT 22 (6-35) U/L Alkaline Phosphatase 152 H (38-126) U/L Total Protein 8.0 (6.3-8.2) g/dL Albumin 4.1 (3.5-5.1) g/dL Lipase 125 (23-300) U/L Beta-Hydroxybutyrate/Acetoacetate 0.13 (0.02-0.27) mmol/L Urine Color Yellow (Yellow) Urine Appearance Clear (Clear) Urine pH 5.0 (5.0-9.0) Ur Specific Flinton > 1.045 H (1.001-1.035) Urine Protein Trace (Negative) mg/dL Urine Glucose (UA) 3+ H (Negative) mg/dL Urine Ketones Negative (Negative) mg/dL Ur Blood (Man) Negative (Negative) Urine Nitrate Negative (Negative) Urine Bilirubin Negative (Negative) Urine Urobilinogen 0.2 (<2.0) mg/dL Add Ur Microanalysis Reviewed Leukocyte Esterase Rfl Negative (Negative) JORDI/UL Urine RBC 6-10 H (0-2) /hpf Urine WBC 0-5 (0-3) /hpf Ur Squamous Epith Cells Occasional (Few) /hpf Urine Bacteria None seen /hpf Urine Casts 0-2 Urine Yeast (Budding) Present H (None) /hpf Influenza A (RT-PCR) Negative (Negative) Influenza B (RT-PCR) Negative (Negative) RSV (RT-PCR) Negative (Negative) SARS-CoV-2 RNA (RT-PCR) Negative (Negative) 05/08/24 Range/Units 16:56 WBC (4.5-10.0) K/mm3 RBC (4.2-5.4) M/mm3 Hgb (12.0-15.0) g/dL Hct (37.0-47.0) % MCV (80-100) fl MCH (26-34) pg MCHC (32-36) g/dl RDW (11.5-14.5) % Plt Count (150-375) k/mm3 MPV (7.4-10.4) fl Immature Gran % (Auto) (0-0.5) % Neut % (Auto) (45.5-73.1) % Lymph % (Auto) (18.3-44.2) % Wilkinson % (Auto) (2.6-8.5) % Eos % (Auto) (0-4.4) % Baso % (Auto) (0.2-1.2) % Lymph # (Auto) (0.9-3.2) K/mm3 Wilkinson # (Auto) (0.1-0.6) K/mm3 Eos # (Auto) (0-0.3) K/mm3 Baso # (Auto) (0.0-0.1) K/mm3 Abs Immat Gran (auto) (0.00-0.031) K/mm3 Absolute Neuts (auto) (1.3-6.7) K/mm3 Absolute Nucleated RBC (0.0-0.012) K/mm3 Nucleated RBC % (0.0-0.2) % Sodium (137-145) mmol/L Potassium (3.4-5.0) mmol/L Chloride (98-107) mmol/L Carbon Dioxide (22-30) mmol/L Anion Gap (4-12) mmol/L BUN (7-17) mg/dL Creatinine (0.7-1.0) mg/dL Estim Creat Clear Calc ml/min Estimated GFR (59 - ) Glucose (65-110) mg/dL POC Capillary Glucose 494 H (65-105) mg/dl Hemoglobin A1c (<5.7) % Lactic Acid (0.7-2.0) mmol/L Calcium (8.4-10.2) mg/dL Magnesium (1.6-2.3) mg/dL Total Bilirubin (0.2-1.3) mg/dL AST (14-36) U/L ALT (6-35) U/L Alkaline Phosphatase (38-126) U/L Total Protein (6.3-8.2) g/dL Albumin (3.5-5.1) g/dL Lipase (23-300) U/L Beta-Hydroxybutyrate/Acetoacetate (0.02-0.27) mmol/L Urine Color (Yellow) Urine Appearance (Clear) Urine pH (5.0-9.0) Ur Specific Flinton (1.001-1.035) Urine Protein (Negative) mg/dL Urine Glucose (UA) (Negative) mg/dL Urine Ketones (Negative) mg/dL Ur Blood (Man) (Negative) Urine Nitrate (Negative) Urine Bilirubin (Negative) Urine Urobilinogen (<2.0) mg/dL Add Ur Microanalysis Leukocyte Esterase Rfl (Negative) JORDI/UL Urine RBC (0-2) /hpf Urine WBC (0-3) /hpf Ur Squamous Epith Cells (Few) /hpf Urine Bacteria /hpf Urine Casts Urine Yeast (Budding) (None) /hpf Influenza A (RT-PCR) (Negative) Influenza B (RT-PCR) (Negative) RSV (RT-PCR) (Negative) SARS-CoV-2 RNA (RT-PCR) (Negative) <Sera Chicas PA-C - Last Filed: 05/08/24 14:28> Lab Results 05/08/24 05/08/24 05/08/24 Range/Units 12:35 14:24 16:55 WBC 10.0 (4.5-10.0) K/mm3 RBC 6.05 H (4.2-5.4) M/mm3 Hgb 15.9 H (12.0-15.0) g/dL Hct 49.0 H (37.0-47.0) % MCV 81.0 (80-100) fl MCH 26.3 (26-34) pg MCHC 32.4 (32-36) g/dl RDW 15.4 H (11.5-14.5) % Plt Count 222 (150-375) k/mm3 MPV 10.1 (7.4-10.4) fl Immature Gran % (Auto) 0.2 (0-0.5) % Neut % (Auto) 45.7 (45.5-73.1) % Lymph % (Auto) 46.5 H (18.3-44.2) % Wilkinson % (Auto) 5.5 (2.6-8.5) % Eos % (Auto) 1.6 (0-4.4) % Baso % (Auto) 0.5 (0.2-1.2) % Lymph # (Auto) 4.65 H (0.9-3.2) K/mm3 Wilkinson # (Auto) 0.6 (0.1-0.6) K/mm3 Eos # (Auto) 0.2 (0-0.3) K/mm3 Baso # (Auto) 0.1 (0.0-0.1) K/mm3 Abs Immat Gran (auto) 0.02 (0.00-0.031) K/mm3 Absolute Neuts (auto) 4.6 (1.3-6.7) K/mm3 Absolute Nucleated RBC 0.000 (0.0-0.012) K/mm3 Nucleated RBC % 0.0 (0.0-0.2) % Sodium 132 L (137-145) mmol/L Potassium 3.9 (3.4-5.0) mmol/L Chloride 95 L (98-107) mmol/L Carbon Dioxide 26 (22-30) mmol/L Anion Gap 11 (4-12) mmol/L BUN 9 D (7-17) mg/dL Creatinine 0.63 L (0.7-1.0) mg/dL Estim Creat Clear Calc 117 ml/min Estimated GFR > 60 (59 - ) Glucose 457 H (65-110) mg/dL POC Capillary Glucose 490 H (65-105) mg/dl Hemoglobin A1c 12.2 H (<5.7) % Lactic Acid 2.7 H (0.7-2.0) mmol/L Calcium 9.3 (8.4-10.2) mg/dL Magnesium 1.6 (1.6-2.3) mg/dL Total Bilirubin 0.6 (0.2-1.3) mg/dL AST 17 (14-36) U/L ALT 22 (6-35) U/L Alkaline Phosphatase 152 H (38-126) U/L Total Protein 8.0 (6.3-8.2) g/dL Albumin 4.1 (3.5-5.1) g/dL Lipase 125 (23-300) U/L Beta-Hydroxybutyrate/Acetoacetate 0.13 (0.02-0.27) mmol/L Urine Color Yellow (Yellow) Urine Appearance Clear (Clear) Urine pH 5.0 (5.0-9.0) Ur Specific Flinton > 1.045 H (1.001-1.035) Urine Protein Trace (Negative) mg/dL Urine Glucose (UA) 3+ H (Negative) mg/dL Urine Ketones Negative (Negative) mg/dL Ur Blood (Man) Negative (Negative) Urine Nitrate Negative (Negative) Urine Bilirubin Negative (Negative) Urine Urobilinogen 0.2 (<2.0) mg/dL Add Ur Microanalysis Reviewed Leukocyte Esterase Rfl Negative (Negative) JORDI/UL Urine RBC 6-10 H (0-2) /hpf Urine WBC 0-5 (0-3) /hpf Ur Squamous Epith Cells Occasional (Few) /hpf Urine Bacteria None seen /hpf Urine Casts 0-2 Urine Yeast (Budding) Present H (None) /hpf Influenza A (RT-PCR) Negative (Negative) Influenza B (RT-PCR) Negative (Negative) RSV (RT-PCR) Negative (Negative) SARS-CoV-2 RNA (RT-PCR) Negative (Negative) 05/08/24 Range/Units 16:56 WBC (4.5-10.0) K/mm3 RBC (4.2-5.4) M/mm3 Hgb (12.0-15.0) g/dL Hct (37.0-47.0) % MCV (80-100) fl MCH (26-34) pg MCHC (32-36) g/dl RDW (11.5-14.5) % Plt Count (150-375) k/mm3 MPV (7.4-10.4) fl Immature Gran % (Auto) (0-0.5) % Neut % (Auto) (45.5-73.1) % Lymph % (Auto) (18.3-44.2) % Wilkinson % (Auto) (2.6-8.5) % Eos % (Auto) (0-4.4) % Baso % (Auto) (0.2-1.2) % Lymph # (Auto) (0.9-3.2) K/mm3 Wilkinson # (Auto) (0.1-0.6) K/mm3 Eos # (Auto) (0-0.3) K/mm3 Baso # (Auto) (0.0-0.1) K/mm3 Abs Immat Gran (auto) (0.00-0.031) K/mm3 Absolute Neuts (auto) (1.3-6.7) K/mm3 Absolute Nucleated RBC (0.0-0.012) K/mm3 Nucleated RBC % (0.0-0.2) % Sodium (137-145) mmol/L Potassium (3.4-5.0) mmol/L Chloride (98-107) mmol/L Carbon Dioxide (22-30) mmol/L Anion Gap (4-12) mmol/L BUN (7-17) mg/dL Creatinine (0.7-1.0) mg/dL Estim Creat Clear Calc ml/min Estimated GFR (59 - ) Glucose (65-110) mg/dL POC Capillary Glucose 494 H (65-105) mg/dl Hemoglobin A1c (<5.7) % Lactic Acid (0.7-2.0) mmol/L Calcium (8.4-10.2) mg/dL Magnesium (1.6-2.3) mg/dL Total Bilirubin (0.2-1.3) mg/dL AST (14-36) U/L ALT (6-35) U/L Alkaline Phosphatase (38-126) U/L Total Protein (6.3-8.2) g/dL Albumin (3.5-5.1) g/dL Lipase (23-300) U/L Beta-Hydroxybutyrate/Acetoacetate (0.02-0.27) mmol/L Urine Color (Yellow) Urine Appearance (Clear) Urine pH (5.0-9.0) Ur Specific Flinton (1.001-1.035) Urine Protein (Negative) mg/dL Urine Glucose (UA) (Negative) mg/dL Urine Ketones (Negative) mg/dL Ur Blood (Man) (Negative) Urine Nitrate (Negative) Urine Bilirubin (Negative) Urine Urobilinogen (<2.0) mg/dL Add Ur Microanalysis Leukocyte Esterase Rfl (Negative) JORDI/UL Urine RBC (0-2) /hpf Urine WBC (0-3) /hpf Ur Squamous Epith Cells (Few) /hpf Urine Bacteria /hpf Urine Casts Urine Yeast (Budding) (None) /hpf Influenza A (RT-PCR) (Negative) Influenza B (RT-PCR) (Negative) RSV (RT-PCR) (Negative) SARS-CoV-2 RNA (RT-PCR) (Negative) <Andrzej Jackson MD - Last Filed: 05/09/24 00:22> Imaging Data Attestation: I personally reviewed and interpreted this imaging study as follows: < Andrzej Jackson MD - Last Filed: 05/09/24 00:22> Radiologist's impression: ITS Impressions Foot X-Ray 05/08/24 14:37 IMPRESSION: 1. 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 Abdomen/Pelvis CT 05/08/24 16:06 IMPRESSION: 1. No acute intra-abdominal/pelvic process. 2. Small fat-containing umbilical and left inguinal hernias. <Sera Chicas PA-C - Last Filed: 05/08/24 14:28> ITS Impressions Foot X-Ray 05/08/24 14:37 IMPRESSION: 1. 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 Abdomen/Pelvis CT 05/08/24 16:06 IMPRESSION: 1. No acute intra-abdominal/pelvic process. 2. Small fat-containing umbilical and left inguinal hernias. 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
[2024-05-08 14:40] LABS: Basophils Absolute Auto 0.1 K/mm3 (0.0-0.1); Basophils Percent Auto 0.5 % (0.2-1.2); Eosinophils Absolute Auto 0.2 K/mm3 (0-0.3); Eosinophils Percent Auto 1.6 % (0-4.4); Hemoglobin 15.9 g/dL (12.0-15.0); Immature Granulocyte Absolute 0.02 K/mm3 (0.00-0.031); Immature Granulocyte Percent A 0.2 % (0-0.5); Lymphocytes Absolute Auto 4.65 K/mm3 (0.9-3.2); Lymphocytes Percent Auto 46.5 % (18.3-44.2); Mean Corpuscular HGB Conc 32.4 g/dl (32-36); Mean Corpuscular Hemoglobin 26.3 pg (26-34); Mean Platelet Volume 10.1 fl (7.4-10.4); Monocytes Absolute Auto 0.6 K/mm3 (0.1-0.6); Monocytes Percent Auto 5.5 % (2.6-8.5); Neutrophils Absolute Auto 4.6 K/mm3 (1.3-6.7); Neutrophils Percent Auto 45.7 % (45.5-73.1); Platelet Count Result 222 k/mm3 (150-375); Red Blood Count 6.05 M/mm3 (4.2-5.4); Red Cell Distribution Width 15.4 % (11.5-14.5)
[2024-05-08 14:50] LABS: Alanine Aminotransferase 22 U/L (6-35); Albumin Level 4.1 g/dL (3.5-5.1); Alkaline Phosphatase 152 U/L (38-126); Anion Gap 11 mmol/L (4-12); Aspartate Amino Transferase 17 U/L (14-36); Bilirubin,Total 0.6 mg/dL (0.2-1.3); Blood Urea Nitrogen 9 mg/dL (7-17); Calcium 9.3 mg/dL (8.4-10.2); Carbon Dioxide 26 mmol/L (22-30); Chloride 95 mmol/L (98-107); Estimated CRCL calculation 117 ml/min; Estimated Glomerular Filt Rate > 60; Glucose 457 mg/dL (65-110); Lactic Acid Reflex 2.7 mmol/L (0.7-2.0); Lipase 125 U/L (23-300); Magnesium 1.6 mg/dL (1.6-2.3); Potassium 3.9 mmol/L (3.4-5.0); Sodium 132 mmol/L (137-145)
[2024-05-08 14:59] LABS: Beta-Hydroxybutyrate/Acetoacetate 0.13 mmol/L (0.02-0.27)
[2024-05-08 15:19] LABS: Influenza A QL RT-PCR Negative (Negative); Influenza B QL RT-PCR Negative (Negative); RSV RNA, RT-PCR Negative (Negative); SARS-CoV-2 RNA PCR Negative (Negative)
[2024-05-08 15:55] LABS: Hemoglobin A1C 12.2 % (<5.7)
--- OUTSIDE RECORDS SUMMARY | 2024-05-08 16:53 | XMS_ITS | CONTINUITY OF CARE DOCUMENT ---
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
--- OUTSIDE RECORDS SUMMARY | 2024-05-08 16:53 | XMS_ITS | Referral Summary ---
Author Organization [facility] Address [address] [place] [address] Care Team Providers Care Crisis Clinician Name Role Phone Denis Flores MD Primary Care Provider [phone] Source Comments [facility],non-owned Affiliates and Associated Physician Practices is amultiple site organization consisting of ambulatory clinics and hospital sitesin [place], [place], [place] and [place]. This disclosure is being madepursuant to the Care Everywhere program and may not contain all information available regarding this patient. Last updated 17.[facility] Allergies Active Allergy Reactions Criticality Noted Date Comments Morphine Urticaria High 07/11/2008 Jezrpcrn-[id number]-[id number] Rash 2008 hives Medications * Be aware [...] of Treatment Not on file Care Teams Crisis Clinician Relationship Specialty Start Date End Date Denis Flores MD [address] [place] [id number] PCP - General 07/11/08
--- OUTSIDE RECORDS SUMMARY | 2024-05-08 16:53 | XMS_ITS | Clinical Summary ---
Author Organization [facility] Address [facility] [place] [address] Care Team Providers Care Auto Tester Name Role Phone ChunKathryn connors MANAGER SCIENCE Unavailable [phone] Alexa Quiles MANAGER SCIENCE Unavailable [phone] Edi Olvera DPM Unavailable [phone] Nelson Ogden MD Unavailable Hazel Bryant Primary [...] Problems Problem Noted Date Diagnosed Date Osteomyelitis ([facility]) 01/17/2024 Noncompliance 01/17/2024 Orthopedic aftercare 08/06/2023 Diabetic ulcer of left great toe ([facility]) 06/26/2023 Cellulitis 03/29/2023 Bacteremia 03/25/2023 Diabetic ulcer of right great toe ([facility]) 09/19/2022 Overview (09/20/2022): Added automatically from request for surgery [id number] Cellulitis of right leg 09/19/2022 Overview (09/20/2022): Added automatically from request for surgery [id number] Weakness 09/29/2021 Type 2 diabetes mellitus ([facility]) Hypertension goal BP (blood pressure) < 140/90 Coronary artery calcification seen on CT scan Tobacco use disorder Overview (01/17/2024): 0.5 pack of cigarettes daily Peripheral vascular disease Resolved Problems Problem Noted Date Diagnosed Date Resolved Date 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 ([facility]) 06/26/2023 024 Cellulitis and abscess of foot 09/19/2022 08/22/2023 Preop cardiovascular exam 10/24/2021 CVA (cerebral vascular accid ent) ([facility]) 09/26/2021 09/27/2021 Subacute neurologic deficit 09/25/2021 09/27/2021 Encounters Date Type Department Care Team Description 02/26/2024 3:30 PM [facility] Home Care Visit [facility] [address] [place] [address] Nieves Olson, RN TELEPHONE CALL 02/21/2024 Home Care Visit [facility] [address] [place] [address] Jacky Yeager RN SN POST TRANSFER AGENCY DISCHARGE 02/20/2024 Home Care Visit [facility] [address] [place] [address] Nieves Olson, RN NON ADMIT KYLER 02/18/2024 Chart Prep [facility] [address] [place] [address] Giovanna Cardona MD 02/13/2024 Home Care Visit [facility] Home Care [facility] [address] [place] [address] Veronica Hernandez RN SN OASIS TRANSFER W/OUT DC 02/13/2024 Travel 02/11/2024 10:49 PM [facility] - 02/19/2024 11:49 AM [facility] [facility] Hospital Encounter [facility] [address] [place] [address] Alcides Grimm MD Naveed, MD Coco Rivera Srikanth, MD Boddu, MD Madina Discharge Disposition: Home or Self Care (Routine Discharge) 02/11/2024 2:28 PM [facility] [facility] - 02/11/2024 9:30 PM [facility] Emergency [facility] [place] [address] Babita Vasquez MD Fall Discharge Disposition: Transfer to Acute [facility] 02/11/2024 12:00 PM [facility] [facility] Home Care Visit [facility] Home Care [facility] [address] [place] [address] Marilu Donovan LPN SN HOME VISIT 02/11/2024 [...] from your doctor or pharmacy? Rarely 01/17/2024 [facility] Utilities Answer Date Recorded In the past 12 months has e [employer], [employer], oil, or water [employer] threatened to shut off services in your [...] often do you attend chur ch or gnosticist services? Never 01/17/2024 Do you belong to any clubs o r organizations such as latter day groups, unions, fraternal or athletic groups, or [...] Recorded Patient Health Questionnaire-2 Score 0 03/09/2022 [facility] [place] of Occupat ional Health - Occupational Stress [...] place to sleep or slept in a custodial (including now)? No 06/26/2023 Housing Stability Vital Sign Answer David e Recorded In the last 12 months, was t here a time when you were not able to pay the mortgage or rent on time? No 02/12/2024 In the past 12 months, how m any times have you moved where you were living? 0 02/12/2024 At any time in the past 12 m [facility], were you homeless or living in a custodial (including now)? No 02/12/2024 Comments No Sex and Gender Information Value Date Recorded Sex Assigned at Female 01/17/2024 1:34 PM CDT Legal Sex Female 5:51 PM [facility] Gender Identity Female 01/17/2024 1:34 PM CDT Sexual Orientation Straight 01/17/2024 1: 34 PM CDT Last Filed Vital Signs Vital Sign Reading Time Taken Comments Blood Pressure 101/38 02/19/2024 7:00 AM [facility] [facility] Pulse 64 02/19/2024 7:00 AM [facility] Temperature 36.3 C (97.4 F) 02/19/2024 7:00 AM [facility] [facility] Respiratory Rate 20 02/18/2024 8:07 AM [facility] [facility] Oxygen Saturation 96% 02/18/2024 7:48 PM [facility] Inhaled Oxygen Concentration - - Weight 144.2 kg (318 lb) 02/12/2024 4:16 AM [facility] Height 175.3 cm (5' 9.02 ) 02/12/2024 4:16 AM CS T Body Mass Index 46.94 02/12/2024 4:16 AM [facility] [facility] Plan of Treatment Health Maintenance Due Date Last Done Comments Colorectal Cancer Screening Colonoscopy (10 Years) 1960 Kidney Health Evaluation 1960 Annual Physical 1963 PHQ-2 (Physician [place]) 1972 Diabetes: Retinopathy Eye Exam 1978 Hepatitis C 1978 DTaP, Tdap and Td Vaccines (1 - Tdap) 1979 Mammogram Screening 2000 Lung Cancer Screening 2010 RSV Immunization or 60+ Years (1 - Risk 60-74 years 1-dose series) 2020 Zoster Vaccines (2 of 2) 10/03/2022 08/08/2022 COVID-19 Vaccine (1 - season) 2023 Influenza Adult (#1) 2024 PHQ-2 (Physician [place]) 04/02/2024 Hemoglobin A1C 05/14/2024 02/12/2024, 01/01, 06/27/2023, Additional history exists Lipid Panel 06/26/2024 06/27/2023, 09/30/2021 Pneumococcal Vaccine: Pediatrics (0 to 5 Years) and At-Risk Patients (6 to 64 Years) Completed 08/08/2022 Meningococcal B Vaccine Aged Out No l onger eligible based on patient's age to complete this topic Meningococcal Vaccine Aged Out No hitesh nkii eligible based on patient's age to complete [...] COMPREHENSIVE METABOLIC PANEL Routine 02/19/2024 8:59 AM [facility] [facility] CBC W/DIFF AUTOMATED Routine 02/19/2024 8:59 AM [facility] [facility] [facility] POCT GLUCOSE - HAWTHORNE DOCKED DEVICE Routine 02/19/2024 6:27 AM [facility] [facility] POCT GLUCOSE - HA[place]TH[place]NE DOCKED DEVICE Routine 02/18/2024 8:57 PM [facility] [facility] POCT GLUCOSE - [place] DOCKED DEVICE Routine 02/18/2024 4:12 PM [place] [facility] POCT GLUCOSE - HA[place]NE DOCKED DEVICE Routine 02/18/2024 12:44 PM [facility] [facility] POCT GLUCOSE - HA[place]NE DOCKED DEVICE Routine 02/18/2024 11:15 AM [facility] [facility] POCT GLUCOSE - [place] DOCKED DEVICE Routine 02/18/2024 6:13 AM [place] [facility] POCT GLUCOSE - HA[place]TH[place]NE DOCKED DEVICE Routine 02/17/2024 9:15 PM [facility] [facility] POCT GLUCOSE - HA[place]NE DOCKED DEVICE Routine 02/17/2024 4:22 PM [place] [facility] POCT GLUCOSE - [place] DOCKED DEVICE Routine 02/17/2024 1:46 PM [place] [facility] POCT GLUCOSE - HA[place]NE DOCKED DEVICE Routine 02/17/2024 11:10 AM [place] [facility] POCT GLUCOSE - [place] DOCKED DEVICE Routine 02/17/2024 6:10 AM [facility] [facility] COMPREHENSIVE METABOLIC PANEL Routine 02/17/2024 4:21 AM [facility] [facility] CBC W/DIFF AUTOMATED Routine 02/17/2024 4:21 AM [place] [facility] POCT GLUCOSE - HAWTH[place]NE DOCKED DEVICE Routine 02/16/2024 8:17 PM [facility] [facility] POCT GLUCOSE - [place]NE DOCKED DEVICE Routine 02/16/2024 4:30 PM [facility] [facility] USV VAST TEAM PICC INSERT >5YR Routine 02/16/2024 12:35 PM [facility] [facility] POCT GLUCOSE - HA[place]TH[place]NE DOCKED DEVICE Routine 02/16/2024 11:53 AM [facility] [facility] POCT GLUCOSE - HA[place]NE DOCKED DEVICE Routine 02/16/2024 6:12 AM [facility] [facility] [facility] CK (CPK) Routine 02/16/2024 2:42 AM [facility] [facility] [facility] COMPREHENSIVE METABOLIC PANEL Routine 02/16/2024 2:42 AM [facility] [facility] [facility] CBC W/DIFF AUTOMATED Routine 02/16/2024 2:42 AM [facility] [facility] POCT GLUCOSE - HAWTHORNE DOCKED DEVICE Routine 02/15/2024 7:47 PM [facility] [facility] POCT GLUCOSE - HAWTHORNE DOCKED DEVICE Routine 02/15/2024 4:20 PM [facility] [facility] [facility] USE ECHOCARDIOGRAM W CON Today 02/15/2024 1:39 PM [facility] [facility] XR CHEST PORTABLE ANU 02/15/2024 11: 38 AM [facility] [facility] [facility] POCT GLUCOSE - HAWTHORNE DOCKED DEVICE Routine 02/15/2024 11:32 AM [facility] [facility] POCT GLUCOSE - HAWTHORNE DOCKED DEVICE Routine 02/15/2024 6:49 AM [facility] [facility] COMPREHENSIVE METABOLIC PANEL Routine 02/15/2024 5:14 AM [facility] [facility] CBC W/DIFF AUTOMATED Routine 02/15/2024 5:14 AM [facility] [facility] [facility] VANCOMYCIN TIMED 02/15/2024 5:14 AM [facility] [facility] [facility] POCT GLUCOSE - HAWTHORNE DOCKED DEVICE Routine 02/14/2024 8:11 PM [facility] [facility] [facility] POCT GLUCOSE - AHWTHORNE DOCKED DEVICE Routine 02/14/2024 3:48 PM [facility] [facility] POCT GLUCOSE - HAWTHORNE DOCKED DEVICE Routine 02/14/2024 11:20 AM [facility] [facility] POCT GLUCOSE - HAWTHORNE DOCKED DEVICE Routine 02/14/2024 6:27 AM [facility] [facility] BASIC METABOLIC PANEL Routine 02/14/2024 4:18 AM [facility] [facility] [facility] CBC W/DIFF AUTOMATED Routine 02/14/2024 4:18 AM [facility] [facility] MRI FOOT LT WO CON Today 02/13/2024 10 :54 PM [facility] [facility] [facility] POCT GLUCOSE - HAWTHORNE DOCKED DEVICE Routine 02/13/2024 8:33 PM [facility] [facility] [facility] USV VAST TEAM PICC INSERT >5YR Today 02/13/2024 6:50 PM [facility] [facility] [facility] POCT GLUCOSE - HAWTHORNE DOCKED DEVICE Routine 02/13/2024 5:37 PM [facility] [facility] POCT GLUCOSE - HAWTH[place]NE DOCKED DEVICE Routine 02/13/2024 4:53 PM [facility] [facility] USV KATHERYN DUPLEX LOW EXT BRITT Today 02/13/2024 2:06 PM [facility] [facility] [facility] POCT GLUCOSE - HA[place]TH[place] DOCKED DEVICE Routine 02/13/2024 11:00 AM [facility] [facility] [facility] POCT GLUCOSE - HAWTHORNE DOCKED DEVICE Routine 02/13/2024 6:28 AM [facility] [facility] VANCOMYCIN TIMED 02/13/2024 6:04 AM [facility] [facility] MRI FOOT RT WO CON Today 02/12/2024 11 :01 PM [facility] [facility] [facility] POCT GLUCOSE - HAWTHORNE DOCKED DEVICE Routine 02/12/2024 8:46 PM [facility] [facility] [facility] CULTURE, BACTERIA, BLOOD TIMED 02/12/2024 5:54 PM [facility] [facility] [facility] CULTURE, BACTERIA, BLOOD TIMED 02/12/2024 5:14 PM [facility] [facility] [facility] POCT GLUCOSE - HAWTHORNE DOCKED DEVICE Routine 02/12/2024 3:58 PM [facility] [facility] HC BODY FLUID CULTURE Nurse Collected Priority 02/12/2024 3:50 PM [facility] [facility] POCT GLUCOSE - HAWTHORNE DOCKED DEVICE Routine 02/12/2024 1:16 PM [facility] [facility] POCT GLUCOSE - HAWTHORNE DOCKED DEVICE Routine 02/12/2024 11:29 AM [facility] [facility] HEMOGLOBIN, GLYCOSYLATED Routine 02/12/2024 9:05 AM [facility] [facility] [facility] POCT GLUCOSE - HAWTHORNE DOCKED DEVICE Routine 02/12/2024 6:51 AM [facility] [facility] [facility] MAGNESIUM Routine 02/12/2024 3:02 AM [facility] [facility] COMPREHENSIVE METABOLIC PANEL Routine 02/12/2024 3:02 AM [facility] [facility] CBC W/DIFF AUTOMATED Routine 02/12/2024 3:02 AM [facility] [facility] POCT GLUCOSE - HAWTHORNE DOCKED DEVICE Routine 02/11/2024 11:49 PM [facility] [facility] [facility] LACTIC ACID W REFLEX (SEPSIS) TIMED 02/11/2024 9:09 PM [facility] [facility] LACTIC ACID W REFLEX (SEPSIS) TIMED 02/11/2024 6:59 PM [facility] [facility] [facility] HC URINALYSIS AUTO W/MICRO STAT 02/11/2024 5:[address] [place] [address] HEAD WO CON STAT 02/11/2024 5:27 PM [facility] [facility] [facility] XR TIBIA+FIBULA RT 2V STAT 02/11/2024 5:26 PM [facility] [facility] [facility] XR SHOULDER RT MIN 2V STAT 02/11/2024 5:26 PM [facility] [facility] [facility] XR FOOT RT 3V STAT 02/11/2024 5:26 PM [facility] [facility] XR FEMUR RT 2V STAT 02/11/2024 5:26 PM [facility] [facility] [facility] XR HIP RT 2V STAT 02/11/2024 5:26 PM [facility] [facility] XR CHEST PORTABLE STAT 02/11/2024 5:2 6 PM [facility] [facility] [facility] CULTURE, BACTERIA, BLOOD Routine 02/11/2024 4:21 PM [facility] [facility] MAGNESIUM STAT 02/11/2024 4:21 PM [facility] [facility] BLOOD GAS, VENOUS STAT 02/11/2024 4:2 1 PM [facility] [facility] [facility] C-REACTIVE PROTEIN STAT 02/11/2024 4: 21 PM [facility] [facility] [facility] LACTIC ACID W REFLEX (SEPSIS) STAT 02/11/2024 4:21 PM [facility] [facility] [facility] CK (CPK) STAT 02/11/2024 4:21 PM [facility] [facility] COMPREHENSIVE METABOLIC PANEL STAT 02/11/2024 4:21 PM [facility] [facility] [facility] SED RATE, ERYTHROCYTE (ESR) STAT 02/11/2024 4:21 PM [facility] [facility] [facility] PARTIAL THROMBOPLASTIN TIME,PTT STAT 02/11/2024 4:21 PM [facility] [facility] PROTHROMBIN TIME, VENOUS STAT 02/11/2024 4:21 PM [facility] [facility] CBC W/DIFF AUTOMATED STAT 02/11/2024 4:21 PM [facility] [facility] [facility] ECG 12-LEAD Routine 02/11/2024 4:16 PM [facility] [facility] [facility] POCT GLUCOSE - HAWTHORNE [email or web address] DEVICE Routine 02/11/2024 4:14 PM [facility] [facility] [facility] LIPID PANEL Routine 06/27/2023 5:16 AM CDT from Last 3 Months or Most Recently Relevant to Health Maintenance Results * (ABNORMAL) COMPREHENSIVE METABOLIC PANEL (02/19/2024 8:59 AM [facility] [facility]) Only the most recent of6 resultswithin the time period is included. SODIUM S/P/B 140 136 - 145 MMOL/L 02/19/2024 9:50 AM [place] [facility] POTASSIUM S/P/B 3.7 3.5 - 5.1 MMOL/L 02/19/2024 9:50 AM [place] [facility] CHLORIDE S/P/B 107 97 - 115 MMOL/L 02/19/2024 9:50 AM [place] [facility] CO2 28.2 21.0 - 32.0 MMOL/L 02/19/2024 9:50 AM [place] [facility] GLUCOSE 240(H) 74 - 106 MG/DL 02/19/2024 9:50 AM [place] [facility] BUN 13 7 - 18 MG/DL 02/19/2024 9:[address] [facility] CREATININE S/P/B 0.86 0.55 - 1.02 MG/DL 02/19/2024 9:[address] [facility] CALCIUM S/P/B 8.5 8.5 - 10.1 MG/DL 02/19/2024 9:[address] [facility] BILIRUBIN TOTAL S/P/B 0.7 0.2 - 1.0 MG/DL 02/19/2024 9:[address] [facility] ALKALINE PHOSPHATASE S/P/B 83 50 - 130 U/L 02/19/2024 9:[address] [facility] AST 36 15 - 37 U/L 02/19/2024 9:[address] [facility] ALT 31 13 - 56 U/L 02/19/2024 9:[address] [facility] TOTAL PROTEIN S/P/B 6.0(L) 6.4 - 8.2 G/DL 02/19/2024 9:[address] [facility] ALBUMIN S/P/B 2.8(L) 3.4 - 5.0 G/DL 02/19/2024 9:[address] [facility] ANION GAP 4.8 2.0 - 10.0 MMOL/L 02/19/2024 9:[address] [facility] OSMOLALITY (CALC) 298 MOSM/KG 024 9:[address] [facility] Comment:REFERENCE RANGE NOT ESTABLISHED GFR ESTIMATE 76(L) >90 ML/MIN/1. 73 M2 02/19/2024 9:[address] [facility] GFR NOTES GFR REFERENCE S: 02/19/2024 9:[address] [facility] Comment: THE ESTIMATED GFR IS CALCULATED [...] FAILURE: <15 ml/min/1.73 m2 02/19/2024 8:59 AM [facility] [facility] [facility] Madina Dawn MD LABORATORY Final Result [facility] [address] [place] [address], [phone] * (ABNORMAL) CBC W/DIFF AUTOMATED (02/19/2024 8:59 AM [facility] [facility]) Only the most recent of7 resultswithin the time period is included. WBC 5.81 4.00 - 10.80 x10'3/uL 02/19/2024 9:15 AM [place] [facility] RBC 4.12 4.10 - 5.40 x10'6/uL 02/19/2024 9:[address] [facility] HGB 11.4(L) 12.0 - 16.0 G/DL 02/19/2024 9:[address] [facility] HCT 35.8(L) 36.0 - 47.0 % 02/19/2024 9:15 AM [place] [facility] MCV 86.9 78.0 - 100.0 FL 02/19/2024 9:15 AM [place] [facility] MCH 27.7 27.0 - 31.0 PG 02/19/2024 9:15 AM [place] [facility] MCHC 31.8(L) 33.0 - 36.0 G/DL 02/19/2024 9:[address] [facility] RDW 14.9(H) 11.5 - 14.5 % 02/19/2024 9:[address] [facility] PLT 191 150 - 350 x10'3/uL 02/19/2024 9:[address] [facility] MPV 9.6 7.4 - 10.4 FL 02/19/2024 9:[address] [facility] DIFFERENTIAL TYPE AUTOMATED DIFFERENTIAL 02/19/2024 9:[address] [facility] SEG NEUTROPHILS 42.9 % 9:[address] [facility] LYMPHOCYTES 44.1 % 02/19/2024 9:[address] [facility] MONOCYTES 8.4 % 02/19/2024 9:[address] [facility] EOSINOPHILS 3.8 % 02/19/2024 9:[address] [facility] BASOPHILS 0.5 % 02/19/2024 9:[address] [facility] IMMATURE GRANS % 0.3 % 02/19/20 9:[address] [facility] ABS. NEUTROPHILS 2.49 1.60 - 8.30 x10'3/uL 02/19/2024 9:[address] [facility] ABS. LYMPHOCYTES 2.56 0.80 - 4.70 x10'3/uL 02/19/2024 9:[address] [facility] ABS. MONOCYTES 0.49 0.00 - 1.50 x10'3/uL 02/19/2024 9:[address] [facility] ABS. EOSINOPHILS 0.22 0.00 - 0.40 x10'3/uL 02/19/2024 9:[address] [facility] ABS. BASOPHILS 0.03 0.00 - 0.20 x10'3/uL 02/19/2024 9:[address] [facility] ABS. IMMATURE GRANULOCYTES 0.02 0.00 - 0.03 x10'3/uL 02/19/2024 9:[address] [facility] ABS. NUCLEATED RBC'S 0.00 0.00 - 0.01 x10'3/uL 02/19/2024 9:15 AM [place] [facility] NRBC % 0.0 % 02/19/2024 9:15 AM [place] [facility] 02/19/2024 8:59 AM [facility] [facility] us Madina Dawn MD LABORATORY Final Result Performing Organization Address [facility]/[employer] de Phone Number [facility] [address] [place] [address], [id number] * (ABNORMAL) POCT glucose (02/19/2024 6:27 AM [facility] [facility]) Only the most recent of35 resultswithin the time period is included. GLUCOSE POC 168(H) 70 - 109 02/19/2024 6:51 AM [place] [facility] 02/19/2024 6:27 AM [facility] [facility] [facility] us Madina Dawn MD POCT ORDERABLES - DEVICE Final Result Performing Organization Address [facility] de Phone Number [facility] [address] [place] [address], [id number] * USV VAST TEAM PICC INSERT >5YR (02/16/2024 12:35 PM [facility]) Only the most recent of2 resultswithin the time period is included. Anatomical Region Laterality Modality NA Vascular Ultraso und 02/16/2024 11:4 7 AM [facility] [facility] Narrative 02/16/2024 11:47 AM [facility] This report does not contain a radiologist's interpretation. Please review associated procedure and/or operative report. Procedure Note Eugenio Haynes MD - 02/16/2024 This report does not contain a radiologist's interpretation. Please review associated procedure and/or operative report. us Madina Dawn MD US VASC Final Result * CK (CPK) - Weekly starting tomorrow (02/16/2024 2:42 AM [facility]) Only the most recent of2 resultswithin the time period is included. CPK 54 26 - 192 U/L 02/16/2024 1:45 PM [place] [facility] 02/16/2024 2:42 AM [facility] [facility] Jose Zuleta MD LABORATORY Final Re sult [facility] [address] [place] [address], [id number] * USE ECHOCARDIOGRAM W CON (02/15/2024 1:39 PM [facility] [facility]) Anatomical Region Laterality Modality NA Echocardiogram 02/15/2024 12:5 2 PM [facility] Narrative 02/16/2024 9:05 PM [facility] Echocardiography Report Pat.Name: SENA YO Pat.ID: [id number] .Date: 02/15/2024 Refer.: [id number] KYM Baltazar EWDPROV EWDPROV Exam Time: 12:52:00 [...] Mass 2D Value 209 g LV Mass [id number] Value 82.9 g/m2 <Electronic Signature> 02/16/2024 09:05 PM Juliann Erickson M.D. Procedure Note Juliann Erickson MD - 02/16/2024 Echocardiography Report Pat.Name: SENA YO Pat.ID: [id number] .Date: 02/15/2024 : [id number] KYM Baltazar EWDPROV EWDPROV Exam Time: 12:52:00 PM Study Type:ECHO W/CONTRAST COMPLETE Height: 69 in Weight: 318 lb BSA: 2.52 m2 Age: 1 1960,63Y Sex: F BP: 162/87 HR: 55 bpm Sonogrphr: Tin Harris [facility] Pat. Stat.:Inpatient Room: 1114 CPT - 4: [...] Mass 2D Value 209 g LV Mass [id number] Value 82.9 g/m2 <Electronic Signature> 02/16/2024 09:05 PM Juliann Erickson M.D. Madina Dawn MD ECHO Final Result * XR CHEST PORTABLE (02/15/2024 11:38 AM [facility]) Only the most recent of2 resultswithin the time period is included. Anatomical Region Laterality Modality Chest Radiographic Navya ging 02/16/2024 12:2 8 AM [facility] Impressions 02/16/2024 12:30 AM [facility] IMPRESSION: 1. Left PICC line tip projecting over the left subclavian/brachiocephalic vein. No definite pneumothorax. Referred By: BABITA VASQUEZ Interpreted By: Jose Keating MD, 02/16/2024 12:28 AM Narrative 02/16/2024 12:30 AM [facility] [address] [id number] Examination: Chest radiograph Exam time: 02/15/2024 11:36 [...] Procedure Note Jose Keating MD - 02/16/[address] [id number] Examination: Chest radiograph Exam time: 02/15/2024 11:36 [...] * Vancomycin Random Level (02/15/2024 5:14 AM [facility]) Only the most recent of2 resultswithin the time period is included. VANCOMYCIN RANDOM 17.2 MCG/ML 02/15/2024 6:05 AM [facility] [facility] Comment:REFERENCE RANGE NOT ESTABLISHED 02/15/2024 5:14 AM [facility] Zita Da Silva MD LABORATORY Final Res ult [facility] [address] [place] [address], [phone] * (ABNORMAL) BASIC METABOLIC PANEL (02/14/2024 4:18 AM [facility]) SODIUM S/P/B 140 136 - 145 MMOL/L 02/14/2024 4:56 AM [facility] [facility] POTASSIUM S/P/B 3.7 3.5 - 5.1 MMOL/L 02/14/2024 4:56 AM [facility] [facility] CHLORIDE S/P/B 108 97 - 115 MMOL/L 02/14/2024 4:56 AM [facility] [facility] CO2 29.9 21.0 - 32.0 MMOL/L 02/14/2024 4:56 AM [facility] [facility] GLUCOSE 154(H) 74 - 106 MG/DL 02/14/2024 4:[address] [facility] BUN 12 7 - 18 MG/DL 02/14/2024 4:[address] [facility] CREATININE S/P/B 0.79 0.55 - 1.02 MG/DL 02/14/2024 4:[address] [facility] CALCIUM S/P/B 8.4(L) 8.5 - 10.1 MG/DL 02/14/2024 4:[address] [facility] ANION GAP 2.1 2.0 - 10.0 MMOL/L 02/14/2024 4:[address] [facility] OSMOLALITY (CALC) 293 MOSM/KG 024 4:[address] [facility] Comment:REFERENCE RANGE NOT ESTABLISHED GFR ESTIMATE 84(L) >90 ML/MIN/1. 73 M2 02/14/2024 4:[address] [facility] GFR NOTES GFR REFERENCE S: 02/14/2024 4:[address] [facility] Comment: THE ESTIMATED GFR IS CALCULATED [...] FAILURE: <15 ml/min/1.73 m2 02/14/2024 4:18 AM [facility] us Zita Da Silva MD LABORATORY Final Res ult [facility] [address] [place] [address], [id number] * MRI FOOT LT WO CON (02/13/2024 10:54 PM [facility]) Anatomical Region Laterality Modality Foot Magnetic Resonan ce 02/14/2024 12:0 2 AM [facility] Impressions 02/14/2024 12:06 AM [facility] IMPRESSION: 1. No MR signal changes of osteomyelitis. 2. Diffuse edema like signal throughout the soft tissues of the left foot, which may represent cellulitis in the appropriate clinical setting. No distinct drainable fluid collection or abscess. Referred By: BABITA VASQUEZ Interpreted By: Silvio Alvarez MD, 02/14/2024 12:02 AM Narrative 02/14/2024 12:06 AM [facility] [address] [address] EXAMINATION: MRI FOOT LT WO CON HISTORY: [...] Procedure Note Silvio Alvarez MD - 02/14/[address] [address] EXAMINATION: MRI FOOT LT WO CON HISTORY: [...] DUPLEX LOW EXT BRITT (02/13/2024 2:06 PM [facility]) Anatomical Region Laterality Modality Extremity Ultrasound 02/13/2024 1:25 PM [facility] Narrative 02/13/2024 3:13 PM [facility] Vascular Report Pat.Name: SENA YOID: [id number] St.Date: 02/13/2024 Refer.MD: ZITA DA SILVA Exam Time: 1:25:00 PM Study Type:PVI VENOUS DUPLEX SCAN-LEGS BILAT Height: 69 in Age: 1 1960,63Y Sex: F Sonogrphr: Ilia Dooley RVT Pat. Stat.:Inpatient Room: 1114 ICD - 9: R60.9 Limb Edema CPT - 4: 97495 Venous Duplex LE/UE Reason for Study:Edema Race: W ++++++++++++++++++++++++++++++++++++ FINDINGS: ++++++++++++++++++++++++++++++++++++ Bilat: No evidence of acute or chronic thrombosis noted in the deep or superficial veins in either lower extremity. Comments: Technically difficult study due to body habitus. <Electronic Signature> 02/13/2024 03:13 PM Bridger Mccray M.D. Procedure Note Bridger Mccray MD - 02/13/2024 Vascular Report Pat.Name: SENA YOID: [id number] St.Date: 02/13/2024 Refer.MD: ZITA DA SILVA Exam Time: 1:25:00 PM Study Type:PVI VENOUS DUPLEX SCAN-LEGS BILAT Height: 69 in Age: 1 1960,63Y Sex: F Sonogrphr: MARIO Valdes. Stat.:Inpatient Room: [facility] ICD - 9: R60.9 Limb Edema CPT - 4: 99120 Venous Duplex LE/UE Reason for Study:Edema Race: W ++++++++++++++++++++++++++++++++++++ FINDINGS: ++++++++++++++++++++++++++++++++++++ Bilat: No evidence of acute or chronic thrombosis noted in the deep or superficial veins in either lower extremity. Comments: Technically difficult study due to body habitus. <Electronic Signature> 02/13/2024 03:13 PM Bridger Mccray M.D. us Zita Da Silva MD [facility] Final Res ult * MRI FOOT RT WO CON (02/12/2024 11:01 PM [facility]) Anatomical Region Laterality Modality Foot Magnetic Resonan ce 02/13/2024 12:0 3 AM [facility] Impressions 02/13/2024 12:10 AM [facility] IMPRESSION: 1. Motion degraded exam limiting sensitivity. [...] 02/13/2024 12:03 AM Narrative 02/13/2024 12:10 AM [facility] [address] [place], [place] [address] EXAMINATION: MRI FOOT RT WO CON HISTORY: [...] Procedure Note Silvio Alvarez MD - 02/13/2024 [facility] [address] [place], [place] [address] EXAMINATION: MRI FOOT RT WO CON HISTORY: [...] CULTURE, BACTERIA BLOOD X2 (02/12/2024 5:54 PM [facility]) Only the most recent of3 resultswithin the time period is included. SPEC DESCRIPTION BLOOD 02/12/2024 4:44 PM [facility] SPECIAL REQUESTS NO SPECIAL REQUEST 02/12/2024 4:44 PM [facility] CULTURE RESULT NO GROWTH 5 DAYS 02/18/2024 12:05 AM [facility] BLOOD SPECIMEN OBTAINED FOR BLOOD CULTURE / Unknown 02/12/2024 5:54 PM [facility] 02/12/2024 5:55 PM [facility] us Nancie Hernandez NP MICROBIOLOGY - GENERAL ORDER LENIN Final Result Performing Organization Address City/State/[place] Co de Phone Number [facility] [address] [place] [address], [place] [phone] * CULTURE, WOUND, W/GRAM STAIN (02/12/2024 3:50 PM [facility]) SPEC DESCRIPTION FOOT,LEFT 02/12/2024 3:50 PM [facility] [facility] SPECIAL REQUESTS NO SPECIAL REQUEST 02/12/2024 3:50 PM [facility] [facility] GRAM STAIN RESULT NO NEUTROPHILS SEEN 02/12/2024 4:57 PM [facility] GRAM STAIN RESULT RARE GRAM POSITIVE COCCI IN PAIRS 02/12/2024 4:57 PM [facility] CULTURE RESULT FEW PROTEUS MIRABILIS 02/16/2024 4:40 PM [facility] [facility] CULTURE RESULT MODERATE DIPHTHEROID BACILLI 02/16/2024 4:40 PM [facility] [place] [facility] CULTURE RESULT MODERATE MICROCOCCUS SPECIES 02/16/2024 4:40 PM [facility] [place] [facility] CULTURE RESULT MODERATE STAPHYLOCOCCUS, COAGULASE NEGATIVE 02/16/2024 4:40 PM [facility] [facility] CULTURE RESULT MODERATE ENTEROCOCCUS FAECALIS 02/16/2024 4:40 PM [facility] [facility] STRUCTURE OF LEFT FOOT / Unknown 02/12/2024 3:50 PM [facility] 02/12/2024 4:19 PM [facility] Narrative Organism Antibiotic Method Susceptibility Proteus mirabilis [...] MICROBIOLOGY - GENERAL O RDERABLES Final Result [facility] [address] [place] [address], [id number] * (ABNORMAL) HEMOGLOBIN, GLYCOSYLATED (02/12/2024 9:05 AM [facility]) HGB A1C 10.2(H) <5.7 % 02/12/2024 9:54 AM [facility] [facility] ESTIMATED AVG GLUCOSE 246(H) 74 - 114 MG/DL 02/12/2024 9:54 AM [facility] [facility] 02/12/2024 9:05 AM [facility] Zita Da Silva MD LABORATORY Final Res ult Performing Organization Address City/[facility]/ZIP Co de Phone Number [facility] [address] [place] [address], [place] [phone] * MAGNESIUM (02/12/2024 3:02 AM [facility]) Only the most recent of2 resultswithin the time period is included. MAGNESIUM 1.8 1.6 - 2.6 MG/DL 02/12/2024 3:34 AM [facility] [facility] 02/12/2024 3:02 AM [facility] Celia Jaramillo MD LABORATORY Final Res ult Performing Organization Address [facility]/[place] Co de Phone Number [facility] [address] [place] [address], [id number] * LACTIC ACID W REFLEX (SEPSIS) (02/11/2024 9:09 PM [facility]) Only the most recent of3 resultswithin the time period is included. LACTIC ACID VENOUS 1.8 0.4 - 2.0 MMOL/L 02/11/2024 9:36 PM [facility] 02/11/2024 9:09 PM [facility] Babita Vasquez MD LABORATORY Final Result Performing Organization Address City/[facility]/ZIP Co de Phone Number [facility] [address] [place] [address], [place] [phone] * (ABNORMAL) URINALYSIS (02/11/2024 5:38 PM [facility]) COLOR (U) YELLOW 02/11/2024 6:10 PM [facility] TRANSPARENCY CLEAR 02/11/2024 6:10 PM [facility] [facility] SPECIFIC GRAVITY (U) 1.010 1.000 - 1.025 02/11/2024 6:10 PM [facility] [facility] [facility] U PH 5.0 5.0 - 8.0 02/11/2024 6:10 PM [facility] [facility] LEUKOCYTES (U) NEGATIVE NEGATIVE 02/11/2024 6:10 PM [facility] NITRITES NEGATIVE NEGATIVE 02/11/2024 6:10 PM [facility] PROTEIN RANDOM (U) NEGATIVE NEGATIVE 02/11/2024 6:10 PM [facility] [facility] GLUCOSE (U) 2+(A) NEGATIVE 02/11/2024 6:10 PM [facility] KETONES MG/DL (U) NEGATIVE NEGATIVE 02/11/2024 6:10 PM [facility] UROBILINOGEN 0.2 <1.0 EU/DL 02/11/2024 6:10 PM [facility] [facility] BILIRUBIN (U) NEGATIVE NEGATIVE 02/11/2024 6:10 PM [facility] [facility] BLOOD (U) NEGATIVE NEGATIVE 02/11/2024 6:10 PM [facility] [facility] WBC/HPF 0-5 0 - 5 /HPF 02/11/2024 6:10 PM [facility] [facility] EPI/LPF FEW /LPF 02/11/2024 6:10 PM [facility] [facility] BACTERIA (U) TRACE /HPF 02/11/2024 6:10 PM [facility] [facility] OTHER CASTS (U) HYALINE /LPF 6:10 PM [facility] [facility] Comment:5-10 BUDDING YEAST PRESENT /HPF 02/11/2024 6:10 PM [facility] [facility] URINE SPECIMEN OBTAINED BY CLEAN CATCH PROCEDURE / Unknown 02/11/2024 5:38 PM [facility] us Babita Vasquez MD URINE ORDERABLES Final Result [facility] [address] [place] [phone], * CT HEAD WO CON (02/11/2024 5:27 PM [facility]) Anatomical Region Laterality Modality Head Computed Tomogra phy 02/11/2024 5:36 PM [facility] Impressions 02/11/2024 5:41 PM [facility] IMPRESSION: 1. No definite CT evidence for acute intracranial abnormality. 2. Other chronic or nonurgent findings as described above. Please note that CT has limited sensitivity for the detection of acute ischemia Referred By: Interpreted By: Vazquez Cervantes MD, 02/11/2024 5:36 PM Narrative 02/11/2024 5:41 PM [facility] [address] [place] [address] EXAMINATION: CT of the head CLINICAL HISTORY: [...] Procedure Note Vazquez Cervantes MD - 02/11/2024 [facility] [address] [place] [address] EXAMINATION: CT of the head CLINICAL HISTORY: [...] XR TIBIA+FIBULA RT 2V (02/11/2024 5:26 PM [facility]) Anatomical Region Laterality Modality TibFib Radiographic Navya ging 02/11/2024 5:46 PM [facility] Impressions 02/11/2024 5:51 PM [facility] IMPRESSION: No acute findings. Referred By: Interpreted By: Vazquez Cervantes MD, 02/11/2024 5:46 PM Narrative 02/11/2024 5:51 PM [facility] [address] [place] [address] EXAMINATION: XR TIBIA+FIBULA RT 2V HISTORY: Pain [...] Procedure Note Vazquez Cervantes MD - 02/11/[address] [place] [address] EXAMINATION: XR TIBIA+FIBULA RT 2V HISTORY: Pain [...] SHOULDER RT MIN 2V (02/11/2024 5:26 PM [facility]) Anatomical Region Laterality Modality Shoulder Radiographic Navya ging 02/11/2024 5:43 PM [facility] Impressions 02/11/2024 5:46 PM [facility] IMPRESSION: No acute findings. Question possible calcific tendinitis. Referred By: Interpreted By: Vazquez Cervantes MD, 02/11/2024 5:43 PM Narrative 02/11/2024 5:46 PM [facility] [address] [place] [address] EXAMINATION: XR SHOULDER RT MIN 2V HISTORY: [...] Procedure Note Vazquez Cervantes MD - 02/11/[address] [place] [address] EXAMINATION: XR SHOULDER RT MIN 2V HISTORY: [...] XR HIP RT 2V (02/11/2024 5:26 PM [facility]) Anatomical Region Laterality Modality Hip Radiographic Navya ging 02/11/2024 5:53 PM [facility] Impressions 02/11/2024 5:53 PM [facility] IMPRESSION: No acute findings. Referred By: Interpreted By: Vazquez Cervantes MD, 02/11/2024 5:53 PM Narrative 02/11/2024 5:53 PM [facility] [address] [place] [address] EXAMINATION: XR HIP RT 2V HISTORY: Pain after fall DATE: 02/11/2024 5:26 PM COMPARISON: None TECHNIQUE: AP and lateral views of the right hip. 2 images. FINDINGS: No acute fracture or dislocation. Mild degenerative change of the hip joint. No destructive bone lesion. Procedure Note Vazquez Cervantes MD - 02/11/[address] [place] [address] EXAMINATION: XR HIP RT 2V HISTORY: Pain [...] XR FOOT RT 3V (02/11/2024 5:26 PM [facility]) Anatomical Region Laterality Modality Foot Radiographic Navya ging 02/11/2024 5:51 PM [facility] Impressions 02/11/2024 5:53 PM [facility] IMPRESSION: 1. No acute fracture identified. 2. New erosions of the first metatarsal head concerning for acute osteomyelitis. Referred By: Interpreted By: Vazquez Cervantes MD, 02/11/2024 5:51 PM Narrative 02/11/2024 5:53 PM [facility] [place] [address] [place] [address] EXAMINATION: XR FOOT RT 3V HISTORY: Pain [...] Procedure Note Vazquez Cervantes MD - 02/11/[address] [place] [address] EXAMINATION: XR FOOT RT 3V HISTORY: Pain [...] XR FEMUR RT 2V (02/11/2024 5:26 PM [facility]) Anatomical Region Laterality Modality Femur Radiographic Navya ging 02/11/2024 5:54 PM [facility] Impressions 02/11/2024 5:56 PM [facility] IMPRESSION: No acute findings. Referred By: Interpreted By: Vazquez Cervantes MD, 02/11/2024 5:54 PM Narrative 02/11/2024 5:56 PM [facility] [address] [place] [address] EXAMINATION: XR FEMUR RT 2V HISTORY: Pain [...] island in distal femoral shaft. Procedure Note aVzquez Cervantes MD - 02/11/[address] [place] [address] EXAMINATION: XR FEMUR RT 2V HISTORY: Pain [...] (ABNORMAL) Blood gas, venous (02/11/2024 4:21 PM [facility]) PH VENOUS 7.43 7.32 - 7.43 02/11/2024 4:38 PM [facility] [facility] PCO2 VENOUS 46.0 MMHG 02/11/2024 4:38 PM [facility] [facility] Comment:NO REFERENCE RANGE H BEEN ESTABLISHED PO2 VENOUS 49.0 MM HG 02/11/2024 4:38 PM [facility] Comment:NO REFERENCE RANGE H BEEN ESTABLISHED TOTAL CO2 VENOUS 31.9(H) 22.0 - 26.0 MMOL/L 02/11/2024 4:38 PM [facility] [place] [facility] BASE EXCESS VENOUS 5.3 MMOL/L 02/11/2024 4:38 PM [facility] Comment:NO REFERENCE RANGE H BEEN ESTABLISHED O2 SAT VENOUS 85 % 02/11/2024 4:38 PM [facility] Comment:NO REFERENCE RANGE H BEEN ESTABLISHED BICARB VENOUS 30.5(H) 22.0 - 29.0 MMOL/L 02/11/2024 4:38 PM [facility] [facility] O2 ADMIN VENOUS AIR 4:30 PM [place] [facility] 02/11/2024 4:21 PM [facility] [facility] us Babita Vasquez MD LABORATORY Final Result Performing Organization Address City/[facility]/ZIP Co de Phone Number [facility] [address] [place] [address], [place] [phone] * PARTIAL THROMBOPLASTIN TIME,PTT (02/11/2024 4:21 PM [facility]) PTT 27.4 25.1 - 36.5 SEC 02/11/2024 4:43 PM [facility] [facility] Comment:THERAPEUTIC RANGE: 4 6.2-77.0 SEC 02/11/2024 4:21 PM [facility] us Babita Vasquez MD LABORATORY Final Result Performing Organization Address [facility]/ZIP Co de Phone Number [facility] [address] [place] [address], [place] [phone] * (ABNORMAL) SED RATE, ERYTHROCYTE (ESR) (02/11/2024 4:21 PM [facility]) ESR 60(H) 0 - 20 MM/HR 02/11/2024 5:03 PM [facility] [facility] 02/11/2024 4:21 PM [facility] us Babita Vasquez MD LABORATORY Final Result Performing Organization Address City/[facility]/ZIP Co de Phone Number [facility] [address] [place] [address], [place] [phone] * PROTIME/INR, VENOUS (02/11/2024 4:21 PM [facility]) PROTIME 10.9 9.4 - 12.5 SEC 02/11/2024 4:43 PM [place] [facility] INR 1.0 0.8 - 1.0 02/11/2024 4:43 PM [facility] [facility] 02/11/2024 4:21 PM [facility] us Babita Vasquez MD LABORATORY Final Result Performing Organization Address [facility]/[place] [address], * (ABNORMAL) C-REACTIVE PROTEIN (02/11/2024 4:21 PM [facility]) C-REACTIVE PROTEIN 2.20(H) <0.30 mg/dL 02/11/2024 5:01 PM [facility] [facility] 02/11/2024 4:21 PM [facility] [facility] us Babita Vasquez MD LABORATORY Final Result Performing Organization Address [facility] de Phone Number [facility] [address] [place] [address], * ECG 12 lead (02/11/2024 4:16 PM [facility]) 02/11/2024 4:16 PM [facility] Narrative [facility] - 02/11/2024 6:37 PM [facility] [address] [place] [address] Test Date: 2024-02-11 Pat Name: SENA YO Department: 3 Room: [place] [address] Gender: Female Pathology Teacher: : 1960 Requested By: BABITA VASQUEZ Order Number: [id number] Reading MD: Sona Cuevas Measurements Intervals May Rate: 78 P: 53 WY: 172 QRS: 34 QRSD: 100 T: 75 QT: 380 QTc: 434 Interpretive Statements SINUS RHYTHM LOW QRS VOLTAGE IN PRECORDIAL LEADS NONSPECIFIC T-WAVE ABNORMALITY [place] [facility] [facility] Procedure Note Sona Cuevas MD - 02/11/2024 [facility] [address] [place] [address] Test Date: 2024-02-11 Pat Name: SENA YO Department: 3 Room: EXAM 606 Gender: Female Pathology Teacher: : 1960 Requested By: BABITA VASQUEZ Order Number: [id number] Reading MD: Sona Cuevas Measurements Intervals May Rate: 78 P: 53 WY: 172 QRS: 34 QRSD: 100 T: 75 QT: 380 QTc: 434 Interpretive Statements SINUS RHYTHM LOW QRS VOLTAGE IN PRECORDIAL LEADS NONSPECIFIC T-WAVE ABNORMALITY [place] [facility] us Babita Vasquez MD ECG ORDERABLES Final Result [facility] * (ABNORMAL) LIPID PANEL (06/27/2023 5:16 AM CDT) CHOLESTEROL 135 MG/DL 06/27/2023 11:59 AM CDT [facility] Comment:DESIRABLE: <200 TRIGLYCERIDES 192 MG/DL 06/27/2023 11:59 AM CDT [facility] Comment:150-199 [facility] HDL 38(L) >49 MG/DL 06/27/2023 11:59 AM CDT [facility] LDL-C 59 MG/DL 06/27/2023 11:59 AM CDT [facility] Comment:<100 OPTIMAL VLDL CALCULATION 38 MG/DL 06/27/19 11:59 AM CDT [facility] Comment:REFERENCE RANGE NOT ESTABLISHED CHOL/HDL RATIO 3.6 06/27/2023 11:59 AM CDT [facility] Comment:REFERENCE RANGE NOT ESTABLISHED LDL/HDL 1.5 06/27/2023 11:59 AM CDT [facility] Comment:REFERENCE RANGE NOT ESTABLISHED NON HDL CHOLESTEROL 97 MG/DL 06/27/2023 11:59 AM CDT [facility] Comment:REFERENCE RANGE NOT ESTABLISHED 06/27/2023 5:16 AM CDT Stephanie Coughlin MD LABORATORY Final Result [facility] [address] [place] [address], [id number] from Last 3 Months or Most Recently [...] 1:31 PM 07/27/2023 10:59 AM Care Teams Auto Tester Relationship Specialty Start Date End Date Hazel Bryant APNP [address] [facility] [id number], [place] [address] PCP - General FAMILY PRACTICE 01/22/24 Kathryn Kim NP [address] [facility] [address] [place] [address] NURSE PRACTITIONER 08/03/21 Alexa Quiles NP [address] [place] [address] WOUND CARE 07/11/23 07/10/24 Edi Olvera DPM [address] [place] [address] [place] [address] Consulting Physician PODIATRY/SURGERY 11/20/23 Nelson Ogden MD [address] [place] [address] Consulting Physician INTERNAL MEDICINE 12/17/23
--- OUTSIDE RECORDS SUMMARY | 2024-05-08 16:53 | XMS_ITS | Encounter Summary ---
Author Organization [facility] Address [facility] [place] [address] Care Team Providers Care Jewelry Setter Name Role Phone Kathryn Kim PULP SCREEN OPERATOR Unavailable [phone] Kathryn Kim PULP SCREEN OPERATOR Unavailable [phone] Kathryn Kim NP Primary Care Provider [phone] Alexa Quiles PULP SCREEN OPERATOR Unavailable [phone] Ashley Coello Primary Care Provider [phone] Edi Olvera DPM Unavailable [phone] Nelson Ogden MD Unavailable Hazel Bryant Primary Care Provider [phone] Reason for Visit * Reason Onset Date Comments Follow Up Call 10/04/2021 Encounter Details Date Type Department Care Team (Late st Contact Info) Description 10/04/2021 Hospital Follow-up Call 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 Gender Identity Female 01/17/2024 1:34 PM [...] Rule Out 03/23/2023 03/23/2023 03/23/2023 11:21 AM PUBLIC EVENTS FACILITIES RENTAL MANAGER COVID-19 Rule Out 06/22/2023 06/22/2023 06/22/2023 12:31 PM CDT documented as of this encounter Care Teams Jewelry Setter Relationship Specialty Start Date End Date Kathryn Kim NP [address] [address] PCP - General NURSE PRACTITIONER 09/29/21 08/21/23 Ashley Coello PA [address] [address] PCP - General PHYSICIAN ENVIRONMENTAL HEALTH AND SAFETY INTERN 08/22/23 01/21/24 Hazel Bryant APNP [address] [facility] [id number] [place] [address] PCP - General FAMILY PRACTICE 01/22/24 Kathryn Kim NP [address] [address] NURSE PRACTITIONER 08/03/21 Kathryn Kim NP [address] [address] NURSE PRACTITIONER 08/03/21 12/16/23 Alexa Quiles NP [address] [place] [address] WOUND CARE 07/11/23 07/10/24 Edi Olvera DPM [address] [facility] [place] [address] Consulting Physician PODIATRY/SURGERY 11/20/23 Nelson Ogden MD [address] [place] [address] Consulting Physician INTERNAL MEDICINE 12/17/23 documented as of this encounter
--- OUTSIDE RECORDS SUMMARY | 2024-05-08 16:53 | XMS_ITS | Encounter Summary ---
Author Organization [facility] Address [address] [place] [address] Care Team Providers Care Home Improvement Installer Name Role Phone Kathryn Kim LENS BLANK GAUGER Unavailable [phone] Kathryn Kim LENS BLANK GAUGER Unavailable [phone] Kathryn Kim NP Primary Care Provider [phone] Alexa Quiles LENS BLANK GAUGER Unavailable [phone] Ashley Coello Primary Care Provider [phone] Edi Olvera DPM Unavailable [phone] Nelson Ogden MD Unavailable Hazel Bryant Primary Care Provider [phone] Encounter Details Date Type Department Care Team (Late st Contact Info) Description 08/04/2021 [facility] [address] [place] [address] [phone] Matt Slade MD Social History Tobacco Use [...] PM CDT Legal Sex Female 5:51 PM FOLLOW UP MANAGER Gender Identity Female 01/17/2024 1:34 PM [...] Rule Out 03/23/2023 03/23/2023 03/23/2023 11:21 AM FOLLOW UP MANAGER COVID-19 Rule Out 06/22/2023 06/22/2023 06/22/2023 12:31 PM CDT documented as of this encounter Care Teams Home Improvement Installer Relationship Specialty Start Date End Date Kathryn Kim NP [address] [place] [address] PCP - General NURSE PRACTITIONER 09/29/21 08/21/23 Ashley Coello PA [address] [place] [address] PCP - General PHYSICIAN VENEER JOINTER OFFBEARER 08/22/23 01/21/24 Hazel Bryant APNP [address] [facility] [id number] [address] PCP - General FAMILY PRACTICE 01/22/24 Kathryn Kim NP [address] [facility] [address] [place] [id number] NURSE PRACTITIONER 08/03/21 Kathryn Kim NP [address] [place] [address] [place] [address] NURSE PRACTITIONER 08/03/21 12/16/23 Alexa Quiles NP [address] [place] [address] WOUND CARE 07/11/23 07/10/24 Edi Olvera DPM [address] [place], [place] [address] [address] Consulting Physician PODIATRY/SURGERY 11/20/23 Nelson Ogden MD [address] [place] [address] Consulting Physician INTERNAL MEDICINE 12/17/23 documented as of this encounter
--- OUTSIDE RECORDS SUMMARY | 2024-05-08 16:53 | XMS_ITS | Patient Health Summary ---
Author Organization [facility] Address [address] [facility] [place] [address] Care Team Providers Care Aircraft Instrument Tester Name Role Phone Denis Flores MD Primary Care Provider [phone] Note from [facility] [facility],non-owned Affiliates and Associated Physician Practices is amultiple site organization consisting of ambulatory clinics and hospital sitesin [place], [place], [place] and [place]. This disclosure is being madepursuant to the Care Everywhere program and may not contain all information available regarding this patient. Last updated 17.[facility] Allergies * Morphine(Urticaria) -High Criticality * Xstcwgka-Xrxgqmvvpy-Zztcdxvuo(Rash) Medications * Be aware that medications may [...] CDT) CK 109 30 - 135 U/L [facility] CK-MB 2.00 SEE BELOW ng/dl [facility] Comment: <5.10 Negative 5.10-10.0 Intermediate >10.0 Positive Troponin I <0.200 0.00 - 1.00 ng/ml [facility] Interpretation Troponin [facility] Comment: Diagnostic cutoff for the AMI [...] - CHEMISTRY ORD ERABLES Performing Organization Address [facility] de Phone Number [facility] [address] [place] [address] * (ABNORMAL) PTT (07/11/2008 8:19 PM CDT) PTT 24.2(L) 26.0 - 32.8 seconds [facility] BLOOD SPECIMEN / Unknown 07/11/2008 8:19 PM CDT 07/11/2008 8:19 PM CDT Heike Mcintosh MD LAB - COAGULATION O RDERABLES Performing Organization Address [facility] de Phone Number [facility] [address] [place] [address] * PT-INR (07/11/2008 8:19 PM CDT) Pathologist [facility] PT 9.9 9.4 - 11.4 seconds [facility] INR 0.93 SEE BELOW [facility] Comment: 0.92-1.12 Normal 2.0-3.0 Therapeutic Low Risk 2.5-3.5 Therapeutic High Risk BLOOD SPECIMEN / Unknown 07/11/2008 8:19 PM CDT 07/11/2008 8:19 PM CDT Heike Mcintosh MD LAB - COAGULATION O RDERABLES Performing Organization Address [facility] de Phone Number [facility] [address] [place] [address] * (ABNORMAL) CBC W AUTO DIFFERENTIAL (07/11/2008 8:19 PM CDT) WBC 5.90 4.0 - 11.0 X(10)3/L [facility] RBC 5.04 3.8 - 5.3 X(10)6 [facility] Hemoglobin 14.9 12.0 - 16.0 gm/dl [facility] Hematocrit 43.1 36 - 47 % [facility] MCV 85.5 80.0 - 99.0 fl [facility] MCH 29.6 26 - 34 pg [facility] MCHC 34.6 32.0 - 37.0 gm/dl [facility] RDW 13.3 11.5 - 14.5 % [facility] Platelet Count 202 150 - 400 K/CUMM [facility] MPV 10.9 9.2 - 12.2 fl [facility] Granulocytes % 46.1 43 - 70 % [facility] Granulocytes Absolute 2.72 1.7 - 6.7 X(10)3 [facility] Lymphocytes % 46.1(H) 22 - 41 % [facility] Lymphocytes Absolute 2.72 0.9 - 3.2 X(10)3 [facility] Monocytes % 5.4 2.0 - 11.0 % [facility] Monocytes Absolute 0.32 0.2 - 0.9 X(10)3 [facility] Eosinophils % 2.2 0.0 - 5.0 % [facility] Eosinophils Absolute 0.13 0.0 - 0.4 X(10)3 [facility] Basophils % 0.2 0 - 2 % [facility] Basophils Absolute 0.01 0.0 - 0.2 X(10)3 [facility] Comment Manual Diff Manual Diff Not Indicated [facility] BLOOD SPECIMEN / Unknown 07/11/2008 8:19 PM CDT 07/11/2008 8:19 PM CDT Heike Mcintosh MD LAB - HEMATOLOGY OR DERABLES Performing Organization Address City/State/[facility] Co de Phone Number [facility] [address] [facility] [place] [address] * B-TYPE NATRIURETIC PEPTIDE (07/11/2008 8:19 PM CDT) BNP 5.9 0.0 - 99.9 pg/ml [facility] Interpretation BNP S [facility] Comment: A cutoff of 100 [...] PM CDT 07/11/2008 8:20 PM CDT Narrative [facility] - 07/11/2008 9:12 PM CDT Difficult patient Heike Mcintosh MD LAB - CHEMISTRY ORD ERABLES Performing Organization Address City/[facility] Co de Phone Number [facility] [address] [place] [address] * (ABNORMAL) COMPREHENSIVE METABOLIC PANEL (07/11/2008 8:19 PM CDT) Glucose 133(H) 65 - 105 mg/dl [facility] BUN 7 7 - 17 mg/dl [facility] Creatinine 0.8 0.7 - 1.2 mg/dl [facility] Sodium 144 137 - 145 mmol/L [facility] Potassium 3.5(L) 3.6 - 5.0 mmol/L [facility] Chloride 101 98 - 107 mmol/L [facility] CO2 26 22 - 30 mmol/L [facility] Calcium 8.9 8.4 - 10.2 mg/dl [facility] Bilirubin Total 0.3 0.2 - 1.3 mg/dl [facility] Alkaline Phosphatase 95 38 - 126 U/L [facility] AST 32 14 - 36 U/L [facility] ALT 25 9 - 52 U/L [facility] Protein Total 7.5 6.3 - 8.2 gm/dl [facility] Albumin 4.3 3.5 - 5.0 gm/dl [facility] BLOOD SPECIMEN / Unknown 07/11/2008 8:19 PM CDT 07/11/2008 8:19 PM CDT Heike Mcintosh MD LAB - CHEMISTRY ORD ERABLES Performing Organization Address City/[facility] Co de Phone Number [facility] [address] [place] [address] * AMYLASE BLOOD (07/11/2008 8:19 PM CDT) Amylase 33 30.0 - 110.0 U/L [facility] BLOOD SPECIMEN / Unknown 07/11/2008 8:19 PM CDT 07/11/2008 8:19 PM CDT Heike Mcintosh MD LAB - CHEMISTRY ORD ERABLES Performing Organization Address City/[facility] Co de Phone Number [facility] [address] [place] [address] * LIPASE BLOOD (07/11/2008 8:18 PM CDT) Lipase 115 23 - 208 U/L [facility] BLOOD SPECIMEN / Unknown 07/11/2008 8:18 PM CDT 07/11/2008 8:18 PM CDT Heike Mcintosh MD LAB - CHEMISTRY ORD ERABLES Performing Organization Address [facility] Co de Phone Number [facility][note 2][address] [place] [address] Care Teams Aircraft Instrument Tester Relationship Specialty Start Date End Date Denis Flores MD [address] [place] [address] PCP - General 07/11/08
--- OUTSIDE RECORDS SUMMARY | 2024-05-08 16:53 | XMS_ITS | Continuity of Care Document ---
Author Organization [facility] Address [address] [place] [address] Phone Care Team Providers Care Tipple Repairer Name Role Phone Chidi RAJAN, Satish Unavailable Unavailabl e Allergies, Adverse Reactions, Alerts Substance Reaction Status Criticality polymyxin B Active No Information NEOMYCIN SULFATE Active No Informat ion BACITRACIN ZINC Active No Informati on bacitracin Active No Information Medications Medication Instructions Dosage Effective Dates (start - stop) Status Comments VENLAFAXINE 25MG TAB TAKE ONE TABLET BY MOUTH ONCE DAILY WITH FOOD 25 MG - Active SIMVASTATIN 20MG TAB TAKE ONE TABLET BY MOUTH ONCE DAILY IN THE EVENING 20 MG - Active LISINOPRIL/HCTZ 20-12.5MG TAB TAKE ONE TABLET BY MOUTH ONCE DAILY 1.00 tablet - Active Victoza 2-Surinder 0.6 mg/0.1 mL [...] Known Problems Procedures Procedure Date OFFICE/OUTPATIENT VISIT, [facility] OFFICE/OUTPATIENT VISIT, [facility] Advance Directives Directive Yes / No Effective Date File Name No Information Encounters Encounter Description Practice Location Reason(s) For Visit Diagnoses Date Provider Providers Copied on Encounter Community [facility], [address] [place] [address], [facility], tel:[phone] *[facility] No Information 6 Chidi Covarrubias. [address], [address], . tel:[phone] OFFICE/OUTPA TIENT VISIT, [facility], [address] [place] [address], [facility], tel:[phone] *[facility] Hypertension (chief complaint)Neetu betes (chief complaint) Dietary counseling and surveillanceEsse ntial hypertension with goal blood pressure less than 140/90Type 2 diabetes mellitus with hyperglycemiaAty pical chest pain 6 Chidi Covarrubias. [address], [address], [place]. [phone] OFFICE/OUTPA TIENT VISIT, [facility], [address] [place] [address], [facility], tel:[phone] *[facility] swelling (chief complaint) Swelling 4 Chidi Covarrubias. [address], [address], . tel:[phone] Family History Family Member Type Diagnosis Age At Onset No Information Payers Payer name Insurance type Covered republican ID Authoriza tion(s) No Information Social History [...] Additional information: PT was just seen in [facility] for her bp being elevated and for [...]
--- OUTSIDE RECORDS SUMMARY | 2024-05-08 16:53 | XMS_ITS | Clinical Summary ---
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 This disclosure is being madepursuant to the Care Everywhere program and may not contain all information available regarding this patient. Last updated 17.[facility] Allergies Active Allergy Reactions Criticality Noted Date Comments Morphine Urticaria High 07/11/2008 Lzfrxrwi-Xeomobsgjt-Btfgfzxzd Rash 2008 hives Medications * Be aware [...] age to complete this topic Care Teams Flower Machine Operator Relationship Specialty Start Date End Date Denis Flores MD [address] [facility] [address] PCP - General 07/11/08
--- OUTSIDE RECORDS SUMMARY | 2024-05-08 16:53 | XMS_ITS | Continuity of Care Document ---
Author Organization [facility] Address [address] [place] [address] Phone Care Team Providers Care Specification Consultant Name Role Phone Mt Bowens MD Unavailable Unavailable Allergies, Adverse Reactions, Alerts Substance Reaction Status Criticality polymyxin B Active No Information NEOMYCIN SULFATE Active No Informat ion BACITRACIN ZINC Active No Informati on bacitracin Active No Information Medications Medication Instructions Dosage Effective Dates (start - stop) Status Comments Mobic 15 mg tablet take 1 tablet (15MG) by oral route every day - Active LISINOPRIL (unknown strength) Not Available - Active SIMVASTATIN (unknown strength) Not Available - Active Procedures [...] OFFICE/OUTPAT IENT VISIT EST [facility] , [address], [place], [address], [place] tel:[phone] [facility] [place] left knee pain (chief complaint) Osteoarthrosi s, localized, primary, involving lower leg [address] [place] [place] , [place], [place], [id number] . tel:[phone] Referring Provider: Denis Antony, [address] [address], [place], [address]. tel:[phone] OFFICE/OUTPAT IENT VISIT NEW [facility] , [address] [facility] [address], [place], [address], tel:[phone] [facility] [place] left knee pain (chief complaint) Osteoarthrosi s, localized, primary, involving lower legObesity, MorbidHyperte nsion, Unspecified [address] [place] [address] [facility] [address] , [place], [place], [id number] . tel:[phone] Referring Provider: Denis Antony, [address] [facility] [place] [address], [place], [address]. tel:[phone] Family History Family Member Type Diagnosis Age At Onset Problem (finding) Family history of Cance r Problem (finding) Family history of Heart disease Problem (finding) Family history of Diabe gordy mellitus Problem (finding) Family history of hyper tension Payers Payer name Insurance type Covered constitution [...]
[2024-05-08] MEDS: INSULIN ASPART (*BKC) 100 UNITS/ML 10 UNITS SUB-Q (16:56)
[2024-05-08] MEDS: SODIUM CHLORIDE 0.9% IV 1,000 ML 999 ML IV CONT (16:58)
[2024-05-08 17:03] LABS: Glucose Point of Care 494 mg/dl (65-105)
[2024-05-08 17:34] LABS: Add Urine Microscopic? YES; Appearance Urine Clear (Clear); Bacteria Urine None Seen /hpf; Bilirubin Urine Negative (Negative); Blood Urine Negative (Negative); Budding Yeast Urine Present /hpf; Color Urine Yellow (Yellow); Glucose Urine UA 3+ mg/dL (Negative); Ketones Urine Negative (Negative); Leukocyte Esterase Ur Negative LEU/UL (Negative); Need Manual Microscopic Reviewed; Nitrate Urine Negative (Negative); Non Pathogenic Casts 0-2; Protein Urine Trace mg/dL (Negative); Specific Grav Ur > 1.045 (1.001-1.035); Squamous Epithelial Cell Urine Occasional /hpf (Few); Urobilinogen Urine 0.2 mg/dL (<2.0); WBC Urine 0-5 /hpf (0-3)
[2024-05-08 17:36] LABS: Reflex Lactic Acid Yes or No Add Lactic
--- NOTE | 2024-05-08 17:58 | P.HP_ITS ---
H&P: HPI History of Present Illness Date/Time: 05/08/24 17:58 Chief Complaint: Abdominal Pain, N/V Narrative: 64 y/o F presents here with abdominal pain, nausea, and vomiting with PMH of diabetes, uterine cancer s/p hysterectomy, morbid obesity, migraine, asthma, hypertension, and hyperlipidemia. The patient presents here from home via EMS for further evaluation of abdominal pain, nausea, vomiting. She reports the abdominal pain has been in her left lower quadrant and has been ongoing for the past 4 days. She describes the pain as bilateral lower quadrants, sharp, nonradiating, and intermittent. This is accompanied by intermittent nausea and vomiting for the past 1.5 weeks and it is accompanied by decreased appetite. She denies accompanying diarrhea, fever, or chills. Of note, the patient reports she has been out of her glipizide for the past 2 weeks and has contacted her provider who prescribes her these medications but has been unsuccessful in refilling them. Blood sugar upon arrival was 400+. This is accompanied by polydipsia/dry mouth and urinary frequency. Initial VS at presentation: 97.8, HR 89, RR 15, 171/75, and 97% on RA. ED workup showed: No leukocytosis, hemoglobin 15.9 (elevated compared to previous), sodium 132, creatinine 0.63 and GFR >60, lactic 2.7, beta hydroxy 0.13, and A1c 12.2 %. UA showed high specific gravity 3+ glucose, 6-10 RBC, yeast present, otherwise unremarkable. Viral PCR negative. 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 CT of the abdomen/pelvis showed no acute intra-abdominal/pelvic process and small fat containing umbilical and left inguinal hernias. Review of Systems Review of Systems: All systems reviewed & are unremarkable except as noted in HPI and below [facility] Past Medical History Medical History (Updated 05/08/24 @ 20:49 by Jessica Tong APRN) Morbid obesity with BMI of 45.0-49.9, adult Migraine Mass of right parotid gland Asthma Cancer UTERINE CA, s/p Hysterectomy Type 2 diabetes mellitus Hypertension Hyperlipidemia Surgical History Surgical History H/O total hysterectomy History of cancer surgery Uterine H/O shoulder surgery H/O knee surgery Family History Family History Grandparent Acute myocardial infarction Cancer Social History Social History Smoking packs per day: 0.5 Smoking cigarettes per day: 10.0 Smoking status: Current every day smoker Tobacco type: cigarettes Alcohol intake: never Substance use: never Lack of Transportation: No Lack of Food: Never True Current Housing: I Have Housing Concerned About Future Housing: YES Difficulty Paying Gas/Electric Bills: No Difficulty Paying for Meds: No Currently Unemployed: No Education: Decline to Answer Difficulty w/ Childcare or Family Care: No Gender identity (if verbalized by the patient): Female Spiritual care concerns: No Meds Home Medications and Allergies Home Medications ?Medication ?Instructions ?Recorded ?Confirmed ?Type glipizide 5 mg tablet 10 mg PO DAILY 06/12/19 02/28/23 History metformin 500 mg tablet 1,000 mg PO DAILY 06/12/19 02/28/23 History metoprolol tartrate 25 mg tablet 25 mg PO BID 06/12/19 02/28/23 History rosuvastatin 5 mg tablet (Crestor) 20 mg PO DAILY 06/12/19 02/28/23 History venlafaxine 37.5 mg tablet 75 mg PO DAILY 06/12/19 02/28/23 History Lubricant Eye Drops 1 drp EACH EYE PRN PRN as needed 02/19/23 02/28/23 History albuterol sulfate 90 mcg/actuation 1 puff inhalation QID PRN SOB 02/19/23 02/28/23 History aerosol inhaler lisinopril 20 1 tablet PO DAILY 02/19/23 02/28/23 History mg-hydrochlorothiazide 12.5 mg tablet ondansetron 4 mg disintegrating 4 mg PO Q4H 3 doses #10 tabs 02/19/23 02/28/23 R x tablet potassium chloride 20 mEq 20 meq PO BID #14 tabs 02/19/23 02/28/23 Rx tablet,extended release (K-Tab) zonisamide 100 mg capsule 200 mg PO HS 02/19/23 02/28/23 History lidocaine 5 % topical patch 1 patch topical DAILY #30 ea 02/26/23 02/28/23 Rx oxycodone-acetaminophen 5 mg-325 1 tablet PO Q12H PRN pain, severe 02/26/23 02/28/23 Rx mg tablet (Endocet) #6 tabs miscellaneous medical supply #1 ea 03/01/23 Rx walker #1 ea 03/01/23 Rx Allergies Allergy/AdvReac Type Severity Reaction Status Date / Time bacitracin Allergy Unknown Hives / Verified 02/28/23 11:46 Red Face neomycin Allergy Unknown Hives / Verified 02/28/23 11:46 Red Face polymyxin B Allergy Unknown Hives / Verified 02/28/23 11:46 Red Face morphine AdvReac Itching Verified 02/28/23 11:46 Vital Signs Vital Signs - 24 hr 05/08/24 12:26 Temperature 97.8 F Pulse Rate 89 Respiratory Rate 15 Blood Pressure 171/75 H Pulse Oximetry 97 Oxygen Delivery Room Air Exam Const: General: comfortable and no acute distress Other: , female, obese body habitus HENMT: Face/Nose/Sinus: Normal nares present Mouth: Yes moist mucous membranes Eyes: General: appearance normal, both eyes and all related structures Sclera: sclerae normal Pupils: Equal, round and reactive pupils present EOM: EOMs intact bilaterally Resp: Effort & Inspection: normal respiratory effort Auscultation: clear to auscultation bilaterally Cardio: Rate: regular rate Rhythm: regular rhythm Other: S1-S2 present without murmur, rub, ectopy GI: Other: Abdomen rounded, soft, tender in the lower quadrants. Normoactive bowel sounds in all quadrants. Skin: General skin exam: normal color and no rashes or lesions noted Wounds: wounds noted (Chronic wound to medial left foot near 1st toe, no signs of infection) Neuro: Speech: normal speech Motor exam (neuro): 5/5 motor strength present throughout Sensory Exam: normal sensation Other: A&O x4 Extrem: General: normal exam except as noted Psych: Mental Status: mental status grossly normal Affect: normal affect Other: Good insight judgment, pleasant H&P: Results Labs Labs: Short CBC 05/08/24 Range/Units 14:24 WBC 10.0 (4.5-10.0) K/mm3 Hgb 15.9 H (12.0-15.0) g/dL Hct 49.0 H (37.0-47.0) % Plt Count 222 (150-375) k/mm3 BMP 05/08/24 14:24 Sodium 132 L Potassium 3.9 Chloride 95 L Carbon Dioxide 26 BUN 9 D Creatinine 0.63 L Glucose 457 H Calcium 9.3 Liver Function 05/08/24 Range/Units 14:24 Total Bilirubin 0.6 (0.2-1.3) mg/dL AST 17 (14-36) U/L ALT 22 (6-35) U/L Alkaline Phosphatase 152 H (38-126) U/L Albumin 4.1 (3.5-5.1) g/dL Urine 05/08/24 Range/Units 16:55 Urine Color Yellow (Yellow) Urine Appearance Clear (Clear) Urine pH 5.0 (5.0-9.0) Ur Specific [place] > 1.045 H (1.001-1.035) Urine Protein Trace (Negative) mg/dL Urine Glucose (UA) 3+ H (Negative) mg/dL Assessment and Plan Assessment and plan (1) Type 2 diabetes mellitus: Qualifiers: Diabetes mellitus complication status: with hyperglycemia Diabetes mellitus alf insulin use: without termite treater use Qualified Code(s): E11.65 - Type 2 diabetes mellitus with hyperglycemia Code(s): E11.9 - Type 2 diabetes mellitus without complications Status: Acute Assessment and Plan: Initial glucose 490, anion gap 11, beta hydroxy 0.13. Patient out of glipizide for the past 2 weeks. Initially treatment of hyperglycemia with 3L bolus of LR and Novolog 10u SQ 490 -> 494 - hypoglycemia protocol - POC blood glucose ACHS - home medication: hold glipizide - add Lantus 28u HS and NPH 14 units BIDAC - correct regimen ordered - high dose TIDWM and HS, based off BMI - A1C 12.2% on 05/08/2024 - certified adaptive physical educator consulted - dietitian consulted Plan Patient has chronic wound to left medial foot post-bunion removal. Wound has been present since June of 2023. Wound RN consulted. Diet: Diabetic GI Prophylaxis: Not currently indicated DVT Prophylaxis: SCDs Lines: Peripheral Code Status: Full code Quality VTE Prophylaxis VTE prophylaxis: mechanical ordered Hospitalist [facility] Advance Care Plan I have confirmed that the patient's Advanced Care Plan is present, code status is documented, or surrogate decision maker is listed in patient medical record.: Yes Medication Reconciliation I have utilized all available resources to obtain, update and review the patients current medications (includes all prescriptions, OTC, herbals, cannabis, and nutritional supplements).: Yes
[2024-05-08 18:17] LABS: Lactic Acid 2.2 mmol/L (0.7-2.0)
[2024-05-08 18:35] LABS: Glucose Point of Care 411 mg/dl (65-105)
[2024-05-08] MEDS: LACTATED RINGERS 1,000 ML 999 ML IV CONT (19:12)
[2024-05-08] MEDS: KETOROLAC 30 MG/ML VIAL (*BKC) 15 MG IV PUSH (19:15)
[2024-05-08] MEDS: INSULIN HUMAN REGULAR (*BKC) 100 UNITS/ML 16 UNITS SUB-Q (20:38)
[2024-05-08 20:45] LABS: Glucose Point of Care 375 mg/dl (65-105)
[2024-05-08 21:18] LABS: Glucose Point of Care 393 mg/dl (65-105)
[2024-05-08 22:02] LABS: Glucose Point of Care 359 mg/dl (65-105)
--- NOTE | 2024-05-08 22:03 | PC.NURSE ---
FSBS currently 359. Per CHOCO Tong, plan was to get FSBS below 350 prior to pt transport to admitting room. Per CHOCO Tong, hold Lantus until we see how the 16u regular insulin affected her blood sugar. Just updated CHOCO Tong via phone, per CHOCO Tong, okay to give ordered Lantus and pt okay to be transferred to admission room.
[2024-05-08] MEDS: INSULIN GLARGINE (*BKC) 100 UNITS/ML 28 UNITS SUB-Q (22:08)
--- NOTE | 2024-05-08 23:46 | ADMGEN ---
This patient, Sena Yo, was admitted to [facility] Surg Room 331-02. Patient/family oriented to hospital policies and general routines including ID bracelet, bed and alarms, visiting hours, pain management, procedures, bathroom and other care routines, personal items, smoking policy, room service/diet, and visiting hours. Information on how to activate the Rapid Response Team has been discussed. Patient/Family are encouraged to report perceived risks to care and to ask questions if they do not understand what they are told or what they should do. Report received by SARAH Carreon in ED.
[2024-05-09 00:53] LABS: Glucose Point of Care 308 mg/dl (65-105)
[2024-05-09] MEDS: KETOROLAC 30 MG/ML VIAL (*BKC) 15 MG IV PUSH ×2 (01:13→08:07)
[2024-05-09] MEDS: INSULIN ASPART (*BKC) 100 UNITS/ML SUB-Q ×5 (01:13→22:04)
[2024-05-09 03:33] LABS: Glucose Point of Care 331 mg/dl (65-105)
[2024-05-09] MEDS: INSULIN ASPART (*BKC) 100 UNITS/ML 6 UNITS SUB-Q (03:51)
[2024-05-09 05:31] VITALS: BP 137/60; PULSE 84; RESP 18; TEMP 36.4; O2SAT 99
[2024-05-09 06:55] LABS: Basophils Percent Auto 0.7 % (0.2-1.2); Eosinophils Absolute Auto 0.2 K/mm3 (0-0.3); Eosinophils Percent Auto 2.9 % (0-4.4); Hematocrit 43.5 % (37.0-47.0); Hemoglobin 13.7 g/dL (12.0-15.0); Immature Granulocyte Absolute 0.01 K/mm3 (0.00-0.031); Immature Granulocyte Percent A 0.2 % (0-0.5); Lymphocytes Absolute Auto 2.94 K/mm3 (0.9-3.2); Mean Corpuscular HGB Conc 31.5 g/dl (32-36); Mean Corpuscular Hemoglobin 25.9 pg (26-34); Mean Corpuscular Volume 82.4 fl (80-100); Monocytes Absolute Auto 0.4 K/mm3 (0.1-0.6); Monocytes Percent Auto 6.4 % (2.6-8.5); Neutrophils Absolute Auto 2.2 K/mm3 (1.3-6.7); Neutrophils Percent Auto 38.8 % (45.5-73.1); Platelet Count Result 189 k/mm3 (150-375); Red Blood Count 5.28 M/mm3 (4.2-5.4); Red Cell Distribution Width 15.1 % (11.5-14.5); White Blood Count 5.8 K/mm3 (4.5-10.0)
[2024-05-09 07:14] LABS: Anion Gap 5 mmol/L (4-12); Blood Urea Nitrogen 11 mg/dL (7-17); Calcium 8.7 mg/dL (8.4-10.2); Carbon Dioxide 28 mmol/L (22-30); Chloride 102 mmol/L (98-107); Estimated CRCL calculation 113 ml/min; Estimated Glomerular Filt Rate > 60; Glucose 298 mg/dL (65-110); Potassium 3.9 mmol/L (3.4-5.0); Sodium 135 mmol/L (137-145)
[2024-05-09 07:54] LABS: Glucose Point of Care 310 mg/dl (65-105)
[2024-05-09] MEDS: INSULIN HUMAN NPH (*BKC) 100 UNITS/ML 14 UNITS SUB-Q ×2 (08:33→17:07)
[2024-05-09 08:46] VITALS: O2SAT 95
[2024-05-09 09:15] VITALS: BMI 46.3
--- NOTE | 2024-05-09 09:18 | P.PNIM_ITS ---
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 Patient out of glipizide for the past 2 weeks. Initially treatment of hyperglycemia with 3L bolus of LR and Novolog 10u SQ 490 -> 494 - hypoglycemia protocol - POC blood glucose ACHS - home medication: hold glipizide - add Lantus 28u HS and NPH 14 units BIDAC - correct regimen ordered - high dose TIDWM and HS, based off BMI - A1C 12.2% on 05/08/2024 - concession stand attendant consulted - dietitian consulted 05/09/2024 Patient sugar is improving. Plan is to continue current treatment. Diabetic teaching dietitian consult. Possible discharge in the morning (2) Hypertension: Code(s): I10 - Essential (primary) hypertension Status: Acute Assessment and Plan: Stable on current medications, will continue current treatment. (3) Asthma: Code(s): J45.909 - Unspecified asthma, uncomplicated Status: Acute Assessment and Plan: Stable on current medications, will continue current treatment. Plan Patient has chronic wound to left medial foot post-bunion removal. Wound has been present since June of 2023. Wound RN consulted. Diet: Diabetic GI Prophylaxis: Not currently indicated DVT Prophylaxis: SCDs Lines: Peripheral Code Status: Full code Subjective Date/time seen: 05/09/24 09:18 Interval history: Patient was seen during the morning round. Feeling better. No Shortness of breath or chest pain. No Abdominal pain. Review of Systems Review of Systems: All systems reviewed & are unremarkable except as noted in HPI and below Exam Const: General: comfortable and no acute distress Other: , female, obese body habitus HENMT: Face/Nose/Sinus: Normal nares present Mouth: Yes moist mucous membranes Eyes: General: appearance normal, both eyes and all related structures Sclera: sclerae normal Pupils: Equal, round and reactive pupils present EOM: EOMs intact bilaterally Resp: Effort & Inspection: normal respiratory effort Auscultation: clear to auscultation bilaterally Cardio: Rate: regular rate Rhythm: regular rhythm Other: S1-S2 present without murmur, rub, ectopy GI: Other: Abdomen rounded, soft, tender in the lower quadrants. Normoactive bowel sounds in all quadrants. Skin: General skin exam: normal color, no rashes or lesions noted and wounds noted (Chronic wound to medial left foot near 1st toe, no signs of infection) Wounds: wounds noted (Chronic wound to medial left foot near 1st toe, no signs of infection) Neuro: Cranial nerves: Yes Equal, round and reactive pupils present Speech: normal speech Motor exam (neuro): 5/5 motor strength present throughout Sensory Exam: normal sensation Other: A&O x4 Extrem: General: normal exam except as noted Psych: Mental Status: mental status grossly normal Affect: normal affect Other: Good insight judgment, pleasant Objective Data Vital Signs Vital Signs: Vital Signs - 24 hr 05/08/24 12:26 05/08/24 16:32 05/08/24 19:30 Temperature 36.6 C Pulse Rate 89 93 Respiratory Rate 15 16 Blood Pressure 171/75 H 162/54 H Pulse Oximetry 97 94 92 Oxygen Delivery Room Air 05/08/24 19:32 05/08/24 19:45 05/08/24 20:22 Temperature Pulse Rate 88 94 Respiratory Rate 19 21 H Blood Pressure 182/98 H Pulse Oximetry 94 94 98 Oxygen Delivery 05/08/24 20:24 05/08/24 20:30 05/08/24 20:33 Temperature Pulse Rate 87 83 84 Respiratory Rate 16 13 13 Blood Pressure 153/60 H 120/61 Pulse Oximetry 96 94 92 Oxygen Delivery 05/08/24 20:45 05/08/24 20:47 05/08/24 21:00 Temperature Pulse Rate 83 82 84 Respiratory Rate 15 20 15 Blood Pressure 141/43 H Pulse Oximetry 96 95 90 Oxygen Delivery 05/08/24 21:02 05/08/24 21:15 05/08/24 21:18 Temperature Pulse Rate 83 82 83 Respiratory Rate 15 15 14 Blood Pressure 158/69 H 166/47 H Pulse Oximetry 91 93 91 Oxygen Delivery 05/08/24 21:39 05/08/24 21:47 05/08/24 23:40 Temperature 36.5 C Pulse Rate 77 89 88 Respiratory Rate 13 17 16 Blood Pressure 155/53 H Pulse Oximetry 94 97 93 Oxygen Delivery 05/09/24 01:10 05/09/24 05:31 05/09/24 08:46 Temperature 36.4 C Pulse Rate 84 Respiratory Rate 18 Blood Pressure 137/60 Pulse Oximetry 99 95 Oxygen Delivery Room Air Room Air Intake/Output Intake/Output: Intake & Output 05/06/24 05/07/24 05/08/24 05/09/24 23:59 23:59 23:59 23:59 Intake Total 1000 550 Balance 1000 550 Meds/Results Medications: Active Medications Generic Name Dose Route Start Last Admin Trade Name Freq PRN Reason Stop Dose Admin Acetaminophen 650 mg 05/08/24 17:59 Acetaminophen 325 Mg Tablet PO Q4H PRN Mild Pain (1-3) or Fever Dextrose 12.5 gm 05/08/24 18:15 Dextrose 50% 25 Gm/50 Ml Syringe IV PUSH PRN PRN Hypoglycemia Protocol Glucagon 1 mg 05/08/24 18:15 Glucagon For Inj 1 Mg Vial IM PRN PRN Hypoglycemia Protocol Glucose 15 gm 05/08/24 18:15 Glucose Oral Gel 15 Gm Of Glucse In 37.5 Gm Tube PO PRN PRN Hypoglycemia Protocol Dextrose 1,000 mls @ 100 mls/hr 05/08/24 18:15 Dextrose 5% 1,000 Ml IVPB PRN PRN Hypoglycemia Protocol Insulin Aspart 4 - 8 units 05/09/24 08:00 05/09/24 08:06 Insulin Aspart (*Bkc) 100 Units/Ml SUB-Q 6 units TIDWM [facility] Administration Protocol Insulin Aspart 2 - 4 units 05/08/24 21:00 05/09/24 01:13 Insulin Aspart (*Bkc) 100 Units/Ml SUB-Q 3 units [facility] Administration Protocol Insulin Glargine 28 units 05/08/24 21:00 05/08/24 22:08 Insulin Glargine (*Bkc) 100 Units/Ml 0.2 units/kg (28 units) 28 units SUB-Q Administration [facility] Insulin Human NPH 14 units 05/09/24 08:10 05/09/24 08:33 Insulin Human Nph (*Bkc) 100 Units/Ml 0.1 units/kg (14 units) 14 units SUB-Q Administration BIDWM [facility] Ketorolac Tromethamine 15 mg 05/08/24 17:59 05/09/24 08:07 Ketorolac 30 Mg/Ml Vial (*Bkc) IV PUSH 05/13/24 17:58 15 mg Q6H PRN Administration Pain Rated 4-6 Ondansetron HCl 4 mg 05/08/24 17:59 Ondansetron Inj 4 Mg/2 Ml Vial IV PUSH Q4H PRN Nausea Radiology Results: ITS Impressions Foot X-Ray 05/08/24 14:37 IMPRESSION: 1. 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 Abdomen/Pelvis CT 05/08/24 16:06 IMPRESSION: 1. No acute intra-abdominal/pelvic process. 2. Small fat-containing umbilical and left inguinal hernias. Labs Labs: Laboratory Results - last 24 hr 05/08/24 05/08/24 05/08/24 12:35 14:24 16:55 WBC 10.0 RBC 6.05 H Hgb 15.9 H Hct 49.0 H MCV 81.0 MCH 26.3 MCHC 32.4 RDW 15.4 H Plt Count 222 MPV 10.1 Immature Gran % (Auto) 0.2 Neut % (Auto) 45.7 Lymph % (Auto) 46.5 H [place] % (Auto) 5.5 Eos % (Auto) 1.6 Baso % (Auto) 0.5 Lymph # (Auto) 4.65 H [place] # (Auto) 0.6 Eos # (Auto) 0.2 Baso # (Auto) 0.1 Abs Immat Gran (auto) 0.02 Absolute Neuts (auto) 4.6 Absolute Nucleated RBC 0.000 Nucleated RBC % 0.0 Sodium 132 L Potassium 3.9 Chloride 95 L Carbon Dioxide 26 Anion Gap 11 BUN 9 D Creatinine 0.63 L Estim Creat Clear Calc 117 Estimated GFR > 60 Glucose 457 H POC Capillary Glucose 490 H Hemoglobin A1c 12.2 H Lactic Acid 2.7 H Calcium 9.3 Magnesium 1.6 Total Bilirubin 0.6 AST 17 ALT 22 Alkaline Phosphatase 152 H Total Protein 8.0 Albumin 4.1 Lipase 125 Beta-Hydroxybutyrate/Acetoacetate 0.13 Urine Color Yellow Urine Appearance Clear Urine pH 5.0 Ur Specific [place] > 1.045 H Urine Protein Trace Urine Glucose (UA) 3+ H Urine Ketones Negative Ur Blood (Man) Negative Urine Nitrate Negative Urine Bilirubin Negative Urine Urobilinogen 0.2 Add Ur Microanalysis Reviewed Leukocyte Esterase Rfl Negative Urine RBC 6-10 H Urine WBC 0-5 Ur Squamous Epith Cells Occasional Urine Bacteria None seen Urine Casts 0-2 Urine Yeast (Budding) Present H Influenza A (RT-PCR) Negative Influenza B (RT-PCR) Negative RSV (RT-PCR) Negative SARS-CoV-2 RNA (RT-PCR) Negative 05/08/24 05/08/24 05/08/24 16:56 18:01 18:32 WBC RBC Hgb Hct MCV MCH MCHC RDW Plt Count MPV Immature Gran % (Auto) Neut % (Auto) Lymph % (Auto) Knox % (Auto) Eos % (Auto) Baso % (Auto) Lymph # (Auto) [place] # (Auto) Eos # (Auto) Baso # (Auto) Abs Immat Gran (auto) Absolute Neuts (auto) Absolute Nucleated RBC Nucleated RBC % Sodium Potassium Chloride Carbon Dioxide Anion Gap BUN Creatinine Estim Creat Clear Calc Estimated GFR Glucose POC Capillary Glucose 494 H 411 H Hemoglobin A1c Lactic Acid 2.2 H Calcium Magnesium Total Bilirubin AST ALT Alkaline Phosphatase Total Protein Albumin Lipase Beta-Hydroxybutyrate/Acetoacetate Urine Color Urine Appearance Urine pH Ur Specific [place] Urine Protein Urine Glucose (UA) Urine Ketones Ur Blood (Man) Urine Nitrate Urine Bilirubin Urine Urobilinogen Add Ur Microanalysis Leukocyte Esterase Rfl Urine RBC Urine WBC Ur Squamous Epith Cells Urine Bacteria Urine Casts Urine Yeast (Budding) Influenza A (RT-PCR) Influenza B (RT-PCR) RSV (RT-PCR) SARS-CoV-2 RNA (RT-PCR) 05/08/24 05/08/24 05/08/24 20:38 21:16 21:59 WBC RBC Hgb Hct MCV MCH MCHC RDW Plt Count MPV Immature Gran % (Auto) Neut % (Auto) Lymph % (Auto) [place] % (Auto) Eos % (Auto) Baso % (Auto) Lymph # (Auto) [place] # (Auto) Eos # (Auto) Baso # (Auto) Abs Immat Gran (auto) Absolute Neuts (auto) Absolute Nucleated RBC Nucleated RBC % Sodium Potassium Chloride Carbon Dioxide Anion Gap BUN Creatinine Estim Creat Clear Calc Estimated GFR Glucose POC Capillary Glucose 375 H 393 H 359 H Hemoglobin A1c Lactic Acid Calcium Magnesium Total Bilirubin AST ALT Alkaline Phosphatase Total Protein Albumin Lipase Beta-Hydroxybutyrate/Acetoacetate Urine Color Urine Appearance Urine pH Ur Specific [place] Urine Protein Urine Glucose (UA) Urine Ketones Ur Blood (Man) Urine Nitrate Urine Bilirubin Urine Urobilinogen Add Ur Microanalysis Leukocyte Esterase Rfl Urine RBC Urine WBC Ur Squamous Epith Cells Urine Bacteria Urine Casts Urine Yeast (Budding) Influenza A (RT-PCR) Influenza B (RT-PCR) RSV (RT-PCR) SARS-CoV-2 RNA (RT-PCR) 05/09/24 05/09/24 05/09/24 00:41 03:23 06:27 WBC 5.8 RBC 5.28 Hgb 13.7 Hct 43.5 MCV 82.4 MCH 25.9 L MCHC 31.5 L RDW 15.1 H Plt Count 189 MPV 10.0 Immature Gran % (Auto) 0.2 Neut % (Auto) 38.8 L Lymph % (Auto) 51.0 H [place] % (Auto) 6.4 Eos % (Auto) 2.9 Baso % (Auto) 0.7 Lymph # (Auto) 2.94 [place] # (Auto) 0.4 Eos # (Auto) 0.2 Baso # (Auto) 0.0 Abs Immat Gran (auto) 0.01 Absolute Neuts (auto) 2.2 Absolute Nucleated RBC 0.000 Nucleated RBC % 0.0 Sodium Potassium Chloride Carbon Dioxide Anion Gap BUN Creatinine Estim Creat Clear Calc Estimated GFR Glucose POC Capillary Glucose 308 H 331 H Hemoglobin A1c Lactic Acid Calcium Magnesium Total Bilirubin AST ALT Alkaline Phosphatase Total Protein Albumin Lipase Beta-Hydroxybutyrate/Acetoacetate Urine Color Urine Appearance Urine pH Ur Specific [place] Urine Protein Urine Glucose (UA) Urine Ketones Ur Blood (Man) Urine Nitrate Urine Bilirubin Urine Urobilinogen Add Ur Microanalysis Leukocyte Esterase Rfl Urine RBC Urine WBC Ur Squamous Epith Cells Urine Bacteria Urine Casts Urine Yeast (Budding) Influenza A (RT-PCR) Influenza B (RT-PCR) RSV (RT-PCR) SARS-CoV-2 RNA (RT-PCR) 05/09/24 05/09/24 06:28 07:41 WBC RBC Hgb Hct MCV MCH MCHC RDW Plt Count MPV Immature Gran % (Auto) Neut % (Auto) Lymph % (Auto) [place] % (Auto) Eos % (Auto) Baso % (Auto) Lymph # (Auto) [place] # (Auto) Eos # (Auto) Baso # (Auto) Abs Immat Gran (auto) Absolute Neuts (auto) Absolute Nucleated RBC Nucleated RBC % Sodium 135 L Potassium 3.9 Chloride 102 Carbon Dioxide 28 Anion Gap 5 BUN 11 Creatinine 0.66 L Estim Creat Clear Calc 113 Estimated GFR > 60 Glucose 298 H POC Capillary Glucose 310 H Hemoglobin A1c Lactic Acid Calcium 8.7 Magnesium Total Bilirubin AST ALT Alkaline Phosphatase Total Protein Albumin Lipase Beta-Hydroxybutyrate/Acetoacetate Urine Color Urine Appearance Urine pH Ur Specific [place] Urine Protein Urine Glucose (UA) Urine Ketones Ur Blood (Man) Urine Nitrate Urine Bilirubin Urine Urobilinogen Add Ur Microanalysis Leukocyte Esterase Rfl Urine RBC Urine WBC Ur Squamous Epith Cells Urine Bacteria Urine Casts Urine Yeast (Budding) Influenza A (RT-PCR) Influenza B (RT-PCR) RSV (RT-PCR) SARS-CoV-2 RNA (RT-PCR) Quality VTE Prophylaxis VTE prophylaxis: mechanical ordered
[2024-05-09] MEDS: ENOXAPARIN 40 MG/0.4 ML SYRINGE SUB-Q (10:16)
[2024-05-09 10:17] VITALS: PULSE 83
[2024-05-09] MEDS: PROPRANOLOL HCL 10 MG TABLET 30 MG PO ×2 (10:17→22:03)
[2024-05-09] MEDS: VENLAFAXINE HCL XR 75 MG CAP.ER.24H 150 MG PO (10:17)
[2024-05-09] MEDS: lisinopriL 10 MG TABLET PO (10:17)
[2024-05-09] MEDS: ROSUVASTATIN 20 MG TABLET PO (10:17)
[2024-05-09] MEDS: glipiZIDE XL 5 MG TABCR 10 MG PO (10:17)
[2024-05-09] MEDS: ARTIFICIAL TEARS OPHTH SOLN 15 ML BOTTLE 1 DROP EACH EYE (10:18)
[2024-05-09 11:53] LABS: Glucose Point of Care 312 mg/dl (65-105)
[2024-05-09] MEDS: ONDANSETRON INJ 4 MG/2 ML VIAL IV PUSH (12:38)
[2024-05-09 14:00] VITALS: BP 154/57; PULSE 66; RESP 20; TEMP 36.4; O2SAT 97
[2024-05-09 16:42] LABS: Glucose Point of Care 286 mg/dl (65-105)
[2024-05-09] MEDS: KETOROLAC 15 MG/ML VIAL (*BKC) IV PUSH (17:47)
[2024-05-09 21:25] VITALS: BP 140/55; PULSE 61; RESP 18; TEMP 36.6; O2SAT 93
[2024-05-09] MEDS: GABAPENTIN 300 MG CAPSULE PO (22:03)
[2024-05-09] MEDS: INSULIN GLARGINE (*BKC) 100 UNITS/ML 28 UNITS SUB-Q (22:06)
[2024-05-09 22:21] LABS: Glucose Point of Care 279 mg/dl (65-105)
[2024-05-10 05:30] VITALS: BP 125/40; PULSE 100; RESP 18; TEMP 37; O2SAT 96
[2024-05-10] MEDS: glipiZIDE XL 5 MG TABCR 10 MG PO (06:01)
[2024-05-10 08:24] LABS: Glucose Point of Care 323 mg/dl (65-105)
[2024-05-10] MEDS: INSULIN HUMAN NPH (*BKC) 100 UNITS/ML 14 UNITS SUB-Q (08:46)
[2024-05-10] MEDS: VENLAFAXINE HCL XR 75 MG CAP.ER.24H 150 MG PO (08:47)
[2024-05-10] MEDS: INSULIN ASPART (*BKC) 100 UNITS/ML SUB-Q ×2 (08:47→12:17)
[2024-05-10] MEDS: lisinopriL 10 MG TABLET PO (08:48)
[2024-05-10] MEDS: ROSUVASTATIN 20 MG TABLET PO (08:48)
[2024-05-10] MEDS: KETOROLAC 15 MG/ML VIAL (*BKC) IV PUSH ×2 (08:48→15:46)
[2024-05-10 08:49] VITALS: PULSE 70
[2024-05-10] MEDS: PROPRANOLOL HCL 10 MG TABLET 30 MG PO ×2 (08:49→21:50)
[2024-05-10] MEDS: ENOXAPARIN 40 MG/0.4 ML SYRINGE SUB-Q (08:53)
--- NOTE | 2024-05-10 09:04 | PM.IMPN ---
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 Diabetes mellitus complication status: with hyperglycemia Qualified Code(s): E11.65 - Type 2 diabetes mellitus with hyperglycemia Code(s): E11.9 - Type 2 diabetes mellitus without complications Status: Acute (3) Abdominal pain: Code(s): R10.9 - Unspecified abdominal pain Status: Acute (4) Asthma: Code(s): J45.909 - Unspecified asthma, uncomplicated Status: Acute Plan (1) Type 2 diabetes mellitus: Qualifiers: 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 Patient out of glipizide for the past 2 weeks. Initially treatment of hyperglycemia with 3L bolus of LR and Novolog 10u SQ 490 -> 494 - hypoglycemia protocol - POC blood glucose ACHS - home medication: hold glipizide - add Lantus 28u HS and NPH 14 units BIDAC - correct regimen ordered - high dose TIDWM and HS, based off BMI - A1C 12.2% on 05/08/2024 - family living educator consulted - dietitian consulted 05/09/2024 Patient sugar is improving. Plan is to continue current treatment. Diabetic teaching dietitian consult. 05/10 Glucose is not controlled in the target range Changed to Lantus 20 units b.i.d., discontinue NPH Start aspart 6 unit a.c. (2) Hypertension: Code(s): I10 - Essential (primary) hypertension Status: Acute Assessment and Plan: Stable Continue lisinopril 10 mg daily p.o. (3) Asthma: Code(s): J45.909 - Unspecified asthma, uncomplicated Status: Acute Assessment and Plan: Stable on current medications, will continue current treatment. Plan Patient has chronic wound to left medial foot post-bunion removal. Wound has been present since June of 2023. Wound RN consulted. Diet: Diabetic GI Prophylaxis: Not currently indicated DVT Prophylaxis: SCDs Lines: Peripheral Code Status: Full code Subjective Date/time seen: 05/10/24 09:04 Interval history: Patient feels better today, still has polyuria polydipsia. Has general weakness, denies abdomen pain nausea vomiting Glucose not well controlled, fast glucose 323, glucose before meal close to 300. Diabetes is not controlled in the target range Exam Narrative: GENERAL: Pleasant, in no acute distress. Well-nourished. - EYES: EOMI. Anicteric. - HENT: Moist mucous membranes. - LUNGS: Clear to auscultation bilaterally, no wheezing, rhonchi, or rales. - CARDIOVASCULAR: Regular rate and rhythm. No murmur. No JVD. - ABDOMEN: Soft, non-tender and non-distended. No palpable masses. - EXTREMITIES: No edema. Peripheral pulses 2+. Non-tender. - NEUROLOGIC: No focal neurological deficits. CN II-XII grossly intact. - PSYCHIATRIC: Awake, Alert and oriented x 3. Appropriate mood and affect. - SKIN: chronic wound to left medial foot post-bunion removal. - LYMPH: No cervical lymphadenopathy. Objective Data Vital Signs Vital Signs: Vital Signs - 24 hr 05/09/24 10:17 05/09/24 14:00 05/09/24 20:00 Temperature 97.5 F L Pulse Rate 83 66 Respiratory Rate 20 Blood Pressure 154/57 H Pulse Oximetry 97 Oxygen Delivery Room Air 05/09/24 21:25 05/10/24 05:30 05/10/24 08:49 Temperature 97.9 F 98.6 F Pulse Rate 61 100 70 Respiratory Rate 18 18 Blood Pressure 140/55 L 125/40 L Pulse Oximetry 93 96 Oxygen Delivery Intake/Output Intake/Output: Intake & Output 05/07/24 05/08/24 05/09/24 05/10/24 23:59 23:59 23:59 23:59 Intake Total 1000 1370 650 Output Total 0 Balance 1000 1370 650 Meds/Results Medications: Active Medications Generic Name Dose Route Start Last Admin Trade Name Freq PRN Reason Stop Dose Admin Acetaminophen 650 mg 05/08/24 17:59 Acetaminophen 325 Mg Tablet PO Q4H PRN Mild Pain (1-3) or Fever Albuterol 2 puff 05/09/24 09:22 Albuterol Sulfate (*Sp) Aerosol 1 Puff INHALATION Q6H PRN Shortness Of Breath Artificial Tears 1 drop 05/09/24 09:22 05/09/24 10:18 Artificial Tears Ophth Soln 15 Ml Bottle EACH EYE 1 drop PRN PRN Administration as needed Dextrose 12.5 gm 05/08/24 18:15 Dextrose 50% 25 Gm/50 Ml Syringe IV PUSH PRN PRN Hypoglycemia Protocol Enoxaparin Sodium 40 mg 05/09/24 09:30 05/10/24 08:53 Enoxaparin 40 Mg/0.4 Ml Syringe SUB-Q 40 mg DAILY [facility] Administration Gabapentin 300 mg 05/09/24 21:00 05/09/24 22:03 Gabapentin 300 Mg Capsule PO 300 mg HS [facility] Administration Glipizide 10 mg 05/09/24 09:40 05/10/24 06:01 Glipizide Xl 5 Mg Tabcr PO 10 mg DAILY@0630 [facility] Administration Glucagon 1 mg 05/08/24 18:15 Glucagon For Inj 1 Mg Vial IM PRN PRN Hypoglycemia Protocol Glucose 15 gm 05/08/24 18:15 Glucose Oral Gel 15 Gm Of Glucse In 37.5 Gm Tube PO PRN PRN Hypoglycemia Protocol Dextrose 1,000 mls @ 100 mls/hr 05/08/24 18:15 Dextrose 5% 1,000 Ml IVPB PRN PRN Hypoglycemia Protocol Insulin Aspart 4 - 8 units 05/09/24 08:00 05/10/24 08:47 Insulin Aspart (*Bkc) 100 Units/Ml SUB-Q 6 units TIDWM [facility] Administration Protocol Insulin Aspart 2 - 4 units 05/08/24 21:00 05/09/24 22:04 Insulin Aspart (*Bkc) 100 Units/Ml SUB-Q 2 units [facility] Administration Protocol Insulin Glargine 28 units 05/08/24 21:00 05/09/24 22:06 Insulin Glargine (*Bkc) 100 Units/Ml 0.2 units/kg (28 units) 28 units SUB-Q Administration [facility] Insulin Human NPH 14 units 05/09/24 08:10 05/10/24 08:46 Insulin Human Nph (*Bkc) 100 Units/Ml 0.1 units/kg (14 units) 14 units SUB-Q Administration BIDWM [facility] Ketorolac Tromethamine 15 mg 05/09/24 17:41 05/10/24 08:48 Ketorolac 15 Mg/Ml Vial (*Bkc) IV PUSH 15 mg Q6H PRN Administration Pain Rated 4-6 Lisinopril 10 mg 05/09/24 09:40 05/10/24 08:48 Lisinopril 10 Mg Tablet PO 10 mg DAILY [facility] Administration Ondansetron HCl 4 mg 05/08/24 17:59 05/09/24 12:38 Ondansetron Inj 4 Mg/2 Ml Vial IV PUSH 4 mg Q4H PRN Administration Nausea Propranolol HCl 30 mg 05/09/24 09:40 05/10/24 08:49 Propranolol Hcl 10 Mg Tablet PO 30 mg Q12HR [facility] Administration Rosuvastatin Calcium 20 mg 05/09/24 09:40 05/10/24 08:48 Rosuvastatin 20 Mg Tablet PO 20 mg DAILY [facility] Administration Venlafaxine HCl 150 mg 05/09/24 09:40 05/10/24 08:47 Venlafaxine Hcl Xr 75 Mg Cap.Er.24h PO 150 mg DAILY [facility] Administration Radiology Results: ITS Impressions Foot X-Ray 05/08/24 14:37 IMPRESSION: 1. 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 Abdomen/Pelvis CT 05/08/24 16:06 IMPRESSION: 1. No acute intra-abdominal/pelvic process. 2. Small fat-containing umbilical and left inguinal hernias. Labs Labs: Laboratory Results - last 24 hr 05/09/24 05/09/24 05/09/24 11:40 16:32 21:30 POC Capillary Glucose 312 H 286 H 279 H 05/10/24 08:08 POC Capillary Glucose 323 H
[2024-05-10 10:15] LABS: Basophils Percent Auto 0.3 % (0.2-1.2); Eosinophils Absolute Auto 0.1 K/mm3 (0-0.3); Hematocrit 43.8 % (37.0-47.0); Hemoglobin 13.9 g/dL (12.0-15.0); Immature Granulocyte Absolute 0.02 K/mm3 (0.00-0.031); Immature Granulocyte Percent A 0.3 % (0-0.5); Lymphocytes Absolute Auto 2.36 K/mm3 (0.9-3.2); Mean Corpuscular HGB Conc 31.7 g/dl (32-36); Mean Corpuscular Hemoglobin 26.5 pg (26-34); Mean Corpuscular Volume 83.4 fl (80-100); Mean Platelet Volume 10.3 fl (7.4-10.4); Monocytes Absolute Auto 0.3 K/mm3 (0.1-0.6); Monocytes Percent Auto 4.9 % (2.6-8.5); Neutrophils Absolute Auto 4.1 K/mm3 (1.3-6.7); Neutrophils Percent Auto 58.5 % (45.5-73.1); Platelet Count Result 190 k/mm3 (150-375); Red Blood Count 5.25 M/mm3 (4.2-5.4); Red Cell Distribution Width 15.1 % (11.5-14.5); White Blood Count 6.9 K/mm3 (4.5-10.0)
[2024-05-10 10:24] LABS: Anion Gap 6 mmol/L (4-12); Blood Urea Nitrogen 14 mg/dL (7-17); Calcium 8.2 mg/dL (8.4-10.2); Carbon Dioxide 27 mmol/L (22-30); Chloride 101 mmol/L (98-107); Estimated CRCL calculation 111 ml/min; Estimated Glomerular Filt Rate > 60; Glucose 425 mg/dL (65-110); Potassium 4.2 mmol/L (3.4-5.0); Sodium 134 mmol/L (137-145)
[2024-05-10 12:03] LABS: Glucose Point of Care 277 mg/dl (65-105)
[2024-05-10] MEDS: INSULIN GLARGINE (*BKC) 100 UNITS/ML 28 UNITS SUB-Q ×2 (12:16→18:18)
[2024-05-10] MEDS: INSULIN ASPART (*BKC) 100 UNITS/ML 6 UNITS SUB-Q ×2 (12:17→18:17)
[2024-05-10] MEDS: ALBUTEROL SULFATE (*SP) AEROSOL 1 PUFF 2 PUFF INHALATION (15:30)
[2024-05-10 15:31] VITALS: PULSE 81; RESP 20
[2024-05-10] MEDS: guaiFENesin/DEXTROMETHORPHAN 10 ML UDC PO (15:47)
[2024-05-10] MEDS: ONDANSETRON INJ 4 MG/2 ML VIAL IV PUSH (15:50)
[2024-05-10 16:01] VITALS: BP 156/52; PULSE 68; RESP 18; TEMP 36.3; O2SAT 98
[2024-05-10 16:51] LABS: Glucose Point of Care 139 mg/dl (65-105)
[2024-05-10 17:30] VITALS: BP 148/69; PULSE 75; TEMP 35.9; O2SAT 97
--- NOTE | 2024-05-10 17:35 | PC.NURSE ---
Nurse rang call light c/o SOB when I entered room pt on edge of bed with gown pulled off and stated she kept coughing and couldn't catch her breath and got hot. Vital signs taken were WNL. Seems to be anxiety component. MD notified and orders receive.
[2024-05-10] MEDS: ALPRAZolam (*CRX) 0.5 MG TABLET PO (18:17)
[2024-05-10 21:01] VITALS: BP 153/51; PULSE 76; RESP 20; TEMP 37; O2SAT 95
[2024-05-10 21:33] LABS: Glucose Point of Care 130 mg/dl (65-105)
[2024-05-10] MEDS: GABAPENTIN 300 MG CAPSULE PO (21:50)
[2024-05-11 05:17] VITALS: BP 156/58; PULSE 86; RESP 16; TEMP 37; O2SAT 99
[2024-05-11] MEDS: glipiZIDE XL 5 MG TABCR 10 MG PO (06:04)
[2024-05-11 06:31] LABS: Glucose Point of Care 125 mg/dl (65-105)
[2024-05-11 06:37] LABS: Basophils Percent Auto 0.4 % (0.2-1.2); Eosinophils Absolute Auto 0.1 K/mm3 (0-0.3); Eosinophils Percent Auto 1.1 % (0-4.4); Hematocrit 44.3 % (37.0-47.0); Hemoglobin 14.1 g/dL (12.0-15.0); Immature Granulocyte Absolute 0.03 K/mm3 (0.00-0.031); Immature Granulocyte Percent A 0.6 % (0-0.5); Lymphocytes Absolute Auto 0.97 K/mm3 (0.9-3.2); Lymphocytes Percent Auto 18.4 % (18.3-44.2); Mean Corpuscular HGB Conc 31.8 g/dl (32-36); Mean Corpuscular Hemoglobin 26.1 pg (26-34); Mean Platelet Volume 10.3 fl (7.4-10.4); Monocytes Absolute Auto 0.4 K/mm3 (0.1-0.6); Monocytes Percent Auto 7.4 % (2.6-8.5); Neutrophils Absolute Auto 3.8 K/mm3 (1.3-6.7); Neutrophils Percent Auto 72.1 % (45.5-73.1); Platelet Count Result 164 k/mm3 (150-375); Red Cell Distribution Width 14.7 % (11.5-14.5); White Blood Count 5.3 K/mm3 (4.5-10.0)
[2024-05-11 06:49] LABS: Anion Gap 7 mmol/L (4-12); Blood Urea Nitrogen 13 mg/dL (7-17); Calcium 8.4 mg/dL (8.4-10.2); Carbon Dioxide 25 mmol/L (22-30); Chloride 102 mmol/L (98-107); Estimated CRCL calculation 110 ml/min; Estimated Glomerular Filt Rate > 60; Glucose 125 mg/dL (65-110); Potassium 4.1 mmol/L (3.4-5.0); Sodium 134 mmol/L (137-145)
[2024-05-11 08:03] LABS: Glucose Point of Care 136 mg/dl (65-105)
[2024-05-11 08:46] VITALS: PULSE 88
[2024-05-11] MEDS: PROPRANOLOL HCL 10 MG TABLET 30 MG PO ×2 (08:46→21:13)
[2024-05-11] MEDS: ROSUVASTATIN 20 MG TABLET PO (08:47)
[2024-05-11] MEDS: lisinopriL 10 MG TABLET PO (08:47)
[2024-05-11] MEDS: VENLAFAXINE HCL XR 75 MG CAP.ER.24H 150 MG PO (08:47)
--- NOTE | 2024-05-11 10:18 | PM.IMPN ---
Progress Note: A&P Assessment and Plan (1) Hypertension: Code(s): I10 - Essential (primary) hypertension Status: Acute (2) Type 2 diabetes mellitus: Qualifiers: Diabetes mellitus complication status: with hyperglycemia Diabetes mellitus senior care insulin use: without senior care use Qualified Code(s): E11.65 - Type 2 diabetes mellitus with hyperglycemia Code(s): E11.9 - Type 2 diabetes mellitus without complications Status: Acute (3) Abdominal pain: Code(s): R10.9 - Unspecified abdominal pain Status: Acute (4) Asthma: Code(s): J45.909 - Unspecified asthma, uncomplicated Status: Acute Plan (1) Type 2 diabetes mellitus: Qualifiers: Diabetes mellitus intermediate accountant insulin use: without senior care use Diabetes mellitus complication status: with hyperglycemia Qualified Code(s): E11.65 - Type 2 diabetes mellitus with hyperglycemia Code(s): E11.9 - Type 2 diabetes mellitus without complications Status: Acute Assessment and Plan: Initial glucose 490, anion gap 11, beta hydroxy 0.13. Patient out of glipizide for the past 2 weeks. Initially treatment of hyperglycemia with 3L bolus of LR and Novolog 10u SQ 490 -> 494 hypoglycemia protocol - POC blood glucose ACHS - home medication: hold glipizide - add Lantus 28u HS and NPH 14 units BIDAC - correct regimen ordered - high dose TIDWM and HS, based off BMI - A1C 12.2% on 05/08/2024 - home health administrator consulted - dietitian consulted 05/09/2024 Patient sugar is improving. Plan is to continue current treatment. Diabetic teaching dietitian consult. 05/10 Glucose is not controlled in the target range Changed to Lantus 20 units b.i.d., discontinue NPH Start aspart 6 unit a.c. 05/11: Glucose controlled in target range, glucose between 125 to 136. Patient has a poor oral intake, decrease Lantus to 20 units b.i.d. I support friend a.c. and continue sliding scale (2) Hypertension: Code(s): I10 - Essential (primary) hypertension Status: Acute Assessment and Plan: Stable Continue lisinopril 10 mg daily p.o. (3) Asthma: Code(s): J45.909 - Unspecified asthma, uncomplicated Status: Acute Assessment and Plan: Stable on current medications, will continue current treatment. Plan Patient has chronic wound to left medial foot post-bunion removal. Wound has been present since June of 2023. Wound RN consulted. Diet: Diabetic GI Prophylaxis: Not currently indicated DVT Prophylaxis: SCDs Lines: Peripheral Code Status: Full code Subjective Date/time seen: 05/11/24 10:18 Interval history: Patient feels better today. Has has a poor appetite today, and general weakness, denies abdomen pain nausea vomiting Glucose is well controlled, fast glucose 125, glucose well controlled in the target Exam Narrative: GENERAL: Pleasant, in no acute distress. Well-nourished. - EYES: EOMI. Anicteric. - HENT: Moist mucous membranes. - LUNGS: Clear to auscultation bilaterally, no wheezing, rhonchi, or rales. - CARDIOVASCULAR: Regular rate and rhythm. No murmur. No JVD. - ABDOMEN: Soft, non-tender and non-distended. No palpable masses. - EXTREMITIES: No edema. Peripheral pulses 2+. Non-tender. - NEUROLOGIC: No focal neurological deficits. CN II-XII grossly intact. - PSYCHIATRIC: Awake, Alert and oriented x 3. Appropriate mood and affect. - SKIN: chronic wound to left medial foot post-bunion removal. - LYMPH: No cervical lymphadenopathy. Objective Data Vital Signs Vital Signs: Vital Signs - 24 hr 05/10/24 15:31 05/10/24 16:01 05/10/24 17:30 Temperature 97.4 F L 96.6 F L Pulse Rate 81 68 75 Respiratory Rate 20 18 Blood Pressure 156/52 H 148/69 H Pulse Oximetry 98 97 Oxygen Delivery 05/10/24 20:00 05/10/24 21:01 05/11/24 05:17 Temperature 98.6 F 98.6 F Pulse Rate 76 86 Respiratory Rate 20 16 Blood Pressure 153/51 H 156/58 H Pulse Oximetry 95 99 Oxygen Delivery Room Air 05/11/24 08:46 Temperature Pulse Rate 88 Respiratory Rate Blood Pressure Pulse Oximetry Oxygen Delivery Intake/Output Intake/Output: Intake & Output 05/08/24 05/09/24 05/10/24 05/11/24 23:59 23:59 23:59 23:59 Intake Total 1000 1370 2340 600 Output Total 0 Balance 1000 1370 2340 600 Meds/Results Medications: Active Medications Generic Name Dose Route Start Last Admin Trade Name Freq PRN Reason Stop Dose Admin Acetaminophen 650 mg 05/08/24 17:59 Acetaminophen 325 Mg Tablet PO Q4H PRN Mild Pain (1-3) or Fever Albuterol 2 puff 05/09/24 09:22 05/10/24 15:30 Albuterol Sulfate (*Sp) Aerosol 1 Puff INHALATION 2 puff Q6H PRN Administration Shortness Of Breath Alprazolam 0.5 mg 05/10/24 17:34 Alprazolam (*Crx) 0.5 Mg Tablet PO TID PRN Anxiety Artificial Tears 1 drop 05/09/24 09:22 05/09/24 10:18 Artificial Tears Ophth Soln 15 Ml Bottle EACH EYE 1 drop PRN PRN Administration as needed Dextrose 12.5 gm 05/08/24 18:15 Dextrose 50% 25 Gm/50 Ml Syringe IV PUSH PRN PRN Hypoglycemia Protocol Enoxaparin Sodium 40 mg 05/09/24 09:30 05/10/24 08:53 Enoxaparin 40 Mg/0.4 Ml Syringe SUB-Q 40 mg DAILY MILA Administration Gabapentin 300 mg 05/09/24 21:00 05/10/24 21:50 Gabapentin 300 Mg Capsule PO 300 mg HS MILA Administration Glipizide 10 mg 05/09/24 09:40 05/11/24 06:04 Glipizide Xl 5 Mg Tabcr PO 10 mg DAILY@0630 MILA Administration Glucagon 1 mg 05/08/24 18:15 Glucagon For Inj 1 Mg Vial IM PRN PRN Hypoglycemia Protocol Glucose 15 gm 05/08/24 18:15 Glucose Oral Gel 15 Gm Of Glucse In 37.5 Gm Tube PO PRN PRN Hypoglycemia Protocol Guaifenesin/Dextromethorphan 10 ml 05/10/24 15:20 05/10/24 15:47 Guaifenesin/Dextromethorphan 10 Ml Udc PO 10 ml Q6HR PRN Administration Cough Dextrose 1,000 mls @ 100 mls/hr 05/08/24 18:15 Dextrose 5% 1,000 Ml IVPB PRN PRN Hypoglycemia Protocol Insulin Aspart 4 - 8 units 05/09/24 08:00 05/11/24 08:43 Insulin Aspart (*Bkc) 100 Units/Ml SUB-Q Not Given TIDWM MILA Protocol Insulin Aspart 2 - 4 units 05/08/24 21:00 05/10/24 21:50 Insulin Aspart (*Bkc) 100 Units/Ml SUB-Q Not Given HS [facility] Protocol Insulin Aspart 6 units 05/10/24 12:00 05/10/24 18:17 Insulin Aspart (*Bkc) 100 Units/Ml SUB-Q 6 units TIDWM MILA Administration Insulin Glargine 28 units 05/10/24 09:10 05/10/24 18:18 Insulin Glargine (*Bkc) 100 Units/Ml 0.2 units/kg (28 units) 28 units SUB-Q Administration BID [facility] Ketorolac Tromethamine 15 mg 05/09/24 17:41 05/10/24 15:46 Ketorolac 15 Mg/Ml Vial (*Bkc) IV PUSH 15 mg Q6H PRN Administration Pain Rated 4-6 Lisinopril 10 mg 05/09/24 09:40 05/11/24 08:47 Lisinopril 10 Mg Tablet PO 10 mg DAILY [facility] Administration Ondansetron HCl 4 mg 05/08/24 17:59 05/10/24 15:50 Ondansetron Inj 4 Mg/2 Ml Vial IV PUSH 4 mg Q4H PRN Administration Nausea Propranolol HCl 30 mg 05/09/24 09:40 05/11/24 08:46 Propranolol Hcl 10 Mg Tablet PO 30 mg Q12HR [facility] Administration Rosuvastatin Calcium 20 mg 05/09/24 09:40 05/11/24 08:47 Rosuvastatin 20 Mg Tablet PO 20 mg DAILY [facility] Administration Venlafaxine HCl 150 mg 05/09/24 09:40 05/11/24 08:47 Venlafaxine Hcl Xr 75 Mg Cap.Er.24h PO 150 mg DAILY MILA Administration Radiology Results: ITS Impressions Foot X-Ray 05/08/24 14:37 IMPRESSION: 1. 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 Abdomen/Pelvis CT 05/08/24 16:06 IMPRESSION: 1. No acute intra-abdominal/pelvic process. 2. Small fat-containing umbilical and left inguinal hernias. Labs Labs: Laboratory Results - last 24 hr 05/10/24 05/10/24 05/10/24 10:03 11:49 16:45 WBC 6.9 RBC 5.25 Hgb 13.9 Hct 43.8 MCV 83.4 MCH 26.5 MCHC 31.7 L RDW 15.1 H Plt Count 190 MPV 10.3 Immature Gran % (Auto) 0.3 Neut % (Auto) 58.5 Lymph % (Auto) 34.0 [place] % (Auto) 4.9 Eos % (Auto) 2.0 Baso % (Auto) 0.3 Lymph # (Auto) 2.36 [place] # (Auto) 0.3 Eos # (Auto) 0.1 Baso # (Auto) 0.0 Abs Immat Gran (auto) 0.02 Absolute Neuts (auto) 4.1 Absolute Nucleated RBC 0.000 Nucleated RBC % 0.0 Sodium 134 L Potassium 4.2 Chloride 101 Carbon Dioxide 27 Anion Gap 6 BUN 14 Creatinine 0.67 L Estim Creat Clear Calc 111 Estimated GFR > 60 Glucose 425 H POC Capillary Glucose 277 H 139 H Calcium 8.2 L 05/10/24 05/11/24 05/11/24 21:04 05:21 05:45 WBC 5.3 RBC 5.40 Hgb 14.1 Hct 44.3 MCV 82.0 MCH 26.1 MCHC 31.8 L RDW 14.7 H Plt Count 164 MPV 10.3 Immature Gran % (Auto) 0.6 H Neut % (Auto) 72.1 Lymph % (Auto) 18.4 [place] % (Auto) 7.4 Eos % (Auto) 1.1 Baso % (Auto) 0.4 Lymph # (Auto) 0.97 [place] # (Auto) 0.4 Eos # (Auto) 0.1 Baso # (Auto) 0.0 Abs Immat Gran (auto) 0.03 Absolute Neuts (auto) 3.8 Absolute Nucleated RBC 0.000 Nucleated RBC % 0.0 Sodium 134 L Potassium 4.1 Chloride 102 Carbon Dioxide 25 Anion Gap 7 BUN 13 Creatinine 0.68 L Estim Creat Clear Calc 110 Estimated GFR > 60 Glucose 125 H POC Capillary Glucose 130 H 125 H Calcium 8.4 05/11/24 07:56 WBC RBC Hgb Hct MCV MCH MCHC RDW Plt Count MPV Immature Gran % (Auto) Neut % (Auto) Lymph % (Auto) [place] % (Auto) Eos % (Auto) Baso % (Auto) Lymph # (Auto) [place] # (Auto) Eos # (Auto) Baso # (Auto) Abs Immat Gran (auto) Absolute Neuts (auto) Absolute Nucleated RBC Nucleated RBC % Sodium Potassium Chloride Carbon Dioxide Anion Gap BUN Creatinine Estim Creat Clear Calc Estimated GFR Glucose POC Capillary Glucose 136 H Calcium
--- NOTE | 2024-05-11 10:20 | PM.DS ---
DS: Summary Time Spent with Patient Time attestation: Total time spent providing and/or coordinating discharge services: Exam Narrative: GENERAL: Pleasant, in no acute distress. Well-nourished. - EYES: EOMI. Anicteric. - HENT: Moist mucous membranes. - LUNGS: Clear to auscultation bilaterally, no wheezing, rhonchi, or rales. - CARDIOVASCULAR: Regular rate and rhythm. No murmur. No JVD. - ABDOMEN: Soft, non-tender and non-distended. No palpable masses. - EXTREMITIES: No edema. Peripheral pulses 2+. Non-tender. - NEUROLOGIC: No focal neurological deficits. CN II-XII grossly intact. - PSYCHIATRIC: Awake, Alert and oriented x 3. Appropriate mood and affect. - SKIN: chronic wound to left medial foot post-bunion removal. - LYMPH: No cervical lymphadenopathy. DS: Data Data Completed and Pending Labs on day of discharge: Labs from last 24 hours 05/11/24 05/11/24 05/11/24 07:56 05:45 05:21 WBC 5.3 RBC 5.40 Hgb 14.1 Hct 44.3 MCV 82.0 MCH 26.1 MCHC 31.8 L RDW 14.7 H Plt Count 164 MPV 10.3 Immature Gran % (Auto) 0.6 H Neut % (Auto) 72.1 Lymph % (Auto) 18.4 [place] % (Auto) 7.4 Eos % (Auto) 1.1 Baso % (Auto) 0.4 Lymph # (Auto) 0.97 [place] # (Auto) 0.4 Eos # (Auto) 0.1 Baso # (Auto) 0.0 Abs Immat Gran (auto) 0.03 Absolute Neuts (auto) 3.8 Absolute Nucleated RBC 0.000 Nucleated RBC % 0.0 Sodium 134 L Potassium 4.1 Chloride 102 Carbon Dioxide 25 Anion Gap 7 BUN 13 Creatinine 0.68 L Estim Creat Clear Calc 110 Estimated GFR > 60 Glucose 125 H POC Capillary Glucose 136 H 125 H Calcium 8.4 05/10/24 05/10/24 05/10/24 21:04 16:45 11:49 WBC RBC Hgb Hct MCV MCH MCHC RDW Plt Count MPV Immature Gran % (Auto) Neut % (Auto) Lymph % (Auto) [place] % (Auto) Eos % (Auto) Baso % (Auto) Lymph # (Auto) [place] # (Auto) Eos # (Auto) Baso # (Auto) Abs Immat Gran (auto) Absolute Neuts (auto) Absolute Nucleated RBC Nucleated RBC % Sodium Potassium Chloride Carbon Dioxide Anion Gap BUN Creatinine Estim Creat Clear Calc Estimated GFR Glucose POC Capillary Glucose 130 H 139 H 277 H Calcium 05/10/24 10:03 WBC RBC Hgb Hct MCV MCH MCHC RDW Plt Count MPV Immature Gran % (Auto) Neut % (Auto) Lymph % (Auto) [place] % (Auto) Eos % (Auto) Baso % (Auto) Lymph # (Auto) [place] # (Auto) Eos # (Auto) Baso # (Auto) Abs Immat Gran (auto) Absolute Neuts (auto) Absolute Nucleated RBC Nucleated RBC % Sodium 134 L Potassium 4.2 Chloride 101 Carbon Dioxide 27 Anion Gap 6 BUN 14 Creatinine 0.67 L Estim Creat Clear Calc 111 Estimated GFR > 60 Glucose 425 H POC Capillary Glucose Calcium 8.2 L Discharge Plan Discharge Patient Language: Turkmen Discharge Medications: No [facility] .Route Qty: 1 0RF Rx Instructions: As directed ( wheeled walker (DME) miscellaneous medical supply Misc See Rx Instructions .Route Qty: 1 0RF Rx Instructions: As directed albuterol sulfate 90 mcg/actuation Hfa Aerosol Inhaler 2 puff INHALATION Q6H PRN (Reason: SOB) Lubricant Eye Drops bottle 1 drp EACH EYE PRN PRN (Reason: as needed) glipizide 5 mg tablet 10 mg PO DAILY Patient Comments: takes XL tabs with breakfast venlafaxine 37.5 mg tablet 150 mg PO DAILY Patient Comments: XR capsule taken in the morning rosuvastatin [Crestor] 5 mg tablet 20 mg PO DAILY propranolol 10 mg tablet 30 mg PO BID lisinopril 10 mg tablet 10 mg PO DAILY gabapentin 300 mg capsule 300 mg PO HS Date of admission: 05/10/24 11:48 Primary Care Provider: Judy,Kathryn Warner Admitting Provider: Ellie Castelan Attending physician on admission: Ellie Castelan Condition: Guarded Prognosis
[2024-05-11 12:03] LABS: Glucose Point of Care 109 mg/dl (65-105)
[2024-05-11] MEDS: ENOXAPARIN 40 MG/0.4 ML SYRINGE SUB-Q (15:02)
[2024-05-11] MEDS: KETOROLAC 15 MG/ML VIAL (*BKC) IV PUSH (15:02)
[2024-05-11 15:47] VITALS: BP 145/53; PULSE 73; RESP 16; TEMP 37.4; O2SAT 97
[2024-05-11 17:20] LABS: Glucose Point of Care 63 mg/dl (65-105)
[2024-05-11] MEDS: DEXTROSE 5% 1,000 ML 1,000 ML 100 ML IVPB (17:22)
[2024-05-11] MEDS: GLUCOSE ORAL GEL 15 GM OF GLUCSE IN 37.5 GM TUBE PO (17:26)
[2024-05-11 17:49] LABS: Glucose Point of Care 119 mg/dl (65-105)
[2024-05-11] MEDS: GABAPENTIN 300 MG CAPSULE PO (21:13)
[2024-05-11 21:58] LABS: Glucose Point of Care 107 mg/dl (65-105)
[2024-05-11 22:00] VITALS: BP 151/97; PULSE 65; RESP 18; TEMP 36.9; O2SAT 94
[2024-05-12] MEDS: ACETAMINOPHEN 325 MG TABLET 650 MG PO (04:56)
[2024-05-12] MEDS: glipiZIDE XL 5 MG TABCR 10 MG PO (05:29)
[2024-05-12 06:00] VITALS: BP 129/32; PULSE 65; RESP 18; TEMP 36.3; O2SAT 90
--- OUTSIDE RECORDS SUMMARY | 2024-05-12 06:43 | XMS_ITS | Continuity of Care Document ---
Author Organization [facility] Address [address] [place] [address] Phone Care Team Providers Care Piper Installer Name Role Phone Mt Bowens MD Unavailable [...] OFFICE/OUTPAT IENT VISIT EST [facility] , [address], [place], [address], [place] tel:[phone] [facility] [place] left knee pain (chief complaint) Osteoarthrosi s, localized, primary, involving lower leg [address] [place] , [place], [place], [id number] . tel:[phone] Referring Provider: Denis Antony, [address] [address], [place], [address]. tel:[phone] OFFICE/OUTPAT IENT VISIT NEW [facility] , [address] [facility] [address], [place], [address], tel:[phone] [facility] [place] left knee pain (chief complaint) Osteoarthrosi s, localized, primary, involving lower legObesity, MorbidHyperte nsion, Unspecified [address] [place] [address] [facility] [address] , [place], [place], [id number] . tel:[phone] Referring Provider: Denis Antony, [address] [facility] [address], [place], [address]. tel:[phone] Family History Family Member Type Diagnosis Age [...]
--- OUTSIDE RECORDS SUMMARY | 2024-05-12 06:43 | XMS_ITS | Continuity of Care Document ---
Author Organization [facility] Address [address] [place] [address] Phone Care Team Providers Care Supply Chain Project Manager Name Role Phone Chidi RAJAN, Satish Unavailable [...] Known Problems Procedures Procedure Date OFFICE/OUTPATIENT VISIT, [facility] OFFICE/OUTPATIENT VISIT, [facility] Advance Directives Directive Yes / No Effective Date File Name No Information Encounters Encounter Description Practice Location Reason(s) For Visit Diagnoses Date Provider Providers Copied on Encounter [facility], [address] [place] [address], [facility], tel:[phone] *[facility] No Information 6 Chidi Covarrubias. [address], [address], . tel:[phone] OFFICE/OUTPA TIENT VISIT, [facility], [address] [place] [address], [facility], tel:[phone] *[facility] Hypertension (chief complaint)Neetu betes (chief complaint) Dietary counseling and surveillanceEsse ntial hypertension with goal blood pressure less than 140/90Type 2 diabetes mellitus with hyperglycemiaAty pical chest pain 6 Chidi Covarrubias. [address], [address], [place]. [phone] OFFICE/OUTPA TIENT VISIT, [facility], [address] [place] [address], [facility], tel:[phone] *[facility] swelling (chief complaint) Swelling 4 Chidi Covarrubias. [address], [address], . tel:[phone] Family History Family Member Type Diagnosis Age At Onset No Information Payers Payer name Insurance type Covered democrat ID Authoriza tion(s) No Information Social History Type Description Quantity Date Captured Comments Sex Female Smoking Status No Information Chief Complaint And Reason For Visit No Information Reason For Referral Reason For Referral No Information Plan Of Treatment Date Type Action Status Goal Dietary management education , guidance, and counseling completed History Of Present Illness Encounter Date Complaint History Of Prese nt Illness Diabetes Risk factors inc lude age > 50 years. DM managed with diet, insulin and fingerstick blood sugars. Associated symptoms include chest pain and shortness of breath. Pertinent negatives include headache, nausea, palpitations and vomiting. Hypertension It is currently stable. Risk factors include obesity. Associated symptoms include chest pain and dyspnea. Pertinent negatives include headache, irregular heartbeat/palpitations, nausea and vomiting. Additional information: PT was just seen in [facility] for her bp being elevated and for having chest pain she does have an appt with Yoan next week. swelling Onset: 1 day ago . Severity [...]
--- OUTSIDE RECORDS SUMMARY | 2024-05-12 06:43 | XMS_ITS | Clinical Summary ---
Author Organization [facility] Address [facility] [place] [address] Care Team Providers Care Customs Entry Clerk Name Role Phone ChunKathryn connors TIMEKEEPING SUPERVISOR Unavailable [phone] Alexa Quiles TIMEKEEPING SUPERVISOR Unavailable [phone] Edi Olvera DPM Unavailable [phone] Nelson Ogden MD Unavailable Hazel Bryant Primary [...] Problems Problem Noted Date Diagnosed Date Osteomyelitis ([facility]) 01/17/2024 Noncompliance 01/17/2024 Orthopedic aftercare 08/06/2023 Diabetic ulcer of left great toe ([facility] C) 06/26/2023 Cellulitis 03/29/2023 Bacteremia 03/25/2023 Diabetic ulcer of right great toe ([facility]/H [facility]) 09/19/2022 Overview (09/20/2022): Added automatically from request for surgery [id number] Cellulitis of right leg 09/19/2022 Overview (09/20/2022): Added automatically from request for surgery [id number] Weakness 09/29/2021 Type 2 diabetes mellitus ([facility]) Hypertension goal BP (blood pressure) < 140/90 Coronary artery calcification seen on CT scan Tobacco use disorder Overview (01/17/2024): 0.5 pack of cigarettes daily Peripheral vascular disease Resolved Problems Problem Noted Date Diagnosed Date Resolved Date 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 ([facility]) 06/26/2023 024 Cellulitis and abscess of foot 09/19/2022 08/22/2023 Preop cardiovascular exam 10/24/2021 CVA (cerebral vascular accid ent) ([facility]) 09/26/2021 09/27/2021 Subacute neurologic deficit 09/25/2021 09/27/2021 Encounters Date Type Department Care Team Description 02/26/2024 3:30 PM GYROSCOPIC INSTRUMENT MECHANIC Home Care Visit [facility] [address] [place] [address] Nieves Olson, RN TELEPHONE CALL 02/21/2024 Home Care Visit [facility] [address] [place] [address] Jacky Yeager RN SN POST TRANSFER AGENCY DISCHARGE 02/20/2024 Home Care Visit [facility] [address] [place] [address] Nieves Olson, RN NON ADMIT KYLER 02/18/2024 Chart Prep [facility] [address] [place] [address] Giovanna Cardona MD 02/13/2024 Home Care Visit [facility] Home Care [facility] [address] [place] [address] Veronica Hernandez RN SN OASIS TRANSFER W/OUT DC 02/13/2024 Travel 02/11/2024 10:49 PM GYROSCOPIC INSTRUMENT MECHANIC - 02/19/2024 11:49 AM GYROSCOPIC INSTRUMENT MECHANIC Hospital Encounter [facility] [address] [place] [address] Alcides Grimm MD Naveed, MD Coco Rivera Srikanth, MD Boddu, MD Madina Discharge Disposition: Home or Self Care (Routine Discharge) 02/11/2024 2:28 PM GYROSCOPIC INSTRUMENT MECHANIC - 02/11/2024 9:30 PM GYROSCOPIC INSTRUMENT MECHANIC Emergency [facility] [place] [address] Babita Vasquez MD Fall Discharge Disposition: Transfer to Acute [facility] 02/11/2024 12:00 PM GYROSCOPIC INSTRUMENT MECHANIC Home Care Visit [facility] Home Care [facility] [address] [place] [address] Marilu Donovan LPN SN HOME VISIT 02/11/2024 [...] from your doctor or pharmacy? Rarely 01/17/2024 [facility] Utilities Answer Date Recorded In the past 12 months has e [employer], [employer], oil, or water [employer] threatened to shut off services in your [...] often do you attend chur ch or sabianism services? Never 01/17/2024 Do you belong to [...] Recorded Patient Health Questionnaire-2 Score 0 03/09/2022 [facility] [place] of Occupat ional Health - Occupational Stress [...] place to sleep or slept in a correction (including now)? No 06/26/2023 Housing Stability Vital Sign Answer David e Recorded In the last 12 months, was t here a time when you were not able to pay the mortgage or rent on time? No 02/12/2024 In the past 12 months, how m any times have you moved where you were living? 0 02/12/2024 At any time in the past 12 m [facility], were you homeless or living in a correction (including now)? No 02/12/2024 Comments No Sex and Gender Information Value Date Recorded Sex Assigned at Female 01/17/2024 1:34 PM CDT Legal Sex Female 5:51 PM GYROSCOPIC INSTRUMENT MECHANIC Gender Identity Female 01/17/2024 1:34 PM CDT Sexual Orientation Straight 01/17/2024 1: 34 PM CDT Last Filed Vital Signs Vital Sign Reading Time Taken Comments Blood Pressure 101/38 02/19/2024 7:00 AM GYROSCOPIC INSTRUMENT MECHANIC Pulse 64 02/19/2024 7:00 AM GYROSCOPIC INSTRUMENT MECHANIC Temperature 36.3 C (97.4 F) 02/19/2024 7:00 AM GYROSCOPIC INSTRUMENT MECHANIC Respiratory Rate 20 02/18/2024 8:07 AM GYROSCOPIC INSTRUMENT MECHANIC Oxygen Saturation 96% 02/18/2024 7:48 PM GYROSCOPIC INSTRUMENT MECHANIC Inhaled Oxygen Concentration - - Weight 144.2 kg (318 lb) 02/12/2024 4:16 AM GYROSCOPIC INSTRUMENT MECHANIC Height 175.3 cm (5' 9.02 ) 02/12/2024 4:16 AM CS T Body Mass Index 46.94 02/12/2024 4:16 AM GYROSCOPIC INSTRUMENT MECHANIC Plan of Treatment Health Maintenance Due Date Last Done Comments Colorectal Cancer Screening Colonoscopy (10 Years) 1960 Kidney Health Evaluation 1960 Annual Physical 1963 PHQ-2 ([facility] [place]) 1972 Diabetes: Retinopathy Eye Exam 1978 Hepatitis C 1978 DTaP, Tdap and Td Vaccines (1 - Tdap) 1979 Mammogram Screening 2000 Lung Cancer Screening 2010 RSV Immunization or 60+ Years (1 - Risk 60-74 years 1-dose series) 2020 Zoster Vaccines (2 of 2) 10/03/2022 08/08/2022 COVID-19 Vaccine (1 - season) 2023 Influenza Adult (#1) 2024 PHQ-2 ([facility] [place]) 04/02/2024 Hemoglobin A1C 05/14/2024 02/12/2024, 01/01, 06/27/2023, [...] COMPREHENSIVE METABOLIC PANEL Routine 02/19/2024 8:59 AM GYROSCOPIC INSTRUMENT MECHANIC CBC W/DIFF AUTOMATED Routine 02/19/2024 8:59 AM GYROSCOPIC INSTRUMENT MECHANIC POCT GLUCOSE - HAWTHORNE DOCKED DEVICE Routine 02/19/2024 6:27 AM GYROSCOPIC INSTRUMENT MECHANIC POCT GLUCOSE - HAWTHORNE DOCKED DEVICE Routine 02/18/2024 8:57 PM GYROSCOPIC INSTRUMENT MECHANIC POCT GLUCOSE - HAWTHORNE DOCKED DEVICE Routine 02/18/2024 4:12 PM GYROSCOPIC INSTRUMENT MECHANIC POCT GLUCOSE - HAWTHORNE DOCKED DEVICE Routine 02/18/2024 12:44 PM GYROSCOPIC INSTRUMENT MECHANIC POCT GLUCOSE - HAWTHORNE DOCKED DEVICE Routine 02/18/2024 11:15 AM GYROSCOPIC INSTRUMENT MECHANIC POCT GLUCOSE - HAWTHORNE DOCKED DEVICE Routine 02/18/2024 6:13 AM GYROSCOPIC INSTRUMENT MECHANIC POCT GLUCOSE - HAWTHORNE DOCKED DEVICE Routine 02/17/2024 9:15 PM GYROSCOPIC INSTRUMENT MECHANIC POCT GLUCOSE - HAWTHORNE DOCKED DEVICE Routine 02/17/2024 4:22 PM GYROSCOPIC INSTRUMENT MECHANIC POCT GLUCOSE - HAWTHORNE DOCKED DEVICE Routine 02/17/2024 1:46 PM GYROSCOPIC INSTRUMENT MECHANIC POCT GLUCOSE - HAWTHORNE DOCKED DEVICE Routine 02/17/2024 11:10 AM GYROSCOPIC INSTRUMENT MECHANIC POCT GLUCOSE - HAWTHORNE DOCKED DEVICE Routine 02/17/2024 6:10 AM GYROSCOPIC INSTRUMENT MECHANIC COMPREHENSIVE METABOLIC PANEL Routine 02/17/2024 4:21 AM GYROSCOPIC INSTRUMENT MECHANIC CBC W/DIFF AUTOMATED Routine 02/17/2024 4:21 AM GYROSCOPIC INSTRUMENT MECHANIC POCT GLUCOSE - HAWTHORNE DOCKED DEVICE Routine 02/16/2024 8:17 PM GYROSCOPIC INSTRUMENT MECHANIC POCT GLUCOSE - HAWTHORNE DOCKED DEVICE Routine 02/16/2024 4:30 PM GYROSCOPIC INSTRUMENT MECHANIC USV VAST TEAM PICC INSERT >5YR Routine 02/16/2024 12:35 PM GYROSCOPIC INSTRUMENT MECHANIC POCT GLUCOSE - HAWTHORNE DOCKED DEVICE Routine 02/16/2024 11:53 AM GYROSCOPIC INSTRUMENT MECHANIC POCT GLUCOSE - HAWTHORNE DOCKED DEVICE Routine 02/16/2024 6:12 AM GYROSCOPIC INSTRUMENT MECHANIC CK (CPK) Routine 02/16/2024 2:42 AM GYROSCOPIC INSTRUMENT MECHANIC COMPREHENSIVE METABOLIC PANEL Routine 02/16/2024 2:42 AM GYROSCOPIC INSTRUMENT MECHANIC CBC W/DIFF AUTOMATED Routine 02/16/2024 2:42 AM GYROSCOPIC INSTRUMENT MECHANIC POCT GLUCOSE - HAWTHORNE DOCKED DEVICE Routine 02/15/2024 7:47 PM GYROSCOPIC INSTRUMENT MECHANIC POCT GLUCOSE - HAWTHORNE DOCKED DEVICE Routine 02/15/2024 4:20 PM GYROSCOPIC INSTRUMENT MECHANIC USE ECHOCARDIOGRAM W CON Today 02/15/2024 1:39 PM GYROSCOPIC INSTRUMENT MECHANIC XR CHEST PORTABLE ANU 02/15/2024 11: 38 AM GYROSCOPIC INSTRUMENT MECHANIC POCT GLUCOSE - HAWTHORNE DOCKED DEVICE Routine 02/15/2024 11:32 AM GYROSCOPIC INSTRUMENT MECHANIC POCT GLUCOSE - HAWTHORNE DOCKED DEVICE Routine 02/15/2024 6:49 AM GYROSCOPIC INSTRUMENT MECHANIC COMPREHENSIVE METABOLIC PANEL Routine 02/15/2024 5:14 AM GYROSCOPIC INSTRUMENT MECHANIC CBC W/DIFF AUTOMATED Routine 02/15/2024 5:14 AM GYROSCOPIC INSTRUMENT MECHANIC VANCOMYCIN TIMED 02/15/2024 5:14 AM GYROSCOPIC INSTRUMENT MECHANIC POCT GLUCOSE - HAWTHORNE DOCKED DEVICE Routine 02/14/2024 8:11 PM GYROSCOPIC INSTRUMENT MECHANIC POCT GLUCOSE - HAWTHORNE DOCKED DEVICE Routine 02/14/2024 3:48 PM GYROSCOPIC INSTRUMENT MECHANIC POCT GLUCOSE - HAWTHORNE DOCKED DEVICE Routine 02/14/2024 11:20 AM GYROSCOPIC INSTRUMENT MECHANIC POCT GLUCOSE - HAWTHORNE DOCKED DEVICE Routine 02/14/2024 6:27 AM GYROSCOPIC INSTRUMENT MECHANIC BASIC METABOLIC PANEL Routine 02/14/2024 4:18 AM GYROSCOPIC INSTRUMENT MECHANIC CBC W/DIFF AUTOMATED Routine 02/14/2024 4:18 AM GYROSCOPIC INSTRUMENT MECHANIC MRI FOOT LT WO CON Today 02/13/2024 10 :54 PM GYROSCOPIC INSTRUMENT MECHANIC POCT GLUCOSE - HAWTHORNE DOCKED DEVICE Routine 02/13/2024 8:33 PM GYROSCOPIC INSTRUMENT MECHANIC USV VAST TEAM PICC INSERT >5YR Today 02/13/2024 6:50 PM GYROSCOPIC INSTRUMENT MECHANIC POCT GLUCOSE - HAWTHORNE DOCKED DEVICE Routine 02/13/2024 5:37 PM GYROSCOPIC INSTRUMENT MECHANIC POCT GLUCOSE - HAWTHORNE DOCKED DEVICE Routine 02/13/2024 4:53 PM GYROSCOPIC INSTRUMENT MECHANIC USV KATHERYN DUPLEX LOW EXT BRITT Today 02/13/2024 2:06 PM GYROSCOPIC INSTRUMENT MECHANIC POCT GLUCOSE - HAWTHORNE DOCKED DEVICE Routine 02/13/2024 11:00 AM GYROSCOPIC INSTRUMENT MECHANIC POCT GLUCOSE - HAWTHORNE DOCKED DEVICE Routine 02/13/2024 6:28 AM GYROSCOPIC INSTRUMENT MECHANIC VANCOMYCIN TIMED 02/13/2024 6:04 AM GYROSCOPIC INSTRUMENT MECHANIC MRI FOOT RT WO CON Today 02/12/2024 11 :01 PM GYROSCOPIC INSTRUMENT MECHANIC POCT GLUCOSE - HAWTHORNE DOCKED DEVICE Routine 02/12/2024 8:46 PM GYROSCOPIC INSTRUMENT MECHANIC CULTURE, BACTERIA, BLOOD TIMED 02/12/2024 5:54 PM GYROSCOPIC INSTRUMENT MECHANIC CULTURE, BACTERIA, BLOOD TIMED 02/12/2024 5:14 PM GYROSCOPIC INSTRUMENT MECHANIC POCT GLUCOSE - HAWTHORNE DOCKED DEVICE Routine 02/12/2024 3:58 PM GYROSCOPIC INSTRUMENT MECHANIC HC BODY FLUID CULTURE Nurse Collected Priority 02/12/2024 3:50 PM GYROSCOPIC INSTRUMENT MECHANIC POCT GLUCOSE - HAWTHORNE DOCKED DEVICE Routine 02/12/2024 1:16 PM GYROSCOPIC INSTRUMENT MECHANIC POCT GLUCOSE - HAWTHORNE DOCKED DEVICE Routine 02/12/2024 11:29 AM GYROSCOPIC INSTRUMENT MECHANIC HEMOGLOBIN, GLYCOSYLATED Routine 02/12/2024 9:05 AM GYROSCOPIC INSTRUMENT MECHANIC POCT GLUCOSE - HAWTHORNE DOCKED DEVICE Routine 02/12/2024 6:51 AM GYROSCOPIC INSTRUMENT MECHANIC MAGNESIUM Routine 02/12/2024 3:02 AM GYROSCOPIC INSTRUMENT MECHANIC COMPREHENSIVE METABOLIC PANEL Routine 02/12/2024 3:02 AM GYROSCOPIC INSTRUMENT MECHANIC CBC W/DIFF AUTOMATED Routine 02/12/2024 3:02 AM GYROSCOPIC INSTRUMENT MECHANIC POCT GLUCOSE - HAWTHORNE DOCKED DEVICE Routine 02/11/2024 11:49 PM GYROSCOPIC INSTRUMENT MECHANIC LACTIC ACID W REFLEX (SEPSIS) TIMED 02/11/2024 9:09 PM GYROSCOPIC INSTRUMENT MECHANIC LACTIC ACID W REFLEX (SEPSIS) TIMED 02/11/2024 6:59 PM GYROSCOPIC INSTRUMENT MECHANIC HC URINALYSIS AUTO W/MICRO STAT 02/11/2024 5:[address]IC IN[address]UMENT [address] HEAD WO CON STAT 02/11/2024 5:27 PM GYROSCOPIC INSTRUMENT MECHANIC XR TIBIA+FIBULA RT 2V STAT 02/11/2024 5:26 PM GYROSCOPIC INSTRUMENT MECHANIC XR SHOULDER RT MIN 2V STAT 02/11/2024 5:26 PM GYROSCOPIC INSTRUMENT MECHANIC XR FOOT RT 3V STAT 02/11/2024 5:26 PM GYROSCOPIC INSTRUMENT MECHANIC XR FEMUR RT 2V STAT 02/11/2024 5:26 PM GYROSCOPIC INSTRUMENT MECHANIC XR HIP RT 2V STAT 02/11/2024 5:26 PM GYROSCOPIC INSTRUMENT MECHANIC XR CHEST PORTABLE STAT 02/11/2024 5:2 6 PM GYROSCOPIC INSTRUMENT MECHANIC CULTURE, BACTERIA, BLOOD Routine 02/11/2024 4:21 PM GYROSCOPIC INSTRUMENT MECHANIC MAGNESIUM STAT 02/11/2024 4:21 PM GYROSCOPIC INSTRUMENT MECHANIC BLOOD GAS, VENOUS STAT 02/11/2024 4:2 1 PM GYROSCOPIC INSTRUMENT MECHANIC C-REACTIVE PROTEIN STAT 02/11/2024 4: 21 PM GYROSCOPIC INSTRUMENT MECHANIC LACTIC ACID W REFLEX (SEPSIS) STAT 02/11/2024 4:21 PM GYROSCOPIC INSTRUMENT MECHANIC CK (CPK) STAT 02/11/2024 4:21 PM GYROSCOPIC INSTRUMENT MECHANIC COMPREHENSIVE METABOLIC PANEL STAT 02/11/2024 4:21 PM GYROSCOPIC INSTRUMENT MECHANIC SED RATE, ERYTHROCYTE (ESR) STAT 02/11/2024 4:21 PM GYROSCOPIC INSTRUMENT MECHANIC PARTIAL THROMBOPLASTIN TIME,PTT STAT 02/11/2024 4:21 PM GYROSCOPIC INSTRUMENT MECHANIC PROTHROMBIN TIME, VENOUS STAT 02/11/2024 4:21 PM GYROSCOPIC INSTRUMENT MECHANIC CBC W/DIFF AUTOMATED STAT 02/11/2024 4:21 PM GYROSCOPIC INSTRUMENT MECHANIC ECG 12-LEAD Routine 02/11/2024 4:16 PM GYROSCOPIC INSTRUMENT MECHANIC POCT GLUCOSE - HAWTHORNE ROBLOX DEVICE Routine 02/11/2024 4:14 PM GYROSCOPIC INSTRUMENT MECHANIC LIPID PANEL Routine 06/27/2023 5:16 AM CDT from Last 3 Months or Most Recently Relevant to Health Maintenance Results * (ABNORMAL) COMPREHENSIVE METABOLIC PANEL (02/19/2024 8:59 AM GYROSCOPIC INSTRUMENT MECHANIC) Only the most recent of6 resultswithin the time period is included. SODIUM S/P/B 140 136 - 145 MMOL/L 02/19/2024 9:50 AM GYROSCOPIC INSTRUMENT MECHANIC [facility] POTASSIUM S/P/B 3.7 3.5 - 5.1 MMOL/L 02/19/2024 9:50 AM GYROSCOPIC INSTRUMENT MECHANIC [facility] CHLORIDE S/P/B 107 97 - 115 MMOL/L 02/19/2024 9:50 AM GYROSCOPIC INSTRUMENT MECHANIC [facility] CO2 28.2 21.0 - 32.0 MMOL/L 02/19/2024 9:50 AM GYROSCOPIC INSTRUMENT MECHANIC [facility] GLUCOSE 240(H) 74 - 106 MG/DL 02/19/2024 9:50 AM GYROSCOPIC INSTRUMENT MECHANIC [facility] BUN 13 7 - 18 MG/DL 02/19/2024 9:[address] [facility] CREATININE S/P/B 0.86 0.55 - 1.02 MG/DL 02/19/2024 9:[address] [facility] CALCIUM S/P/B 8.5 8.5 - 10.1 MG/DL 02/19/2024 9:[address] [facility] BILIRUBIN TOTAL S/P/B 0.7 0.2 - 1.0 MG/DL 02/19/2024 9:[address] [facility] ALKALINE PHOSPHATASE S/P/B 83 50 - 130 U/L 02/19/2024 9:[address] [facility] AST 36 15 - 37 U/L 02/19/2024 9:[address] [facility] ALT 31 13 - 56 U/L 02/19/2024 9:[address] [facility] TOTAL PROTEIN S/P/B 6.0(L) 6.4 - 8.2 G/DL 02/19/2024 9:[address] [facility] ALBUMIN S/P/B 2.8(L) 3.4 - 5.0 G/DL 02/19/2024 9:[address] [facility] ANION GAP 4.8 2.0 - 10.0 MMOL/L 02/19/2024 9:[address] [facility] OSMOLALITY (CALC) 298 MOSM/KG 024 9:[address] [facility] Comment:REFERENCE RANGE NOT ESTABLISHED GFR ESTIMATE 76(L) >90 ML/MIN/1. 73 M2 02/19/2024 9:[address] [facility] GFR NOTES GFR REFERENCE S: 02/19/2024 9:[address] [facility] Comment: THE ESTIMATED GFR IS CALCULATED [...] FAILURE: <15 ml/min/1.73 m2 02/19/2024 8:59 AM GYROSCOPIC INSTRUMENT MECHANIC Madina Dawn MD LABORATORY Final Result [facility] [address] [place] [address], [id number] * (ABNORMAL) CBC W/DIFF AUTOMATED (02/19/2024 8:59 AM GYROSCOPIC INSTRUMENT MECHANIC) Only the most recent of7 resultswithin the time period is included. WBC 5.81 4.00 - 10.80 x10'3/uL 02/19/2024 9:15 AM GYROSCOPIC INSTRUMENT MECHANIC [facility] RBC 4.12 4.10 - 5.40 x10'6/uL 02/19/2024 9:[address] [facility] HGB 11.4(L) 12.0 - 16.0 G/DL 02/19/2024 9:[address] [facility] HCT 35.8(L) 36.0 - 47.0 % 02/19/2024 9:15 AM GYROSCOPIC INSTRUMENT MECHANIC [facility] MCV 86.9 78.0 - 100.0 FL 02/19/2024 9:15 AM GYROSCOPIC INSTRUMENT MECHANIC [facility] MCH 27.7 27.0 - 31.0 PG 02/19/2024 9:15 AM GYROSCOPIC INSTRUMENT MECHANIC [facility] MCHC 31.8(L) 33.0 - 36.0 G/DL 02/19/2024 9:[address] [facility] RDW 14.9(H) 11.5 - 14.5 % 02/19/2024 9:[address] [facility] PLT 191 150 - 350 x10'3/uL 02/19/2024 9:[address] [facility] MPV 9.6 7.4 - 10.4 FL 02/19/2024 9:[address] [facility] DIFFERENTIAL TYPE AUTOMATED DIFFERENTIAL 02/19/2024 9:[address] [facility] SEG NEUTROPHILS 42.9 % 9:[address] [facility] LYMPHOCYTES 44.1 % 02/19/2024 9:[address] [facility] MONOCYTES 8.4 % 02/19/2024 9:[address] [facility] EOSINOPHILS 3.8 % 02/19/2024 9:[address] [facility] BASOPHILS 0.5 % 02/19/2024 9:[address] [facility] IMMATURE GRANS % 0.3 % 02/19/20 9:[address] [facility] ABS. NEUTROPHILS 2.49 1.60 - 8.30 x10'3/uL 02/19/2024 9:[address] [facility] ABS. LYMPHOCYTES 2.56 0.80 - 4.70 x10'3/uL 02/19/2024 9:[address] [facility] ABS. MONOCYTES 0.49 0.00 - 1.50 x10'3/uL 02/19/2024 9:[address] [facility] ABS. EOSINOPHILS 0.22 0.00 - 0.40 x10'3/uL 02/19/2024 9:[address] [facility] ABS. BASOPHILS 0.03 0.00 - 0.20 x10'3/uL 02/19/2024 9:[address] [facility] ABS. IMMATURE GRANULOCYTES 0.02 0.00 - 0.03 x10'3/uL 02/19/2024 9:[address] [facility] ABS. NUCLEATED RBC'S 0.00 0.00 - 0.01 x10'3/uL 02/19/2024 9:15 AM GYROSCOPIC INSTRUMENT MECHANIC [facility] NRBC % 0.0 % 02/19/2024 9:15 AM GYROSCOPIC INSTRUMENT MECHANIC [facility] 02/19/2024 8:59 AM GYROSCOPIC INSTRUMENT MECHANIC us Madina Dawn MD LABORATORY Final Result Performing Organization Address [facility] Co de Phone Number [facility] [address] [place] [address], [id number] * (ABNORMAL) POCT glucose (02/19/2024 6:27 AM GYROSCOPIC INSTRUMENT MECHANIC) Only the most recent of35 resultswithin the time period is included. GLUCOSE POC 168(H) 70 - 109 02/19/2024 6:51 AM GYROSCOPIC INSTRUMENT MECHANIC [facility] 02/19/2024 6:27 AM GYROSCOPIC INSTRUMENT MECHANIC us Madina Dawn MD POCT ORDERABLES - DEVICE Final Result Performing Organization Address [facility] de Phone Number [facility] [address] [place] [address], [id number] * USV VAST TEAM PICC INSERT >5YR (02/16/2024 12:35 PM GYROSCOPIC INSTRUMENT MECHANIC) Only the most recent of2 resultswithin the time period is included. Anatomical Region Laterality Modality NA Vascular Ultraso und 02/16/2024 11:4 7 AM GYROSCOPIC INSTRUMENT MECHANIC Narrative 02/16/2024 11:47 AM GYROSCOPIC INSTRUMENT MECHANIC This report does not contain a radiologist's interpretation. Please review associated procedure and/or operative report. Procedure Note Eugenio Haynes MD - 02/16/2024 This report does not contain a radiologist's interpretation. Please review associated procedure and/or operative report. us Madina Dawn MD US VASC Final Result * CK (CPK) - Weekly starting tomorrow (02/16/2024 2:42 AM GYROSCOPIC INSTRUMENT MECHANIC) Only the most recent of2 resultswithin the time period is included. CPK 54 26 - 192 U/L 02/16/2024 1:45 PM GYROSCOPIC INSTRUMENT MECHANIC [facility] 02/16/2024 2:42 AM GYROSCOPIC INSTRUMENT MECHANIC Jose Zuleta MD LABORATORY Final Re sult [facility] [address] [place] [address], [id number] * USE ECHOCARDIOGRAM W CON (02/15/2024 1:39 PM GYROSCOPIC INSTRUMENT MECHANIC) Anatomical Region Laterality Modality NA Echocardiogram 02/15/2024 12:5 2 PM GYROSCOPIC INSTRUMENT MECHANIC Narrative 02/16/2024 9:05 PM GYROSCOPIC INSTRUMENT MECHANIC Echocardiography Report Pat.Name: SENA YO Pat.ID: [id number] .Date: 02/15/2024 Refer.: [id number] KYM Baltazar EWDPROV EWDPROV Exam Time: 12:52:00 [...] Mass 2D Value 209 g LV Mass [id number] Value 82.9 g/m2 <Electronic Signature> 02/16/2024 09:05 PM Juliann Erickson M.D. Procedure Note Juliann Erickson MD - 02/16/2024 Echocardiography Report Pat.Name: SENA YO Pat.ID: [id number] .Date: 02/15/2024 : [id number] KYM Baltazar EWDPROV EWDPROV Exam Time: 12:52:00 PM Study Type:ECHO W/CONTRAST COMPLETE Height: 69 in Weight: 318 lb BSA: 2.52 m2 Age: 1 1960,63Y Sex: F BP: 162/87 HR: 55 bpm Sonogrphr: Tin Harris [facility] Pat. Stat.:Inpatient Room: 1114 CPT - [...] Mass 2D Value 209 g LV Mass [id number] Value 82.9 g/m2 <Electronic Signature> 02/16/2024 09:05 PM Juliann Erickson M.D. Madina Dawn MD ECHO Final Result * XR CHEST PORTABLE (02/15/2024 11:38 AM GYROSCOPIC INSTRUMENT MECHANIC) Only the most recent of2 resultswithin the time period is included. Anatomical Region Laterality Modality Chest Radiographic Navya ging 02/16/2024 12:2 8 AM GYROSCOPIC INSTRUMENT MECHANIC Impressions 02/16/2024 12:30 AM GYROSCOPIC INSTRUMENT MECHANIC IMPRESSION: 1. Left PICC line tip projecting over the left subclavian/brachiocephalic vein. No definite pneumothorax. Referred By: BABITA VASQUEZ Interpreted By: Jose Keating MD, 02/16/2024 12:28 AM Narrative 02/16/2024 12:30 AM GYROSCOPIC INSTRUMENT MECHANIC [address] [address] Examination: Chest radiograph Exam time: 02/15/2024 11:36 [...] Procedure Note Jose Keating MD - 02/16/[address] [address] Examination: Chest radiograph Exam time: 02/15/2024 11:36 [...] * Vancomycin Random Level (02/15/2024 5:14 AM GYROSCOPIC INSTRUMENT MECHANIC) Only the most recent of2 resultswithin the time period is included. VANCOMYCIN RANDOM 17.2 MCG/ML 02/15/2024 6:05 AM GYROSCOPIC INSTRUMENT MECHANIC [facility] Comment:REFERENCE RANGE NOT ESTABLISHED 02/15/2024 5:14 AM GYROSCOPIC INSTRUMENT MECHANIC Zita Da Silva MD LABORATORY Final Res ult [facility] [address] [place] [address], [id number] * (ABNORMAL) BASIC METABOLIC PANEL (02/14/2024 4:18 AM GYROSCOPIC INSTRUMENT MECHANIC) SODIUM S/P/B 140 136 - 145 MMOL/L 02/14/2024 4:56 AM GYROSCOPIC INSTRUMENT MECHANIC [facility] POTASSIUM S/P/B 3.7 3.5 - 5.1 MMOL/L 02/14/2024 4:56 AM GYROSCOPIC INSTRUMENT MECHANIC [facility] CHLORIDE S/P/B 108 97 - 115 MMOL/L 02/14/2024 4:56 AM GYROSCOPIC INSTRUMENT MECHANIC [facility] CO2 29.9 21.0 - 32.0 MMOL/L 02/14/2024 4:56 AM GYROSCOPIC INSTRUMENT MECHANIC [facility] GLUCOSE 154(H) 74 - 106 MG/DL 02/14/2024 4:[address] [facility] BUN 12 7 - 18 MG/DL 02/14/2024 4:[address] [facility] CREATININE S/P/B 0.79 0.55 - 1.02 MG/DL 02/14/2024 4:[address] [facility] CALCIUM S/P/B 8.4(L) 8.5 - 10.1 MG/DL 02/14/2024 4:[address] [facility] ANION GAP 2.1 2.0 - 10.0 MMOL/L 02/14/2024 4:[address] [facility] OSMOLALITY (CALC) 293 MOSM/KG 024 4:[address] [facility] Comment:REFERENCE RANGE NOT ESTABLISHED GFR ESTIMATE 84(L) >90 ML/MIN/1. 73 M2 02/14/2024 4:[address] [facility] GFR NOTES GFR REFERENCE S: 02/14/2024 4:[address] [facility] Comment: THE ESTIMATED GFR IS CALCULATED [...] FAILURE: <15 ml/min/1.73 m2 02/14/2024 4:18 AM GYROSCOPIC INSTRUMENT MECHANIC us Zita Da Silva MD LABORATORY Final Res ult [facility] [address] [place] [address], [phone] * MRI FOOT LT WO CON (02/13/2024 10:54 PM GYROSCOPIC INSTRUMENT MECHANIC) Anatomical Region Laterality Modality Foot Magnetic Resonan ce 02/14/2024 12:0 2 AM GYROSCOPIC INSTRUMENT MECHANIC Impressions 02/14/2024 12:06 AM GYROSCOPIC INSTRUMENT MECHANIC IMPRESSION: 1. No MR signal changes of osteomyelitis. 2. Diffuse edema like signal throughout the soft tissues of the left foot, which may represent cellulitis in the appropriate clinical setting. No distinct drainable fluid collection or abscess. Referred By: BABITA VASQUEZ Interpreted By: Silvio Alvarez MD, 02/14/2024 12:02 AM Narrative 02/14/2024 12:06 AM GYROSCOPIC INSTRUMENT MECHANIC [address] [address] EXAMINATION: MRI FOOT LT WO CON HISTORY: [...] Procedure Note Silvio Alvarez MD - 02/14/[address] [address] EXAMINATION: MRI FOOT LT WO CON HISTORY: [...] DUPLEX LOW EXT BRITT (02/13/2024 2:06 PM GYROSCOPIC INSTRUMENT MECHANIC) Anatomical Region Laterality Modality Extremity Ultrasound 02/13/2024 1:25 PM GYROSCOPIC INSTRUMENT MECHANIC Narrative 02/13/2024 3:13 PM GYROSCOPIC INSTRUMENT MECHANIC Vascular Report Pat.Name: SENA YOID: [id number] St.Date: 02/13/2024 Refer.MD: ZITA DA SILVA Exam Time: 1:25:00 PM Study Type:PVI VENOUS DUPLEX SCAN-LEGS BILAT Height: 69 in Age: 1 1960,63Y Sex: F Sonogrphr: Ilia Dooley RVT Pat. Stat.:Inpatient Room: 1114 ICD - 9: R60.9 Limb Edema CPT - 4: 22047 Venous Duplex LE/UE Reason for Study:Edema Race: W ++++++++++++++++++++++++++++++++++++ FINDINGS: ++++++++++++++++++++++++++++++++++++ Bilat: No evidence of acute or chronic thrombosis noted in the deep or superficial veins in either lower extremity. Comments: Technically difficult study due to body habitus. <Electronic Signature> 02/13/2024 03:13 PM Bridger Mccray M.D. Procedure Note Bridger Mccray MD - 02/13/2024 Vascular Report Pat.Name: SENA YOID: [id number] St.Date: 02/13/2024 Refer.MD: ZITA DA SILVA Exam Time: 1:25:00 PM Study Type:PVI VENOUS DUPLEX SCAN-LEGS BILAT Height: 69 in Age: 1 1960,63Y Sex: F Sonogrphr: MARIO Valdes. Stat.:Inpatient Room: [facility]4 ICD - 9: R60.9 Limb Edema CPT - 4: 78932 Venous Duplex LE/UE Reason for Study:Edema Race: W ++++++++++++++++++++++++++++++++++++ FINDINGS: ++++++++++++++++++++++++++++++++++++ Bilat: No evidence of acute or chronic thrombosis noted in the deep or superficial veins in either lower extremity. Comments: Technically difficult study due to body habitus. <Electronic Signature> 02/13/2024 03:13 PM Bridger Mccray M.D. us Zita Da Silva MD [facility] Final Res ult * MRI FOOT RT WO CON (02/12/2024 11:01 PM GYROSCOPIC INSTRUMENT MECHANIC) Anatomical Region Laterality Modality Foot Magnetic Resonan ce 02/13/2024 12:0 3 AM GYROSCOPIC INSTRUMENT MECHANIC Impressions 02/13/2024 12:10 AM GYROSCOPIC INSTRUMENT MECHANIC IMPRESSION: 1. Motion degraded exam limiting sensitivity. [...] 02/13/2024 12:03 AM Narrative 02/13/2024 12:10 AM GYROSCOPIC INSTRUMENT MECHANIC [facility] [address] [place], [place] [address] EXAMINATION: MRI FOOT RT WO CON HISTORY: [...] Procedure Note Silvio Alvarez MD - 02/13/2024 [facility] [address] [place], [place] [address] EXAMINATION: MRI FOOT RT WO CON HISTORY: [...] CULTURE, BACTERIA BLOOD X2 (02/12/2024 5:54 PM GYROSCOPIC INSTRUMENT MECHANIC) Only the most recent of3 resultswithin the time period is included. SPEC DESCRIPTION BLOOD 02/12/2024 4:44 PM GYROSCOPIC INSTRUMENT MECHANIC [facility] SPECIAL REQUESTS NO SPECIAL REQUEST 02/12/2024 4:44 PM GYROSCOPIC INSTRUMENT MECHANIC [facility] CULTURE RESULT NO GROWTH 5 DAYS 02/18/2024 12:05 AM GYROSCOPIC INSTRUMENT MECHANIC [facility] BLOOD SPECIMEN OBTAINED FOR BLOOD CULTURE / Unknown 02/12/2024 5:54 PM GYROSCOPIC INSTRUMENT MECHANIC 02/12/2024 5:55 PM GYROSCOPIC INSTRUMENT MECHANIC us Nancie Hernandez NP MICROBIOLOGY - GENERAL ORDER LENIN Final Result Performing Organization Address City/State/[facility] Co de Phone Number [facility] [address] [place] [address], [place] [phone] * CULTURE, WOUND, W/GRAM STAIN (02/12/2024 3:50 PM GYROSCOPIC INSTRUMENT MECHANIC) SPEC DESCRIPTION FOOT,LEFT 02/12/2024 3:50 PM GYROSCOPIC INSTRUMENT MECHANIC [facility] SPECIAL REQUESTS NO SPECIAL REQUEST 02/12/2024 3:50 PM GYROSCOPIC INSTRUMENT MECHANIC [facility] GRAM STAIN RESULT NO NEUTROPHILS SEEN 02/12/2024 4:57 PM GYROSCOPIC INSTRUMENT MECHANIC [facility] GRAM STAIN RESULT RARE GRAM POSITIVE COCCI IN PAIRS 02/12/2024 4:57 PM GYROSCOPIC INSTRUMENT MECHANIC [facility] CULTURE RESULT FEW PROTEUS MIRABILIS 02/16/2024 4:40 PM GYROSCOPIC INSTRUMENT MECHANIC [facility] CULTURE RESULT MODERATE DIPHTHEROID BACILLI 02/16/2024 4:40 PM GYROSCOPIC INSTRUMENT MECHANIC [facility] CULTURE RESULT MODERATE MICROCOCCUS SPECIES 02/16/2024 4:40 PM GYROSCOPIC INSTRUMENT MECHANIC [facility] CULTURE RESULT MODERATE STAPHYLOCOCCUS, COAGULASE NEGATIVE 02/16/2024 4:40 PM GYROSCOPIC INSTRUMENT MECHANIC [facility] CULTURE RESULT MODERATE ENTEROCOCCUS FAECALIS 02/16/2024 4:40 PM GYROSCOPIC INSTRUMENT MECHANIC [facility] STRUCTURE OF LEFT FOOT / Unknown 02/12/2024 3:50 PM GYROSCOPIC INSTRUMENT MECHANIC 02/12/2024 4:19 PM GYROSCOPIC INSTRUMENT MECHANIC Narrative Organism Antibiotic Method Susceptibility Proteus mirabilis [...] MICROBIOLOGY - GENERAL O RDERABLES Final Result [facility] [address] [place] [address], [id number] * (ABNORMAL) HEMOGLOBIN, GLYCOSYLATED (02/12/2024 9:05 AM GYROSCOPIC INSTRUMENT MECHANIC) HGB A1C 10.2(H) <5.7 % 02/12/2024 9:54 AM GYROSCOPIC INSTRUMENT MECHANIC [facility] ESTIMATED AVG GLUCOSE 246(H) 74 - 114 MG/DL 02/12/2024 9:54 AM GYROSCOPIC INSTRUMENT MECHANIC [facility] 02/12/2024 9:05 AM GYROSCOPIC INSTRUMENT MECHANIC Zita Da Silva MD LABORATORY Final Res ult Performing Organization Address City/[facility]/ZIP Co de Phone Number [facility] [address] [place] [address], [place] [phone] * MAGNESIUM (02/12/2024 3:02 AM GYROSCOPIC INSTRUMENT MECHANIC) Only the most recent of2 resultswithin the time period is included. MAGNESIUM 1.8 1.6 - 2.6 MG/DL 02/12/2024 3:34 AM GYROSCOPIC INSTRUMENT MECHANIC [facility] 02/12/2024 3:02 AM GYROSCOPIC INSTRUMENT MECHANIC Celia Jaramillo MD LABORATORY Final Res ult Performing Organization Address [facility] Co de Phone Number [facility] [address] [place] [address], [id number] * LACTIC ACID W REFLEX (SEPSIS) (02/11/2024 9:09 PM GYROSCOPIC INSTRUMENT MECHANIC) Only the most recent of3 resultswithin the time period is included. LACTIC ACID VENOUS 1.8 0.4 - 2.0 MMOL/L 02/11/2024 9:36 PM GYROSCOPIC INSTRUMENT MECHANIC [facility] 02/11/2024 9:09 PM GYROSCOPIC INSTRUMENT MECHANIC Babita Vasquez MD LABORATORY Final Result Performing Organization Address City/[facility]/ZIP Co de Phone Number [facility] [address] [place] [address], [place] [phone] * (ABNORMAL) URINALYSIS (02/11/2024 5:38 PM GYROSCOPIC INSTRUMENT MECHANIC) COLOR (U) YELLOW 02/11/2024 6:10 PM GYROSCOPIC INSTRUMENT MECHANIC [facility] TRANSPARENCY CLEAR 02/11/2024 6:10 PM GYROSCOPIC INSTRUMENT MECHANIC [facility] SPECIFIC GRAVITY (U) 1.010 1.000 - 1.025 02/11/2024 6:10 PM GYROSCOPIC INSTRUMENT MECHANIC [facility] U PH 5.0 5.0 - 8.0 02/11/2024 6:10 PM GYROSCOPIC INSTRUMENT MECHANIC [facility] LEUKOCYTES (U) NEGATIVE NEGATIVE 02/11/2024 6:10 PM GYROSCOPIC INSTRUMENT MECHANIC [facility] NITRITES NEGATIVE NEGATIVE 02/11/2024 6:10 PM GYROSCOPIC INSTRUMENT MECHANIC [facility] PROTEIN RANDOM (U) NEGATIVE NEGATIVE 02/11/2024 6:10 PM GYROSCOPIC INSTRUMENT MECHANIC [facility] GLUCOSE (U) 2+(A) NEGATIVE 02/11/2024 6:10 PM GYROSCOPIC INSTRUMENT MECHANIC [facility] KETONES MG/DL (U) NEGATIVE NEGATIVE 02/11/2024 6:10 PM GYROSCOPIC INSTRUMENT MECHANIC [facility] UROBILINOGEN 0.2 <1.0 EU/DL 02/11/2024 6:10 PM GYROSCOPIC INSTRUMENT MECHANIC [facility] BILIRUBIN (U) NEGATIVE NEGATIVE 02/11/2024 6:10 PM GYROSCOPIC INSTRUMENT MECHANIC [facility] BLOOD (U) NEGATIVE NEGATIVE 02/11/2024 6:10 PM GYROSCOPIC INSTRUMENT MECHANIC [facility] WBC/HPF 0-5 0 - 5 /HPF 02/11/2024 6:10 PM GYROSCOPIC INSTRUMENT MECHANIC [facility] EPI/LPF FEW /LPF 02/11/2024 6:10 PM GYROSCOPIC INSTRUMENT MECHANIC [facility] BACTERIA (U) TRACE /HPF 02/11/2024 6:10 PM GYROSCOPIC INSTRUMENT MECHANIC [facility] OTHER CASTS (U) HYALINE /LPF 6:10 PM GYROSCOPIC INSTRUMENT MECHANIC [facility] Comment:5-10 BUDDING YEAST PRESENT /HPF 02/11/2024 6:10 PM GYROSCOPIC INSTRUMENT MECHANIC [facility] URINE SPECIMEN OBTAINED BY CLEAN CATCH PROCEDURE / Unknown 02/11/2024 5:38 PM GYROSCOPIC INSTRUMENT MECHANIC us Babita Vasquez MD URINE ORDERABLES Final Result [facility] [address] [place] [id number], * CT HEAD WO CON (02/11/2024 5:27 PM GYROSCOPIC INSTRUMENT MECHANIC) Anatomical Region Laterality Modality Head Computed Tomogra phy 02/11/2024 5:36 PM GYROSCOPIC INSTRUMENT MECHANIC Impressions 02/11/2024 5:41 PM GYROSCOPIC INSTRUMENT MECHANIC IMPRESSION: 1. No definite CT evidence for acute intracranial abnormality. 2. Other chronic or nonurgent findings as described above. Please note that CT has limited sensitivity for the detection of acute ischemia Referred By: Interpreted By: Vazquez Cervantes MD, 02/11/2024 5:36 PM Narrative 02/11/2024 5:41 PM GYROSCOPIC INSTRUMENT MECHANIC [address] [place] [address] EXAMINATION: CT of the head CLINICAL HISTORY: [...] Procedure Note Vazquez Cervantes MD - 02/11/2024 [facility] [address] [address] EXAMINATION: CT of the head CLINICAL HISTORY: [...] XR TIBIA+FIBULA RT 2V (02/11/2024 5:26 PM GYROSCOPIC INSTRUMENT MECHANIC) Anatomical Region Laterality Modality TibFib Radiographic Navya ging 02/11/2024 5:46 PM GYROSCOPIC INSTRUMENT MECHANIC Impressions 02/11/2024 5:51 PM GYROSCOPIC INSTRUMENT MECHANIC IMPRESSION: No acute findings. Referred By: Interpreted By: Vazquez Cervantes MD, 02/11/2024 5:46 PM Narrative 02/11/2024 5:51 PM GYROSCOPIC INSTRUMENT MECHANIC [address] [place] [address] EXAMINATION: XR TIBIA+FIBULA RT 2V HISTORY: Pain [...] Procedure Note Vazquez Cervantes MD - 02/11/[address] [place] [address] EXAMINATION: XR TIBIA+FIBULA RT 2V HISTORY: Pain [...] SHOULDER RT MIN 2V (02/11/2024 5:26 PM GYROSCOPIC INSTRUMENT MECHANIC) Anatomical Region Laterality Modality Shoulder Radiographic Navya ging 02/11/2024 5:43 PM GYROSCOPIC INSTRUMENT MECHANIC Impressions 02/11/2024 5:46 PM GYROSCOPIC INSTRUMENT MECHANIC IMPRESSION: No acute findings. Question possible calcific tendinitis. Referred By: Interpreted By: Vazquez Cervantes MD, 02/11/2024 5:43 PM Narrative 02/11/2024 5:46 PM GYROSCOPIC INSTRUMENT MECHANIC [address] [place] [address] EXAMINATION: XR SHOULDER RT MIN 2V HISTORY: [...] Procedure Note Vazquez Cervantes MD - 02/11/[address] [place] [address] EXAMINATION: XR SHOULDER RT MIN 2V HISTORY: [...] XR HIP RT 2V (02/11/2024 5:26 PM GYROSCOPIC INSTRUMENT MECHANIC) Anatomical Region Laterality Modality Hip Radiographic Navya ging 02/11/2024 5:53 PM GYROSCOPIC INSTRUMENT MECHANIC Impressions 02/11/2024 5:53 PM GYROSCOPIC INSTRUMENT MECHANIC IMPRESSION: No acute findings. Referred By: Interpreted By: Vazquez Cervantes MD, 02/11/2024 5:53 PM Narrative 02/11/2024 5:53 PM GYROSCOPIC INSTRUMENT MECHANIC [address] [place] [address] EXAMINATION: XR HIP RT 2V HISTORY: Pain after fall DATE: 02/11/2024 5:26 PM COMPARISON: None TECHNIQUE: AP and lateral views of the right hip. 2 images. FINDINGS: No acute fracture or dislocation. Mild degenerative change of the hip joint. No destructive bone lesion. Procedure Note Vazquez Cervantes MD - 02/11/[address] [place] [address] EXAMINATION: XR HIP RT 2V HISTORY: Pain [...] XR FOOT RT 3V (02/11/2024 5:26 PM GYROSCOPIC INSTRUMENT MECHANIC) Anatomical Region Laterality Modality Foot Radiographic Navya ging 02/11/2024 5:51 PM GYROSCOPIC INSTRUMENT MECHANIC Impressions 02/11/2024 5:53 PM GYROSCOPIC INSTRUMENT MECHANIC IMPRESSION: 1. No acute fracture identified. 2. New erosions of the first metatarsal head concerning for acute osteomyelitis. Referred By: Interpreted By: Vazquez Cervantes MD, 02/11/2024 5:51 PM Narrative 02/11/2024 5:53 PM GYROSCOPIC INSTRUMENT MECHANIC [place] [address] [place] [address] EXAMINATION: XR FOOT RT 3V HISTORY: Pain [...] Procedure Note Vazquez Cervantes MD - 02/11/[address] [place] [address] EXAMINATION: XR FOOT RT 3V HISTORY: Pain [...] XR FEMUR RT 2V (02/11/2024 5:26 PM GYROSCOPIC INSTRUMENT MECHANIC) Anatomical Region Laterality Modality Femur Radiographic Navya ging 02/11/2024 5:54 PM GYROSCOPIC INSTRUMENT MECHANIC Impressions 02/11/2024 5:56 PM GYROSCOPIC INSTRUMENT MECHANIC IMPRESSION: No acute findings. Referred By: Interpreted By: Vazquez Cervantes MD, 02/11/2024 5:54 PM Narrative 02/11/2024 5:56 PM GYROSCOPIC INSTRUMENT MECHANIC [address] [place] [address] EXAMINATION: XR FEMUR RT 2V HISTORY: Pain [...] Procedure Note Vazquez Cervantes MD - 02/11/[address] [place] [address] EXAMINATION: XR FEMUR RT 2V HISTORY: Pain [...] (ABNORMAL) Blood gas, venous (02/11/2024 4:21 PM GYROSCOPIC INSTRUMENT MECHANIC) PH VENOUS 7.43 7.32 - 7.43 02/11/2024 4:38 PM GYROSCOPIC INSTRUMENT MECHANIC [facility] PCO2 VENOUS 46.0 MMHG 02/11/2024 4:38 PM GYROSCOPIC INSTRUMENT MECHANIC [facility] Comment:NO REFERENCE RANGE H BEEN ESTABLISHED PO2 VENOUS 49.0 MM HG 02/11/2024 4:38 PM [facility] Comment:NO REFERENCE RANGE H BEEN ESTABLISHED TOTAL CO2 VENOUS 31.9(H) 22.0 - 26.0 MMOL/L 02/11/2024 4:38 PM GYROSCOPIC INSTRUMENT MECHANIC [facility] BASE EXCESS VENOUS 5.3 MMOL/L 02/11/2024 4:38 PM [facility] Comment:NO REFERENCE RANGE H BEEN ESTABLISHED O2 SAT VENOUS 85 % 02/11/2024 4:38 PM [facility] Comment:NO REFERENCE RANGE H BEEN ESTABLISHED BICARB VENOUS 30.5(H) 22.0 - 29.0 MMOL/L 02/11/2024 4:38 PM GYROSCOPIC INSTRUMENT MECHANIC [facility] O2 ADMIN VENOUS AIR 4:30 PM GYROSCOPIC INSTRUMENT MECHANIC [facility] 02/11/2024 4:21 PM GYROSCOPIC INSTRUMENT MECHANIC us Babita Vasquez MD LABORATORY Final Result Performing Organization Address City/[facility]/ZIP Co de Phone Number [facility] [address] [place] [address], [place] [phone] * PARTIAL THROMBOPLASTIN TIME,PTT (02/11/2024 4:21 PM GYROSCOPIC INSTRUMENT MECHANIC) PTT 27.4 25.1 - 36.5 SEC 02/11/2024 4:43 PM GYROSCOPIC INSTRUMENT MECHANIC [facility] Comment:THERAPEUTIC RANGE: 4 6.2-77.0 SEC 02/11/2024 4:21 PM GYROSCOPIC INSTRUMENT MECHANIC us Babita Vasquez MD LABORATORY Final Result Performing Organization Address [facility]/ZIP Co de Phone Number [facility] [address] [place] [address], [place] [phone] * (ABNORMAL) SED RATE, ERYTHROCYTE (ESR) (02/11/2024 4:21 PM GYROSCOPIC INSTRUMENT MECHANIC) ESR 60(H) 0 - 20 MM/HR 02/11/2024 5:03 PM GYROSCOPIC INSTRUMENT MECHANIC [facility] 02/11/2024 4:21 PM GYROSCOPIC INSTRUMENT MECHANIC us Babita Vasquez MD LABORATORY Final Result Performing Organization Address City/[facility]/ZIP Co de Phone Number [facility] [address] [place] [address], [place] [phone] * PROTIME/INR, VENOUS (02/11/2024 4:21 PM GYROSCOPIC INSTRUMENT MECHANIC) PROTIME 10.9 9.4 - 12.5 SEC 02/11/2024 4:43 PM GYROSCOPIC INSTRUMENT MECHANIC [facility] INR 1.0 0.8 - 1.0 02/11/2024 4:43 PM GYROSCOPIC INSTRUMENT MECHANIC [facility] 02/11/2024 4:21 PM GYROSCOPIC INSTRUMENT MECHANIC us Babita Vasquez MD LABORATORY Final Result Performing Organization Address [facility] [place] [address], * (ABNORMAL) C-REACTIVE PROTEIN (02/11/2024 4:21 PM GYROSCOPIC INSTRUMENT MECHANIC) C-REACTIVE PROTEIN 2.20(H) <0.30 mg/dL 02/11/2024 5:01 PM GYROSCOPIC INSTRUMENT MECHANIC [facility] 02/11/2024 4:21 PM GYROSCOPIC INSTRUMENT MECHANIC us Babita Vasquez MD LABORATORY Final Result Performing Organization Address [facility] de Phone Number [facility] [address] [place] [address], * ECG 12 lead (02/11/2024 4:16 PM GYROSCOPIC INSTRUMENT MECHANIC) 02/11/2024 4:16 PM GYROSCOPIC INSTRUMENT MECHANIC Narrative [facility] - 02/11/2024 6:37 PM GYROSCOPIC INSTRUMENT MECHANIC [address] [place] [place] [address] Test Date: 2024-02-11 Pat Name: SENA YO Department: 3 Room: [place] [address] Gender: Female 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: : 1960 Requested By: BABITA VASQUEZ Order Number: [id number] Reading MD: Sona Cuevas Measurements Intervals [place] Rate: 78 P: 53 IA: 172 QRS: 34 QRSD: 100 T: 75 QT: 380 QTc: 434 Interpretive Statements SINUS RHYTHM LOW QRS VOLTAGE IN PRECORDIAL LEADS NONSPECIFIC T-WAVE ABNORMALITY SCOPIC INSTRUMENT MECHANIC us Babita Vasquez MD ECG ORDERABLES Final Result [facility] * (ABNORMAL) LIPID PANEL (06/27/2023 5:16 AM CDT) CHOLESTEROL 135 MG/DL 06/27/2023 11:59 AM CDT [facility] Comment:DESIRABLE: <200 TRIGLYCERIDES 192 MG/DL 06/27/2023 11:59 AM CDT [facility] Comment:150-199 BORDERLINE H IGH HDL 38(L) >49 MG/DL 06/27/2023 11:59 AM CDT [facility] LDL-C 59 MG/DL 06/27/2023 11:59 AM CDT [facility] Comment:<100 OPTIMAL VLDL CALCULATION 38 MG/DL 06/27/19 11:59 AM CDT [facility] Comment:REFERENCE RANGE NOT ESTABLISHED CHOL/HDL RATIO 3.6 06/27/2023 11:59 AM CDT [facility] Comment:REFERENCE RANGE NOT ESTABLISHED LDL/HDL 1.5 06/27/2023 11:59 AM CDT [facility] Comment:REFERENCE RANGE NOT ESTABLISHED NON HDL CHOLESTEROL 97 MG/DL 06/27/2023 11:59 AM CDT [facility] Comment:REFERENCE RANGE NOT ESTABLISHED 06/27/2023 5:16 AM CDT Stephanie Coughlin MD LABORATORY Final Result [facility] [address] [place] [address], [phone] from Last 3 Months or Most Recently [...] 1:31 PM 07/27/2023 10:59 AM Care Teams Customs Entry Clerk Relationship Specialty Start Date End Date Hazel Bryant APNP [address] [facility] [id number] [address] PCP - General FAMILY PRACTICE 01/22/24 Kathryn Kim NP [address] [facility] [address] [place] [address] NURSE PRACTITIONER 08/03/21 Alexa Quiles NP [address] [place] [address] WOUND CARE 07/11/23 07/10/24 Edi Olvera DPM [address] [place] [address] [place] [address] Consulting Physician PODIATRY/SURGERY 11/20/23 Nelson Ogden MD [address] [place] [address] Consulting Physician INTERNAL MEDICINE 12/17/23
--- OUTSIDE RECORDS SUMMARY | 2024-05-12 06:43 | XMS_ITS | Encounter Summary ---
Author Organization [facility] Address [facility] [place] [address] Care Team Providers Care Internet Network Specialist Name Role Phone Kathryn Kim POWER SUPPLY ENGINEER Unavailable [phone] Kathryn Kim POWER SUPPLY ENGINEER Unavailable [phone] Kathryn Kim NP Primary Care Provider [phone] Alexa Quiles POWER SUPPLY ENGINEER Unavailable [phone] Ashley Coello Primary Care Provider [phone] Edi Olvera DPM Unavailable [phone] Nelson Ogden MD Unavailable Hazel Bryant Primary Care Provider [phone] Reason for Visit * Reason Onset Date Comments Follow Up Call 10/04/2021 Encounter Details Date Type Department Care Team (Late st Contact Info) Description 10/04/2021 Hospital Follow-up Call [facility] [address] [place] [address] Gwen Portillo, RN Follow Up Call Social [...] PM CDT 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 Gender Identity Female 01/17/2024 1:34 PM CDT [...] Rule Out 03/23/2023 03/23/2023 03/23/2023 11:21 AM CAR BUILDER COVID-19 Rule Out 06/22/2023 06/22/2023 06/22/2023 12:31 PM CDT documented as of this encounter Care Teams Internet Network Specialist Relationship Specialty Start Date End Date Kathryn Kim NP [address] [address] PCP - General NURSE PRACTITIONER 09/29/21 08/21/23 Ashley Coello PA [address] [address] PCP - General PHYSICIAN SMOKE TESTER 08/22/23 01/21/24 Hazel Bryant APNP [address] [facility] [id number] [address] PCP - General FAMILY PRACTICE 01/22/24 Kathryn Kim NP [address] [address] NURSE PRACTITIONER 08/03/21 Kathryn Kim NP [address] [address] NURSE PRACTITIONER 08/03/21 12/16/23 Alexa Quiles NP [address] [place] [address] WOUND CARE 07/11/23 07/10/24 Edi Olvera DPM [address] [place] [address] Consulting Physician PODIATRY/SURGERY 11/20/23 Nelson Ogden MD [address] [place] [address] Consulting Physician INTERNAL MEDICINE 12/17/23 documented as of this encounter
--- OUTSIDE RECORDS SUMMARY | 2024-05-12 06:43 | XMS_ITS | CONTINUITY OF CARE DOCUMENT ---
Author Name nick romero Address Unknown Organization [facility] Address [address] [place] [address] Phone [phone] Care Team Providers Care Assistant Program Manager Name Role Phone Gaetano Hung MD Unavailable [phone] INSURANCE PROVIDERS Payer name Policy type / Coverage type [place] republic[place] [employer] Medicare [id number]
--- OUTSIDE RECORDS SUMMARY | 2024-05-12 06:43 | XMS_ITS | Referral Summary ---
Author Organization [facility] Address [address] [place] [address] Care Team Providers Care Mercantile Agent Name Role Phone Denis Flores MD Primary Care Provider [phone] Source Comments [facility],non-owned Affiliates and Associated Physician Practices is amultiple site organization consisting of ambulatory clinics and hospital sitesin [place], [place], [place] and [place]. This disclosure is being madepursuant to the Care Everywhere program and may not contain all information available regarding this patient. Last updated 17.[facility] Allergies Active Allergy Reactions Criticality Noted Date Comments Morphine Urticaria High 07/11/2008 Vhmdbdjk-Kehiepebar-Vcnyhoavm Rash 2008 hives Medications * Be aware [...] of Treatment Not on file Care Teams Mercantile Agent Relationship Specialty Start Date End Date Denis Flores MD [address] [place] [address] PCP - General 07/11/08
--- OUTSIDE RECORDS SUMMARY | 2024-05-12 06:43 | XMS_ITS | Clinical Summary ---
Author Organization [facility] Address [address] [place] [address] Care Team Providers Care Supervisor Hand Workers Name Role Phone Denis Flores MD Primary Care Provider [phone] Source Comments [facility],non-owned Affiliates and Associated Physician Practices is amultiple site organization consisting of ambulatory clinics and hospital sitesin [place], [place], [place] and [place]. This disclosure is being madepursuant to the Care Everywhere program and may not contain all information available regarding this patient. Last updated 17.[facility] Allergies Active Allergy Reactions Criticality Noted Date Comments Morphine Urticaria High 07/11/2008 Neyosgzh-Vctrjolwwh-Yaxmstnvk Rash 2008 hives Medications * Be aware [...] age to complete this topic Care Teams Supervisor Hand Workers Relationship Specialty Start Date End Date Denis Flores [facility] [address] [facility] [address] PCP - General 07/11/08
--- OUTSIDE RECORDS SUMMARY | 2024-05-12 06:43 | XMS_ITS | Encounter Summary ---
Author Organization [facility] Address [address] [place] [address] Care Team Providers Care Service Desk Agent Name Role Phone Kathryn Kim OVEN DAUBER Unavailable [phone] Kathryn Kim OVEN DAUBER Unavailable [phone] Kathryn Kim NP Primary Care Provider [phone] Alexa Quiels OVEN DAUBER Unavailable [phone] Ashley Coello Primary Care Provider [phone] Edi Olvera DPM Unavailable [phone] Nelson Ogden MD Unavailable Hazel Bryant Primary Care Provider [phone] Encounter Details Date Type Department Care Team (Late st Contact Info) Description 08/04/2021 [facility] [address] [place] [address] [phone] Matt Slade MD Social History Tobacco Use [...] PM CDT 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 Gender Identity Female 01/17/2024 1:34 PM CDT [...] Rule Out 03/23/2023 03/23/2023 03/23/2023 11:21 AM CASTING AND PASTING SUPERVISOR COVID-19 Rule Out 06/22/2023 06/22/2023 06/22/2023 12:31 PM CDT documented as of this encounter Care Teams Service Desk Agent Relationship Specialty Start Date End Date Kathryn Kim NP [address] [place] [address] PCP - General NURSE PRACTITIONER 09/29/21 08/21/23 Ashley Coello PA [address] [place] [id number] PCP - General PHYSICIAN AQUATIC ECOLOGIST 08/22/23 01/21/24 Hazel Bryant APNP [address] [facility] [id number] [place] [address] PCP - General FAMILY PRACTICE 01/22/24 Kathryn Kim NP [address] [facility] [address] [place] [id number] NURSE PRACTITIONER 08/03/21 Kathryn Kim NP [address] [address] [place] [address] NURSE PRACTITIONER 08/03/21 12/16/23 Alexa Quiles NP [address] [place] [address] WOUND CARE 07/11/23 07/10/24 Edi Olvera DPM [address] [place], [place] [address] [address] Consulting Physician PODIATRY/SURGERY 11/20/23 Nelson Ogden MD [address] [place] [address] Consulting Physician INTERNAL MEDICINE 12/17/23 documented as of this encounter
--- OUTSIDE RECORDS SUMMARY | 2024-05-12 06:43 | XMS_ITS | Patient Health Summary ---
Author Organization [facility] Address [address] [facility] [address] Care Team Providers Care Launderette Attendant Name Role Phone Denis Flores MD Primary Care Provider [phone] Note from [facility],non-owned Affiliates and Associated Physician Practices is amultiple site organization consisting of ambulatory clinics and hospital sitesin [place], [place], [place] and [place]. This disclosure is being madepursuant to the Care Everywhere program and may not contain all information available regarding this patient. Last updated 17.[facility] Allergies * Morphine(Urticaria) -High Criticality * Yozorgsa-Tjhupcugfa-Uoxwojrxt(Rash) Medications * Be aware that medications may [...] CDT) CK 109 30 - 135 U/L [facility] CK-MB 2.00 SEE BELOW ng/dl [facility] Comment: <5.10 Negative 5.10-10.0 Intermediate >10.0 Positive Troponin I <0.200 0.00 - 1.00 ng/ml [facility] Interpretation Troponin [facility] Comment: Diagnostic cutoff for the AMI [...] - CHEMISTRY ORD ERABLES Performing Organization Address [facility] de Phone Number [facility] [address] [place] [address] * (ABNORMAL) PTT (07/11/2008 8:19 PM CDT) PTT 24.2(L) 26.0 - 32.8 seconds [facility] BLOOD SPECIMEN / Unknown 07/11/2008 8:19 PM CDT 07/11/2008 8:19 PM CDT Heike Mcintosh MD LAB - COAGULATION O RDERABLES Performing Organization Address [facility] de Phone Number [facility] [address] [place] [address] * PT-INR (07/11/2008 8:19 PM CDT) Pathologist [facility] PT 9.9 9.4 - 11.4 seconds [facility] INR 0.93 SEE BELOW [facility] Comment: 0.92-1.12 Normal 2.0-3.0 Therapeutic Low Risk 2.5-3.5 Therapeutic High Risk BLOOD SPECIMEN / Unknown 07/11/2008 8:19 PM CDT 07/11/2008 8:19 PM CDT Heike Mcintosh MD LAB - COAGULATION O RDERABLES Performing Organization Address [facility] de Phone Number [facility] [address] [place] [address] * (ABNORMAL) CBC W AUTO DIFFERENTIAL (07/11/2008 8:19 PM CDT) WBC 5.90 4.0 - 11.0 X(10)3/L [facility] RBC 5.04 3.8 - 5.3 X(10)6 [facility] Hemoglobin 14.9 12.0 - 16.0 gm/dl [facility] Hematocrit 43.1 36 - 47 % [facility] MCV 85.5 80.0 - 99.0 fl [facility] MCH 29.6 26 - 34 pg [facility] MCHC 34.6 32.0 - 37.0 gm/dl [facility] RDW 13.3 11.5 - 14.5 % [facility] Platelet Count 202 150 - 400 K/CUMM [facility] MPV 10.9 9.2 - 12.2 fl [facility] Granulocytes % 46.1 43 - 70 % [facility] Granulocytes Absolute 2.72 1.7 - 6.7 X(10)3 [facility] Lymphocytes % 46.1(H) 22 - 41 % [facility] Lymphocytes Absolute 2.72 0.9 - 3.2 X(10)3 [facility] Monocytes % 5.4 2.0 - 11.0 % [facility] Monocytes Absolute 0.32 0.2 - 0.9 X(10)3 [facility] Eosinophils % 2.2 0.0 - 5.0 % [facility] Eosinophils Absolute 0.13 0.0 - 0.4 X(10)3 [facility] Basophils % 0.2 0 - 2 % [facility] Basophils Absolute 0.01 0.0 - 0.2 X(10)3 [facility] Comment Manual Diff Manual Diff Not Indicated [facility] BLOOD SPECIMEN / Unknown 07/11/2008 8:19 PM CDT 07/11/2008 8:19 PM CDT Heike Mcintosh MD LAB - HEMATOLOGY OR DERABLES Performing Organization Address City/State/[facility] Co de Phone Number [facility] [address] [facility] [facility] [address] * B-TYPE NATRIURETIC PEPTIDE (07/11/2008 8:19 PM CDT) BNP 5.9 0.0 - 99.9 pg/ml [facility] Interpretation BNP S [facility] Comment: A cutoff of [...] PM CDT 07/11/2008 8:20 PM CDT Narrative [facility] - 07/11/2008 9:12 PM CDT Difficult patient Heike Mcintosh MD LAB - CHEMISTRY ORD ERABLES Performing Organization Address City/[facility] Co de Phone Number [facility] [address] [place] [address] * (ABNORMAL) COMPREHENSIVE METABOLIC PANEL (07/11/2008 8:19 PM CDT) Glucose 133(H) 65 - 105 mg/dl [facility] BUN 7 7 - 17 mg/dl [facility] Creatinine 0.8 0.7 - 1.2 mg/dl [facility] Sodium 144 137 - 145 mmol/L [facility] Potassium 3.5(L) 3.6 - 5.0 mmol/L [facility] Chloride 101 98 - 107 mmol/L [facility] CO2 26 22 - 30 mmol/L [facility] Calcium 8.9 8.4 - 10.2 mg/dl [facility] Bilirubin Total 0.3 0.2 - 1.3 mg/dl [facility] Alkaline Phosphatase 95 38 - 126 U/L [facility] AST 32 14 - 36 U/L [facility] ALT 25 9 - 52 U/L [facility] Protein Total 7.5 6.3 - 8.2 gm/dl [facility] Albumin 4.3 3.5 - 5.0 gm/dl [facility] BLOOD SPECIMEN / Unknown 07/11/2008 8:19 PM CDT 07/11/2008 8:19 PM CDT Heike Mcintosh MD LAB - CHEMISTRY ORD ERABLES Performing Organization Address City/[facility] Co de Phone Number [facility] [address] [place] [address] * AMYLASE BLOOD (07/11/2008 8:19 PM CDT) Amylase 33 30.0 - 110.0 U/L [facility] BLOOD SPECIMEN / Unknown 07/11/2008 8:19 PM CDT 07/11/2008 8:19 PM CDT Heike Mcintosh MD LAB - CHEMISTRY ORD ERABLES Performing Organization Address City/[facility] Co de Phone Number [facility] [address] [place] [address] * LIPASE BLOOD (07/11/2008 8:18 PM CDT) Lipase 115 23 - 208 U/L [facility] BLOOD SPECIMEN / Unknown 07/11/2008 8:18 PM CDT 07/11/2008 8:18 PM CDT Heike Mcintosh MD LAB - CHEMISTRY ORD ERABLES Performing Organization Address [facility] Co de Phone Number [facility] [place] [address] Care Teams Launderette Attendant Relationship Specialty Start Date End Date Denis Flores MD [address] [place] [address] PCP - General 07/11/08
[2024-05-12] MEDS: DEXTROSE 50% 25 GM/50 ML SYRINGE IV PUSH ×2 (08:01→17:03)
[2024-05-12 08:02] LABS: Basophils Percent Auto 0.6 % (0.2-1.2); Eosinophils Percent Auto 0.6 % (0-4.4); Hematocrit 43.1 % (37.0-47.0); Hemoglobin 13.7 g/dL (12.0-15.0); Immature Granulocyte Absolute 0.02 K/mm3 (0.00-0.031); Immature Granulocyte Percent A 0.6 % (0-0.5); Lymphocytes Absolute Auto 1.22 K/mm3 (0.9-3.2); Lymphocytes Percent Auto 35.9 % (18.3-44.2); Mean Corpuscular HGB Conc 31.8 g/dl (32-36); Mean Corpuscular Hemoglobin 26.4 pg (26-34); Mean Corpuscular Volume 83.2 fl (80-100); Mean Platelet Volume 10.2 fl (7.4-10.4); Monocytes Absolute Auto 0.4 K/mm3 (0.1-0.6); Monocytes Percent Auto 12.1 % (2.6-8.5); Neutrophils Absolute Auto 1.7 K/mm3 (1.3-6.7); Neutrophils Percent Auto 50.2 % (45.5-73.1); Platelet Count Result 120 k/mm3 (150-375); Red Blood Count 5.18 M/mm3 (4.2-5.4); White Blood Count 3.4 K/mm3 (4.5-10.0)
[2024-05-12 08:16] LABS: Glucose Point of Care 56 mg/dl (65-105)
[2024-05-12 08:30] LABS: Anion Gap 6 mmol/L (4-12); Blood Urea Nitrogen 10 mg/dL (7-17); Carbon Dioxide 27 mmol/L (22-30); Chloride 103 mmol/L (98-107); Estimated CRCL calculation 113 ml/min; Estimated Glomerular Filt Rate > 60; Glucose 60 mg/dL (65-110); Potassium 3.6 mmol/L (3.4-5.0); Sodium 136 mmol/L (137-145)
--- NOTE | 2024-05-12 08:44 | P.PNIM_ITS ---
Progress Note: A&P Assessment and Plan (1) Hypertension: Code(s): I10 - Essential (primary) hypertension Status: Acute (2) Type 2 diabetes mellitus: Qualifiers: Diabetes mellitus complication status: with hyperglycemia Diabetes mellitus mcc insulin use: without mcc use Qualified Code(s): E11.65 - Type 2 diabetes mellitus with hyperglycemia Code(s): E11.9 - Type 2 diabetes mellitus without complications Status: Acute (3) Abdominal pain: Code(s): R10.9 - Unspecified abdominal pain Status: Acute (4) Asthma: Code(s): J45.909 - Unspecified asthma, uncomplicated Status: Acute Plan (1) Type 2 diabetes mellitus: Qualifiers: 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 Patient out of glipizide for the past 2 weeks. Initially treatment of hyperglycemia with 3L bolus of LR and Novolog 10u SQ 490 -> 494 hypoglycemia protocol - POC blood glucose ACHS - home medication: hold glipizide - add Lantus 28u HS and NPH 14 units BIDAC - correct regimen ordered - high dose TIDWM and HS, based off BMI - A1C 12.2% on 05/08/2024 - wellness educator consulted - dietitian consulted 05/09/2024 Patient sugar is improving. Plan is to continue current treatment. Diabetic teaching dietitian consult. 05/10 Glucose is not controlled in the target range Changed to Lantus 20 units b.i.d., discontinue NPH Start aspart 6 unit a.c. 05/11: Glucose controlled in target range, glucose between 125 to 136. Patient has a poor oral intake, decrease Lantus to 20 units b.i.d. I support friend a.c. and continue sliding scale 05/12; pt had hypokalemia Start glipizide, changed to Lantus 10 units b.i.d., hold aspart 4 unit before each meal, continue low-dose sliding scale Hypoglycemia protocol is initiated (2) Hypertension: Code(s): I10 - Essential (primary) hypertension Status: Acute Assessment and Plan: Stable Continue lisinopril 10 mg daily p.o. (3) Asthma: Code(s): J45.909 - Unspecified asthma, uncomplicated Status: Acute Assessment and Plan: Stable on current medications, will continue current treatment. Plan Patient has chronic wound to left medial foot post-bunion removal. Wound has been present since June of 2023. Wound RN consulted. Diet: Diabetic GI Prophylaxis: Not currently indicated DVT Prophylaxis: SCDs Lines: Peripheral Code Status: Full code Subjective Date/time seen: 05/12/24 08:44 Interval history: Patient feels better today. Has has a poor appetite today, and general weakness, denies abdomen pain nausea vomiting. Patient has poor intake, patient had hypoglycemia in the morning Exam Narrative: GENERAL: Pleasant, in no acute distress. Well-nourished. - EYES: EOMI. Anicteric. - HENT: Moist mucous membranes. - LUNGS: Clear to auscultation bilateral ly, no wheezing, rhonchi, or rales. - CARDIOVASCULAR: Regular rate and rhyth m. No murmur. No JVD. - ABDOMEN: Soft, non-tender and non-dist ended. No palpable masses. - EXTREMITIES: No edema. Peripheral puls es 2+. Non-tender. - NEUROLOGIC: No focal neurological defi cits. CN II-XII grossly intact. - PSYCHIATRIC: Awake, Alert and oriented x 3. Appropriate mood and affect. - SKIN: chronic wound to left medial denilson t post-bunion removal. - LYMPH: No cervical lymphadenopathy. Objective Data Vital Signs Vital Signs: Vital Signs - 24 hr 05/11/24 08:46 05/11/24 15:47 05/11/24 20:00 Temperature 99.4 F Pulse Rate 88 73 Respiratory Rate 16 Blood Pressure 145/53 H Pulse Oximetry 97 Oxygen Delivery Room Air 05/11/24 22:00 05/12/24 06:00 Temperature 98.4 F 97.4 F L Pulse Rate 65 65 Respiratory Rate 18 18 Blood Pressure 151/97 H 129/32 L Pulse Oximetry 94 90 Oxygen Delivery Intake/Output Intake/Output: Intake & Output 05/09/24 05/10/24 05/11/24 05/12/24 23:59 23:59 23:59 23:59 Intake Total 1370 2340 970 Output Total 0 Balance 1370 2340 970 Meds/Results Medications: Active Medications Generic Name Dose Route Start Last Admin Trade Name Freq PRN Reason Stop Dose Admin Acetaminophen 650 mg 05/08/24 17:59 05/12/24 04:56 Acetaminophen 325 Mg Tablet PO 650 mg Q4H PRN Administration Mild Pain (1-3) or Fever Albuterol 2 puff 05/09/24 09:22 05/10/24 15:30 Albuterol Sulfate (*Sp) Aerosol 1 Puff INHALATION 2 puff Q6H PRN Administration Shortness Of Breath Alprazolam 0.5 mg 05/10/24 17:34 Alprazolam (*Crx) 0.5 Mg Tablet PO TID PRN Anxiety Artificial Tears 1 drop 05/09/24 09:22 05/09/24 10:18 Artificial Tears Ophth Soln 15 Ml Bottle EACH EYE 1 drop PRN PRN Administration as needed Dextrose 12.5 gm 05/08/24 18:15 05/12/24 08:01 Dextrose 50% 25 Gm/50 Ml Syringe IV PUSH 12.5 gm PRN PRN Administration Hypoglycemia Protocol Enoxaparin Sodium 40 mg 05/09/24 09:30 05/11/24 15:02 Enoxaparin 40 Mg/0.4 Ml Syringe SUB-Q 40 mg DAILY MILA Administration Gabapentin 300 mg 05/09/24 21:00 05/11/24 21:13 Gabapentin 300 Mg Capsule PO 300 mg HS MILA Administration Glipizide 10 mg 05/09/24 09:40 05/12/24 05:29 Glipizide Xl 5 Mg Tabcr PO 10 mg DAILY@0630 MILA Administration Glucagon 1 mg 05/08/24 18:15 Glucagon For Inj 1 Mg Vial IM PRN PRN Hypoglycemia Protocol Glucose 15 gm 05/08/24 18:15 05/11/24 17:26 Glucose Oral Gel 15 Gm Of Glucse In 37.5 Gm Tube PO 15 gm PRN PRN Administration Hypoglycemia Protocol Guaifenesin/Dextromethorphan 10 ml 05/10/24 15:20 05/10/24 15:47 Guaifenesin/Dextromethorphan 10 Ml Udc PO 10 ml Q6HR PRN Administration Cough Dextrose 1,000 mls @ 100 mls/hr 05/08/24 18:15 05/11/24 17:22 Dextrose 5% 1,000 Ml IVPB 100 mls/hr PRN PRN Administration Hypoglycemia Protocol Insulin Aspart 4 - 8 units 05/09/24 08:00 05/12/24 08:11 Insulin Aspart (*Bkc) 100 Units/Ml SUB-Q Not Given TIDWM [facility] Protocol Insulin Aspart 2 - 4 units 05/08/24 21:00 05/11/24 22:11 Insulin Aspart (*Bkc) 100 Units/Ml SUB-Q Not Given HS [facility] Protocol Insulin Aspart 4 units 05/11/24 17:00 05/11/24 17:23 Insulin Aspart (*Bkc) 100 Units/Ml SUB-Q Not Given TIDWM [facility] Insulin Glargine 20 units 05/11/24 17:00 05/11/24 17:23 Insulin Glargine (*Bkc) 100 Units/Ml SUB-Q Not Given BID [facility] Ketorolac Tromethamine 15 mg 05/09/24 17:41 05/11/24 15:02 Ketorolac 15 Mg/Ml Vial (*Bkc) IV PUSH 15 mg Q6H PRN Administration Pain Rated 4-6 Lisinopril 10 mg 05/09/24 09:40 05/11/24 08:47 Lisinopril 10 Mg Tablet PO 10 mg DAILY [facility] Administration Ondansetron HCl 4 mg 05/08/24 17:59 05/10/24 15:50 Ondansetron Inj 4 Mg/2 Ml Vial IV PUSH 4 mg Q4H PRN Administration Nausea Propranolol HCl 30 mg 05/09/24 09:40 05/11/24 21:13 Propranolol Hcl 10 Mg Tablet PO 30 mg Q12HR MILA Administration Rosuvastatin Calcium 20 mg 05/09/24 09:40 05/11/24 08:47 Rosuvastatin 20 Mg Tablet PO 20 mg DAILY [facility] Administration Venlafaxine HCl 150 mg 05/09/24 09:40 05/11/24 08:47 Venlafaxine Hcl Xr 75 Mg Cap.Er.24h PO 150 mg DAILY [facility] Administration Radiology Results: ITS Impressions Foot X-Ray 05/08/24 14:37 IMPRESSION: 1. 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 Abdomen/Pelvis CT 05/08/24 16:06 IMPRESSION: 1. No acute intra-abdominal/pelvic process. 2. Small fat-containing umbilical and left inguinal hernias. Labs Labs: Laboratory Results - last 24 hr 05/11/24 05/11/24 05/11/24 11:53 17:12 17:46 WBC RBC Hgb Hct MCV MCH MCHC RDW Plt Count MPV Immature Gran % (Auto) Neut % (Auto) Lymph % (Auto) [place] % (Auto) Eos % (Auto) Baso % (Auto) Lymph # (Auto) [place] # (Auto) Eos # (Auto) Baso # (Auto) Abs Immat Gran (auto) Absolute Neuts (auto) Absolute Nucleated RBC Nucleated RBC % Sodium Potassium Chloride Carbon Dioxide Anion Gap BUN Creatinine Estim Creat Clear Calc Estimated GFR Glucose POC Capillary Glucose 109 H 63 L 119 H Calcium 05/11/24 05/12/24 05/12/24 21:51 07:50 07:55 WBC 3.4 L RBC 5.18 Hgb 13.7 Hct 43.1 MCV 83.2 MCH 26.4 MCHC 31.8 L RDW 15.0 H Plt Count 120 L MPV 10.2 Immature Gran % (Auto) 0.6 H Neut % (Auto) 50.2 Lymph % (Auto) 35.9 [place] % (Auto) 12.1 H Eos % (Auto) 0.6 Baso % (Auto) 0.6 Lymph # (Auto) 1.22 [place] # (Auto) 0.4 Eos # (Auto) 0.0 Baso # (Auto) 0.0 Abs Immat Gran (auto) 0.02 Absolute Neuts (auto) 1.7 Absolute Nucleated RBC 0.000 Nucleated RBC % 0.0 Sodium 136 L Potassium 3.6 Chloride 103 Carbon Dioxide 27 Anion Gap 6 BUN 10 Creatinine 0.66 L Estim Creat Clear Calc 113 Estimated GFR > 60 Glucose 60 L POC Capillary Glucose 107 H 56 L* Calcium 8.0 L
[2024-05-12 09:16] VITALS: PULSE 60
[2024-05-12] MEDS: PROPRANOLOL HCL 10 MG TABLET 30 MG PO ×2 (09:16→21:27)
[2024-05-12] MEDS: ROSUVASTATIN 20 MG TABLET PO (09:17)
[2024-05-12] MEDS: VENLAFAXINE HCL XR 75 MG CAP.ER.24H 150 MG PO (09:17)
[2024-05-12] MEDS: lisinopriL 10 MG TABLET PO (09:17)
[2024-05-12] MEDS: ENOXAPARIN 40 MG/0.4 ML SYRINGE SUB-Q (09:17)
[2024-05-12 09:21] LABS: Glucose Point of Care 140 mg/dl (65-105)
[2024-05-12 11:27] LABS: Glucose Point of Care 95 mg/dl (65-105)
[2024-05-12 14:00] VITALS: BP 115/49; PULSE 63; RESP 18; TEMP 37.9; O2SAT 90
[2024-05-12] MEDS: KETOROLAC 15 MG/ML VIAL (*BKC) IV PUSH (14:16)
[2024-05-12 16:46] LABS: Glucose Point of Care 62 mg/dl (65-105)
[2024-05-12 18:07] LABS: Glucose Point of Care 92 mg/dl (65-105)
[2024-05-12] MEDS: GABAPENTIN 300 MG CAPSULE PO (21:27)
[2024-05-12 22:00] VITALS: BP 111/78; PULSE 62; RESP 16; TEMP 36.9; O2SAT 92
[2024-05-13 01:35] LABS: Glucose Point of Care 203 mg/dl (65-105)
[2024-05-13 05:04] VITALS: BP 129/50; PULSE 60; RESP 16; TEMP 37.1; O2SAT 94
[2024-05-13 07:58] LABS: Glucose Point of Care 125 mg/dl (65-105)
[2024-05-13 08:02] LABS: Glucose Point of Care 73 mg/dl (65-105)
[2024-05-13] MEDS: VENLAFAXINE HCL XR 75 MG CAP.ER.24H 150 MG PO (08:55)
[2024-05-13 08:56] VITALS: PULSE 60
[2024-05-13] MEDS: lisinopriL 10 MG TABLET PO (08:56)
[2024-05-13] MEDS: LORATADINE 10 MG TABLET PO (08:56)
[2024-05-13] MEDS: PROPRANOLOL HCL 10 MG TABLET 30 MG PO (08:56)
[2024-05-13] MEDS: ROSUVASTATIN 20 MG TABLET PO (08:57)
--- NOTE | 2024-05-13 11:40 | P.PNIM_ITS ---
Progress Note: A&P Assessment and Plan (1) Hypertension: Code(s): I10 - Essential (primary) hypertension Status: Acute (2) Type 2 diabetes mellitus: Qualifiers: Diabetes mellitus complication status: with hyperglycemia Diabetes mellitus care home insulin use: without care home use Qualified Code(s): E11.65 - Type 2 diabetes mellitus with hyperglycemia Code(s): E11.9 - Type 2 diabetes mellitus without complications Status: Acute (3) Abdominal pain: Code(s): R10.9 - Unspecified abdominal pain Status: Acute (4) Asthma: Code(s): J45.909 - Unspecified asthma, uncomplicated Status: Acute Plan (1) Type 2 diabetes mellitus: Qualifiers: 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 Patient out of glipizide for the past 2 weeks. Initially treatment of hyperglycemia with 3L bolus of LR and Novolog 10u SQ 490 -> 494 hypoglycemia protocol - POC blood glucose ACHS - home medication: hold glipizide - add Lantus 28u HS and NPH 14 units BIDAC - correct regimen ordered - high dose TIDWM and HS, based off BMI - A1C 12.2% on 05/08/2024 - natural resources extension educator consulted - dietitian consulted 05/09/2024 Patient sugar is improving. Plan is to continue current treatment. Diabetic teaching dietitian consult. 05/10 Glucose is not controlled in the target range Changed to Lantus 20 units b.i.d., discontinue NPH Start aspart 6 unit a.c. 05/11: Glucose controlled in target range, glucose between 125 to 136. Patient has a poor oral intake, decrease Lantus to 20 units b.i.d. I support friend a.c. and continue sliding scale 05/12; pt had hypokalemia Start glipizide, changed to Lantus 10 units b.i.d., hold aspart 4 unit before each meal, continue low-dose sliding scale Hypoglycemia protocol is initiated 05/12, patient cannot tolerate long-acting insulin. On discharge, patient will continue home medication glipizide p.o., continue high-dose insulin sliding scale a.c. and q.h.s. Recommend patient to see primary care doctor in 1 week for medication adjustments (2) Hypertension: Code(s): I10 - Essential (primary) hypertension Status: Acute Assessment and Plan: Stable Continue lisinopril 10 mg daily p.o. (3) Asthma: Code(s): J45.909 - Unspecified asthma, uncomplicated Status: Acute Assessment and Plan: Stable on current medications, will continue current treatment. 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 Wound has been present since June of 2023. Wound RN consulted. Patient will be discharged home today, recommend patient to see her primary care provider in 1 week after discharge Subjective Date/time seen: 05/13/24 11:40 Interval history: Patient feels better today. Patient has good appetite, exercise tolerance increased, patient is able to walk without assistance. denies abdomen pain nausea vomiting. Glucose is well controlled Exam Narrative: GENERAL: Pleasant, in no acute distress. Well-nourished. - EYES: EOMI. Anicteric. - HENT: Moist mucous membranes. - LUNGS: Clear to auscultation bilateral ly, no wheezing, rhonchi, or rales. - CARDIOVASCULAR: Regular rate and rhyth m. No murmur. No JVD. - ABDOMEN: Soft, non-tender and non-dist ended. No palpable masses. - EXTREMITIES: No edema. Peripheral puls es 2+. Non-tender. - NEUROLOGIC: No focal neurological defi cits. CN II-XII grossly intact. - PSYCHIATRIC: Awake, Alert and oriented x 3. Appropriate mood and affect. - SKIN: chronic wound to left medial denilson t post-bunion removal. - LYMPH: No cervical lymphadenopathy. Objective Data Vital Signs Vital Signs: Vital Signs - 24 hr 05/12/24 14:00 05/12/24 20:00 05/12/24 22:00 Temperature 100.2 F H 98.4 F Pulse Rate 63 62 Respiratory Rate 18 16 Blood Pressure 115/49 L 111/78 Pulse Oximetry 90 92 Oxygen Delivery Room Air 05/13/24 05:04 05/13/24 08:00 05/13/24 08:56 Temperature 98.7 F Pulse Rate 60 60 Respiratory Rate 16 Blood Pressure 129/50 L Pulse Oximetry 94 Oxygen Delivery Room Air Intake/Output Intake/Output: Intake & Output 05/10/24 05/11/24 05/12/24 05/13/24 23:59 23:59 23:59 23:59 Intake Total 2340 970 980 590 Balance 2340 970 980 590 Meds/Results Medications: Active Medications Generic Name Dose Route Start Last Admin Trade Name Freq PRN Reason Stop Dose Admin Acetaminophen 650 mg 05/08/24 17:59 05/12/24 04:56 Acetaminophen 325 Mg Tablet PO 650 mg Q4H PRN Administration Mild Pain (1-3) or Fever Albuterol 2 puff 05/09/24 09:22 05/10/24 15:30 Albuterol Sulfate (*Sp) Aerosol 1 Puff INHALATION 2 puff Q6H PRN Administration Shortness Of Breath Alprazolam 0.5 mg 05/10/24 17:34 Alprazolam (*Crx) 0.5 Mg Tablet PO TID PRN Anxiety Artificial Tears 1 drop 05/09/24 09:22 05/09/24 10:18 Artificial Tears Ophth Soln 15 Ml Bottle EACH EYE 1 drop PRN PRN Administration as needed Dextrose 12.5 gm 05/08/24 18:15 05/12/24 17:03 Dextrose 50% 25 Gm/50 Ml Syringe IV PUSH 12.5 gm PRN PRN Administration Hypoglycemia Protocol Dextrose 12.5 gm 05/12/24 08:50 Dextrose 50% 25 Gm/50 Ml Syringe IV PUSH PRN PRN Hypoglycemia Protocol Enoxaparin Sodium 40 mg 05/09/24 09:30 05/13/24 09:31 Enoxaparin 40 Mg/0.4 Ml Syringe SUB-Q Not Given DAILY MILA Gabapentin 300 mg 05/09/24 21:00 05/12/24 21:27 Gabapentin 300 Mg Capsule PO 300 mg HS MILA Administration Glucagon 1 mg 05/08/24 18:15 Glucagon For Inj 1 Mg Vial IM PRN PRN Hypoglycemia Protocol Glucagon 1 mg 05/12/24 08:50 Glucagon For Inj 1 Mg Vial IM PRN PRN Hypoglycemia Protocol Glucose 15 gm 05/08/24 18:15 05/11/24 17:26 Glucose Oral Gel 15 Gm Of Glucse In 37.5 Gm Tube PO 15 gm PRN PRN Administration Hypoglycemia Protocol Glucose 15 gm 05/12/24 08:50 Glucose Oral Gel 15 Gm Of Glucse In 37.5 Gm Tube PO PRN PRN Hypoglycemia Protocol Guaifenesin/Dextromethorphan 10 ml 05/10/24 15:20 05/10/24 15:47 Guaifenesin/Dextromethorphan 10 Ml Udc PO 10 ml Q6HR PRN Administration Cough Dextrose 1,000 mls @ 100 mls/hr 05/08/24 18:15 05/11/24 17:22 Dextrose 5% 1,000 Ml IVPB 100 mls/hr PRN PRN Administration Hypoglycemia Protocol Dextrose 1,000 mls @ 100 mls/hr 05/12/24 08:50 Dextrose 5% 1,000 Ml IVPB PRN PRN Hypoglycemia Protocol Insulin Aspart 4 units 05/11/24 17:00 05/11/24 17:23 Insulin Aspart (*Bkc) 100 Units/Ml SUB-Q Not Given TIDWM [facility] Insulin Aspart 3 - 6 units 05/12/24 12:00 05/13/24 08:54 Insulin Aspart (*Bkc) 100 Units/Ml SUB-Q Not Given TIDWM [facility] Protocol Insulin Aspart 1 - 3 units 05/12/24 21:00 05/12/24 21:28 Insulin Aspart (*Bkc) 100 Units/Ml SUB-Q Not Given HS [facility] Protocol Insulin Glargine 10 units 05/12/24 09:00 Insulin Glargine (*Bkc) 100 Units/Ml SUB-Q BID [facility] Ketorolac Tromethamine 15 mg 05/09/24 17:41 05/12/24 14:16 Ketorolac 15 Mg/Ml Vial (*Bkc) IV PUSH 15 mg Q6H PRN Administration Pain Rated 4-6 Lisinopril 10 mg 05/09/24 09:40 05/13/24 08:56 Lisinopril 10 Mg Tablet PO 10 mg DAILY MILA Administration Loratadine 10 mg 05/12/24 12:41 05/13/24 08:56 Loratadine 10 Mg Tablet PO 10 mg QAM MILA Administration Ondansetron HCl 4 mg 05/08/24 17:59 05/10/24 15:50 Ondansetron Inj 4 Mg/2 Ml Vial IV PUSH 4 mg Q4H PRN Administration Nausea Propranolol HCl 30 mg 05/09/24 09:40 05/13/24 08:56 Propranolol Hcl 10 Mg Tablet PO 30 mg Q12HR MILA Administration Rosuvastatin Calcium 20 mg 05/09/24 09:40 05/13/24 08:57 Rosuvastatin 20 Mg Tablet PO 20 mg DAILY MILA Administration Venlafaxine HCl 150 mg 05/09/24 09:40 05/13/24 08:55 Venlafaxine Hcl Xr 75 Mg Cap.Er.24h PO 150 mg DAILY MILA Administration Radiology Results: ITS Impressions Foot X-Ray 05/08/24 14:37 IMPRESSION: 1. 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 Abdomen/Pelvis CT 05/08/24 16:06 IMPRESSION: 1. No acute intra-abdominal/pelvic process. 2. Small fat-containing umbilical and left inguinal hernias. Labs Labs: Laboratory Results - last 24 hr 05/12/24 05/12/24 05/12/24 16:44 18:04 20:55 POC Capillary Glucose 62 L 92 73 05/13/24 05/13/24 01:32 07:52 POC Capillary Glucose 203 H 125 H
[2024-05-13 13:05] LABS: Glucose Point of Care 240 mg/dl (65-105)
--- NOTE | 2024-05-13 13:23 | PM.DS ---
DS: Admitting Diagnosis Discharge Date 05/13 Admitting Diagnosis (1) Hypertension: Code(s): I10 - Essential (primary) hypertension Status: Acute (2) Type 2 diabetes mellitus: Qualifiers: Diabetes mellitus complication status: with hyperglycemia Diabetes mellitus intermediate insulin use: without laborer marine terminal use Qualified Code(s): E11.65 - Type 2 diabetes mellitus with hyperglycemia Code(s): E11.9 - Type 2 diabetes mellitus without complications Status: Acute (3) Abdominal pain: Code(s): R10.9 - Unspecified abdominal pain Status: Acute (4) Asthma: Code(s): J45.909 - Unspecified asthma, uncomplicated Status: Acute DS: Discharge Diagnosis Discharge Diagnosis (1) Hypertension: Code(s): I10 - Essential (primary) hypertension Status: Acute (2) Type 2 diabetes mellitus: Qualifiers: Diabetes mellitus laborer marine terminal insulin use: without intermediate use Diabetes mellitus complication status: with hyperglycemia Qualified Code(s): E11.65 - Type 2 diabetes mellitus with hyperglycemia Code(s): E11.9 - Type 2 diabetes mellitus without complications Status: Acute (3) Abdominal pain: Code(s): R10.9 - Unspecified abdominal pain Status: Acute (4) Asthma: Code(s): J45.909 - Unspecified asthma, uncomplicated Status: Acute DS: Summary Hospital Course Hospital Course: 64 y/o F presents here with abdominal pain, nausea, and vomiting with PMH of diabetes, uterine cancer s/p hysterectomy, morbid obesity, migraine, asthma, hypertension, and hyperlipidemia. The patient presents here from home via EMS for further evaluation of abdominal pain, nausea, vomiting. She reports the abdominal pain has been in her left lower quadrant and has been ongoing for the past 4 days. She describes the pain as bilateral lower quadrants, sharp, nonradiating, and intermittent. This is accompanied by intermittent nausea and vomiting for the past 1.5 weeks and it is accompanied by decreased appetite. She denies accompanying diarrhea, fever, or chills. Of note, the patient reports she has been out of her glipizide for the past 2 weeks and has contacted her provider who prescribes her these medications but has been unsuccessful in refilling them. Blood sugar upon arrival was 400+. This is accompanied by polydipsia/dry mouth and urinary frequency. Initial VS at presentation: 97.8, HR 89, RR 15, 171/75, and 97% on RA. ED workup showed: No leukocytosis, hemoglobin 15.9 (elevated compared to previous), sodium 132, creatinine 0.63 and GFR >60, lactic 2.7, beta hydroxy 0.13, and A1c 12.2 %. UA showed high specific gravity 3+ glucose, 6-10 RBC, yeast present, otherwise unremarkable. Viral PCR negative. 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 CT of the abdomen/pelvis showed no acute intra-abdominal/pelvic process and small fat containing umbilical and left inguinal hernias. The following med issues have been addressed during hospitalization (1) Type 2 diabetes mellitus: Qualifiers: Diabetes mellitus intermediate insulin use: without intermediate use Diabetes mellitus complication status: with hyperglycemia Qualified Code(s): E11.65 - Type 2 diabetes mellitus with hyperglycemia Code(s): E11.9 - Type 2 diabetes mellitus without complications Status: Acute Assessment and Plan: Initial glucose 490, anion gap 11, beta hydroxy 0.13. Patient out of glipizide for the past 2 weeks. Initially treatment of hyperglycemia with 3L bolus of LR and Novolog 10u SQ 490 -> 494 hypoglycemia protocol - POC blood glucose ACHS - home medication: hold glipizide - add Lantus 28u HS and NPH 14 units BIDAC - correct regimen ordered - high dose TIDWM and HS, based off BMI - A1C 12.2% on 05/08/2024 - hospital educator consulted - dietitian consulted 05/09/2024 Patient sugar is improving. Plan is to continue current treatment. Diabetic teaching dietitian consult. 05/10 Glucose is not controlled in the target range Changed to Lantus 20 units b.i.d., discontinue NPH Start aspart 6 unit a.c. 05/11: Glucose controlled in target range, glucose between 125 to 136. Patient has a poor oral intake, decrease Lantus to 20 units b.i.d. I support friend a.c. and continue sliding scale 05/12; pt had hypokalemia Start glipizide, changed to Lantus 10 units b.i.d., hold aspart 4 unit before each meal, continue low-dose sliding scale Hypoglycemia protocol is initiated 05/12, patient cannot tolerate long-acting insulin. On discharge, patient will continue home medication glipizide p.o., continue high-dose insulin sliding scale a.c. and q.h.s. Recommend patient to see primary care doctor in 1 week for medication adjustments (2) Hypertension: Code(s): I10 - Essential (primary) hypertension Status: Acute Assessment and Plan: Stable Continue lisinopril 10 mg daily p.o. (3) Asthma: Code(s): J45.909 - Unspecified asthma, uncomplicated Status: Acute Assessment and Plan: Stable on current medications, will continue current treatment. 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 Wound has been present since June of 2023. Wound RN consulted. Patient will be discharged home today, recommend patient to see her primary care provider in 1 week after discharge Time Spent with Patient Time attestation: Total time spent providing and/or coordinating discharge services: Exam Narrative: GENERAL: Pleasant, in no acute distress. Well-nourished. - EYES: EOMI. Anicteric. - HENT: Moist mucous membranes. - LUNGS: Clear to auscultation bilaterally, no wheezing, rhonchi, or rales. - CARDIOVASCULAR: Regular rate and rhythm. No murmur. No JVD. - ABDOMEN: Soft, non-tender and non-distended. No palpable masses. - EXTREMITIES: No edema. Peripheral pulses 2+. Non-tender. - NEUROLOGIC: No focal neurological deficits. CN II-XII grossly intact. - PSYCHIATRIC: Awake, Alert and oriented x 3. Appropriate mood and affect. - SKIN: chronic wound to left medial foot post-bunion removal. - LYMPH: No cervical lymphadenopathy. DS: Data Data Completed and Pending Labs on day of discharge: Labs from last 24 hours 05/13/24 05/13/24 05/13/24 13:02 07:52 01:32 POC Capillary Glucose 240 H 125 H 203 H 05/12/24 05/12/24 05/12/24 20:55 18:04 16:44 POC Capillary Glucose 73 92 62 L Discharge Plan Discharge Attending physician on discharge: Joselo Mc Discharging Clinician: Joselo Mc Anticipated Discharge Date/Time: 05/11/24 10:21 Patient Disposition: Home, Self-Care Activity: as tolerated Diet: as tolerated and diabetic Patient Instructions: Antibiotic Form Patient Language: French Stand Alone Forms: General Discharge Information Follow-up/Referrals: Judy,Kathryn Warner NP [Primary Care Provider] - (Patient needs to see primary care doctor in 1 week) Discharge Medications: New insulin aspart U-100 [Novolog U-100 Insulin aspart] 100 unit/mL Solution 4 - 8 unit subcut TIDWM Qty: 10 0RF Protocol: Insulin Corrective High-Dose Condition: glucose < 70 mg/dl Dose/Route: Follow hypoglycemia order Condition: glucose 70-200 mg/dl Dose/Route: No additional insulin Condition: glucose 201-250 mg/dl Dose/Route: 4 units sub-Q Condition: glucose 251-300 mg/dl Dose/Route: 5 units sub-Q Condition: glucose 301-350 mg/dl Dose/Route: 6 units sub-Q Condition: glucose 351-400 mg/dl Dose/Route: 8 units sub-Q Condition: glucose > 400 mg/dl Dose/Route: Call MD Protocol Text: *No Correction Dose at Bedtime* Rx Instructions: Condition Dose/Route Instruction glucose < 70 mg/dl Follow hypoglycemia order glucose 70-200 mg/dl No additional insulin glucose 201-250 mg/dl 4 units sub-Q glucose 251-300 mg/dl 5 units sub-Q glucose 301-350 mg/dl 6 units sub-Q glucose 351-400 mg/dl 8 units sub-Q glucose > 400 mg/dl Call insulin aspart U-100 [Novolog U-100 Insulin aspart] 100 unit/mL Solution 2 - 4 unit subcut HS Qty: 10 0RF Protocol: Insulin Corrective High-Dose Condition: glucose < 70 mg/dl Dose/Route: Follow hypoglycemia order Condition: glucose 70-200 mg/dl Dose/Route: No additional insulin Condition: glucose 201-250 mg/dl Dose/Route: 2 units sub-Q Condition: glucose 251-300 mg/dl Dose/Route: 2 units sub-Q Condition: glucose 301-350 mg/dl Dose/Route: 3 units sub-Q Condition: glucose 351-400 mg/dl Dose/Route: 4 units sub-Q Condition: glucose > 400 mg/dl Dose/Route: Call Rx Instructions: Condition Dose/Route Instruction glucose < 70 mg/dl Follow hypoglycemia order glucose 70-200 mg/dl No additional insulin glucose 201-250 mg/dl 2 units sub-Q glucose 251-300 mg/dl 2 units sub-Q glucose 301-350 mg/dl 3 units sub-Q glucose 351-400 mg/dl 4 units sub-Q glucose > 400 mg/dl Call MD Howell (SUSANNE) shayan [facility] See Rx Instructions .Route Qty: 1 0RF Rx Instructions: As directed ( robert downey (SUSANNE) miscellaneous medical supply [facility] See Rx Instructions .Route Qty: 1 0RF Rx Instructions: As directed albuterol sulfate 90 mcg/actuation Hfa Aerosol Inhaler 2 puff INHALATION Q6H PRN (Reason: SOB) Lubricant Eye Drops bottle 1 drp EACH EYE PRN PRN (Reason: as needed) glipizide 5 mg tablet 10 mg PO DAILY Patient Comments: takes XL tabs with breakfast venlafaxine 37.5 mg tablet 150 mg PO DAILY Patient Comments: XR capsule taken in the morning rosuvastatin [Crestor] 5 mg tablet 20 mg PO DAILY propranolol 10 mg tablet 30 mg PO BID lisinopril 10 mg tablet 10 mg PO DAILY gabapentin 300 mg capsule 300 mg PO HS Date of admission: 05/10/24 11:48 Primary Care Provider: Judy,Kathryn Warner Admitting Provider: Ellie Castelan Attending physician on admission: Ellie Castelan Condition: Guarded Prognosis
[2024-05-13 14:00] VITALS: BP 109/86; PULSE 60; RESP 18; TEMP 36.6; O2SAT 94
--- NOTE | 2024-05-13 15:52 | PC.NURSE ---
educated pt upon discharge about the importance of monitoring blood glucose levels at home. pt was instructed to test glucose before each meal and before bedtime. pt was given a glucose meter from development technician [facility] as she states she cannot place hers at home. pt was instructed to purchase meter strips that work with that meter when she picks up her insulin script today. pt was educated on how to use meter. pt states she knows how to use meter as it is similar to the one she has used. pt was instructed to check glucose before dinner tonight. pt educated on sliding insulin protocol. pt educated on how to treat a hypoglycemic event and when to call doctor and when to seek emergency treatment. pt stated her understanding.
[2024-05-13 16:23] LABS: Glucose Point of Care 198 mg/dl (65-105)
--- NOTE | 2024-05-14 13:35 | PCCDE ---
Addendum entered by Ina Coleman RD, LDN, CDE 05/14/24 15:00: 13:55 ~ 90 min later: Reattempted to contact pt. Same outgoing message played indicating call cannot be completed..... Original Note: 05/14/[address] DM courtesy follow up call. Outgoing message indicated call cannot be completed, please try again later FJ
== END 2024-05-13 15:33 | disposition home or self-care (01) | DRG 638 ==
LOC: ANHED 16:55 → ANH3MEDSUR 19:56
PROVIDERS: Physician Assistant; Student in an Organized Health Care Education/Training Program; Admitting Provider Internal Medicine; Emergency Provider Student in an Organized Health Care Education/Training Program; PCP Nurse Practitioner; Visit Provider Hospitalist
DX: E11.65 Type 2 diabetes mellitus with hyperglycemia (principal); L97.429 Non-pressure chronic ulcer of left heel and midfoot with unspecified severity; E78.5 Hyperlipidemia, unspecified; E66.01 Morbid (severe) obesity due to excess calories; F17.210 Nicotine dependence, cigarettes, uncomplicated; I10 Essential (primary) hypertension; J45.909 Unspecified asthma, uncomplicated; M19.072 Primary osteoarthritis, left ankle and foot; Z20.822 Contact with and (suspected) exposure to COVID-19; Z85.42 Personal history of malignant neoplasm of other parts of uterus; Z28.21 Immunization not carried out because of patient refusal; Z79.84 Long term (current) use of oral hypoglycemic drugs; Z79.4 Long term (current) use of insulin
CPT/HCPCS: 36415; 73630; 74177; 80048; 80053; 81001; 82010; 82948; 83036; 83605; 83690; 83735; 85025; 87637; 96361; 96372; 96374; 96375; 99212; 99285; A9270; G0378; G0463; J1650; J1815; J1885; J2405; J7030; J7070; J7120; Q9967

== ENCOUNTER 2024-11-05 18:11 | Emergency (ER) | payer MEDICARE, MEDICAID, SELFPAY ==
--- NOTE | ~2024-11-05 | CT_ITS ---
History: Fall PROCEDURE: CT lumbar spine without intravenous contrast. COMPARISON: None TECHNIQUE: Multiple contiguous axial images of the lumbar spine were performed without the administration of int ravenous contrast. DLP: 1204 mGy-cm FINDINGS: Preservation of the normal curvature of the lumbar spine is identified. No acute compression fractures are appreciated. Degenerative disease is noted, with osteophyte formation, disc space narrowing and vacuum phenomena. This is most prominent at the levels of L1/L2 and T12/L1. There are bridging endplate osteophytes at multiple levels in the lower thoracic and upper lumbar spi ne, consistent with diffuse idiopathic skeletal hyperostosis (DISH). Impression: No acute fracture within the visualized portion of the lumbar spine, as detailed above. Imaging did not include the sacral spine. Reviewed, dictated and finalized at location A. Impression: No acute fracture within the visualized portion of the lumbar spine, as detaile d above. Imaging did not include the sacral spine.
--- NOTE | ~2024-11-05 | XR_ITS ---
HISTORY: accidental fall COMPARISON: None TECHNIQUE: Limited evaluation of the pelvis was performed. The entirety of the pelvis is not included. FINDINGS: Significant degenerative disease within the visualized portion of the lumbar spine. Superior lateral joint space narrowing and sclerosis is identified within the bilateral femoral aceta bular joint spaces. No large displaced acute fracture is appreciated. IMPRESSION: Limited evaluation, as the entirety of the pelvis was not included, without acute displaced fracture, as detailed above. Reviewed, dictated and finalized at location A. IMPRESSION: Limited evaluation, as the entirety of the pelvis was not included, without acu te displaced fracture, as detailed above.
--- OUTSIDE RECORDS SUMMARY | 2024-11-05 18:15 | XMS_ITS | Clinical Summary ---
Author Organization [facility] Address [address] [place] [address] Care Team Providers Care Freight Router Name Role Phone Denis Flores MD Primary Care Provider [phone] Source Comments [facility],non-owned Affiliates and Associated Physician Practices is amultiple site organization consisting of ambulatory clinics and hospital sitesin [place], [place]. This disclosure is being madepursuant to the Care Everywhere program and may not contain all information available regarding this patient. Last updated 17.[facility] Allergies Active Allergy Reactions Criticality Noted Date Comments Morphine Urticaria High 07/11/2008 Wemrjdib-Gycgqeryjv-Xivokzzlc Rash 2008 hives Medications * Be aware that medications may not be up to date on this document. Alwaysverify current medications with the patient. 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 Gender Identity Not on file Sexual Orientation [...] 7:13 PM CDT Height 175.3 cm (5' 9) 07/11/2008 7:13 PM CDT Body Mass Index [...] SCREENING 1960 LIPID TESTING 1960 MAMMOGRAM 1960 HIV SCREENING 1975 HEPATITIS C SCREENING 04/11/1978 DTAP/TDAP/TD VACCINES (1 - Tdap) 1979 PNEUMOCOCCAL VACCINE 50+ (1 of 1 - PCV) 2010 ZOSTER VACCINE (1 of 2) 2010 COVID-19 VACCINE ( - 2023-2 5 season) 2023 DEPRESSION SCREENING 04/02/2024 INFLUENZA VACCINE (#1) 2024 Respiratory Syncytial Virus (RSV) Vaccine Pt: or over 60 yrs (1 - 1-dose 75+ series) 2035 HEPATITIS B VACCINE Aged Out No longe r eligible based on patient's age to complete this topic HIB VACCINE Aged Out No longer eligi ble based on patient's age to complete this topic HPV VACCINE Aged Out No longer eligi ble based on patient's age to complete this topic MENINGOCOCCAL (Group B) VACC INE SHARED DECISION-MAKING Aged Out No longer eligibl e based on patient's age to complete this topic MENINGOCOCCAL GROUPS A/C/Y/W VACCINE Aged Out No longer eligible b ased on patient's age to complete this topic Insurance MEDICARE MEDICAID - OUT OF STATE Care Teams Freight Router Relationship Specialty Start Date End Date Denis Flores MD [address] [facility] [place] [phone] PCP - General 07/11/08
--- OUTSIDE RECORDS SUMMARY | 2024-11-05 18:16 | XMS_ITS | Encounter Summary ---
Author Organization [facility] Address Formerly [facility], 1928[id number] [place] [address] Care Team Providers Care Hospitality Host Name Role Phone Kathryn Kim LEAD PRESSER Unavailable [phone] Kathryn Kim LEAD PRESSER Unavailable [phone] Kathryn Kim LEAD PRESSER Primary Care Provider [phone] Alexa Quiles LEAD PRESSER Unavailable [phone] Ashley Coello Primary Care Provider [phone] Edi Olvera DPM Unavailable [phone] Nelson Ogden MD Unavailable Hazel Bryant APNP Primary Care Provider [phone] Denise Chiang APRN Primary Care Provider + Jacobo Johnson DPM Unavailable [phone] Reason for Visit * Reason Onset Date Comments Follow Up Call 10/04/2021 Encounter Details Date Type Department Care Team (Late st Contact Info) Description 10/04/2021 Hospital Follow-up Call [facility] [address] [place], [place] [id number] Gwen Portillo, RN Follow Up Call Social [...] PM CDT Legal Sex Female 5:51 PM DIRECTOR BUSINESS 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 Answer Entry Date Author Status No 09/29/2021 11:00 PM SANJANAT Uday Michel RN Active documented in this [...] Rule Out 03/23/2023 03/23/2023 03/23/2023 11:21 AM DIRECTOR BUSINESS DEVELOPMENT COVID-19 Rule Out 06/22/2023 06/22/2023 06/22/2023 12:31 PM CDT documented as of this encounter Care Teams Hospitality Host Relationship Specialty Start Date End Date Kathryn Kim NP [address] [phone] PCP - General NURSE PRACTITIONER 09/29/21 08/21/23 Ashley Coello PA [address] [phone] PCP - General PHYSICIAN WELL DRILL OPERATOR HELPER CABLE TOOL 08/22/23 01/21/24 Hazel Bryant APNP 109 [facility] [id number], [place] [phone] PCP - General FAMILY PRACTICE 01/22/24 06/11/24 Denise Chiang APRN [address] [place] [address] PCP - General Nurse Practitioner Family 06/12/24 Kathryn Kim NP [address] [phone] NURSE PRACTITIONER 08/03/21 Kathryn Kim NP [address] [phone] NURSE PRACTITIONER 08/03/21 12/16/23 Alexa Quiles NP [address] [place] [address] WOUND CARE 07/11/23 07/10/24 Edi Olvera DPM formerly [facility] [place] [address] Consulting Physician PODIATRY/SURGERY 11/20/23 Nelson Ogden MD formerly [facility] [place] [address] Consulting Physician INTERNAL MEDICINE 12/17/23 Jacobo Johnson DPM [address] [place] [address] WOUND CARE 06/16/24 06/16/25 documented as of this encounter
--- OUTSIDE RECORDS SUMMARY | 2024-11-05 18:16 | XMS_ITS | Encounter Summary ---
Author Organization [facility] Address [address] [place] [address] Care Team Providers Care Parts Coordinator Name Role Phone Kathryn Kim PASTORAL MINISTRIES PROFESSOR Unavailable [phone] Kathryn Kim PASTORAL MINISTRIES PROFESSOR Unavailable [phone] Kathryn Kim PASTORAL MINISTRIES PROFESSOR Primary Care Provider [phone] Alexa Quiles PASTORAL MINISTRIES PROFESSOR Unavailable [phone] Ashley Coello Primary Care Provider [phone] Edi Olvera DPM Unavailable [phone] Nelson gOden MD Unavailable Hazel Bryant APNP Primary Care Provider [phone] Denise Chiang APRN Primary Care Provider + Jacobo Johnson DPM Unavailable [phone] Encounter Details Date Type Department Care Team (Late st Contact Info) Description 08/04/2021 Abstract [facility] [address] [place] [address] Matt Slade MD Social History Tobacco Use [...] PM CDT Legal Sex Female 5:51 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 Gender Identity Female 01/17/2024 1:34 PM [...] Rule Out 03/23/2023 03/23/2023 03/23/2023 11:21 AM PLUNGER SCOOP OPERATOR COVID-19 Rule Out 06/22/2023 06/22/2023 06/22/2023 12:31 PM CDT documented as of this encounter Care Teams Parts Coordinator Relationship Specialty Start Date End Date Kathryn Kim NP [address] [phone] PCP - General NURSE PRACTITIONER 09/29/21 08/21/23 Ashley Coello PA [address] [facility] [address] [place] [address] PCP - General PHYSICIAN MAINTENANCE SHOP TECHNICIAN 08/22/23 01/21/24 Hazel Bryant APNP [address] [facility] [id number] [address] PCP - General FAMILY PRACTICE 01/22/24 06/11/24 Denise Chiang APRN [address] [place] [phone] PCP - General Nurse Practitioner Family 06/12/24 Kathryn Kim NP [address] [phone] NURSE PRACTITIONER 08/03/21 Kathryn Kim NP [address] [phone] NURSE PRACTITIONER 08/03/21 12/16/23 Alexa Quiles NP [address] [place], [place] [phone] WOUND CARE 07/11/23 07/10/24 Edi Olvera DPM [address] [place] [address] Consulting Physician PODIATRY/SURGERY 11/20/23 Nelson Ogden MD [address] [place] [address] Consulting Physician INTERNAL MEDICINE 12/17/23 Jacobo Johnson DPM [address] [place] [id number] WOUND CARE 06/16/24 06/16/25 documented as of this encounter
--- OUTSIDE RECORDS SUMMARY | 2024-11-05 18:16 | XMS_ITS | Continuity of Care Document ---
Author Organization [facility] Address [address] [place] [address] Phone Care Team Providers Care Brake Press Operator Name Role Phone Chidi RAJAN, Satish Unavailable [...] DAILY WITH FOOD 25 MG - Active glipizide 5 mg tablet take 0.5 tablet by oral route 2 times every day before a meal 2.5 MG - Active ProAir HFA 90 mcg/actuation aerosol inhaler inhale 2 puff by inhalation route every 4 - 6 hours as needed - Active Victoza 2-Surinder 0.6 mg/0.1 mL (18 mg/3 mL) subcutaneous pen injector inject 0.8 milliliter by subcutaneous route every day 4.8 MG - Active Xanax 0.5 mg tablet take 1 tablet by oral route 2 times every day 0.5 MG - Active simvastatin 20 mg tablet take 1 tablet by oral route every day in the evening 20 MG - No Longer Active venlafaxine 25 mg tablet take 1 tablet by oral route every day with food 25 MG - No Longer Active lisinopril 20 mg-hydrochlorothiaz mike 12.5 mg tablet take 1 tablet by oral route every day 1.00 tablet - No Longer Active Problems Condition Type Effective Dates (start - stop) Clini dirk Status Comments No Known Problems Procedures Procedure Date OFFICE/OUTPATIENT VISIT, [facility] OFFICE/OUTPATIENT VISIT, [facility] Advance Directives Directive Yes / No Effective Date File Name No Information Encounters Encounter Description Practice Location Reason(s) For Visit Diagnoses Date Provider Providers Copied on Encounter [facility], [address] [place] [address], [facility], tel:[phone] *[facility] No Information 6 Chidi Satish. [address], [facility], . tel:[phone] OFFICE/OUTPA TIENT VISIT, [facility], [address] [place] [address], [facility], tel:[phone] *[facility] Hypertension (chief complaint)Neetu betes (chief complaint) Dietary counseling and surveillanceEsse ntial hypertension with goal blood pressure less than 140/90Type 2 diabetes mellitus with hyperglycemiaAty pical chest pain 6 Chidi Covarrubias. [address], [address], . tel:[phone] OFFICE/OUTPA TIENT VISIT, [facility], [address] [place] [address], [facility], tel:[phone] *[facility] swelling (chief complaint) Swelling 4 Chidi Covarrubias. [address], [facility], . tel:[phone] Family History Family Member Type Diagnosis Age [...] Additional information: PT was just seen in [facility] for her bp being elevated [...]
--- OUTSIDE RECORDS SUMMARY | 2024-11-05 18:16 | XMS_ITS | Clinical Summary ---
Author Organization [facility] Address [facility] [place] [address] Care Team Providers Care Obstetrics Nurse Name Role Phone Blairekrishan Kathryn SHIP'S OFFICER Unavailable [phone] Edi Olvera DPM Unavailable [phone] Nelson Ogden MD Unavailable Denise Chiang APRN Primary Care Provider + Jacobo Johnson DPM Unavailable [phone] Allergies Active Allergy Reactions Criticality Noted Date Comments Neomycin-Bacitracin Zn-Polymyx Hives Medium 11/30/2018 Tramadol Other (see comment) 06/11/2024 Interferes with seizure per pt Medications albuterol sulfate HFA 108 (90 Base) MCG/ACT inhalerIndicat ions:asthma [The details of the medication are not available because there are pending changes by a home health clinician.] 18 g 09/28/19 23 Active Additional Information Patient not taking.Reported on 09/10/2024 venlafaxine XR (EFFEXOR-XR) 150 MG 24 hr capsuleIndicat ions:mood Take 1 capsule (150 mg total) by mouth daily. Indications: mood 11/28/19 24 Active insulin lispro (HUMALOG/ADMEL OG) 100 UNIT/ML injection (VIAL)Indicati ons:dm [The details of the medication are not available because there are pending changes by a home health clinician.] 10 mL 02/18/20 24 Active Additional Information Patient taking differently: 8 UnitsSubcutaneous 3 times daily with meals, Indications: dm, Reported on 09/10/2024 rosuvastatin (CRESTOR) 20 MG tabletIndicati ons:Hyperlipid emia Take 1 tablet by mouth nightly at bedtime. Indications: High Amount of Fats in the Blood Active gabapentin (NEURONTIN) 300 MG capsuleIndicat ions:Neuropath y Take 1 capsule by mouth 3 (three) times daily. Indications: Nerve Disease Active propranolol (INDERAL) 60 MG tabletIndicati ons:Hypertensi on Take 1 tablet by mouth daily. Indications: High Blood Pressure Ran out, didn't get filled. Active amLODIPine (NORVASC) 5 MG tabletIndicati ons:Hypertensi on Take 2 tablets (10 mg total) by mouth daily. Indications: High Blood Pressure 120 tablet 06/18/19 25 Active ciprofloxacin (CIPRO) 500 MG tabletIndicati ons:Infection Take 500 mg by mouth 2 (two) times daily. Indications: Infection 09/11/19 25 Active doxycycline hyclate (VIBRAMYCIN) 100 MG capsuleIndicat ions:Infection Take 100 mg by mouth 2 (two) times daily. Indications: Infection 09/11/19 25 Active multi vitamin/minera ls (THERA-M ENHANCED) tabletIndicati ons:supplement Take 1 tablet by mouth daily. Indications: supplement 09/11/19 25 Active lisinopril (PRINIVIL) 20 MG tabletIndicati ons:Hypertensi on Take 20 mg by mouth daily. Indications: High Blood Pressure 09/11/19 25 Active insulin glargine (LANTUS) 100 UNIT/ML injection (VIAL)Indicati ons:Diabetes Mellitus Inject 12 Units into the skin nightly at bedtime. Indications: Diabetes 09/11/19 25 Active melatonin 5 MG tabletIndicati ons:Insomnia Take 5 mg by mouth nightly as needed. Take one tab po prn nightly Indications: Trouble Sleeping 09/16/19 25 Active HYDROcodone-ac etaminophen (NORCO) 5-325 MG tabletIndicati ons:Acute Pain < 3 Day Supply Take 1 tablet by mouth every 8 (eight) hours as needed for Pain. Indications: Acute Pain < 3 Day Supply 9 tablet 11/04/19 25 025 Active Active Problems Problem Noted Date Diagnosed Date Diabetic foot infection ([facility]) 2024 Osteomyelitis ([facility]) 01/17/2024 Noncompliance 01/17/2024 Orthopedic aftercare 08/06/2023 Diabetic ulcer of left great toe ([facility]) 06/26/2023 Cellulitis 03/29/2023 Bacteremia 03/25/2023 Diabetic ulcer of right great toe ([facility]) 09/19/2022 Overview (09/20/2022): Added automatically from request for surgery [id number] Cellulitis of right leg 09/19/2022 Overview (09/20/2022): Added automatically from request for surgery [id number] Weakness 09/29/2021 Type 2 diabetes mellitus ([facility]) Hypertension goal BP (blood pressure) < 140/90 Coronary artery calcification seen on CT scan Tobacco use disorder Overview (01/17/2024): 0.5 pack of cigarettes daily Peripheral vascular disease Resolved Problems Problem Noted Date Diagnosed Date Resolved Date 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 ([facility]) 06/26/2023 024 Cellulitis and abscess of foot 09/19/2022 08/22/2023 Preop cardiovascular exam 10/24/2021 CVA (cerebral vascular accid ent) ([facility]) 09/26/2021 09/27/2021 Subacute neurologic deficit 09/25/2021 09/27/2021 Encounters Date Type Department Care Team Description 11/03/2024 10:59 AM CDT - 11/03/2024 1:15 PM CDT Emergency [facility] [address] [place] [address] [place] [address] Pio Curiel MD Back Pain Discharge Disposition: Home or Self Care (Routine Discharge) 11/03/2024 Travel 10/01/2024 2:15 PM CDT Home Care Visit [address] [address] Jenni Espinsoa, PT PT NON-VISIT DISCIPLINE DISCHARGE 10/01/2024 12:00 PM CDT Home Care Visit [address] [place] [address] Anabelle Wells OT OT OASIS DISCHARGE 09/28/2024 Home Care Visit [facility] [address] [place] [address] Marlen Chi P, HILLIARD CASE COMMUNICATION 09/19/2024 11:15 AM CDT Home Care Visit [facility] [address] [place] [address] Jenni Espinosa, PT PT INITIAL EVALUATION 09/18/2024 12:00 PM CDT Home Care Visit [facility] [address] [place] [address] Marlen Chi P, H[facility]IARD H[facility]IARD HOME VISIT 09/16/2024 2:30 PM CDT Home Care Visit [facility] [address] [place] [address] Araceli Chie P, [facility] H[facility]IARD HOME VISIT 09/16/2024 9:30 AM CDT Home Care Visit [facility] [address] [place] [address] Akila Sanchez LPN SN HOME VISIT 09/15/2024 Home Care Visit [facility] [address] [place] [address] Gracia Castro, PT CASE COMMUNICATION 09/12/2024 12:30 PM CDT Home Care Visit [facility] [address] [place] [address] Anabelle Wells, OT OT INITIAL EVALUATION 09/10/2024 9:30 AM CDT Home Care Visit [facility] [address] [place] [address] Arnoldo Flaherty, RN SN OASIS START OF CARE 09/10/2024 Plan of Care Documentation [facility] [address] [place] [address] 09/04/2024 Scan [facility] Home Care [facility] [address] [place] [address] Scanned, [facility] from Last 3 Months Immunizations Immunization Administration Dates Next Due Tdap (Boostrix) 06/13/2024(Deferred: Patient/family declined - placed in cassette4),06/13/2024() Family History Medical History Relation Comments No [...] Date Smoking Tobacco: Every Day Cigarettes 0.4 75.6 Started: 1977 Smokeless Tobacco: Never Tobacco Cessation:Ready to Q uit: Not Asked; Counseling Given: Not Answered Alcohol Use Standard Drinks/Week Comments No 0 (1 standard drink = 0.6 oz pur e alcohol) OASIS D0700: Social Isolation Answer Da te Recorded Frequency of experiencing loneliness or isolatio n Never 10/01/2024 OASIS A1250: Transportation Answer Date Recorded Lack of Transportation (Medical) No 10/01/2024 Lack of Transportation (Non-Medical) No 10/01/2024 Patient Unable or Declines to Respond No 10/01/2024 OASIS B1300: Health Literacy Answer David e Recorded Frequency of needing help to read materials from doctor or pharmacy Rarely 10/01/2024 B1300 Health Literacy Answer Date Recor ded How often do you need to hav e someone help you when you read instructions, pamphlets, or other written material from your doctor or pharmacy? Rarely 01/17/[address] [facility] Utilities Answer Date Recorded In the past 12 months has e [employer], gas, oil, or water CNS Response threatened to shut off services in your home? No 06/11/2024 Humiliation, Afraid, Rape, and Kick questionnair e Answer Date Recorded Within the last year, have y ou been afraid of your partner or ex-partner? No 06/11/2024 Within the last year, have y ou been humiliated or emotionally abused in other ways by your partner or ex-partner? No Within the last year, have y ou been kicked, hit, slapped, or otherwise physically hurt by your partner or ex-partner? No 06/11/2024 Within the last year, have y ou been raped or forced to have any kind of sexual activity by your partner or ex-partner? No 06/11/2024 Social Connection and Isolat ion Panel [NHANES] Answer Date Recorded In a typical week, how many times do you talk on the phone with family, friends, or neighbors? More than three times a week 01/17/2024 How often do you get togethe r with friends or relatives? Once a week 01/17/2024 How often do you attend chur or quaker services? Never 01/17/2024 Do you belong to any clubs o r organizations such as muslim groups, unions, fraternal or athletic groups, or [...] like food, housing, medical care, and heating? Not hard at all 06/11/2024 PHQ-2 Answer Date Recorded Patient Health Questionnaire-2 Score 0 03/09/2022 [facility] [place] [facility] Occupat ional Health - Occupational Stress [...] you got the money to buy more. Never true 06/12/19 25 Within the past 12 months, t he food you bought just didn't last and you didn't have money to get more. Never true 06/11/2024 PRAPARE - Transportation Answer Date Re corded In the past 12 months, has l ack of transportation kept you from medical appointments or from getting medications? Yes 05/31 In the past 12 months, has l ack of transportation kept you from meetings, work, or from getting things needed for daily living? Yes 06/11/2024 Housing Stability Vital Sign Answer David e [...] place to sleep or slept in a retirement (including now)? No 06/26/2023 Housing Stability Vital Sign Answer David e Recorded In the last 12 months, was t here a time when you were not able to pay the mortgage or rent on time? No 06/11/2024 In the past 12 months, how m any times have you moved where you were living? 0 06/11/2024 At any time in the past 12 m [facility], were you homeless or living in a retirement (including now)? No 06/11/2024 Comments No Sex and Gender Information Value Date Recorded Sex Assigned at Female 01/17/2024 1:34 PM CDT Legal Sex Female 5:51 PM [employer]PER[employer] Gender Identity Female 01/17/2024 1:34 PM CDT Sexual Orientation Straight 01/17/2024 1: 34 PM CDT Last Filed Vital Signs Vital Sign Reading Time Taken Comments Blood Pressure 141/74 11/03/2024 12:45 PM CDT Pulse 78 11/03/2024 12:45 PM CDT Temperature 36.8 C (98.2 F) 11/03/2024 11:20 AM CDT Respiratory Rate 16 11/03/2024 12:45 PM CDT Oxygen Saturation 96% 11/03/2024 12:45 PM CDT Inhaled Oxygen Concentration - - Weight 131.5 kg (290 lb) 11/03/2024 11:20 AM CDT Height 175.3 cm (5' 9) 11/03/2024 11:20 AM CDT Body Mass Index 42.83 11/03/2024 11:20 AM CDT Plan of Treatment Health Maintenance Due Date Last Done Comments Colorectal Cancer Screening Colonoscopy (10 Years) 1960 Kidney Health Evaluation 1960 Annual Physical 1963 Diabetes: Retinopathy Eye Exam 1978 Hepatitis C 1978 DTaP, Tdap and Td Vaccines (1 - Tdap) 1979 Mammogram Screening 2000 Lung Cancer Screening 2010 RSV Immunization or 60+ Years (1 - Risk 60-74 years 1-dose series) 2020 Zoster Vaccines (2 of 2) 10/03/2022 08/08/2022 COVID-19 Vaccine (1 - season) 2023 PHQ-2 (Physician [place]) 04/02/2024 Lipid Panel 06/26/2024 06/27/2023, 09/30/2021 Hemoglobin A1C 09/12/2024 06/12/2024, 01/31, 01/20/2024, Additional history exists Pneumococcal Vaccine: 50+ Years Completed 08/08/2022 Meningococcal B Vaccine Aged Out [...] transitions and discharge planning General No Dana Huggins, tax manager Procedure Name Priority Date/Time Associated Diagnosis Comments XR LUMB SPINE AP+LAT ONLY STAT 11/03/2024 12:16 PM CDT HEMOGLOBIN, GLYCOSYLATED Routine 06/12/2024 10:31 AM CDT LIPID PANEL Routine 06/27/2023 5:16 AM CDT from Last 3 Months or Most Recently Relevant to Health Maintenance Results * XR LUMB SPINE AP+LAT ONLY (11/03/2024 12:16 PM CDT) Anatomical Region Laterality Modality Spine Radiographic Navya ging 11/03/2024 12:3 7 PM CDT Impressions 11/03/2024 12:40 PM CDT IMPRESSION: No acute findings. Stable spondylosis. Ordered By: PIO CURIEL Interpreted By: Donny Tobin MD, 11/03/2024 12:37 PM Narrative 11/03/2024 12:40 PM CDT [address] [place] [id number] Examination: Lumbar spine. Exam time: 1107 hours. Clinical history: Severe pain. Recent fall. Comparison: 01/28/2018. Technique: Upright lateral and spot lateral views. The patient was unable to complete the exam due to her symptoms. Findings: There is no fracture or dislocation. Vertebral body height and alignment are satisfactory. Mild multilevel disc space narrowing and paravertebral osteophyte formation is similar to previous. Atherosclerotic calcification of the aorta is again evident. Procedure Note Donny Tobin MD - 11/03/[address] [place] [address] Examination: Lumbar spine. Exam time: 1107 hours. Clinical history: Severe pain. Recent fall. Comparison: 01/28/2018. Technique: Upright lateral and spot lateral views. The patient was unableto complete the exam due to her symptoms. Findings: There is no fracture or dislocation. Vertebral body height andalignment are satisfactory. Mild multilevel disc space narrowing andparavertebral osteophyte formation is similar to previous. Atheroscleroticcalcification of the aorta is again evident. IMPRESSION: No acute findings. Stable spondylosis. Ordered By: PIO CURIEL Interpreted By: Donny Tobin MD, 11/03/2024 12:37 PM Pio Curiel MD GENERAL IMAGING Final Result * (ABNORMAL) HEMOGLOBIN, GLYCOSYLATED (06/12/2024 10:31 AM CDT) HGB A1C 11.7(H) <5.7 % 06/12/2024 11:25 AM CDT [facility] ESTIMATED AVG GLUCOSE 289(H) 74 - 114 MG/DL 06/12/2024 11:25 AM CDT [facility] 06/12/2024 10:[address] MD LABORATORY Final Result [facility] [address] [place] [address], [id number] * (ABNORMAL) LIPID PANEL (06/27/2023 5:16 AM CDT) CHOLESTEROL 135 MG/DL 06/27/2023 11:59 AM CDT [facility] Comment:DESIRABLE: <200 TRIGLYCERIDES 192 MG/DL 06/27/2023 11:59 AM CDT [facility] Comment:150-199 BORDERLINE H IGH HDL 38(L) >49 MG/DL 06/27/2023 11:59 AM CDT [facility] LDL-C 59 MG/DL 06/27/2023 11:59 AM CDT [facility] Comment:<100 OPTIMAL VLDL CALCULATION 38 MG/DL 06/27/19 11:59 AM CDT [facility] Comment:REFERENCE RANGE NOT ESTABLISHED CHOL/HDL RATIO 3.6 06/27/2023 11:59 AM CDT [facility] Comment:REFERENCE RANGE NOT ESTABLISHED LDL/HDL 1.5 06/27/2023 11:59 AM CDT [facility] Comment:REFERENCE RANGE NOT ESTABLISHED NON HDL CHOLESTEROL 97 MG/DL 06/27/2023 11:59 AM CDT [facility] Comment:REFERENCE RANGE NOT ESTABLISHED 06/27/2023 5:16 AM CDT Stephanie Coughlin MD LABORATORY Final Result [facility] [address] [place] [address], [id number] from Last 3 Months or Most Recently Relevant to Health Maintenance Insurance MEDICAID [employer] Advance Directives * Full Code (Latest Code Status on File) Date Activated Date Inactivated Comments 09/10/2024 3:09 PM 11/03/2024 10:56 AM * Full Code Date Activated Date Inactivated Comments 06/11/2024 10:35 PM 06/16/2024 3:25 PM * Full Code Date Activated Date Inactivated Comments 02/11/2024 10:58 PM 02/19/2024 2:00 PM * Full Code Date Activated Date Inactivated Comments 01/23/2024 9:37 PM 02/11/2024 2:25 PM * Full Code Date Activated Date Inactivated Comments 01/17/2024 9:39 PM 01/22/2024 4:21 PM Care Teams Obstetrics Nurse Relationship Specialty Start Date End Date Denise Chiang APRN [address] [place] [address] PCP - General Nurse Practitioner Family 06/12/24 Kathryn Kim NP [address] [address] NURSE PRACTITIONER 08/03/21 Edi Olvera DPM [address] [place] [address] Consulting Physician PODIATRY/SURGERY 11/20/23 Nelson Ogden MD [address] [place] [address] Consulting Physician INTERNAL MEDICINE 12/17/23 Jacobo Johnson DPM [address] [place] [address] [id number] WOUND CARE 06/16/24 06/16/25
[2024-11-05 18:19] VITALS: BP 184/66; PULSE 72; RESP 18; TEMP 37.1; O2SAT 94
--- NOTE | 2024-11-05 18:31 | ED_ITS ---
HPI - Back Pain/Injury General Chief Complaint: Back Pain/Injury Stated Complaint: right back and right leg pain Time Seen by Provider: 11/05/24 18:30 Source: patient and EMS Mode of arrival: ambulatory Limitations: no limitations History of Present Illness HPI Narrative: 64-year-old female with a history of smoking, obesity, chronic bronchitis versus asthma,hypertension, diabetes mellitus, uterine cancer status post hysterectomy, renal insufficiency, arthritis with chronic joint pain had a fall on 11/01/2024. the patient was coming down the steps when she fell and landed on her buttock. No loss of consciousness. She developed low back pain radiating to the right thigh. On 11/03/2024 she went to [facility] which will where she had x-rays of lumbar spine which did not show any acute findings.. The patient received oxycodone. The patient presents to the ED via EMS with -- Ongoing low back pain radiating down the back of her buttocks to the right mid thigh. No motor or sensory involvement of the lower legs. No bladder or bowel involvement. No fever or chills. MD elicited complaint: back pain Pertinent past history: prior back pain Onset (ago): day(s) ( Four days) Timing: constant Severity: moderate Similar Symptoms Previously: Yes Quality: aching Location: lumbar spine Radiation: right upper leg Exacerbating factors: movement Relieving factors: immobilization Context: turning/twisting Associated symptoms: difficulty walking ( patient normally uses a wheelchair walker ambulation at home.) Treatments prior to arrival: other ( Oxycodone) Work related injury: No Related Data Home Medications ?Medication ?Instructions ?Recorded ?Confirmed ?Last Taken ?Type rosuvastatin 5 mg tablet (Crestor) 20 mg PO DAILY 06/12/19 05/09/24 06/16/20 History Lubricant Eye Drops 1 drp EACH EYE PRN PRN as needed 02/19/23 05/09/24 Unknown History albuterol sulfate 90 mcg/actuation 2 puff inhalation Q6H PRN SOB 02/19/23 05/09/24 Unknown History aerosol inhaler lisinopril 10 mg tablet 10 mg PO DAILY 05/09/24 05/09/24 Unknown History hydrocodone 5 mg-acetaminophen 325 1 tablet PO Q6H 11/05/24 Unknown History mg tablet insulin glargine 100 unit/mL (3 15 unit subcut QPM 11/05/24 Unknown History mL) subcutaneous pen (Lantus Solostar U-100 Insulin) insulin lispro 100 unit/mL 8 unit subcut .cmeal 11/05/24 Unknown History subcutaneous pen (Humalog KwikPen (U-100) Insulin) venlafaxine 150 mg 150 mg PO QPM 11/05/24 Unknown History capsule,extended release 24 hr venlafaxine 37.5 mg 37.5 mg PO QPM 11/05/24 Unknown History capsule,extended release 24 hr Allergies Allergy/AdvReac Type Severity Reaction Status Date / Time bacitracin Allergy Unknown Hives / Verified 11/05/24 18:28 Red Face neomycin Allergy Unknown Hives / Verified 11/05/24 18:28 Red Face polymyxin B Allergy Unknown Hives / Verified 11/05/24 18:28 Red Face morphine AdvReac Itching Verified 11/05/24 18:28 Review of Systems Review of Systems: All systems reviewed & are unremarkable except as noted in HPI and below Constitutional: Constitutional: Reports as per HPI and Reports no additional constitutional complaints Eyes: Eyes: Reports as per HPI and Reports no additional eye complaints ENT: Reports system reviewed and no additional complaints, except as documented and Reports as per HPI Cardiovascular: Cardiovascular: Reports as per HPI and Reports no additional cardiovascular complaints Respiratory: Respiratory: Reports as per HPI and Reports no additional respiratory complaints Gastrointestinal: Gastrointestinal: Reports as per HPI and Reports no additional gastrointestinal complaints Genitourinary: Genitourinary: Reports no additional female genitourinary complaints and Reports as per HPI Musculoskeletal: Musculoskeletal: Reports back pain and Reports arthralgias Comments: arthritis with multiple joint pains. She has bilateral knee pain. She has low back pain. She has right foot pain where she had surgery 1 year ago. Integumentary/Breasts: Comments: Chronic venous stasis changes both legs. Dime-sized area of skin loss from left Neurologic: Reports system reviewed and no additional complaints, except as documented and Reports as per HPI Psychiatric: Psychiatric: Reports no additional psychiatric complaints, Reports as per HPI and Reports anxiety Endocrine: Endocrine: Reports no additional endocrine complaints and Reports as per HPI Hematologic/Lymphatic: Hematologic/Lymphatic: Reports no additional hematologic/lymphatic complaints and Reports as per HPI Allergic/Immunologic: Allergic/Immunologic: Reports no additional allergic/immunologic complaints and Reports as per HPI PMFSH Past Medical History Medical History Asthma Morbid obesity with BMI of 45.0-49.9, adult Migraine Mass of right parotid gland Cancer UTERINE CA, s/p Hysterectomy Type 2 diabetes mellitus Hypertension Hyperlipidemia Surgical History Surgical History H/O total hysterectomy History of cancer surgery Uterine H/O shoulder surgery H/O knee surgery Family History Family History Grandparent Acute myocardial infarction Cancer Father Diabetes mellitus Cancer Social History Social History Smoking packs per day: 0.5 Smoking cigarettes per day: 10.0 Years smoked: 15 Smoking pack-years: 7.50 Smoking status: Current every day smoker Tobacco type: cigarettes Alcohol intake: never Substance use: current Substance use type: marijuana Last use: 3 months ago Do You Feel Safe in your Home?: Yes Lack of Transportation: YES Lack of Food: Never True Current Housing: I Have Housing Concerned About Future Housing: No Difficulty Paying Gas/Electric Bills: No Difficulty Paying for Meds: No Currently Unemployed: No Education: Grade School Difficulty w/ Childcare or Family Care: No Gender identity (if verbalized by the patient): Female Spiritual care concerns: No Exam Narrative: blood pressure 184/66. Afebrile. Oxygen saturation of 94% on room air. Const: General: ill appearing Nutritional Appearance: well nourished Orientation/consciousness: patient oriented x3 Limitations: no limitations HENMT: Head: normal to inspection Ears: external ears normal Face/Nose/Sinus: Normal external nose present Face and sinus: normal facial exam Mouth: Yes Normal oral and palatal mucosa present Throat: posterior oropharynx normal Eyes: Conjunctivae: conjunctivae normal Pupils: Equal, round and reactive pupils present EOM: EOMs intact bilaterally Direct Ophthalmoscopy: no photophobia Neck: Neck: normal visual inspection, no lymphadenopathy and no meningeal signs Chest: Chest palpation & inspection: normal inspection of the chest Resp: Effort & Inspection: normal respiratory effort Auscultation: diminished lung sounds Cardio: Rate: regular rate Rhythm: regular rhythm GI: Auscultation: normal bowel sounds Other: No tenderness/rigidity / rebound. : General: Yes no CVA tenderness Back/Spine/Pelvis: Back: no CVA tenderness Other: Tenderness over the lower lumbar region. No spinal tenderness. Straight-leg raising test is positive on the right Skin: Other: Chronic venous stasis changes both legs. Left foot has skin loss Neuro: General: patient oriented x3, moves all extremities, no meningeal signs, no focal motor deficits and CN's II-XI intact bilaterally Cranial nerves: Yes Nystagmus not present Speech: normal speech Extrem: General: normal to inspection and no clubbing, cyanosis or edema Psych: Mental Status: mental status grossly normal Affect: normal affect Attitude: cooperative Course Course Emergency Course: accidental fall low back pain-- CT revealed osteophytes, disc space narrowing and vacuum phenomenon. Wound is also noted to diffuse idiopathic skeletal hyperostosis. the a pelvic x-ray revealed arthritis of hip joints. Vital Signs Vital signs: Vital Signs Temperature 37.1 C 11/05/24 18:19 Pulse Rate 72 11/05/24 18:19 Respiratory Rate 18 11/05/24 18:19 Blood Pressure 184/66 H 11/05/24 18:19 Pulse Oximetry 94 11/05/24 18:19 Oxygen Delivery Room Air 11/05/24 18:19 Temperature 36.3 C L 11/05/24 21:30 Pulse Rate 79 11/05/24 21:30 Respiratory Rate 16 11/05/24 21:30 Blood Pressure 155/50 H 11/05/24 21:30 Pulse Oximetry 92 11/05/24 21:30 Oxygen Delivery Room Air 11/05/24 21:30 MDM - Back Pain/Injury MDM Narrative Medical decision making narrative: Accidental fall hip pain low back pain the Discharge Plan Discharge Clinical Impression: Accidental fall Qualifiers: Encounter type: subsequent encounter Qualified Code(s): W19.XXXD - Unspecified fall, subsequent encounter Low back pain Qualifiers: Chronicity: chronic Back pain laterality: midline Sciatica presence: with sciatica Sciatica laterality: sciatica of right side Qualified Code(s): M54.41 - Lumbago with sciatica, right side Chronic hip pain Qualifiers: Laterality: right Qualified Code(s): M25.551 - Pain in right hip Patient Disposition: Home Condition: Stable Instructions: Antibiotic Form, Chronic Back Pain (DC), Hip Pain (ED) Patient Language: Wolof Prescriptions: New diclofenac sodium 50 mg tablet,delayed release (DR/EC) 50 mg PO Q12H PRN (Reason: pain) Qty: 20 0RF No Action (DME) walker Misc See Rx Instructions .Route Qty: 1 0RF Rx Instructions: As directed ( wheeled walker (DME) miscellaneous medical supply Misc See Rx Instructions .Route Qty: 1 0RF Rx Instructions: As directed albuterol sulfate 90 mcg/actuation Hfa Aerosol Inhaler 2 puff INHALATION Q6H PRN (Reason: SOB) Lubricant Eye Drops bottle 1 drp EACH EYE PRN PRN (Reason: as needed) hydrocodone-acetaminophen 5-325 mg tablet 1 tablet PO Q6H venlafaxine 37.5 mg capsule,extended release 24hr 37.5 mg PO QPM venlafaxine 150 mg capsule,extended release 24hr 150 mg PO QPM insulin lispro [Humalog KwikPen Insulin] 100 unit/mL insulin pen 8 unit SUBCUT .cmeal insulin glargine [Lantus Solostar U-100 Insulin] 100 unit/mL (3 mL) insulin pen 15 unit SUBCUT QPM rosuvastatin [Crestor] 5 mg tablet 20 mg PO DAILY lisinopril 10 mg tablet 10 mg PO DAILY Follow-up/Referrals: UNKNOWN,DOCTOR [Non-Staff] - Time of Disposition: 21:40
--- OUTSIDE RECORDS SUMMARY | 2024-11-05 19:00 | XMS_ITS | Encounter Summary ---
Author Organization [facility] Address [address] [place] [address] Care Team Providers Care Credit Control Administrator Name Role Phone Kathryn Kim OCEAN LIFEGUARD SPECIALIST Unavailable [phone] Kathryn Kim OCEAN LIFEGUARD SPECIALIST Unavailable [phone] Kathryn Kim OCEAN LIFEGUARD SPECIALIST Primary Care Provider [phone] Alexa Quiles OCEAN LIFEGUARD SPECIALIST Unavailable [phone] Ashley Coello Primary Care Provider [phone] Edi Olvera DPM Unavailable [phone] Nelson Ogden MD Unavailable Hazel Bryant APNP Primary Care Provider [phone] Denise Chiang APRN Primary Care Provider + Jacobo Johnson DPM Unavailable [phone] Encounter Details Date Type Department Care Team (Late st Contact Info) Description 08/04/2021 Abstract [facility] [address] [place] [address] Matt Slade MD Social History Tobacco Use [...] PM CDT Legal 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 Gender Identity Female 01/17/2024 1:34 PM [...] Rule Out 03/23/2023 03/23/2023 03/23/2023 11:21 AM TEACHING MANAGER COVID-19 Rule Out 06/22/2023 06/22/2023 06/22/2023 12:31 PM CDT documented as of this encounter Care Teams Credit Control Administrator Relationship Specialty Start Date End Date Kathryn Kim NP [address] [address] PCP - General NURSE PRACTITIONER 09/29/21 08/21/23 Ashley Coello PA [address] [facility] [address] [place] [address] PCP - General PHYSICIAN COPYRIGHT EXPERT 08/22/23 01/21/24 Hazel Bryant APNP [address] [facility] [id number] [address] PCP - General FAMILY PRACTICE 01/22/24 06/11/24 Denise Chiang APRN [address] [place] [id number] PCP - General Nurse Practitioner Family 06/12/24 Kathryn Kim NP [address] [address] NURSE PRACTITIONER 08/03/21 Kathryn Kim NP [address] [address] NURSE PRACTITIONER 08/03/21 12/16/23 Alexa Quiles NP [address] [place], [place] [id number] WOUND CARE 07/11/23 07/10/24 Edi Olvera DPM [address] [place] [address] Consulting Physician PODIATRY/SURGERY 11/20/23 Nelson Ogden MD [address] [place] [address] Consulting Physician INTERNAL MEDICINE 12/17/23 Jacobo Johnson DPM [address] [place] [id number] WOUND CARE 06/16/24 06/16/25 documented as of this encounter
--- OUTSIDE RECORDS SUMMARY | 2024-11-05 19:00 | XMS_ITS | Clinical Summary ---
Author Organization [facility] Address [address] [facility] [place] [address] Care Team Providers Care Retail Business Analyst Name Role Phone Denis Flores MD Primary Care Provider [phone] Source Comments [facility],non-owned Affiliates and Associated Physician Practices is amultiple site organization consisting of ambulatory clinics and hospital sitesin [place], [place], [place] and [place]. This disclosure is being madepursuant to the Care Everywhere program and may not contain all information available regarding this patient. 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
--- OUTSIDE RECORDS SUMMARY | 2024-11-05 19:00 | XMS_ITS | Clinical Summary ---
Author Organization [facility] Address [facility] [place] [address] Care Team Providers Care Install Technician Name Role Phone Blairekrishan Kathryn CANDLE MOLDER HAND Unavailable [phone] Edi Olvera DPM Unavailable [phone] Nelson Ogden MD Unavailable Denise Chiang APRN Primary Care Provider + Jacobo Johnson DPM Unavailable [phone] Allergies Active Allergy Reactions Criticality Noted Date [...] Noted Date Diagnosed Date Diabetic foot infection ([facility]) 2024 Osteomyelitis ([facility]) 01/17/2024 Noncompliance 01/17/2024 Orthopedic aftercare 08/06/2023 Diabetic ulcer of left great toe ([facility]) 06/26/2023 Cellulitis 03/29/2023 Bacteremia 03/25/2023 Diabetic ulcer of right great toe ([facility]) 09/19/2022 Overview (09/20/2022): Added automatically from request for surgery [id number] Cellulitis of right leg 09/19/2022 Overview (09/20/2022): Added automatically from request for surgery [id number] Weakness 09/29/2021 Type 2 diabetes mellitus (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) 06/26/2023 024 Cellulitis and abscess of foot 09/19/2022 08/22/2023 Preop cardiovascular exam 10/24/2021 CVA (cerebral vascular accid ent) ([facility]) 09/26/2021 09/27/2021 Subacute neurologic deficit 09/25/2021 09/27/2021 Encounters Date Type Department Care Team Description 11/03/2024 10:59 AM CDT - 11/03/2024 1:15 PM CDT Emergency [facility] [address] [place] [address] [place] [address] Pio Curiel MD Back Pain Discharge Disposition: Home or Self Care (Routine Discharge) 11/03/2024 Travel 10/01/2024 2:15 PM CDT Home Care Visit [address] [address] Jenni Espinosa, PT PT NON-VISIT DISCIPLINE DISCHARGE 10/01/2024 12:00 PM CDT Home Care Visit [address] [place] [address] Anabelle Wells OT OT OASIS DISCHARGE 09/28/2024 Home Care Visit [facility] [place] [address] [place] [address] Marlen Chi P, HILLIARD CASE COMMUNICATION 09/19/2024 11:15 AM CDT Home Care Visit [facility] [address] [place] [address] Jenni Espinosa, PT PT INITIAL EVALUATION 09/18/2024 12:00 PM CDT Home Care Visit [facility] [address] [place] [address] Marlen Chi P, HILLIARD HILLIARD HOME VISIT 09/16/2024 2:30 PM CDT Home Care Visit [facility] [address] [place] [address] Araceli Chie P, HILLIARD HILLIARD HOME VISIT 09/16/2024 9:30 AM CDT Home Care Visit [facility] [place] [address] [place] [address] Akila Sanchez LPN SN HOME VISIT 09/15/2024 Home Care Visit [facility] [place] [address] [place] [address] Gracia Castro, PT CASE COMMUNICATION 09/12/2024 12:30 PM CDT Home Care Visit [facility] [address] [place] [address] Anabelle Wells, OT OT INITIAL EVALUATION 09/10/2024 9:30 AM CDT Home Care Visit [facility] [place] [address] [place] [address] Arnoldo Flaherty, RN SN OASIS START OF CARE 09/10/2024 Plan of Care Documentation [facility] [place] [address] [place] [address] 09/04/2024 Scan [facility] Home Care [facility] [address] [place] [address] Scanned, [facility] from Last 3 Months Immunizations Immunization [...] from your doctor or pharmacy? Rarely 01/17/2024 [facility] Utilities Answer Date Recorded In the past 12 months has e [employer], gas, oil, or water [employer] threatened to shut off services in your [...] How often do you attend chur or moravian services? Never 01/17/2024 Do you belong to any clubs o r organizations such as yazidi groups, unions, fraternal or athletic groups, or [...] Recorded Patient Health Questionnaire-2 Score 0 03/09/2022 [facility] [place] of Occupat ional Health - Occupational Stress [...] place to sleep or slept in a senior living (including now)? No 06/26/2023 Housing Stability Vital Sign Answer David e Recorded In the last 12 months, was t here a time when you were not able to pay the mortgage or rent on time? No 06/11/2024 In the past 12 months, how m any times have you moved where you were living? 0 06/11/2024 At any time in the past 12 m [facility], were you homeless or living in a senior living (including now)? No 06/11/2024 Comments No Sex and Gender Information Value Date Recorded Sex Assigned at Female 01/17/2024 1:34 PM CDT Legal Sex Female 5:51 PM POST FRAMER Gender Identity Female 01/17/2024 1:34 PM CDT [...] Vaccine (1 - season) 2023 PHQ-2 (Physician [place]) 04/02/2024 Lipid Panel 06/26/2024 06/27/2023, 09/30/2021 Hemoglobin [...] and discharge planning General No Dana Huggins, fox farmer Procedure Name Priority Date/Time Associated Diagnosis Comments [...] 12:37 PM Narrative 11/03/2024 12:40 PM CDT [address] [place] [id number] Examination: Lumbar spine. Exam time: 1107 hours. [...] Procedure Note Donny Tobin MD - 11/03/[address] [place] [address] Examination: Lumbar spine. Exam time: 1107 hours. [...] 11.7(H) <5.7 % 06/12/2024 11:25 AM CDT [facility] ESTIMATED AVG GLUCOSE 289(H) 74 - 114 MG/DL 06/12/2024 11:25 AM CDT [facility] 06/12/2024 10:[address] MD LABORATORY Final Result [facility] [address] [place] [address], [id number] * (ABNORMAL) LIPID PANEL (06/27/2023 5:16 AM CDT) CHOLESTEROL 135 MG/DL 06/27/2023 11:59 AM CDT [facility] Comment:DESIRABLE: <200 TRIGLYCERIDES 192 MG/DL 06/27/2023 11:59 AM CDT [facility] Comment:150-199 BORDERLINE H IGH HDL 38(L) >49 MG/DL 06/27/2023 11:59 AM CDT [facility] LDL-C 59 MG/DL 06/27/2023 11:59 AM CDT [facility] Comment:<100 OPTIMAL VLDL CALCULATION 38 MG/DL 06/27/19 11:59 AM CDT [facility] Comment:REFERENCE RANGE NOT ESTABLISHED CHOL/HDL RATIO 3.6 06/27/2023 11:59 AM CDT [facility] Comment:REFERENCE RANGE NOT ESTABLISHED LDL/HDL 1.5 06/27/2023 11:59 AM CDT [facility] Comment:REFERENCE RANGE NOT ESTABLISHED NON HDL CHOLESTEROL 97 MG/DL 06/27/2023 11:59 AM CDT [facility] Comment:REFERENCE RANGE NOT ESTABLISHED 06/27/2023 5:16 AM CDT Stephanie Coughlin MD LABORATORY Final Result [facility] [address] [place] [address], [id number] from Last 3 Months or Most Recently [...] 9:39 PM 01/22/2024 4:21 PM Care Teams Install Technician Relationship Specialty Start Date End Date Denise Chiang APRN [address] [place] [address] PCP - General Nurse Practitioner Family 06/12/24 Kathryn Kim NP [address] [address] NURSE PRACTITIONER 08/03/21 Edi Olvera DPM [address] [place] [address] Consulting Physician PODIATRY/SURGERY 11/20/23 Nelson Ogden MD [address] [place] [address] Consulting Physician INTERNAL MEDICINE 12/17/23 Jacobo Johnson DPM [address] [place] [id number] WOUND CARE 06/16/24 06/16/25
--- OUTSIDE RECORDS SUMMARY | 2024-11-05 19:00 | XMS_ITS | Encounter Summary ---
Author Organization [facility] Address [facility] [place] [address] Care Team Providers Care Research Project Coordinator Name Role Phone Kathryn Kim SDV PILOT/NAVIGATOR/DDS OPERATOR Unavailable [phone] Kathryn Kim SDV PILOT/NAVIGATOR/DDS OPERATOR Unavailable [phone] Kathryn Kim SDV PILOT/NAVIGATOR/DDS OPERATOR Primary Care Provider [phone] Alexa Quiles SDV PILOT/NAVIGATOR/DDS OPERATOR Unavailable [phone] Ashley Coello Primary Care Provider [phone] Edi Olvera DPM Unavailable [phone] Nelson Ogden MD Unavailable Hazel Bryant APNP Primary Care Provider [phone] Denise Chiang APRN Primary Care Provider + Jacobo Johnson DPM Unavailable [phone] Reason for Visit * Reason Onset Date Comments Follow Up Call 10/04/2021 Encounter Details Date Type Department Care Team (Late st Contact Info) Description 10/04/2021 Hospital Follow-up Call [facility] [address] [place], [place] [id number] Gwen Portillo, RN Follow Up Call Social [...] PM CDT Legal Sex Female 5:51 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 Gender Identity Female 01/17/2024 1:34 PM CDT [...] Rule Out 03/23/2023 03/23/2023 03/23/2023 11:21 AM PORT SURVEYOR COVID-19 Rule Out 06/22/2023 06/22/2023 06/22/2023 12:31 PM CDT documented as of this encounter Care Teams Research Project Coordinator Relationship Specialty Start Date End Date Kathryn Kim NP [address] [address] PCP - General NURSE PRACTITIONER 09/29/21 08/21/23 Ashley Coello PA [address] [address] PCP - General PHYSICIAN BOWLING BALL MOLD ASSEMBLER 08/22/23 01/21/24 Hazel Bryant APNP [address] [facility] [id number] [phone] PCP - General FAMILY PRACTICE 01/22/24 06/11/24 Denise Chiang APRN [address] [place] [address] PCP - General Nurse Practitioner Family 06/12/24 Kathryn Kim NP [address] [address] NURSE PRACTITIONER 08/03/21 Kathryn Kim NP [address] [phone] NURSE PRACTITIONER 08/03/21 12/16/23 Alexa Quiles NP [address] [place] [address] WOUND CARE 07/11/23 07/10/24 Edi Olvera DPM [facility] [place] [address] Consulting Physician PODIATRY/SURGERY 11/20/23 Nelson Ogden MD [facility] [place] [address] Consulting Physician INTERNAL MEDICINE 12/17/23 Jacobo Johnson DPM [address] [place] [address] WOUND CARE 06/16/24 06/16/25 documented as of this encounter
--- OUTSIDE RECORDS SUMMARY | 2024-11-05 19:00 | XMS_ITS | Continuity of Care Document ---
Author Organization [facility] Address [address] [place] [address] Phone Care Team Providers Care Supervisor Rework Name Role Phone Chidi RAJAN, Satish Unavailable [...] Known Problems Procedures Procedure Date OFFICE/OUTPATIENT VISIT, [facility] OFFICE/OUTPATIENT VISIT, [facility] Advance Directives Directive Yes / No Effective Date File Name No Information Encounters Encounter Description Practice Location Reason(s) For Visit Diagnoses Date Provider Providers Copied on Encounter [facility], [address] [place] [address], [facility], tel:[phone] *[facility] No Information 6 Chidi Covarrubias. [address], [address], . tel:[phone] OFFICE/OUTPA TIENT VISIT, [facility], [address] [place] [address], [facility], tel:[phone] *[facility] Hypertension (chief complaint)Neetu betes (chief complaint) Dietary counseling and surveillanceEsse ntial hypertension with goal blood pressure less than 140/90Type 2 diabetes mellitus with hyperglycemiaAty pical chest pain 6 Chidi Coavrrubias. [address], [address], [place]. [phone] OFFICE/OUTPA TIENT VISIT, [facility], [address] [place] [address], [facility], tel:[phone] *[facility] swelling (chief complaint) Swelling 4 Chidi Covarrubias. [address], [address], . tel:[phone] Family History Family Member Type Diagnosis Age At Onset No Information Payers Payer name Insurance type Covered libertarian [...] Additional information: PT was just seen in [facility] for her bp being elevated and [...] No Information Instructions Date Instruction Additional Infor ojsh Dietary management e ducation, guidance, and counseling Related to Dietary counseling and surveillance Assessments Type Assessment Date No Information Patient Care Teams Name Effective Dates (start - stop) Status Members No Information
--- NOTE | 2024-11-05 19:08 | PC.NURSE ---
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 patient not in room, currently in imaging at this time.
[2024-11-05] MEDS: ONDANSETRON HCL ODT 4 MG TABLET PO (19:28)
[2024-11-05] MEDS: HYDROmorphone HCL INJ (*CRX) 2 MG/ML VIAL 0.5 MG IM (19:28)
--- NOTE | 2024-11-05 19:31 | PC.NURSE ---
pt returned from imaging, per trade embalmer, states she was unable to get all pictures as ordered. RN entry to room after pulling medications ordered, pt sitting upright on stretcher with legs dangling to side. pt medicated per order, see MAY. trade embalmer returned to finish imaging. pt given water per request and ERP ok.
--- NOTE | 2024-11-05 20:05 | PC.NURSE ---
PT RESTING ON STRETCHER IN ED 1, STRETCHER ADJUSTED PER PT REQUEST AND PT GIVEN WARM BLANKET FOR COMFORT. AWAITING RESULTS OF IMAGING. FAX RECEIVED FROM [facility] PT VISITED REGARDING SAME COMPLAINT, ERP VIEWED DOCUMENT.
--- NOTE | 2024-11-05 20:34 | PC.NURSE ---
update provided. pt reports her pain is now tolerable and she was able to nap. pt remains awaiting results of imaging. call light within reach and overhead lights dimmed.
[2024-11-05 21:30] VITALS: BP 155/50; PULSE 79; RESP 16; TEMP 36.3; O2SAT 92
--- NOTE | 2024-11-05 21:40 | PC.NURSE ---
HALIE BURGESS AT BEDSIDE PROVIDING PATIENT UPDATE ON RESULTS AND PLAN OF CARE.
[2024-11-05] MEDS: HYDROcodone/acetaminophen (*CRX) 5-325 MG TABLET 1 TAB PO (21:58)
== END 2024-11-05 22:02 | disposition home or self-care (01) ==
PROVIDERS: Emergency Provider Internal Medicine Critical Care Medicine; PCP Nurse Practitioner Family
DX: M54.41 Lumbago with sciatica, right side (principal); M25.551 Pain in right hip; E78.5 Hyperlipidemia, unspecified; E11.9 Type 2 diabetes mellitus without complications; I10 Essential (primary) hypertension; F17.210 Nicotine dependence, cigarettes, uncomplicated; Z79.4 Long term (current) use of insulin; Z79.891 Long term (current) use of opiate analgesic; Z85.42 Personal history of malignant neoplasm of other parts of uterus; W19.XXXD Unspecified fall, subsequent encounter
CPT/HCPCS: 72131; 72170; 96372; 99284; A9270; J1171